=== PATIENT | male | born 1965 | race Two or more races ===

== ENCOUNTER 2020-09-13 10:16 | Outpatient (REF) | payer MEDICAID, SELFPAY | END 2020-09-13 10:17 | disposition home or self-care (01) | LOC: HO.HAP 10:16 | PROVIDERS: Visit Provider Internal Medicine Geriatric Medicine | DX: Z13.89 Encounter for screening for other disorder (principal) ==

== ENCOUNTER 2021-02-03 15:16 | Inpatient (IN) | payer MEDICAID, SELFPAY ==
--- NOTE | ~2021-02-03 | CT_ITS ---
EXAMINATION: CT ABDOMEN AND PELVIS WITHOUT CONTRAST CLINICAL INFORMATION: Bilateral flank pain. Lower abdominal pain. COMPARISON: No priors. TECHNIQUE: Multidetector volumetric imaging was performed from the superior aspect of the liver through the pubic symphysis. Sagittal and coronal reformatted images were obtained on the technologist's workstation. This CT examination was performed using dose optimization techniques as appropriate, variously including the following: *Automated exposure control *Adjustment of mA and/or kV according to patient size (this includes techniques or standardized protocols for targeted exams where dose is matched to indication/reason for exam; i.e. extremities or head) *Use of iterative reconstruction technique DLP: 673 mGy-cm FINDINGS: LINES AND TUBES: None. LOWER THORAX: Normal HEPATOBILIARY: Tiny segment 5 calcification (3:31). No focal hepatic lesions. The gallbladder is present and otherwise unremarkable. No biliary dilatation. SPLEEN: Normal. PANCREAS: Normal. ADRENALS: Normal. KIDNEYS/URETERS: Approximately 3 cm distal to the UPJ, there is a 7 mm calculus in the left proximal ureter (5:62). Additionally, a calculus measuring up to 5 mm is noted at the left UVJ (3:75). There is associated mild hydronephrosis and perinephric inflammatory changes. BLADDER: Normal. PELVIC ORGANS: Prostate seminal vesicles are normal in caliber. GI TRACT: No dilated or thick walled loops of bowel. The appendix is normal (3:63). PERITONEUM/RETROPERITONEUM AND MESENTERY: No intraperitoneal free air or fluid. LYMPH NODES: No pathologically enlarged lymph nodes. VESSELS: Normal in caliber. BONES AND SOFT TISSUES: No aggressive osseous lesions. 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 Intact hardware components. CT/CT abdomen pelvis wo con IMPRESSION: Obstructing left ureteral calculi positioned in the proximal left ureter measuring up to 7 mm as well as at the left UVJ measuring up to 5 mm. Associated mild left renal hydronephrosis and left perinephric inflammatory changes.
[2021-02-03 15:25] VITALS: BP 154/89; PULSE 62; RESP 16; TEMP 36.5; O2SAT 100; BMI 28.0
[2021-02-03 16:57] VITALS: BP 153/95; PULSE 60; RESP 18; TEMP 36.8; O2SAT 99
--- NOTE | 2021-02-03 17:20 | ED_ITS ---
HPI - General Adult General Chief complaint: General Medical Stated complaint: Flank pain Time Seen by Provider: 02/03/21 17:12 Source: patient Mode of arrival: ambulatory History of Present Illness HPI narrative: 55-year-old male a past medical history hypertension, renal stones, presenting to the ED complaining of bilateral flank pain radiating to lower abdomen/testicles x2 days. Admits pain is constant. Denies associated nausea/vomiting, dysuria/hematuria, constipation, penile discharge, fever, chills, hesitancy. Admits pain feels similar to prior renal stones Onset (ago): day(s) Related Data Allergies Allergy/AdvReac Type Severity Reaction Status Date / Time No Known Allergies Allergy Unverified 06/15/20 16:41 Review of Systems Review of Systems: Constitutional: No Fever, No Chills Cardiovascular: No Chest Pain, No SOB Respiratory: No Cough, No Dyspnea Gastrointestinal: No Nausea, No Vomiting, No Diarrhea, No Constipation, + Abdominal pain Genitourinary: No Dysuria, No Urinary Frequency, No Hematuria, No Urgency,+Flank Pain, No Urinary Flow Changes, No Hesitancy Musculoskeletal: No joint pain, No Myalgias, No Joint Swelling Skin: No Skin Lesions, No rash Neuro: No Weakness, No Numbness, No Paresthesias Yes all other systems are reviewed and are negative [facility] Past Medical History Attestation statement: The following information was validated with the patient. Medical History (Updated 02/03/21 @ 19:49 by TITO Dutta) HTN (hypertension) Social History Social History Smoking Status: Current every day smoker Smoked in Last 30 Days: Yes Use of substances other than those prescribed or required for medical reasons: No Advance Directives: No Advance Directives Information Provided: Yes Physical Exam Vital Signs: Vital Signs: Last Vital Signs Temp 98.2 F 02/03/21 16:57 Pulse 60 02/03/21 16:57 Resp 18 02/03/21 16:57 BP 153/95 H 02/03/21 16:57 Pulse Ox 99 02/03/21 16:57 Body Mass Index 28.0 Const: Other: in pain General: cooperative and healthy appearing Orientation/consciousness: patient oriented x3 Limitations: no limitations HENMT: Head: Yes normal to inspection Ears: hearing grossly normal bilaterally General nose exam: Normal external nose present Face and sinus: Yes normal facial exam Eyes: General: appearance normal, both eyes and all related structures EOM: EOMs intact bilaterally Neck: Neck: Yes normal visual inspection and Yes no meningeal signs Resp: Effort & Inspection: normal respiratory effort Cardio: Rate: regular rate GI: Inspection: Yes normal to inspection Palpation (GI): Soft to palpation, nontender, no guarding and not rigid : General: Yes no CVA tenderness Scrotum: scrotum normal Testes: Testes normal, testicular lie normal, no testicular mass and no testicular swelling Back/Spine/Pelvis: Back: no CVA tenderness Skin: Rashes: no rashes Wounds: no wounds Neuro: General: patient oriented x3 and no meningeal signs Extrem: General: Yes normal to inspection Course Course Course Narrative: -TOREY with creatinine 1.5, lipase mildly elevated at 83 CT abdomen pelvis wo con IMPRESSION: Obstructing left ureteral calculi positioned in the proximal left ureter measuring up to 7 mm as well as at the left UVJ measuring up to 5 mm. Associated mild left renal hydronephrosis and left perinephric inflammatory changes. >> discussed with Urology, Dr. Broderick, patient NPO, will admit to hospitalist -1930-patient admitted to hospitalist Medical Decision Making [facility] Narrative Medical decision making narrative: 55-year-old male a past medical history hypertension, renal stones, presenting to the ED complaining of bilateral flank pain radiating to lower abdomen/testicles x2 days. On exam VSS, NAD however appears in pain, abdomen is soft/nontender, no CVAT or testicular tenderness elicited. Concern for renal stone/pyelo/UTI. Lower concern for testicular torsion/epididymitis/orchitis. Lower concern for diverticulitis/appendicitis without tenderness on exam Plan: Labs, UA, CTAP, symptomatic treatment, reassess Lab Data Result diagrams: 02/03/21 17:42 02/03/21 17:42 Labs: Lab Results 02/03/21 02/03/21 02/03/21 Range/Units 17:42 17:42 17:42 WBC 8.9 (4.8-10.8) X10*3/uL RBC 5.03 (4.60-5.80) X10*6/uL Hgb 14.8 (14.0-18.0) g/dl Hct 44.0 (42-52) % MCV 87.5 (80-98) fL MCH 29.4 (27.0-33.0) pg MCHC 33.6 (31.0-36.0) g/dl RDW 14.8 (11.0-16.0) % Plt Count 198 (160-400) X10*3/uL MPV 10.6 (9.4-12.4) fL Immature Gran % (Auto) 0.3 (0.0-0.4) % Neut % (Auto) 64.6 (45-73) % Lymph % (Auto) 22.0 (20-40) % [place] % (Auto) 10.7 (2-11) % Eos % (Auto) 1.9 (0-4) % Baso % (Auto) 0.5 (0-2) % Lymph # (Auto) 2.0 (1.2-4.9) X10*3/uL [place] # (Auto) 1.0 (0.1-1.2) X10*3/uL Eos # (Auto) 0.2 (0.0-0.4) X10*3/uL Baso # (Auto) 0.0 (0.0-0.2) X10*3/uL Abs Immat Gran (auto) 0.03 (0.00-0.03) X10*3/uL Absolute Neuts (auto) 5.7 (2.0-8.3) X10*3/uL Absolute Nucleated RBC 0.000 (0.0-0.012) X10*3/uL Nucleated RBC % (auto) 0.0 (0.0-0.2) /100WBC PT 12.8 (10.8-13.0) SEC INR 1.1 (0.9-1.1) APTT 31.5 (24.1-38.0) SEC Sodium 142 (135-145) mmol/L Potassium 4.0 (3.3-5.1) mmol/L Chloride 106 (96-108) mmol/L Carbon Dioxide 27 (22-29) mmol/L Anion Gap 13 (12-20) BUN 19 H (9-16) mg/dL Creatinine 1.50 H (0.5-1.4) mg/dL Estim Creat Clear Calc 61.2 Estimated GFR 49 Random Glucose 84 (60-115) mg/dL Calcium 9.2 (8.4-10.2) mg/dL Magnesium 2.2 (1.6-2.6) mg/dL Total Bilirubin 0.5 (0.0-1.0) mg/dL Direct Bilirubin < 0.2 (0.0-0.5) mg/dL AST 15 (5-37) U/L ALT 13 (0-40) U/L Alkaline Phosphatase 67 (39-117) U/L Total Protein 7.0 (6.5-8.0) g/dL Albumin 3.9 (3.5-5.0) g/dL Lipase 83 H (8-78) U/L Discharge Plan Discharge Clinical Impression: Left ureteral calculus Patient Disposition: Admitted As Inpatient
[2021-02-03 17:54] LABS: MANUAL DIFF FLAG NO
[2021-02-03 17:55] LABS: Basophils Percent Auto 0.5 % (0-2); Eosinophils Absolute Auto 0.2 X10*3/uL (0.0-0.4); Eosinophils Percent Auto 1.9 % (0-4); Hemoglobin 14.8 g/dl (14.0-18.0); Imm Gran Abs Auto 0.03 X10*3/uL (0.00-0.03); Imm Gran Pct Auto 0.3 % (0.0-0.4); Mean Corpuscular HGB Conc 33.6 g/dl (31.0-36.0); Mean Corpuscular Hemoglobin 29.4 pg (27.0-33.0); Mean Corpuscular Volume 87.5 fL (80-98); Mean Platelet Volume 10.6 fL (9.4-12.4); Monocytes Percent Auto 10.7 % (2-11); Neutrophils Absolute Auto 5.7 X10*3/uL (2.0-8.3); Neutrophils Percent Auto 64.6 % (45-73); Platelet Count 198 X10*3/uL (160-400); Red Blood Count 5.03 X10*6/uL (4.60-5.80); Red Cell Distribution Width 14.8 % (11.0-16.0); White Blood Count 8.9 X10*3/uL (4.8-10.8)
[2021-02-03] MEDS: 0.9 % Sodium Chloride 1,000 ML 999 ML IVCONT ×2 (18:00→19:36)
[2021-02-03] MEDS: Ketorolac Tromethamine 15 MG/ML VIAL IVPUSH ×2 (18:00→20:44)
[2021-02-03] MEDS: Tamsulosin HCL 0.4 MG CAPSULE PO (18:00)
[2021-02-03] MEDS: ondansetron HCL 4 MG/2 ML VIAL IVPUSH (18:01)
[2021-02-03 18:03] LABS: INTERNATIONAL NORM RATIO 1.1 (0.9-1.1); Prothrombin Time 12.8 SEC (10.8-13.0)
[2021-02-03 18:05] LABS: Partial Thromboplastin Time 31.5 SEC (24.1-38.0)
[2021-02-03 18:31] LABS: Alanine Aminotransferase 13 U/L (0-40); Albumin Level 3.9 g/dL (3.5-5.0); Alkaline Phosphatase 67 U/L (39-117); Anion Gap 13 (12-20); Aspartate Amino Transferase 15 U/L (5-37); Bilirubin Direct < 0.2 mg/dL (0.0-0.5); Bilirubin Total 0.5 mg/dL (0.0-1.0); Blood Urea Nitrogen 19 mg/dL (9-16); Calcium 9.2 mg/dL (8.4-10.2); Carbon Dioxide 27 mmol/L (22-29); Chloride 106 mmol/L (96-108); Creatinine Clr Calc Pharmacy 61.2; Estimated Glomerular Filt Rate 49; Glucose Random 84 mg/dL (60-115); Lipase 83 U/L (8-78); Magnesium 2.2 mg/dL (1.6-2.6); Sodium 142 mmol/L (135-145)
[2021-02-03 19:45] VITALS: BP 152/96; PULSE 64; RESP 16; O2SAT 98
[2021-02-03 20:06] LABS: Glucose Urine UA NEG (NEG); Leukocyte Esterase Urine NEG (NEG); Nitrite Urine NEG (NEG); PH 6.5 (5.0-8.0); Urine Blood 2+ (NEG); Urine Ketones NEG (NEG); Urine Protein NEG (NEG-TRACE)
[2021-02-03 20:08] LABS: Appearance Urine HAZY; Color Urine STRAW
[2021-02-03 20:18] LABS: Amorphous Sediment Urine 2+ /LPF; COVID-19 Test Negative (Negative); Calcium Oxalate Crystals Urine TRACE /LPF; Squamous Epithelial Cell Urine TRACE /LPF; WBC Urine 0 /HPF (0-4)
--- NOTE | 2021-02-03 21:05 | PM.IMHP ---
History of Present Illness Date of Service: 02/03/21 Chief Complaint: flank pain 55-year-old male with past medical history of hypertension, kidney stones, depression and anxiety presents the hospital with complaints of ? kidney pain . Patient reports that he started having flank pain about 1 day ago mostly bilateral. Associated with some nausea no vomiting, pain is 10/10, radiating to the suprapubic region, also having testicular pain as a result, no fever or chills, denies any urinary symptoms including no urgency frequency or dysuria. Denies any chest pain abdominal pain, no diarrhea or constipation, no weakness numbness or tingling, no headache change in vision. No leg swelling. On arrival hemodynamically stable with no significant abnormal vitals except for blood pressure 154/89, Labs on arrival significant for BUN of 19, creatinine of 1.5 with a baseline of 0.9, UA negative, COVID-19 negative, Abdominal CT shows left ureteral calculi positioned in the proximal left ureter measuring up to 7 mm as well as at the left UVJ measuring up to 5 mm. Associated mild left renal hydronephrosis and left perinephric inflammatory changes. Past medical history as below lung confirmed with patient Review of Systems Review of Systems: Yes all other systems are reviewed and are negative [facility] Medical History (Updated 02/04/21 @ 05:50 by Matilde Rodríguez MD) Depression with anxiety History of kidney stones HTN (hypertension) Social History Household Members: Children Household Members Other:: 6 Housing: Apartment Do you presently have visiting nurse or other home services: No Smoking Status: Current every day smoker Tobacco Type: Cigarette Cigarettes Per Day: 5 Smoked in Last 30 Days: Yes Patient Interested in Nicotine Replacement: Yes Patient Given Instructions on How to Stop Smoking: Yes Date Education Initiated: 02/03/21 Second Hand Smoke Exposure: No Use of substances other than those prescribed or required for medical reasons: No Currently Displaying Signs/Symptoms of Drug Intoxication Withdrawal: No Have you been hit, kicked, punched, or otherwise hurt by someone within the past year? If so, by whom?: No Do you feel safe in your current relationship?: Yes Is there a partner from a previous relationship who is making you feel unsafe now?: No Are you made to feel afraid or neglected: No Advance Directives: No Advance Directives Information Provided: Yes Do you have thoughts of harming others: None Do you have a plan to hurt others: No Plan Recently lost weight without trying: No Nutrition Risks: No Nutritional Risk Poor oral hygiene: No Meds Allergies Allergy/AdvReac Type Severity Reaction Status Date / Time No Known Allergies Allergy Unverified 06/15/20 16:41 Active Medications: Current Medications Generic Name Dose Route Start Last Admin Trade Name Freq PRN Reason Stop Dose Admin Pharmacy Consult 1 each 02/03/21 19:38 Consult Rx Perform Med Rec MISCELLANE ONCE PRN Consult order Home Medications Medication Instructions Recorded Confirmed Last Taken Type amlodipine 1 tab PO DAILY 02/03/21 02/03/21 1 Day Ago History ~02/02/21 Physical Exam Vital Signs and Narrative: Vital Signs: Last Vital Signs Temp 98.2 F 02/03/21 16:57 Pulse 64 02/03/21 19:45 Resp 16 02/03/21 19:45 BP 152/96 H 02/03/21 19:45 Pulse Ox 98 02/03/21 19:45 Body Mass Index 28.0 Const: General: cooperative and no acute distress Orientation/consciousness: patient oriented x3 Eyes: General: appearance normal, both eyes and all related structures Resp: Effort & Inspection: normal respiratory effort and able to speak in complete sentences Cardio: Rate: regular rate Rhythm: regular rhythm GI: Palpation (GI): Soft to palpation Auscultation: normal bowel sounds : Other: No CVA tenderness Skin: General skin exam: no rashes or lesions noted Neuro: General: patient oriented x3 Cognition (Neuro): normal cognition Extrem: General: Yes normal to inspection and Yes no pedal edema Results Labs CBC and Chem 7: 02/03/21 17:42 02/03/21 17:42 Labs: Laboratory Results - last 24 hr 02/03/21 02/03/21 02/03/21 17:42 17:42 17:42 MCV 87.5 MCH 29.4 MCHC 33.6 RDW 14.8 Plt Count 198 MPV 10.6 Immature Gran % (Auto) 0.3 Neut % (Auto) 64.6 Lymph % (Auto) 22.0 [place] % (Auto) 10.7 Eos % (Auto) 1.9 Baso % (Auto) 0.5 Lymph # (Auto) 2.0 [place] # (Auto) 1.0 Eos # (Auto) 0.2 Baso # (Auto) 0.0 Abs Immat Gran (auto) 0.03 Absolute Neuts (auto) 5.7 Absolute Nucleated RBC 0.000 Nucleated RBC % (auto) 0.0 PT 12.8 INR 1.1 APTT 31.5 Anion Gap 13 Estim Creat Clear Calc 61.2 Estimated GFR 49 Random Glucose 84 Calcium 9.2 Magnesium 2.2 Total Bilirubin 0.5 Direct Bilirubin < 0.2 AST 15 ALT 13 Alkaline Phosphatase 67 Total Protein 7.0 Albumin 3.9 Lipase 83 H Urine Color Urine Appearance Urine pH Ur Specific [place] Urine Protein Urine Glucose (UA) Urine Ketones Urine Blood Urine Nitrite Ur Leukocyte Esterase Urine RBC Urine WBC Ur Squamous Epith Cells Calcium Oxalate Crystal Amorphous Sediment Urine Bacteria COVID-19 (MARY) COVID-19 [employer] Element Com 02/03/21 02/03/21 19:57 19:57 MCV MCH MCHC RDW Plt Count MPV Immature Gran % (Auto) Neut % (Auto) Lymph % (Auto) [place] % (Auto) Eos % (Auto) Baso % (Auto) Lymph # (Auto) [place] # (Auto) Eos # (Auto) Baso # (Auto) Abs Immat Gran (auto) Absolute Neuts (auto) Absolute Nucleated RBC Nucleated RBC % (auto) PT INR APTT Anion Gap Estim Creat Clear Calc Estimated GFR Random Glucose Calcium Magnesium Total Bilirubin Direct Bilirubin AST ALT Alkaline Phosphatase Total Protein Albumin Lipase Urine Color STRAW Urine Appearance HAZY Urine pH 6.5 Ur Specific [place] 1.020 Urine Protein NEG Urine Glucose (UA) NEG Urine Ketones NEG Urine Blood 2+ H Urine Nitrite NEG Ur Leukocyte Esterase NEG Urine RBC 1-4 Urine WBC 0 Ur Squamous Epith Cells TRACE Calcium Oxalate Crystal TRACE Amorphous Sediment 2+ Urine Bacteria NONE COVID-19 (MARY) Negative COVID-19 Clin Com See Note Imaging Radiologist's Impressions: Impressions Abdomen/Pelvis CT 02/03/21 17:45 IMPRESSION: Obstructing left ureteral calculi positioned in the proximal left ureter measuring up to 7 mm as well as at the left UVJ measuring up to 5 mm. Associated mild left renal hydronephrosis and left perinephric inflammatory changes. Assessment and Plan (1) Left ureteral calculus: Status: Acute (2) TOREY (acute kidney injury): Status: Acute This is a 55-year-old male with past medical history of hypertension who presents to the hospital with complaints of flank pain found to have obstructing stone # left ureteral calculus with obstruction - UA negative for infection, although CT scan does show some changes of perinephric inflammatory changes - will start him on IV antibiotics - urology consult as, plans for surgery in a.m. - pain control # TOREY - most likely secondary to urinary obstruction - UA shows no evidence of infection - start him on IV fluids - follow BMP # hypertension - continue amlodipine DVT prophylaxis: SCDs in anticipation of surgical intervention
[2021-02-03 21:35] VITALS: BP 102/61; PULSE 63; RESP 16; O2SAT 97
[2021-02-03 22:03] VITALS: BP 170/96; PULSE 56; RESP 18; TEMP 36.1; O2SAT 99
[2021-02-04] VITALS (12 sets, daily range): BP systolic 131–159; BP diastolic 76–90; PULSE 53–78; RESP 15–19; TEMP 36.1–36.4; O2SAT 96–99
[2021-02-04] MEDS: 0.9 % Sodium Chloride Flush 3 ML SYRINGE IVFLUSH ×2 (04:43→23:32)
[2021-02-04] MEDS: cefTRIAXone sodium 1 GM in 0.9 % Sodium Chloride 50 ML IV (06:06)
[2021-02-04] MEDS: Lactated Ringers 1,000 ML 100 ML IVCONT ×3 (06:45→23:34)
[2021-02-04 07:14] LABS: MANUAL DIFF FLAG NO
[2021-02-04 07:18] LABS: Basophils Percent Auto 0.6 % (0-2); Eosinophils Absolute Auto 0.2 X10*3/uL (0.0-0.4); Eosinophils Percent Auto 2.4 % (0-4); Hematocrit 40.6 % (42-52); Hemoglobin 13.5 g/dl (14.0-18.0); Imm Gran Abs Auto 0.03 X10*3/uL (0.00-0.03); Imm Gran Pct Auto 0.4 % (0.0-0.4); Lymphocytes Absolute Auto 1.6 X10*3/uL (1.2-4.9); Lymphocytes Percent Auto 23.1 % (20-40); Mean Corpuscular HGB Conc 33.3 g/dl (31.0-36.0); Mean Corpuscular Hemoglobin 28.7 pg (27.0-33.0); Mean Corpuscular Volume 86.4 fL (80-98); Mean Platelet Volume 10.8 fL (9.4-12.4); Monocytes Absolute Auto 0.6 X10*3/uL (0.1-1.2); Monocytes Percent Auto 9.2 % (2-11); Neutrophils Absolute Auto 4.4 X10*3/uL (2.0-8.3); Neutrophils Percent Auto 64.3 % (45-73); Platelet Count 184 X10*3/uL (160-400); Red Cell Distribution Width 14.6 % (11.0-16.0); White Blood Count 6.8 X10*3/uL (4.8-10.8)
--- NOTE | 2021-02-04 07:51 | HO.PM.IMPN ---
Subjective Subjective Date of Service: 02/04/21 Interval History: Seen in f/u for obstructive uropathy kidney stone, and torey--flank pain is better following cystoscopy Review of Systems Gen: no fever Resp: no sob, no cough CV: no chest, no ROSA, no leg edema GI: No n/v, no abd pain : flank pain Neuro: No confusion Physical Exam Vital Signs: Vital Signs: Last Vital Signs Temp 96.6 F L 02/05/21 03:36 Pulse 59 02/05/21 03:36 Resp 16 02/05/21 04:00 BP 151/95 H 02/05/21 03:36 Pulse Ox 99 02/05/21 03:36 Body Mass Index 28.0 General: AO X 3, no acute distress Resp: CTA bilateral CVS: S1,S2,RRR GI: +BS, NT, no distention : he has nascimento with punch color urine Skin: No rash Neuro: motor grossly intact Psych: appropriate affect Objective Data Current Medications Generic Name Dose Route Start Last Admin Trade Name Jakobq PRN Reason Stop Dose Admin Acetaminophen 650 mg 02/03/21 21:41 02/04/21 19:42 Acetaminophen 325 Mg Tablet PO 650 mg Q6H PRN Administration Pain, Mild (Pain Scale 1-3) Amlodipine Besylate 5 mg 02/04/21 09:00 02/04/21 08:11 Amlodipine Besylate 5 Mg Tablet PO 5 mg DAILY JEFFERY Administration Protocol Docusate Sodium 100 mg 02/03/21 21:41 Docusate Sodium 100 Mg Capsule PO DAILY PRN Constipation Lactated Ringer's 1,000 mls @ 100 mls/hr 02/04/21 06:00 02/04/21 23:34 Lr IVCONT 100 mls/hr .Q10H JEFFERY Administration Ceftriaxone Sodium 1 gm/ 50 mls @ 100 mls/hr 02/04/21 06:00 02/05/21 06:59 Sodium Chloride IV Infused Q24H JEFFERY Infusion Ondansetron HCl 4 mg 02/03/21 21:41 Ondansetron Hcl 4 Mg/2 Ml Vial IVPUSH Q8H PRN Nausea and Vomiting Pharmacy Consult 1 each 02/03/21 19:38 Consult Rx Perform Med Rec MISCELLANE ONCE PRN Consult order Sodium Chloride 3 ml 02/04/21 00:00 05/09/21 23:32 0.9 % Sodium Chloride Flush 3 Ml Syringe IVFLUSH 3 ml QSHIFT JEFFERY Administration Labs CBC & Chem 7: 02/04/21 06:31 02/04/21 06:31 Assessment and Plan (1) Left ureteral calculus: Status: Acute (2) TOREY (acute kidney injury): Status: Acute Assessment and Plan: 55-year-old male with past medical history of hypertension who presents to the hospital with complaints of flank pain found to have obstructing stone # left ureteral calculus with obstruction - UA negative for infection, although CT scan does show some changes of perinephric inflammatory changes - empiric Ceftriaxone -He went for Cystoscopy with stent placement - # TOREY - most likely secondary to urinary obstruction -continue IV fluid -expect that it will get beter # hypertension - continue amlodipine late entry note from 02/04 DVT prophylaxis: SCDs in anticipation of surgical intervention
[2021-02-04 07:55] LABS: Anion Gap 10 (12-20); Blood Urea Nitrogen 17 mg/dL (9-16); Carbon Dioxide 24 mmol/L (22-29); Chloride 110 mmol/L (96-108); Creatinine Clr Calc Pharmacy 59.2; Estimated Glomerular Filt Rate 47; Glucose Random 94 mg/dL (60-115); Sodium 140 mmol/L (135-145)
[2021-02-04 08:04] LABS: Calcium 8.3 mg/dL (8.4-10.2)
--- NOTE | 2021-02-04 08:05 | HO.ANESPROP2 ---
[facility] Active Problems Active Problems: All Active Problems (Updated 02/04/21 @ 05:50 by Matilde Rodríguez MD) TOREY (acute kidney injury) (Acute) Left ureteral calculus (Acute) Past Medical History Medical History (Updated 02/04/21 @ 05:50 by Matilde Rodríguez MD) Depression with anxiety History of kidney stones HTN (hypertension) Social History Social History Household Members: Children Household Members Other:: 6 Housing: Apartment Do you presently have visiting nurse or other home services: No Smoking Status: Current every day smoker Tobacco Type: Cigarette Cigarettes Per Day: 5 Smoked in Last 30 Days: Yes Patient Interested in Nicotine Replacement: Yes Patient Given Instructions on How to Stop Smoking: Yes Date Education Initiated: 02/03/21 Second Hand Smoke Exposure: No Use of substances other than those prescribed or required for medical reasons: No Currently Displaying Signs/Symptoms of Drug Intoxication Withdrawal: No Have you been hit, kicked, punched, or otherwise hurt by someone within the past year? If so, by whom?: No Do you feel safe in your current relationship?: Yes Is there a partner from a previous relationship who is making you feel unsafe now?: No Are you made to feel afraid or neglected: No Advance Directives: No Advance Directives Information Provided: Yes Do you have thoughts of harming others: None Do you have a plan to hurt others: No Plan Recently lost weight without trying: No Nutrition Risks: No Nutritional Risk Poor oral hygiene: No Meds Allergies Allergy/AdvReac Type Severity Reaction Status Date / Time No Known Allergies Allergy Unverified 06/15/20 16:41 Active Medications: Current Medications Generic Name Dose Route Start Last Admin Trade Name Freq PRN Reason Stop Dose Admin Acetaminophen 650 mg 02/03/21 21:41 Acetaminophen 325 Mg Tablet PO Q6H PRN Pain, Mild (Pain Scale 1-3) Amlodipine Besylate 5 mg 02/04/21 09:00 Amlodipine Besylate 5 Mg Tablet PO DAILY JEFFERY Protocol Docusate Sodium 100 mg 02/03/21 21:41 Docusate Sodium 100 Mg Capsule PO DAILY PRN Constipation Lactated Ringer's 1,000 mls @ 100 mls/hr 02/04/21 06:00 02/04/21 06:45 Lr IVCONT 100 mls/hr .Q10H JEFFERY Administration Ceftriaxone Sodium 1 gm/ 50 mls @ 100 mls/hr 02/04/21 06:00 02/04/21 06:47 Sodium Chloride IV Infused Q24H JEFFERY Infusion Ondansetron HCl 4 mg 02/03/21 21:41 Ondansetron Hcl 4 Mg/2 Ml Vial IVPUSH Q8H PRN Nausea and Vomiting Pharmacy Consult 1 each 02/03/21 19:38 Consult Rx Perform Med Rec MISCELLANE ONCE PRN Consult order Sodium Chloride 3 ml 02/04/21 00:00 02/04/21 07:08 0.9 % Sodium Chloride Flush 3 Ml Syringe IVFLUSH Not Given QSHIFT [facility] Home Medications Medication Instructions Recorded Confirmed Last Taken Type amlodipine 1 tab PO DAILY 02/03/21 02/03/21 1 Day Ago History ~02/02/21 Exam Exam Date and Time: February 04, 2021 0805 Height,Weight and Vital Signs: Height 5 ft 9 in Weight 86.183 kg Last Vital Signs Temp 96.9 F 02/04/21 04:00 Pulse 58 02/04/21 04:00 Resp 17 02/04/21 04:00 BP 136/85 02/04/21 04:00 Pulse Ox 98 02/04/21 04:00 Pertinent Lab Results Pertinent Lab Results: Laboratory Tests 02/03/21 02/03/21 02/03/21 17:42 17:42 17:42 WBC 8.9 RBC 5.03 Hgb 14.8 Hct 44.0 MCV 87.5 MCH 29.4 MCHC 33.6 RDW 14.8 Plt Count 198 MPV 10.6 Immature Gran % (Auto) 0.3 Neut % (Auto) 64.6 Lymph % (Auto) 22.0 [place] % (Auto) 10.7 Eos % (Auto) 1.9 Baso % (Auto) 0.5 Lymph # (Auto) 2.0 [place] # (Auto) 1.0 Eos # (Auto) 0.2 Baso # (Auto) 0.0 Abs Immat Gran (auto) 0.03 Absolute Neuts (auto) 5.7 Absolute Nucleated RBC 0.000 Nucleated RBC % (auto) 0.0 PT 12.8 INR 1.1 APTT 31.5 Sodium 142 Potassium 4.0 Chloride 106 Carbon Dioxide 27 Anion Gap 13 BUN 19 H Creatinine 1.50 H Estim Creat Clear Calc 61.2 Estimated GFR 49 Random Glucose 84 Calcium 9.2 Magnesium 2.2 Total Bilirubin 0.5 Direct Bilirubin < 0.2 AST 15 ALT 13 Alkaline Phosphatase 67 Total Protein 7.0 Albumin 3.9 Lipase 83 H Urine Color Urine Appearance Urine pH Ur Specific [place] Urine Protein Urine Glucose (UA) Urine Ketones Urine Blood Urine Nitrite Ur Leukocyte Esterase Urine RBC Urine WBC Ur Squamous Epith Cells Calcium Oxalate Crystal Amorphous Sediment Urine Bacteria COVID-19 (MARY) COVID-19 Clin Com 02/03/21 02/03/21 02/04/21 19:57 19:57 06:31 WBC 6.8 RBC 4.70 Hgb 13.5 L Hct 40.6 L MCV 86.4 MCH 28.7 MCHC 33.3 RDW 14.6 Plt Count 184 MPV 10.8 Immature Gran % (Auto) 0.4 Neut % (Auto) 64.3 Lymph % (Auto) 23.1 [place] % (Auto) 9.2 Eos % (Auto) 2.4 Baso % (Auto) 0.6 Lymph # (Auto) 1.6 [place] # (Auto) 0.6 Eos # (Auto) 0.2 Baso # (Auto) 0.0 Abs Immat Gran (auto) 0.03 Absolute Neuts (auto) 4.4 Absolute Nucleated RBC 0.000 Nucleated RBC % (auto) 0.0 PT INR APTT Sodium Potassium Chloride Carbon Dioxide Anion Gap BUN Creatinine Estim Creat Clear Calc Estimated GFR Random Glucose Calcium Magnesium Total Bilirubin Direct Bilirubin AST ALT Alkaline Phosphatase Total Protein Albumin Lipase Urine Color STRAW Urine Appearance HAZY Urine pH 6.5 Ur Specific [place] 1.020 Urine Protein NEG Urine Glucose (UA) NEG Urine Ketones NEG Urine Blood 2+ H Urine Nitrite NEG Ur Leukocyte Esterase NEG Urine RBC 1-4 Urine WBC 0 Ur Squamous Epith Cells TRACE Calcium Oxalate Crystal TRACE Amorphous Sediment 2+ Urine Bacteria NONE COVID-19 (MARY) Negative COVID-19 Clin Com See Note 02/04/21 06:31 WBC RBC Hgb Hct MCV MCH MCHC RDW Plt Count MPV Immature Gran % (Auto) Neut % (Auto) Lymph % (Auto) [place] % (Auto) Eos % (Auto) Baso % (Auto) Lymph # (Auto) [place] # (Auto) Eos # (Auto) Baso # (Auto) Abs Immat Gran (auto) Absolute Neuts (auto) Absolute Nucleated RBC Nucleated RBC % (auto) PT INR APTT Sodium 140 Potassium 4.0 Chloride 110 H Carbon Dioxide 24 Anion Gap 10 L BUN 17 H Creatinine 1.55 H Estim Creat Clear Calc 59.2 Estimated GFR 47 Random Glucose 94 Calcium Magnesium Total Bilirubin Direct Bilirubin AST ALT Alkaline Phosphatase Total Protein Albumin Lipase Urine Color Urine Appearance Urine pH Ur Specific [place] Urine Protein Urine Glucose (UA) Urine Ketones Urine Blood Urine Nitrite Ur Leukocyte Esterase Urine RBC Urine WBC Ur Squamous Epith Cells Calcium Oxalate Crystal Amorphous Sediment Urine Bacteria COVID-19 (MARY) COVID-19 Clin Com Airway Mallampati Class: II TM Dist: >3cm Neck ROM: Full Loose/Missing/Broken Teeth: No Heart: RRR Lungs: CTA Assessment and Plan Assessment Anesthesia Assessment: Anesthesia Plan Discussed Final Anesthetic Review NPO: Yes ASA Class: II Final Preanesthetic Review: No Changes in Pt Med Stat, Meds/Allgs Chart Reviewed, Consent Obtained/Reviewed and Anes Risks/Benef Reviewed Patient Risk: Low Procedure Risk: Low Anesthetic Plan Anesthetic Plan: GA Disposition: Standard PACU
[2021-02-04] MEDS: amLODIPine Besylate 5 MG TABLET PO (08:11)
--- NOTE | 2021-02-04 08:59 | P.BOP_ITS ---
Brief Operative Note Date of Service: 02/04/21 Surgeon: Tino Garcia III, MD Date 5 06/18/2021 Surgeon Jose Preoperative diagnosis left ureteral stone with hydronephrosis Postoperative diagnosis same procedure cystoscopy left retrograde left stent placement complications none estimated blood loss none drains 6 Iraqi by 26 cm double-J stent procedure as follows patient taken the operating after adequate anesthesia was obtained had a time-out done demonstrating correct patient correct procedure and correct site following this patient underwent cystoscopy and left retrograde was done demonstrated hydroureter and a filling defect the distal ureter. A the patient had a guidewire placed with significant cloudy urine with debris coming down the ureter. Based on these findings and fact patient's elevated white count decided the best just to stent the patient put him on antibiotics in after he finishes his course of antibiotics have definitive treatment for stones. Therefore 6 x 26 cm double-J stent was placed in good position by both fluoroscopy and cystoscopy. During cystoscopy patient has a false passage in his urethra that was pre- existing. Therefore the end the procedure a 18 Iraqi coude-tip catheter was placed since via difficult placement for the floor to do. Patient can have a trial to void tomorrow. The patient tolerated the procedure well complications. Was an Terminal Block Assembler used for this Procedure?: No Estimated blood loss (mL): 0
--- NOTE | 2021-02-04 09:03 | PM.UROPN ---
Subjective Subjective Date of Service: 02/17/21 Patient reports: other Physical Exam Vital Signs: Vital Signs: Last Vital Signs Temp 97.3 F 02/04/21 08:00 Pulse 60 02/04/21 08:00 Resp 16 02/04/21 08:00 BP 136/87 02/04/21 08:00 Pulse Ox 98 02/04/21 08:00 Body Mass Index 28.0 Urology Results Labs CBC & Chem 7: 02/04/21 06:31 02/05/21 08:10 Labs: Laboratory Results - last 24 hr 02/03/21 02/03/21 02/03/21 17:42 17:42 17:42 WBC 8.9 RBC 5.03 Hgb 14.8 Hct 44.0 MCV 87.5 MCH 29.4 MCHC 33.6 RDW 14.8 Plt Count 198 MPV 10.6 Immature Gran % (Auto) 0.3 Neut % (Auto) 64.6 Lymph % (Auto) 22.0 [place] % (Auto) 10.7 Eos % (Auto) 1.9 Baso % (Auto) 0.5 Lymph # (Auto) 2.0 [place] # (Auto) 1.0 Eos # (Auto) 0.2 Baso # (Auto) 0.0 Abs Immat Gran (auto) 0.03 Absolute Neuts (auto) 5.7 Absolute Nucleated RBC 0.000 Nucleated RBC % (auto) 0.0 PT 12.8 INR 1.1 APTT 31.5 Sodium 142 Potassium 4.0 Chloride 106 Carbon Dioxide 27 Anion Gap 13 BUN 19 H Creatinine 1.50 H Estim Creat Clear Calc 61.2 Estimated GFR 49 Random Glucose 84 Calcium 9.2 Magnesium 2.2 Total Bilirubin 0.5 Direct Bilirubin < 0.2 AST 15 ALT 13 Alkaline Phosphatase 67 Total Protein 7.0 Albumin 3.9 Lipase 83 H Urine Color Urine Appearance Urine pH Ur Specific [place] Urine Protein Urine Glucose (UA) Urine Ketones Urine Blood Urine Nitrite Ur Leukocyte Esterase Urine RBC Urine WBC Ur Squamous Epith Cells Calcium Oxalate Crystal Amorphous Sediment Urine Bacteria COVID-19 (MARY) COVID-19 Clin Com 02/03/21 02/03/21 02/04/21 19:57 19:57 06:31 WBC 6.8 RBC 4.70 Hgb 13.5 L Hct 40.6 L MCV 86.4 MCH 28.7 MCHC 33.3 RDW 14.6 Plt Count 184 MPV 10.8 Immature Gran % (Auto) 0.4 Neut % (Auto) 64.3 Lymph % (Auto) 23.1 [place] % (Auto) 9.2 Eos % (Auto) 2.4 Baso % (Auto) 0.6 Lymph # (Auto) 1.6 [place] # (Auto) 0.6 Eos # (Auto) 0.2 Baso # (Auto) 0.0 Abs Immat Gran (auto) 0.03 Absolute Neuts (auto) 4.4 Absolute Nucleated RBC 0.000 Nucleated RBC % (auto) 0.0 PT INR APTT Sodium Potassium Chloride Carbon Dioxide Anion Gap BUN Creatinine Estim Creat Clear Calc Estimated GFR Random Glucose Calcium Magnesium Total Bilirubin Direct Bilirubin AST ALT Alkaline Phosphatase Total Protein Albumin Lipase Urine Color STRAW Urine Appearance HAZY Urine pH 6.5 Ur Specific [place] 1.020 Urine Protein NEG Urine Glucose (UA) NEG Urine Ketones NEG Urine Blood 2+ H Urine Nitrite NEG Ur Leukocyte Esterase NEG Urine RBC 1-4 Urine WBC 0 Ur Squamous Epith Cells TRACE Calcium Oxalate Crystal TRACE Amorphous Sediment 2+ Urine Bacteria NONE COVID-19 (MARY) Negative COVID-19 Clin Com See Note 02/04/21 06:31 WBC RBC Hgb Hct MCV MCH MCHC RDW Plt Count MPV Immature Gran % (Auto) Neut % (Auto) Lymph % (Auto) [place] % (Auto) Eos % (Auto) Baso % (Auto) Lymph # (Auto) [place] # (Auto) Eos # (Auto) Baso # (Auto) Abs Immat Gran (auto) Absolute Neuts (auto) Absolute Nucleated RBC Nucleated RBC % (auto) PT INR APTT Sodium 140 Potassium 4.0 Chloride 110 H Carbon Dioxide 24 Anion Gap 10 L BUN 17 H Creatinine 1.55 H Estim Creat Clear Calc 59.2 Estimated GFR 47 Random Glucose 94 Calcium 8.3 L D Magnesium Total Bilirubin Direct Bilirubin AST ALT Alkaline Phosphatase Total Protein Albumin Lipase Urine Color Urine Appearance Urine pH Ur Specific [place] Urine Protein Urine Glucose (UA) Urine Ketones Urine Blood Urine Nitrite Ur Leukocyte Esterase Urine RBC Urine WBC Ur Squamous Epith Cells Calcium Oxalate Crystal Amorphous Sediment Urine Bacteria COVID-19 (MARY) COVID-19 Clin Com Progress Note: A&P Fall Risk Details Current Medications: Current Medications Generic Name Dose Route Start Last Admin Trade Name Freq PRN Reason Stop Dose Admin Acetaminophen 650 mg 02/03/21 21:41 Acetaminophen 325 Mg Tablet PO Q6H PRN Pain, Mild (Pain Scale 1-3) Amlodipine Besylate 5 mg 02/04/21 09:00 02/04/21 08:11 Amlodipine Besylate 5 Mg Tablet PO 5 mg DAILY JEFFERY Administration Protocol Docusate Sodium 100 mg 02/03/21 21:41 Docusate Sodium 100 Mg Capsule PO DAILY PRN Constipation Lactated Ringer's 1,000 mls @ 100 mls/hr 02/04/21 06:00 02/04/21 06:45 Lr IVCONT 100 mls/hr .Q10H JEFFERY Administration Ceftriaxone Sodium 1 gm/ 50 mls @ 100 mls/hr 02/04/21 06:00 02/04/21 06:47 Sodium Chloride IV Infused Q24H JEFFERY Infusion Ondansetron HCl 4 mg 02/03/21 21:41 Ondansetron Hcl 4 Mg/2 Ml Vial IVPUSH Q8H PRN Nausea and Vomiting Pharmacy Consult 1 each 02/03/21 19:38 Consult Rx Perform Med Rec MISCELLANE ONCE PRN Consult order Sodium Chloride 3 ml 02/04/21 00:00 02/04/21 07:08 0.9 % Sodium Chloride Flush 3 Ml Syringe IVFLUSH Not Given QSHIFT JEFFERY Time Spent With Patient Time: Total time spent is greater than 50% in coordination of care (as documented) at patient's floor/unit and/or counseling patient: Time with patient: less than 15 minutes
--- NOTE | 2021-02-04 10:07 | PC.NURSE ---
Pt returned fro PACU. Denies apin but feels need to void. Explained about nascimento catheter in place. Nascimento draining punch colored
--- NOTE | 2021-02-04 15:35 | MHC.CM.PN ---
MESSAGE LEFT FOR [employer] @ [phone] PER CONVERSATION WITH RN. CASE MANAGEMENT ATTEMPTING TO PERFORM ASSESSMENT AND SECURE HCP DOCUMENTATION.
--- NOTE | 2021-02-04 16:04 | MHC.CM.PN ---
PATIENT LIVES WITH HIS ADULT SON, TOPHER. HE IS INDEPENDENT WITH ALL ADLS. NO CANE OR WALKER. PATIENT DOES HAVE HIS HEARING AIDS HERE AND NEEDS HIS INDUSTRIAL PSYCHOLOGY TEACHER TO BE BROUGHT IN. MESSAGE LEFT FOR SON @ [phone] WITH A REQUEST TO DO SO. NEW HCP COMPLETED AND IN PAPER CHART. CASE MANAGEMENT FOLLOWING FOR DISCHARGE NEEDS.
[2021-02-04] MEDS: Acetaminophen 325 MG TABLET 650 MG PO (19:42)
[2021-02-05 03:36] VITALS: BP 151/95; PULSE 59; RESP 16; TEMP 35.9; O2SAT 99
[2021-02-05 04:00] VITALS: RESP 16
[2021-02-05] MEDS: cefTRIAXone sodium 1 GM in 0.9 % Sodium Chloride 50 ML IV (05:28)
[2021-02-05 07:51] VITALS: BP 164/90; PULSE 55; RESP 18; TEMP 36.8; O2SAT 99
[2021-02-05] MEDS: amLODIPine Besylate 5 MG TABLET PO (08:19)
[2021-02-05 09:11] LABS: Anion Gap 11 (12-20); Blood Urea Nitrogen 18 mg/dL (9-16); Calcium 8.9 mg/dL (8.4-10.2); Carbon Dioxide 30 mmol/L (22-29); Chloride 104 mmol/L (96-108); Creatinine Clr Calc Pharmacy 84.2; Estimated Glomerular Filt Rate > 60; Glucose Random 87 mg/dL (60-115); Sodium 141 mmol/L (135-145)
[2021-02-05] MEDS: Lactated Ringers 1,000 ML 100 ML IVCONT (09:37)
--- NOTE | 2021-02-05 10:20 | PC.NURSE ---
1015 Doan removed. DTV at 1630 Urine in bag was light pink, no clots
[2021-02-05 11:49] VITALS: BP 159/86; PULSE 91; RESP 18; TEMP 36.4; O2SAT 99
--- NOTE | 2021-02-05 12:50 | PM.DS ---
DS: Providers Provider Date of Service: 02/05/21 Date of admission: 02/03/21 21:01 Primary care physician: Michael Hargrove MD Consults: 02/03/21 21:41 Consult to Urology Routine Consulting Provider: Tino Garcia III Reason for consultation: obstructing ureteral calculi Has provider been notified: Yes DS: Diagnosis Discharge Diagnosis (1) Left ureteral calculus: Status: Acute (2) TOREY (acute kidney injury): Status: Acute DS: Medications Discharge Medications Home Medications: Home Medications Medication Instructions Recorded Confirmed amlodipine 1 tab PO DAILY 02/03/21 02/03/21 Previous Rx's Medication Instructions Recorded acetaminophen 650 mg PO Q6H PRN #60 tab 02/05/21 DS: Summary Hospital Course Hospital Course: The patient was admitted to the medical/surgical floor. Urology was consulted. He underwent cystoscopy with left retrograde stent placement. Serum creatinine normalized postoperatively. UA was negative for infection, although CT scan did show some changes of perinephric inflammatory changes, so he was treated with ceftriaxone, changed to cefuroxime upon discharge to complete 7 more days. He passed a voiding trial and will follow up with urology in 1 week and with primary care in 2 weeks. Time Spent with Patient Time attestation: Total time spent providing and/or coordinating discharge services: 35 Discharge coordination time: Greater than 30 minutes Physical Exam Vital Signs: Vital Signs: Last Vital Signs Temp 97.5 F 02/05/21 11:49 Pulse 91 02/05/21 11:49 Resp 18 02/05/21 11:49 BP 159/86 H 02/05/21 11:49 Pulse Ox 99 02/05/21 11:49 Body Mass Index 28.0 Gen: in no acute distress HEENT: sclera anicteric, moist mucus membranes Neck: supple Lungs: clear to auscultation bilaterally Heart: regular rate and rhythm, no murmurs Abd: soft, non-tender, non-distended Ext: no edema Skin: warm/well-perfused Neuro: alert and oriented x3, no focal findings Psych: appropriate affect DS: Data Data Completed and Pending Completed studies during hospitalization [Text1]: Laboratory Results WBC 6.8 X10*3/uL (4.8-10.8) 02/04/21 06:31 RBC 4.70 X10*6/uL (4.60-5.80) 02/04/21 06:31 Hgb 13.5 g/dl (14.0-18.0) L 02/04/21 06:31 Hct 40.6 % (42-52) L 02/04/21 06:31 MCV 86.4 fL (80-98) 02/04/21 06:31 MCH 28.7 pg (27.0-33.0) 02/04/21 06:31 MCHC 33.3 g/dl (31.0-36.0) 02/04/21 06:31 RDW 14.6 % (11.0-16.0) 02/04/21 06:31 Plt Count 184 X10*3/uL (160-400) 02/04/21 06:31 MPV 10.8 fL (9.4-12.4) 02/04/21 06:31 Immature Gran % (Auto) 0.4 % (0.0-0.4) 02/04/21 06:31 Neut % (Auto) 64.3 % (45-73) 02/04/21 06:31 Lymph % (Auto) 23.1 % (20-40) 02/04/21 06:31 [place] % (Auto) 9.2 % (2-11) 02/04/21 06:31 Eos % (Auto) 2.4 % (0-4) 02/04/21 06:31 Baso % (Auto) 0.6 % (0-2) 02/04/21 06:31 Lymph # (Auto) 1.6 X10*3/uL (1.2-4.9) 02/04/21 06:31 [place] # (Auto) 0.6 X10*3/uL (0.1-1.2) 02/04/21 06:31 Eos # (Auto) 0.2 X10*3/uL (0.0-0.4) 02/04/21 06:31 Baso # (Auto) 0.0 X10*3/uL (0.0-0.2) 02/04/21 06:31 Abs Immat Gran (auto) 0.03 X10*3/uL (0.00-0.03) 02/04/21 06:31 Absolute Neuts (auto) 4.4 X10*3/uL (2.0-8.3) 02/04/21 06:31 Absolute Nucleated RBC 0.000 X10*3/uL (0.0-0.012) 02/04/21 06:31 Nucleated RBC % (auto) 0.0 /100WBC (0.0-0.2) 02/04/21 06:31 PT 12.8 SEC (10.8-13.0) 02/03/21 17:42 INR 1.1 (0.9-1.1) 02/03/21 17:42 APTT 31.5 SEC (24.1-38.0) 02/03/21 17:42 Sodium 141 mmol/L (135-145) 02/05/21 08:10 Potassium 4.0 mmol/L (3.3-5.1) 02/05/21 08:10 Chloride 104 mmol/L (96-108) 02/05/21 08:10 Carbon Dioxide 30 mmol/L (22-29) H 02/05/21 08:10 Anion Gap 11 (12-20) L 02/05/21 08:10 BUN 18 mg/dL (9-16) H 02/05/21 08:10 Creatinine 1.09 mg/dL (0.5-1.4) 02/05/21 08:10 Estim Creat Clear Calc 84.2 02/05/21 08:10 Estimated GFR > 60 02/05/21 08:10 Random Glucose 87 mg/dL (60-115) 02/05/21 08:10 Calcium 8.9 mg/dL (8.4-10.2) D 02/05/21 08:10 Magnesium 2.2 mg/dL (1.6-2.6) 02/03/21 17:42 Total Bilirubin 0.5 mg/dL (0.0-1.0) 02/03/21 17:42 Direct Bilirubin < 0.2 mg/dL (0.0-0.5) 02/03/21 17:42 AST 15 U/L (5-37) 02/03/21 17:42 ALT 13 U/L (0-40) 02/03/21 17:42 Alkaline Phosphatase 67 U/L (39-117) 02/03/21 17:42 Total Protein 7.0 g/dL (6.5-8.0) 02/03/21 17:42 Albumin 3.9 g/dL (3.5-5.0) 02/03/21 17:42 Lipase 83 U/L (8-78) H 02/03/21 17:42 Urine Color STRAW 02/03/21 19:57 Urine Appearance HAZY 02/03/21 19:57 Urine pH 6.5 (5.0-8.0) 02/03/21 19:57 Ur Specific [place] 1.020 (1.005-1.025) 02/03/21 19:57 Urine Protein NEG MG/DL (NEG-TRACE) 02/03/21 19:57 Urine Glucose (UA) NEG MG/DL (NEG) 02/03/21 19:57 Urine Ketones NEG MG/DL (NEG) 02/03/21 19:57 Urine Blood 2+ (NEG) H 02/03/21 19:57 Urine Nitrite NEG (NEG) 02/03/21 19:57 Ur Leukocyte Esterase NEG (NEG) 02/03/21 19:57 Urine RBC 1-4 /HPF (0) 02/03/21 19:57 Urine WBC 0 /HPF (0-4) 02/03/21 19:57 Ur Squamous Epith Cells TRACE /LPF 02/03/21 19:57 Calcium Oxalate Crystal TRACE /LPF 02/03/21 19:57 Amorphous Sediment 2+ /LPF 02/03/21 19:57 Urine Bacteria NONE /LPF 02/03/21 19:57 COVID-19 (MARY) Negative (Negative) 02/03/21 19:57 COVID-19 Clin Com See Note 02/03/21 19:57 Impressions Abdomen/Pelvis CT 02/03/21 17:45 IMPRESSION: Obstructing left ureteral calculi positioned in the proximal left ureter measuring up to 7 mm as well as at the left UVJ measuring up to 5 mm. Associated mild left renal hydronephrosis and left perinephric inflammatory changes. Discharge Plan Discharge Anticipated Discharge Date/Time: 02/05/21 12:38 Patient Disposition: Home, Self-Care Discharge Diagnosis: left ureteral stone with hydronephrosis, acute kidney injury Referrals: Vickey Randhawa MD [Physician] - 1 Week Name,MD Michael [Primary Care Provider] - 1 Week Discharge Medications: New acetaminophen 325 mg Tablet 650 mg PO Q6H PRN (Reason: Pain, Mild (Pain Scale 1-3)) Qty: 60 RF: 0 cefuroxime axetil 500 mg tablet 500 mg PO Q12H Qty: 14 RF: 0 Continued amlodipine 5 mg tablet 1 tab PO DAILY RF: 0 Discharge Orders: Discharge Order (Routine); Ordered 02/05/21 Ordered By: Jude Keating Diet: advance to usual diet and low salt diet Activity on Discharge: As tolerated Stand Alone Forms: Patient Portal Discharge page Care Plan Goals: relief of pain from kidney stone resolution of acute kidney injury prevention of infection Health Concerns: kidney stone acute kidney injury inflammatory changes around kidney Plan of Treatment: follow up with Urology in 1 week follow up with Primary Care in 2 weeks take acetaminophen for pain, take cefuroxime 500 mg twice daily for 7 days Assessment: see above Patient Instructions: Hydronephrosis (DC)
--- NOTE | 2021-02-05 14:38 | MHC.CM.PN ---
PT BEING DISCHARGED HOME WITH NO SERVICES.
--- NOTE | 2021-02-06 08:34 | HO.POSTANES ---
Post Anesthesia Evaluation Post Anesthesia Evaluation Anesthesia: General LMA Mental Status: Awake Pain Control: Satisfactory Nausea/Vomiting: None Hydration: Adequate Anesthesia-Related Issues: No Anes. Related Issues
== END 2021-02-05 15:01 | disposition home or self-care (01) | DRG 465 ==
LOC: HO.ED 19:49 → HO.S3 21:29
PROVIDERS: Physician Assistant; Urology; Admitting Provider Internal Medicine; Emergency Provider Emergency Medicine; PCP Internal Medicine Geriatric Medicine; Visit Provider Family Medicine
PROC: 0T778DZ Dilation of Left Ureter with Intraluminal Device, Via Natural or Artificial Opening Endoscopic (ICD-10-PCS; principal; 2021-02-04 08:30)
DX: N13.2 Hydronephrosis with renal and ureteral calculous obstruction (principal); N17.9 Acute kidney failure, unspecified; F17.210 Nicotine dependence, cigarettes, uncomplicated; I10 Essential (primary) hypertension; Z20.822 Contact with and (suspected) exposure to COVID-19; Z71.6 Tobacco abuse counseling; Z87.442 Personal history of urinary calculi; Z79.899 Other long term (current) drug therapy
CPT/HCPCS: 36415; 74176; 80048; 80076; 81001; 83690; 83735; 85025; 85610; 85730; 87635; 96361; 96374; 96375; 99285; C1769; C2617; J0696; J1100; J1885; J2405; J3010; Q9967

== ENCOUNTER → 2021-03-02 09:29 | Outpatient (BNVA) | payer MEDICAID, SELFPAY | PROVIDERS: PCP Internal Medicine Geriatric Medicine; Visit Provider Urology | DX: N20.1 Calculus of ureter (principal) | CPT/HCPCS: 52310; 99212 ==

== ENCOUNTER 2021-03-16 08:03 | Outpatient (REF) | payer MEDICAID, SELFPAY ==
--- NOTE | ~2021-03-16 | US_ITS ---
EXAMINATION: US RETROPERITONEAL LIMITED (RENAL ONLY) CLINICAL INFORMATION: Calculus of kidney. COMPARISON: CT abdomen and pelvis 02/03/2021. TECHNIQUE: Real-time imaging of the kidneys. FINDINGS: RIGHT KIDNEY: 11.2 x 5.9 x 6.4 cm (SAG x AP x TRV). The kidney is normal in size, contour, and echogenicity. Renal cortical thickness is normal. No calculi or focal parenchymal lesions. No hydronephrosis. LEFT KIDNEY: 13.1 x 5.4 x 6.0 cm (SAG x AP x TRV). The kidney is normal in size, contour, and echogenicity. Renal cortical thickness is normal. No focal parenchymal lesions or hydronephrosis. There is an echogenic stone in the lower pole measuring 0.8 x 0.5 x 0.5 cm. US/US renal BI IMPRESSION: Unremarkable nonobstructive echogenic stone lower pole left kidney. The right kidney is unremarkable. There is no hydronephrosis in either kidney.
== END 2021-03-16 08:04 | disposition home or self-care (01) ==
LOC: HO.US 08:03
PROVIDERS: Visit Provider Urology
DX: N20.0 Calculus of kidney (principal)
CPT/HCPCS: 76775

== ENCOUNTER 2021-04-20 10:23 | Outpatient (REF) | payer MEDICAID, SELFPAY ==
--- NOTE | 2021-04-20 10:55 | MHC.AU.HFU ---
Hearing Instrument Follow-Up- Binaural Date of Visit: 04/20/21 Help Desk Supervisor Used: [employer]- In Person Right Ear: Policy Cancellation Clerk: Phonak Model: Audeo M 70-R Serial Number: [id number] Repair Warranty: 03/12/2023 Battery Size: Rechargeable Color: Sand Beige Trucker: #1 M Type of Mold: Slim Tip Warranty Type of Wax Guard: CeruStop Dispensed By: [facility] Date of Fittin03/15/2020 Left Ear: Policy Cancellation Clerk: Phonak Model: Audeo M 70-R Serial Number: [id number] Repair Warranty: 03/12/2023 Battery Size: Rechargeable Color: Sand Beige Trucker: 1 M Type of Mold: Slim Tip Warranty Type of Wax Guard: CeruStop Dispensed By: [facility] Date of Fittin03/15/2020 Follow-Up Summary: Patient walked in without an appointment for a Hearing Aid Problem. Right aid is not working (cleaning did not help), and slim tip is broken. Patient reports the slim tips intermittently move out of his ears. Recommendations: - Sending the Right aid out for repair under warranty. - Sent order with the repair for new canal lock slim tips using scans on file for the original tips. NEED TO BILL [facility] - Schedule appointment when received. WILL NEED A BEAD PREPARER Diagnosis Code(s): Primary Diagnosis: H90.3 Bilateral Sensorineural Hearing Loss Services Performed: [facility] Non-Quantity Charges: HANC: NonBillable Event Signature: Provider: Luanne Smiley, [place]
== END 2021-04-20 10:24 | disposition home or self-care (01) ==
LOC: HO.HAP 10:23
PROVIDERS: PCP Internal Medicine Geriatric Medicine; Visit Provider Internal Medicine Geriatric Medicine
DX: Z13.89 Encounter for screening for other disorder (principal)

== ENCOUNTER 2021-05-08 09:51 | Outpatient (REF) | payer MEDICAID, SELFPAY ==
--- NOTE | 2021-05-08 10:20 | MHC.AU.P13 ---
Hearing Instrument Problem Date of Visit: 05/08/21 Right Ear: Inspector Mechanical: Phonak Model: AUDEO M70-R Serial Number: [id number] Repair Warranty: 03/12/2023 Battery Size: Rechargeable Color: SAND BEIGE Floor Winder: 1M Type of Mold: SLIM TIP [id number] Type of Wax Guard: CERUSTOP Dispensed By: [facility] Date of Fittin03/15/2020 Left Ear: Inspector Mechanical: Phonak Model: AUDEO M70-R Serial Number: [id number] Repair Warranty: 03/12/2023 Battery Size: Rechargeable Color: SAND BEIGE Floor Winder: 1M Type of Mold: SLIM TIP [id number] Type of Wax Guard: CERUSTOP Dispensed By: [facility] Date of Fittin03/15/2020 Follow-Up Summary: Patient walked in to check on status of right repair - still in process at [facility]. Now patient's left aid not charging. Patient's slot supervisor and slim tip put on loaner hearing aid and dispensed by Luanne Smiley. Left aid sent to [facility] for repair. Call patient when in. Recommendations: Recommendations: Patient will be contacted when materials have arrived. Signature: Provider:
== END 2021-05-08 09:52 | disposition home or self-care (01) ==
LOC: HO.HAP 09:51
PROVIDERS: Visit Provider Internal Medicine Geriatric Medicine
DX: Z13.89 Encounter for screening for other disorder (principal)

== ENCOUNTER 2021-05-11 10:30 | Outpatient (REF) | payer MEDICAID, SELFPAY | END 2021-05-11 10:31 | disposition home or self-care (01) | LOC: HO.HAP 10:30 | PROVIDERS: Visit Provider Internal Medicine Geriatric Medicine | DX: Z13.89 Encounter for screening for other disorder (principal) ==

== ENCOUNTER 2021-05-18 15:33 | Outpatient (REF) | payer MEDICAID, SELFPAY | END 2021-05-18 15:34 | disposition home or self-care (01) | LOC: HO.HAP 15:33 | PROVIDERS: Visit Provider Internal Medicine Geriatric Medicine | DX: Z13.89 Encounter for screening for other disorder (principal) ==

== ENCOUNTER 2021-07-06 11:30 | Emergency (ER) | payer MEDICAID, SELFPAY ==
--- NOTE | ~2021-07-06 | XR_ITS ---
EXAMINATION: XR LUMBOSACRAL SPINE CLINICAL INFORMATION: Low back pain. COMPARISON: None TECHNIQUE: Three views of the lumbosacral spine. FINDINGS: There is normal lumbar lordosis. The vertebral heights, alignment and disc heights are normal. There is no visible acute fracture or dislocation seen. There is a old radiopaque stone in left kidney pelvis. No lytic or sclerotic process seen. XR/XR lumbar spine 2-3V IMPRESSION: Unremarkable lumbar spine. Incidental finding of a radiopaque density likely in the left kidney pelvis. A radiopaque calculi was seen in left pelvis on the previous study 02/03/2021.
--- NOTE | ~2021-07-06 | US_ITS ---
EXAMINATION: LEFT RENAL ULTRASOUND CLINICAL INFORMATION: Flank pain COMPARISON: Renal ultrasound February 2021 TECHNIQUE: Grayscale and color imaging of the left kidney FINDINGS: The left kidney measures 14 x 0.9 x 6.5 cm in dimension. Renal cortical thickness and echogenicity is normal. There are multiple left renal stones. Largest stones are a cluster of stones in the lower pole measuring 1.3 cm. There is a 0.9 cm stone in the left UPJ region. No renal mass is seen. There is no perinephric collection. A left ureteral jet is seen in the bladder. US/US renal LT IMPRESSION: Multiple left renal stones. New left hydronephrosis from a 9 mm left UPJ stone.
[2021-07-06 11:57] VITALS: BP 154/89; PULSE 84; RESP 16; TEMP 36.7; O2SAT 100; BMI 34.4
[2021-07-06] MEDS: Ketorolac Tromethamine 15 MG/ML VIAL 30 MG IM (12:08)
--- NOTE | 2021-07-06 12:27 | ED.BACK ---
HPI - Back Pain/Injury General Chief Complaint: Back Pain/Injury Stated Complaint: back pain Time Seen by Provider: 07/06/21 12:02 Source: patient and lang interpreter Mode of arrival: ambulatory Limitations: language barrier History of Present Illness HPI Narrative: 55-year-old male with a past medical history of left renal colic, hypertension here with complaints of left lower back pain for 2 days. No injury or trauma. No radiation of pain. No numbness or tingling. No bowel or bladder incontinence for no fevers or chills. Patient denies any testicular pain. Denies any heavy lifting. Not currently working. Has not tried any hbtz-bil-whoarut medications prior to arrival Related Data Home Medications Medication Instructions Recorded Confirmed amlodipine 5 mg tablet 1 tab PO DAILY 02/03/21 02/03/21 Previous Rx's Medication Instructions Recorded acetaminophen 325 mg tablet 650 mg PO Q6H PRN #60 tab 02/05/21 cefuroxime axetil 500 mg tablet 500 mg PO Q12H #14 tab 02/05/21 allopurinol 100 mg tablet 100 mg PO DAILY 90 Days #90 tab 03/02/21 pyridoxine (vitamin B6) 100 mg 100 mg PO DAILY 90 Days #90 tab 03/02/21 tablet ibuprofen 600 mg tablet 600 mg PO Q6H PRN #20 tab 07/06/21 oxycodone 5 mg tablet 5 mg PO Q6H PRN #8 tab 07/06/21 tamsulosin 0.4 mg capsule (Flomax) 0.4 mg PO DAILY #20 cap 07/06/21 Allergies Allergy/AdvReac Type Severity Reaction Status Date / Time No Known Allergies Allergy Verified 05/10/21 14:24 Review of Systems Review of Systems: Yes all other systems are reviewed and are negative Constitutional: Constitutional: Reports no additional constitutional complaints, Denies body ache(s), Denies chills, Denies fever(s), Denies headache(s) and Denies weakness Eyes: Eyes: Reports no additional eye complaints and Denies change in vision ENT: Reports system reviewed and no additional complaints, except as documented, Denies dizziness, Denies headache(s), Denies nasal congestion, Denies nasal discharge and Denies neck pain Cardiovascular: Cardiovascular: Reports no additional cardiovascular complaints, Denies chest pain, Denies leg edema and Denies dyspnea Respiratory: Respiratory: Reports no additional respiratory complaints, Denies cough and Denies dyspnea Gastrointestinal: Gastrointestinal: Reports no additional gastrointestinal complaints, Denies abdominal pain, Denies diarrhea, Denies nausea and Denies vomiting Genitourinary: Genitourinary: Denies testicular pain and Denies urinary incontinence Musculoskeletal: Musculoskeletal: Reports no additional musculoskeletal complaints, Reports back pain, Denies arthralgias, Denies joint swelling, Denies neck pain, Denies numbness and Denies tingling Integumentary/Breasts: Skin/Breast: Reports system reviewed and no additional complaints, except as docu and Denies rash Neurologic: Reports system reviewed and no additional complaints, except as documented, Denies Abnormal speech present, Denies dizziness, Denies headache(s), Denies numbness, Denies tingling and Denies weakness PMFSH Past Medical History Attestation statement: The following information was validated with the patient. Source: old records reviewed and nursing notes reviewed Medical History Depression with anxiety History of kidney stones HTN (hypertension) Surgical History History of surgery Social History Social History Household Members: Children Household Members Other:: 6 Housing: Apartment Do you presently have visiting nurse or other home services: No Cigarettes Per Day: 5 Second Hand Smoke Exposure: No Advance Directives: Yes Advance Directives on File: Yes Advance Directives Date on File: 02/07/21 service: No Current occupational status: disabled Physical Exam Vital Signs: Vital Signs: Last Vital Signs Temp 98.1 F 07/06/21 11:57 Pulse 84 07/06/21 11:57 Resp 18 07/06/21 13:01 BP 154/89 H 07/06/21 11:57 Pulse Ox 100 07/06/21 11:57 Body Mass Index 34.4 Const: General: cooperative, healthy appearing, comfortable and no acute distress Orientation/consciousness: patient oriented x3 Limitations: no limitations HENMT: Head: Yes normal to inspection Ears: hearing grossly normal bilaterally General nose exam: Normal external nose present Face and sinus: Yes normal facial exam Mouth: Normal oral and palatal mucosa present Throat: Yes posterior oropharynx normal Eyes: General: appearance normal, both eyes and all related structures Pupils: Equal, round and reactive pupils present Neck: Neck: Yes normal visual inspection Chest: Chest palpation & inspection: normal inspection of the chest Resp: Effort & Inspection: normal respiratory effort Auscultation: clear to auscultation bilaterally Cardio: Rate: regular rate Rhythm: regular rhythm Peripheral pulses: Peripheral pulses 2+ throughout GI: Inspection: Yes normal to inspection Palpation (GI): Soft to palpation and nontender Auscultation: normal bowel sounds : General: Yes no CVA tenderness Back/Spine/Pelvis: Other: Patient has tenderness to the midline lumbar spine with no step-offs or deformities. He also has tenderness to the left lumbar soft tissue area which is lower to mid. There is no palpable muscle spasm. No CVA tenderness. No pain with straight leg raise Back: no CVA tenderness Thoracic/Lumbar Spine: thoracic and lumbar spine normal to inspection Skin: General skin exam: no rashes or lesions noted Neuro: General: patient oriented x3, no focal motor deficits and normal sensation to monofilament Cranial nerves: Yes CN's II-XII intact bilaterally, Yes Equal, round and reactive pupils present, Yes Bilaterally intact EOM present, Yes Nystagmus not present, Yes Normal facial strength present and Yes Midline tongue present Cognition (Neuro): normal cognition Speech: No Abnormal speech present Gait exam (Neuro): Normal gait present Motor exam (neuro): 5/5 motor strength present throughout Sensory Exam: Normal double simultaneous stimulation for sensation Deep tendon reflexes (DTR's): Right patellar reflex intensity grade: 2+ and Left patellar reflex intensity grade: 2+ Extrem: General: Yes normal to inspection Course Course Course Narrative: 55 yo male here with complaints of atraumatic left lower back pain x 2 days. Normal neuro exam. NO red flag symptoms. H/o renal colic on left side and tells me this feels similar although appears comfortable with no other symptoms. WIll check x-rays, renal US, UA, and provide analgesia and re-assess. 1345-Renal US shows Multiple left renal stones. New left hydronephrosis from a 9 mm left UPJ stone.? Will check labs. Pain well controlled. Then discuss with urology. 1415-labs and urine are unremarkable. Discussed patient with Dr. Randhawa. His pain is well controlled after 1 dose of Toradol. Will recommend he follow up outpatient for procedure as needed. Reviewed worrisome signs and symptoms such as severe pain, two a more vomiting episodes, fever and when to return to the emergency department. Comfortable discharge home. MDM - Back Pain/Injury Differential Diagnosis Differential diagnosis: Likely lumbar radiculopathy, sciatica, strain of lumbar region, renal colic and pyelonephritis Medical Records Attestation: I reviewed the patient's medical records. Lab Data Attestation: I reviewed the patient's lab results. Result diagrams: 07/06/21 13:35 07/06/21 13:35 Labs: Lab Results 07/06/21 07/06/21 07/06/21 Range/Units 12:57 13:35 13:35 WBC 9.2 (4.8-10.8) X10*3/uL RBC 4.59 L (4.60-5.80) X10*6/uL Hgb 12.9 L (14.0-18.0) g/dl Hct 39.1 L (42-52) % MCV 85.2 (80-98) fL MCH 28.1 (27.0-33.0) pg MCHC 33.0 (31.0-36.0) g/dl RDW 13.7 (11.0-16.0) % Plt Count 250 D (160-400) X10*3/uL MPV 9.5 (9.4-12.4) fL Immature Gran % (Auto) 0.7 H (0.0-0.4) % Neut % (Auto) 66.2 (45-73) % Lymph % (Auto) 23.3 (20-40) % Hutchinson % (Auto) 7.5 (2-11) % Eos % (Auto) 1.9 (0-4) % Baso % (Auto) 0.4 (0-2) % Lymph # (Auto) 2.1 (1.2-4.9) X10*3/uL Hutchinson # (Auto) 0.7 (0.1-1.2) X10*3/uL Eos # (Auto) 0.2 (0.0-0.4) X10*3/uL Baso # (Auto) 0.0 (0.0-0.2) X10*3/uL Abs Immat Gran (auto) 0.06 H (0.00-0.03) X10*3/uL Absolute Neuts (auto) 6.1 (2.0-8.3) X10*3/uL Absolute Nucleated RBC 0.000 (0.0-0.012) X10*3/uL Nucleated RBC % (auto) 0.0 (0.0-0.2) /100WBC Sodium 138 (135-145) mmol/L Potassium 4.4 (3.3-5.1) mmol/L Chloride 108 (96-108) mmol/L Carbon Dioxide 24 (22-29) mmol/L Anion Gap 10 L (12-20) BUN 16 (9-16) mg/dL Creatinine 1.38 (0.5-1.4) mg/dL Estim Creat Clear Calc 55.7 Estimated GFR 54 Random Glucose 91 (60-115) mg/dL Calcium 8.3 L D (8.4-10.2) mg/dL Urine Color YELLOW Urine Appearance CLEAR Urine pH 6.0 (5.0-8.0) Ur Specific Gracey 1.020 (1.005-1.025) Urine Protein NEG (NEG-TRACE) MG/DL Urine Glucose (UA) NEG (NEG) MG/DL Urine Ketones NEG (NEG) MG/DL Urine Blood NEG (NEG) Urine Nitrite NEG (NEG) Ur Leukocyte Esterase TRACE H (NEG) Urine RBC 0-2 (0) /HPF Urine WBC 5-9 H (0-4) /HPF Ur Squamous Epith Cells TRACE /LPF Urine Bacteria TRACE /LPF Imaging Data lumbar xray: Attestation: I personally reviewed and interpreted this imaging study as follows: Radiologist's impression: FINDINGS: There is normal lumbar lordosis. The vertebral heights, alignment and disc heights are normal. There is no visible acute fracture or dislocation seen. There is a old radiopaque stone in left kidney pelvis. No lytic or sclerotic process seen. XR/XR lumbar spine 2-3V IMPRESSION: Unremarkable lumbar spine. Incidental finding of a radiopaque density likely in the left kidney pelvis. A radiopaque calculi was seen in left pelvis on the previous study 02/03/2021. renal US: Attestation: I personally reviewed and interpreted this imaging study as follows: Radiologist's impression: FINDINGS: The left kidney measures 14 x 0.9 x 6.5 cm in dimension. Renal cortical thickness and echogenicity is normal. There are multiple left renal stones. Largest stones are a cluster of stones in the lower pole measuring 1.3 cm. There is a 0.9 cm stone in the left UPJ region. No renal mass is seen. There is no perinephric collection. A left ureteral jet is seen in the bladder.? US/US renal LT IMPRESSION: Multiple left renal stones. New left hydronephrosis from a 9 mm left UPJ stone.? Discharge Plan Discharge Clinical Impression: Left ureteral calculus Patient Disposition: Home, Self-Care Instructions: Renal Colic (ED) Additional Instructions: You have a kidney stone on the left side. Increase fluids, rest Return for fever, 2 or more vomiting episodes of severe pain Call Dr Randhawa office for follow-up Prescriptions: New tamsulosin [Flomax] 0.4 mg capsule 0.4 mg PO DAILY Qty: 20 RF: 0 ibuprofen 600 mg tablet 600 mg PO Q6H PRN (Reason: pain) Qty: 20 RF: 0 oxycodone 5 mg tablet 5 mg PO Q6H PRN (Reason: pain) Qty: 8 RF: 0 No Action amlodipine 5 mg tablet 1 tab PO DAILY RF: 0 acetaminophen 325 mg Tablet 650 mg PO Q6H PRN (Reason: Pain, Mild (Pain Scale 1-3)) Qty: 60 RF: 0 cefuroxime axetil 500 mg tablet 500 mg PO Q12H Qty: 14 RF: 0 pyridoxine (vitamin B6) 100 mg tablet 100 mg PO DAILY 90 Days Qty: 90 RF: 1 allopurinol 100 mg tablet 100 mg PO DAILY 90 Days Qty: 90 RF: 0 Referrals: Vickey Randhawa MD [Physician] - 2 days Interventions: ED Discharge Assessment Last Done: 07/06/21 14:22 Discharge Date/Time: 07/06/21 14:24 Print Language: Tuvaluan
[2021-07-06 13:01] VITALS: RESP 18
[2021-07-06 13:05] LABS: Appearance Urine CLEAR; Color Urine YELLOW; Glucose Urine UA NEG (NEG); Leukocyte Esterase Urine TRACE (NEG); Nitrite Urine NEG (NEG); UACC Culture Trigger YES; Urine Blood NEG (NEG); Urine Ketones NEG (NEG); Urine Protein NEG (NEG-TRACE)
[2021-07-06 13:14] LABS: RBC Urine 0-2 /HPF (0); Squamous Epithelial Cell Urine TRACE /LPF
[2021-07-06 13:15] LABS: Bacteria Urine TRACE /LPF
[2021-07-06 13:44] LABS: MANUAL DIFF FLAG NO
[2021-07-06 13:46] LABS: Basophils Percent Auto 0.4 % (0-2); Eosinophils Absolute Auto 0.2 X10*3/uL (0.0-0.4); Eosinophils Percent Auto 1.9 % (0-4); Hematocrit 39.1 % (42-52); Hemoglobin 12.9 g/dl (14.0-18.0); Imm Gran Abs Auto 0.06 X10*3/uL (0.00-0.03); Imm Gran Pct Auto 0.7 % (0.0-0.4); Lymphocytes Absolute Auto 2.1 X10*3/uL (1.2-4.9); Lymphocytes Percent Auto 23.3 % (20-40); Mean Corpuscular Hemoglobin 28.1 pg (27.0-33.0); Mean Corpuscular Volume 85.2 fL (80-98); Mean Platelet Volume 9.5 fL (9.4-12.4); Monocytes Absolute Auto 0.7 X10*3/uL (0.1-1.2); Monocytes Percent Auto 7.5 % (2-11); Neutrophils Absolute Auto 6.1 X10*3/uL (2.0-8.3); Neutrophils Percent Auto 66.2 % (45-73); Platelet Count 250 X10*3/uL (160-400); Red Blood Count 4.59 X10*6/uL (4.60-5.80); Red Cell Distribution Width 13.7 % (11.0-16.0); White Blood Count 9.2 X10*3/uL (4.8-10.8)
[2021-07-06 14:03] LABS: Anion Gap 10 (12-20); Blood Urea Nitrogen 16 mg/dL (9-16); Calcium 8.3 mg/dL (8.4-10.2); Carbon Dioxide 24 mmol/L (22-29); Chloride 108 mmol/L (96-108); Creatinine Clr Calc Pharmacy 55.7; Estimated Glomerular Filt Rate 54; Glucose Random 91 mg/dL (60-115); Potassium 4.4 mmol/L (3.3-5.1); Sodium 138 mmol/L (135-145)
== END 2021-07-06 14:24 | disposition home or self-care (01) ==
PROVIDERS: Nurse Practitioner Family; Emergency Provider Emergency Medicine Emergency Medical Services; PCP Internal Medicine Geriatric Medicine
DX: N20.1 Calculus of ureter (principal); I10 Essential (primary) hypertension; Z87.442 Personal history of urinary calculi
CPT/HCPCS: 36415; 72100; 76775; 80048; 81001; 85025; 87086; 96372; 99284; J1885

== ENCOUNTER 2021-07-12 10:27 | Outpatient (REF) | payer MEDICAID, SELFPAY ==
--- NOTE | 2021-07-12 12:30 | MHC.AU.HFU ---
Hearing Instrument Follow-Up- Binaural Date of Visit: 07/12/21 Inside Meter Tester Used: Malay- In Person Right Ear: Biochemistry Professor: Phonak Model: Audeo M 70-R Serial Number: [id number] Repair Warranty: 03/12/2023 Battery Size: Rechargeable Color: Sand Beige Scourer: #1 M Type of Mold: Canal Lock Slim Tip #[id number] Warranty expiration 09/19/2021 Type of Wax Guard: CeruStop Dispensed By: [facility] Date of Fittin03/15/2020 Left Ear: Biochemistry Professor: Phonak Model: Audeo M 70-R Serial Number: [id number] Repair Warranty: 03/12/2023 Battery Size: Rechargeable Color: Sand Beige Scourer: 1 M Type of Mold: Canal Lock Slim Tip #[id number] Warranty expiration 09/19/2021 Type of Wax Guard: CeruStop Dispensed By: [facility] Date of Fittin03/15/2020 Follow-Up Summary: Received from [employer] on 05/24/21 a new right and left canal lock slim tips AND another right aid, invoice dated 05/21/21. A right aid repair and right canal lock slim tip with same serial numbers were already given to patient on 05/11/21 (nothing billed. No new left canal lock was received with the 05/08/21 shipment). 05/21/21 invoice shows [employer] billed [facility] for right and left slim tips. Today confirmed what patient is using: Right Audeo M 70-R # [id number] with canal lock slim tip # [id number] Left Audeo M 70-R #[id number] with slim tip (no canal lock) #[id number] Getting feedback from left aid today. Changed left slim tip to the new canal lock slim tip #[id number] Feedback problem is resolved with new tip. RETURNING THE EXTRA RIGHT AID AND CANAL LOCK SLIM TIP RECEVIED ON 05/24/21 TO [facility] AND WILL CALL [employer] [facility] CUSTOMER SERVICE. Recommendations: Recommendations: Hearing instrument follow-up or maintenance as needed. Please contact our clinic with any questions or concerns. Diagnosis Code(s): Primary Diagnosis: H90.3 Bilateral Sensorineural Hearing Loss Services Performed: [place] (Quantity): 2 Signature: Provider: Luanne Smiley, [place]
== END 2021-07-12 10:28 | disposition home or self-care (01) ==
LOC: HO.HAP 10:27
PROVIDERS: Visit Provider Internal Medicine Geriatric Medicine
DX: Z46.1 Encounter for fitting and adjustment of hearing aid (principal); H91.93 Unspecified hearing loss, bilateral
CPT/HCPCS: V5264

== ENCOUNTER 2021-07-16 12:38 | Outpatient (REF) | payer MEDICAID, SELFPAY ==
--- NOTE | 2021-07-17 11:50 | MHC.AU.FUR ---
Hearing Instrument Follow-Up Date of Visit: 07/16/2021 Child Care Associate Used: Thai- By Phone Right Ear: Division Commander: Phonak Model: Audeo M 70-R Serial Number: [id number] Repair Warranty: 03/12/2023 Battery Size: Rechargeable Color: Sand Beige Track Maintainer: #1 M Type of Mold: Canal Lock Slim Tip #[id number] Warranty expiration 09/19/2021 Type of Wax Guard: CeruStop Dispensed By: [facility] Date of Fittin03/15/2020 Follow-Up Summary: Patient walked in. Right aid is not charging. Performed troubleshooting for cause. Patient's aid not charging in his charger tester or in stock charger tester. Stock aids are charging in patient's charger tester. Returned patient's charger tester to him and sending right aid in for repair under warranty. Set up loaner and placed patient's throw out clerk and canal lock slim tip on loaner, Recommendations (Other): Schedule appointment when repair in. PATIENT'S CANAL LOCK SLIM TIP AND CLERK ARE ON LOANER PATIENT IS USING. Diagnosis Code(s): Primary Diagnosis: H90.3 Bilateral Sensorineural Hearing Loss Services Performed: [place] Non-Quantity Charges: HANC: NonBillable Event Signature: Provider: Rober Smiley, [place]
== END 2021-07-16 12:39 | disposition home or self-care (01) ==
LOC: HO.HAP 12:38
PROVIDERS: Visit Provider Internal Medicine Geriatric Medicine
DX: Z13.89 Encounter for screening for other disorder (principal)

== ENCOUNTER 2021-08-06 10:28 | Outpatient (REF) | payer MEDICAID, SELFPAY | END 2021-08-06 10:29 | disposition home or self-care (01) | LOC: HO.HAP 10:28 | PROVIDERS: PCP Internal Medicine Geriatric Medicine; Visit Provider Internal Medicine Geriatric Medicine | DX: N20.1 Calculus of ureter (principal) | CPT/HCPCS: 99212 ==

== ENCOUNTER 2021-09-26 11:22 | Outpatient (REF) | payer MEDICAID, SELFPAY ==
[2021-09-26 13:42] LABS: IDNOW Serial# 16C4AD1C
[2021-09-26 13:43] LABS: COVID-19 Test Negative (Negative)
== END 2021-09-26 11:23 | disposition home or self-care (01) ==
LOC: HO.LAB 11:22
PROVIDERS: Visit Provider Internal Medicine
DX: Z20.822 Contact with and (suspected) exposure to COVID-19 (principal)
CPT/HCPCS: 36415; 87635; C9803

== ENCOUNTER 2021-10-17 13:27 | Outpatient (REF) | payer MEDICAID, SELFPAY | END 2021-10-17 13:28 | disposition home or self-care (01) | LOC: HO.HAP 13:27 | PROVIDERS: Visit Provider Internal Medicine Geriatric Medicine | DX: Z13.89 Encounter for screening for other disorder (principal) ==

== ENCOUNTER 2021-10-18 15:11 | Outpatient (REF) | payer MEDICAID, SELFPAY ==
--- NOTE | 2021-10-18 16:24 | MHC.AU.HFU ---
Hearing Instrument Follow-Up- Binaural Date of Visit: 10/18/21 Right Ear: Bellman: Phonak Model: Audeo M70-R Serial Number: [id number] Repair Warranty: 03/12/2023 Loss and Damage Warranty: 03/12/2023 Battery Size: Rechargeable Color: Sand Beige Paper Reeler: #1 M Type of Mold: Canal Lock Slim Tip #[id number] Warranty expiration 09/19/2021 Type of Wax Guard: CeruStop Dispensed By: [facility] Date of Fittin03/15/2020 Left Ear: Bellman: Phonak Model: Audeo M70-R Serial Number: [id number] Repair Warranty: 03/12/2023 Loss and Damage Warranty: 03/12/2023 Battery Size: Rechargeable Color: Sand Beige Paper Reeler: 1 M Type of Mold: Canal Lock Slim Tip #[id number] Warranty expiration 09/19/2021 Type of Wax Guard: CeruStop Dispensed By: [facility] Date of Fittin03/15/2020 Follow-Up Summary: Hearing aid problem- Patient reports that the aids are not charging or turning on. He picked up a new bulb inspector yesterday but they still didn't charge. Checked aids today and they wouldn't charge in our stock bulb inspector. Sending both aids out for repair. Placed his slim tips on a pair of loaner aids, Phonak Audeo M50-R [id number]. Aids were programmed to his hearing loss and he noted good sound quality. Patient was suffering from what appeared to be an anxiety/panic attack today. An employee from the behavioral health department was in our clinic and spoke with him today. She will be reaching out to provide him with resources and behavioral health workers that can provide him for further assistance. Due to his state at the time of the visit, I did not have him sign any paperwork for the repairs or loaners. Recommendations: Recommendations: Patient will be contacted when materials have arrived. Schedule appointment to attach slim tips to repair and return loaners. Diagnosis Code(s): Primary Diagnosis: H90.3 Bilateral Sensorineural Hearing Loss Signature: Provider: Luanne Rios, [facility]
== END 2021-10-18 15:12 | disposition home or self-care (01) ==
LOC: HO.HAP 15:11
PROVIDERS: Visit Provider Internal Medicine Geriatric Medicine
DX: Z13.89 Encounter for screening for other disorder (principal)

== ENCOUNTER 2021-10-31 16:01 | Outpatient (REF) | payer MEDICAID, SELFPAY | END 2021-10-31 16:02 | disposition home or self-care (01) | LOC: HO.HAP 16:01 | PROVIDERS: Visit Provider Internal Medicine Geriatric Medicine | DX: Z13.89 Encounter for screening for other disorder (principal) ==

== ENCOUNTER 2021-11-10 13:30 | Emergency (ER) | payer MEDICAID, SELFPAY ==
--- NOTE | ~2021-11-10 | XR_ITS ---
EXAMINATION: XR CHEST CLINICAL INFORMATION: Cough COMPARISON: 05/31/2019 TECHNIQUE: Frontal view of the chest was obtained. FINDINGS: No significant abnormality is noted involving the heart, lungs, mediastinum, bony thorax or soft tissues. XR/XR chest 1V IMPRESSION: No acute pulmonary disease.
[2021-11-10 13:48] VITALS: BP 169/110; BP 175/115; PULSE 76; PULSE 80; RESP 18; TEMP 36.7; O2SAT 98; BMI 26.6
--- NOTE | 2021-11-10 14:14 | ED.GENADULT ---
HPI - General Adult General Chief complaint: General Medical Stated complaint: GENERALIZED WEAKNESS, HTN Time Seen by Provider: 11/10/21 14:12 Source: patient Mode of arrival: EMS Limitations: language barrier History of Present Illness HPI narrative: 58-year-old male presents for a panic attack. Patient states today he was in religious, and he felt shaky, scared, anxious, depressed, nervous, with heart palpitations. States he has these episodes daily for the last 5-6 months. Today in religious somebody took his blood pressure and found it was high. Patient felt like he ?could not keep it together? so he was sent here. Patient tells me his PCP. stopped his blood pressure medication some months ago because he felt dizzy. Patient does not take his blood pressure at home. Endorses dry cough for the last week and COVID exposure from his grandchildren. Patient is vaccinated for COVID. Denies dysuria but endorses increased urinary frequency. Patient not on any anxiety medication, records show he is on Haldol. Denies suicidal ideation, homicidal ideation, hallucinations. Related Data Home Medications Medication Instructions Recorded Confirmed amlodipine 5 mg tablet 1 tab PO DAILY 02/03/21 02/03/21 benztropine 1 mg tablet 1 mg PO BID 08/06/21 clonidine HCl 0.1 mg tablet 0.1 mg PO BID 08/06/21 haloperidol 10 mg tablet 10 mg PO BID 08/06/21 haloperidol 5 mg tablet 5 mg PO BID 08/06/21 nicotine 21 mg/24 hr daily 0 patch TOPICAL 08/06/21 transdermal patch perphenazine 4 mg tablet 4 mg PO BID 08/06/21 topiramate 50 mg tablet 50 mg PO BID 08/06/21 Previous Rx's Medication Instructions Recorded acetaminophen 325 mg tablet 650 mg PO Q6H PRN #60 tab 02/05/21 cefuroxime axetil 500 mg tablet 500 mg PO Q12H #14 tab 02/05/21 allopurinol 100 mg tablet 100 mg PO DAILY 90 Days #90 tab 03/02/21 pyridoxine (vitamin B6) 100 mg 100 mg PO DAILY 90 Days #90 tab 03/02/21 tablet ibuprofen 600 mg tablet 600 mg PO Q6H PRN #20 tab 07/06/21 oxycodone 5 mg tablet 5 mg PO Q6H PRN #8 tab 07/06/21 tamsulosin 0.4 mg capsule (Flomax) 0.4 mg PO DAILY #20 cap 07/06/21 Allergies Allergy/AdvReac Type Severity Reaction Status Date / Time No Known Allergies Allergy Verified 08/06/21 10:55 Review of Systems Constitutional: Constitutional: Denies body ache(s), Denies chills, Denies fatigue, Denies fever(s), Denies headache(s), Denies malaise and Denies weakness Eyes: Eyes: Denies blurry vision and Denies diplopia ENT: Reports Normal hearing present, Denies vertigo, Denies dizziness, Denies otalgia, Denies headache(s), Denies mouth pain, Denies post nasal drip, Denies sinus pain, Denies sinus pressure, Denies sore throat and Denies throat swelling Cardiovascular: Cardiovascular: Denies chest pain, Denies syncope, Denies leg edema, Denies lightheadedness, Denies Loss of Consciousness, Reports palpitations and Denies dyspnea Respiratory: Respiratory: Reports chest congestion, Reports cough and Denies dyspnea Gastrointestinal: Gastrointestinal: Denies abdominal pain, Denies hematochezia, Denies constipation, Denies diarrhea, Denies nausea and Denies vomiting Genitourinary: Genitourinary: Denies dysuria, Denies flank pain, Reports urinary frequency and Denies urinary incontinence Musculoskeletal: Musculoskeletal: Reports no additional musculoskeletal complaints Neurologic: Reports Normal hearing present, Denies Abnormal speech present, Denies confusion, Denies vertigo, Denies dizziness, Denies syncope, Denies headache(s), Denies Sensory deficit (Neuro) and Denies weakness Psychiatric: Psychiatric: Reports anxiety, Denies confusion, Reports depression, Denies hopelessness, Reports panic attacks, Denies visual hallucinations, Denies hallucinations, Denies homicidal ideation and Denies suicidal ideation Endocrine: Endocrine: Denies fatigue and Reports palpitations Allergic/Immunologic: Allergic/Immunologic: Denies throat swelling PMFSH Past Medical History Medical History Depression with anxiety History of kidney stones HTN (hypertension) Surgical History History of surgery Social History Social History Household Members: Children Household Members Other:: 6 Housing: Apartment Do you presently have visiting nurse or other home services: No Cigarettes Per Day: 5 Second Hand Smoke Exposure: No Advance Directives: Yes Advance Directives on File: Yes Advance Directives Date on File: 02/07/21 service: No Current occupational status: disabled Physical Exam ED Vital Signs: Vital Signs - 24 hr 11/10/21 13:48 11/10/21 17:01 Temperature 98.0 F 97.9 F Pulse Rate 76 80 Respiratory Rate 18 21 H Blood Pressure 169/110 H 163/103 H Pulse Oximetry 98 98 BMI result Body Mass Index 26.6 Const General: alert and awake; No confusion Nutritional Appearance: well nourished Orientation/consciousness: patient oriented x3 and No confusion Limitations: language barrier HENMT Head: Yes normal to inspection and Yes No palpable skull fracture present Ears: hearing grossly normal bilaterally General nose exam: Normal external nose present Face and sinus: Yes normal facial exam Mouth: Normal oral and palatal mucosa present Throat: Yes posterior oropharynx normal Eyes Conjunctivae: conjunctivae normal Pupils: Equal, round and reactive pupils present EOM: EOMs intact bilaterally and No Nystagmus present Neck Neck: Yes normal visual inspection, Yes full ROM, Yes no lymphadenopathy, Yes no meningeal signs, Yes trachea midline and Yes supple Resp Effort & Inspection: normal respiratory effort Auscultation: clear to auscultation bilaterally, no crackles, no rales, no rhonchi and no wheezes Cardio Rate: regular rate Rhythm: regular rhythm Heart sounds: S1 normal heart sound present and S2 normal heart sound present GI Inspection: Yes normal to inspection Palpation (GI): Soft to palpation, not firm, nontender, no guarding and not rigid Percussion: Yes normal to percussion Auscultation: normal bowel sounds Skin General skin exam: no rashes or lesions noted Neuro General: patient oriented x3, no meningeal signs and No confusion Cranial nerves: Yes CN's II-XII intact bilaterally, Yes Facial sensation intact/muscles of mastication intact, Yes Equal, round and reactive pupils present, Yes Bilaterally intact EOM present, Yes Nystagmus not present, Yes Normal facial strength present, Yes Midline tongue present, Yes Normal hearing present, Yes Ability to bilaterally rotate head present, Yes Ability to bilaterally elevate shoulders present and No Nystagmus present Cognition (Neuro): normal cognition Speech: No Abnormal speech present Gait exam (Neuro): Normal gait present Motor exam (neuro): 5/5 motor strength present throughout Sensory Exam: No Sensory deficit (Neuro) Coordination: [id number] test normal and [id number] test normal Pupils: Normal pupillary reactivity/response: bilateral Extrem General: Yes normal to inspection and Yes full ROM Psych Speech and movement: Normal speech and movement present Affect: Anxious affect present Attitude: cooperative Course Course Course Narrative: 55-year-old male presents for a panic attack he had a charge. Patient's blood pressure was also high, so he came here by EMS. On exam, patient is hypertensive at 169/110. He appears anxious. Patient did want any benzodiazepines because of concern for addiction. Gave him hydroxyzine. Will rule out COVID, get chest x-ray, labs, TSH, troponin, EKG. Reevaluation(s) Reevaluation #1: Patient has a normal TSH, normal urine, chest x-ray, labs are normal, EKG shows no ischemia, no elevated troponin. COVID negative. On re-evaluation, patient is feeling more calm, blood pressure 150/90. Gave patient list of primary care providers to establish with new primary care provider, as he feels his PCP is not taking good care of him Counseled patient to call hospital number to ask for help getting established with [facility]. Gave return precautions of chest pain, shortness of breath, patient verbalized agreement understanding Medical Decision Making Lab Data Result diagrams: 11/10/21 15:38 11/10/21 15:38 Labs: Lab Results 11/10/21 11/10/21 11/10/21 Range/Units 15:38 15:38 15:38 WBC 9.0 (4.8-10.8) X10*3/uL RBC 5.39 (4.60-5.80) X10*6/uL Hgb 15.2 (14.0-18.0) g/dl Hct 45.7 (42.0-52.0) % MCV 84.8 (80.0-98.0) fL MCH 28.2 (27.0-33.0) pg MCHC 33.3 (31.0-36.0) g/dl RDW 13.2 (11.0-16.0) % Plt Count 237 (160-400) X10*3/uL MPV 10.5 (9.4-12.4) fL Immature Gran % (Auto) 0.2 (0.0-0.4) % Neut % (Auto) 65.8 (45-73) % Lymph % (Auto) 24.1 (20-40) % Foster % (Auto) 7.5 (2-11) % Eos % (Auto) 1.8 (0-4) % Baso % (Auto) 0.6 (0-2) % Lymph # (Auto) 2.2 (1.2-4.9) X10*3/uL Foster # (Auto) 0.7 (0.1-1.2) X10*3/uL Eos # (Auto) 0.2 (0.0-0.4) X10*3/uL Baso # (Auto) 0.1 (0.0-0.2) X10*3/uL Abs Immat Gran (auto) 0.02 (0.00-0.03) X10*3/uL Absolute Neuts (auto) 5.9 (2.0-8.3) x10*3/uL Absolute Nucleated RBC 0.000 (0.0-0.012) X10*3/uL Nucleated RBC % (auto) 0.0 (0.0-0.2) /100WBC Sodium 136 (135-145) mmol/L Potassium 4.0 (3.3-5.1) mmol/L Chloride 103 (96-108) mmol/L Carbon Dioxide 24 (22-29) mmol/L Anion Gap 13 (12-20) BUN 19 H (9-16) mg/dL Creatinine 1.70 H (0.5-1.4) mg/dL Estim Creat Clear Calc 49.6 Estimated GFR 42 Random Glucose 95 (60-115) mg/dL Calcium 9.2 D (8.4-10.2) mg/dL Total Bilirubin 0.4 (0.0-1.0) mg/dL AST 12 (5-37) U/L ALT < 6 (0-40) U/L Alkaline Phosphatase 75 (39-117) U/L Troponin I High Sens < 3.5 (<3.5-35.0) ng/L Total Protein 8.3 H (6.5-8.0) g/dL Albumin 3.9 (3.5-5.0) g/dL TSH 3.03 (0.32-4.0) uIU/mL Urine Color Urine Appearance Urine pH (5.0-8.0) Ur Specific Carlin (1.005-1.025) Urine Protein (NEG-TRACE) MG/DL Urine Glucose (UA) (NEG) MG/DL Urine Ketones (NEG) MG/DL Urine Blood (NEG) Urine Nitrite (NEG) Ur Leukocyte Esterase (NEG) COVID-19 (MARY) (Negative) COVID-19 Clin Com 11/10/21 11/10/21 Range/Units 15:38 15:38 WBC (4.8-10.8) X10*3/uL RBC (4.60-5.80) X10*6/uL Hgb (14.0-18.0) g/dl Hct (42.0-52.0) % MCV (80.0-98.0) fL MCH (27.0-33.0) pg MCHC (31.0-36.0) g/dl RDW (11.0-16.0) % Plt Count (160-400) X10*3/uL MPV (9.4-12.4) fL Immature Gran % (Auto) (0.0-0.4) % Neut % (Auto) (45-73) % Lymph % (Auto) (20-40) % Foster % (Auto) (2-11) % Eos % (Auto) (0-4) % Baso % (Auto) (0-2) % Lymph # (Auto) (1.2-4.9) X10*3/uL Foster # (Auto) (0.1-1.2) X10*3/uL Eos # (Auto) (0.0-0.4) X10*3/uL Baso # (Auto) (0.0-0.2) X10*3/uL Abs Immat Gran (auto) (0.00-0.03) X10*3/uL Absolute Neuts (auto) (2.0-8.3) x10*3/uL Absolute Nucleated RBC (0.0-0.012) X10*3/uL Nucleated RBC % (auto) (0.0-0.2) /100WBC Sodium (135-145) mmol/L Potassium (3.3-5.1) mmol/L Chloride (96-108) mmol/L Carbon Dioxide (22-29) mmol/L Anion Gap (12-20) BUN (9-16) mg/dL Creatinine (0.5-1.4) mg/dL Estim Creat Clear Calc Estimated GFR Random Glucose (60-115) mg/dL Calcium (8.4-10.2) mg/dL Total Bilirubin (0.0-1.0) mg/dL AST (5-37) U/L ALT (0-40) U/L Alkaline Phosphatase (39-117) U/L Troponin I High Sens (<3.5-35.0) ng/L Total Protein (6.5-8.0) g/dL Albumin (3.5-5.0) g/dL TSH (0.32-4.0) uIU/mL Urine Color YELLOW Urine Appearance CLEAR Urine pH 6.0 (5.0-8.0) Ur Specific Carlin 1.020 (1.005-1.025) Urine Protein NEG (NEG-TRACE) MG/DL Urine Glucose (UA) NEG (NEG) MG/DL Urine Ketones NEG (NEG) MG/DL Urine Blood NEG (NEG) Urine Nitrite NEG (NEG) Ur Leukocyte Esterase NEG (NEG) COVID-19 (MARY) Negative (Negative) COVID-19 Clin Com See Note ECG Data Interpretation: EKG shows sinus at a rate of 67, AK 160, QRS 90, QTC 426, normal axis, no ST depressions or elevations, no T-wave abnormalities. Discharge Plan Discharge Clinical Impression: Anxiety, Hypertension Patient Disposition: Home, Self-Care Additional Instructions: Please call primary care provider numbers that we gave you today on Friday. Also call the main hospital phone number, request help with getting established with [facility]. Also, fill your prescription for hydroxyzine. You can take that every 8 hours for anxiety. If you have chest pain, shortness of breath, or any other new or concerning symptoms, please return to emergency room. Llame a los n?meros de proveedores de atenci?n primaria que le proporcionamos hoy lunes. Tambi?n llame al n?kimmie de tel?fono principal del hospital, solicite ayuda para establecerse con [facility]. Adem?s, surta oneal receta de hidroxizina. Puedes dmitri eso cada 8 horas para la ansiedad. Si tiene dolor en el pecho, dificultad para respirar o cualquier otro s?ntoma nuevo o preocupante, regrese a la heidi de emergencias. Prescriptions: No Action amlodipine 5 mg tablet 1 tab PO DAILY 0RF acetaminophen 325 mg Tablet 650 mg PO Q6H PRN (Reason: Pain, Mild (Pain Scale 1-3)) Qty: 60 0RF cefuroxime axetil 500 mg tablet 500 mg PO Q12H Qty: 14 0RF tamsulosin [Flomax] 0.4 mg capsule 0.4 mg PO DAILY Qty: 20 0RF ibuprofen 600 mg tablet 600 mg PO Q6H PRN (Reason: pain) Qty: 20 0RF oxycodone 5 mg tablet 5 mg PO Q6H PRN (Reason: pain) Qty: 8 0RF pyridoxine (vitamin B6) 100 mg tablet 100 mg PO DAILY 90 Days Qty: 90 1RF allopurinol 100 mg tablet 100 mg PO DAILY 90 Days Qty: 90 0RF Interventions: ED Discharge Assessment Last Done: 11/10/21 18:09 Discharge Date/Time: 11/10/21 18:10 Print Language: Micronesian
--- NOTE | 2021-11-10 15:03 | ECG_ITS ---
Test Reason : WEAKNESS Blood Pressure : / mmHG Vent. Rate : 067 BPM Atrial Rate : 067 BPM P-R Int : 160 ms QRS Dur : 090 ms QT Int : 404 ms P-R-T Axes : 060 015 043 degrees QTc Int : 426 ms Normal sinus rhythm Normal ECG When compared with ECG of 16-JUN-2019 10:50, No significant change was found Referred By: Debra Watts Electronically Signed By:Iggy Diaz
[2021-11-10] MEDS: hydrOXYzine HCL 50 MG TABLET PO (15:13)
[2021-11-10 15:42] LABS: MANUAL DIFF FLAG NO
[2021-11-10 15:52] LABS: Appearance Urine CLEAR; Color Urine YELLOW; Glucose Urine UA NEG (NEG); Leukocyte Esterase Urine NEG (NEG); Nitrite Urine NEG (NEG); Urine Blood NEG (NEG); Urine Ketones NEG (NEG); Urine Protein NEG (NEG-TRACE)
[2021-11-10 15:53] LABS: Basophils Absolute Auto 0.1 X10*3/uL (0.0-0.2); Basophils Percent Auto 0.6 % (0-2); Eosinophils Absolute Auto 0.2 X10*3/uL (0.0-0.4); Eosinophils Percent Auto 1.8 % (0-4); Hematocrit 45.7 % (42.0-52.0); Hemoglobin 15.2 g/dl (14.0-18.0); Imm Gran Abs Auto 0.02 X10*3/uL (0.00-0.03); Imm Gran Pct Auto 0.2 % (0.0-0.4); Lymphocytes Absolute Auto 2.2 X10*3/uL (1.2-4.9); Lymphocytes Percent Auto 24.1 % (20-40); Mean Corpuscular HGB Conc 33.3 g/dl (31.0-36.0); Mean Corpuscular Hemoglobin 28.2 pg (27.0-33.0); Mean Corpuscular Volume 84.8 fL (80.0-98.0); Mean Platelet Volume 10.5 fL (9.4-12.4); Monocytes Absolute Auto 0.7 X10*3/uL (0.1-1.2); Monocytes Percent Auto 7.5 % (2-11); Neutrophils Absolute Auto 5.9 x10*3/uL (2.0-8.3); Neutrophils Percent Auto 65.8 % (45-73); Platelet Count 237 X10*3/uL (160-400); Red Blood Count 5.39 X10*6/uL (4.60-5.80); Red Cell Distribution Width 13.2 % (11.0-16.0)
[2021-11-10 16:07] LABS: COVID-19 Test Negative (Negative)
[2021-11-10 16:12] LABS: Alanine Aminotransferase < 6 U/L (0-40); Albumin Level 3.9 g/dL (3.5-5.0); Alkaline Phosphatase 75 U/L (39-117); Anion Gap 13 (12-20); Aspartate Amino Transferase 12 U/L (5-37); Bilirubin Total 0.4 mg/dL (0.0-1.0); Blood Urea Nitrogen 19 mg/dL (9-16); Calcium 9.2 mg/dL (8.4-10.2); Carbon Dioxide 24 mmol/L (22-29); Chloride 103 mmol/L (96-108); Creatinine Clr Calc Pharmacy 49.6; Estimated Glomerular Filt Rate 42; Glucose Random 95 mg/dL (60-115); Sodium 136 mmol/L (135-145); Total Protein 8.3 g/dL (6.5-8.0); Troponin-I High Sensitivity < 3.5 ng/L (<3.5-35.0)
[2021-11-10 16:28] LABS: Thyroid Stimulating Hormone 3.03 uIU/mL (0.32-4.0)
[2021-11-10 17:01] VITALS: BP 163/103; PULSE 80; RESP 21; TEMP 36.6; O2SAT 98
== END 2021-11-10 18:10 | disposition home or self-care (01) ==
PROVIDERS: Physician Assistant; Emergency Provider Emergency Medicine Emergency Medical Services
DX: F41.9 Anxiety disorder, unspecified (principal); I10 Essential (primary) hypertension; Z20.822 Contact with and (suspected) exposure to COVID-19
CPT/HCPCS: 71045; 80053; 81003; 84443; 84484; 85025; 87635; 93005; 99283

== ENCOUNTER 2021-12-01 10:50 | Emergency (ER) | payer MEDICAID, SELFPAY ==
[2021-12-01 10:57] VITALS: BP 151/91; PULSE 77; RESP 18; TEMP 36.7; O2SAT 99; BMI 27.8
--- NOTE | 2021-12-01 10:58 | ED_ITS ---
HPI - General Adult General Chief complaint: Anxiety Stated complaint: anxiety Time Seen by Provider: 12/01/21 10:58 Source: patient Limitations: no limitations and language barrier (History obtained with help of hospital box gluer) History of Present Illness HPI narrative: This is a 56-year-old male who complains of debilitating anxiety, panic attacks, depression. States he has had this for some time but recently has been worse. He notes he has had poor appetite recently and has not eaten in 3-4 days because his stomach feels upset. He has been drinking fluids. 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 He was on hydroxyzine but was taken off. Denies being suicidal. He lives at home alone. He does smoke tobacco denies alcohol or street drugs. He notes he has been having trouble sleeping due to his anxiety. There is little that he enjoys. Denies any vomiting, has had some diarrhea. Denies any chest pain, shortness of breath, fever, cough, headache, leg swelling. States he does have history of hypertension but was taken off his medication due to dizziness. He is not currently on any medications. He states he did not want to be admitted to crisis here. Related Data Home Medications Medication Instructions Recorded Confirmed amlodipine 5 mg tablet 1 tab PO DAILY 02/03/21 02/03/21 benztropine 1 mg tablet 1 mg PO BID 08/06/21 clonidine HCl 0.1 mg tablet 0.1 mg PO BID 08/06/21 haloperidol 10 mg tablet 10 mg PO BID 08/06/21 haloperidol 5 mg tablet 5 mg PO BID 08/06/21 nicotine 21 mg/24 hr daily 0 patch TOPICAL 08/06/21 transdermal patch perphenazine 4 mg tablet 4 mg PO BID 08/06/21 topiramate 50 mg tablet 50 mg PO BID 08/06/21 Previous Rx's Medication Instructions Recorded acetaminophen 325 mg tablet 650 mg PO Q6H PRN #60 tab 02/05/21 cefuroxime axetil 500 mg tablet 500 mg PO Q12H #14 tab 02/05/21 allopurinol 100 mg tablet 100 mg PO DAILY 90 Days #90 tab 03/02/21 pyridoxine (vitamin B6) 100 mg 100 mg PO DAILY 90 Days #90 tab 03/02/21 tablet ibuprofen 600 mg tablet 600 mg PO Q6H PRN #20 tab 07/06/21 oxycodone 5 mg tablet 5 mg PO Q6H PRN #8 tab 07/06/21 tamsulosin 0.4 mg capsule (Flomax) 0.4 mg PO DAILY #20 cap 07/06/21 hydroxyzine HCl 25 mg tablet 25 mg PO TID PRN #9 tab 11/10/21 Allergies Allergy/AdvReac Type Severity Reaction Status Date / Time No Known Allergies Allergy Verified 08/06/21 10:55 Review of Systems Review of Systems: Yes all other systems are reviewed and are negative Constitutional: Constitutional: Reports as per HPI and Denies fever(s) Eyes: Eyes: Reports as per HPI and Reports no additional eye complaints ENT: Reports system reviewed and no additional complaints, except as documented, Reports as per HPI, Denies nasal congestion, Denies nasal discharge and Denies sore throat Cardiovascular: Cardiovascular: Reports as per HPI, Denies chest pain and Denies dyspnea Respiratory: Respiratory: Reports as per HPI, Denies cough and Denies dyspnea Gastrointestinal: Gastrointestinal: Reports as per HPI, Denies abdominal pain, Denies diarrhea and Denies vomiting Genitourinary: Genitourinary: Reports as per HPI, Denies hematuria, Denies dysuria and Denies urinary frequency Musculoskeletal: Musculoskeletal: Reports no additional musculoskeletal complaints and Denies numbness Integumentary/Breasts: Skin/Breast: Reports as per HPI and Denies rash Neurologic: Reports as per HPI, Denies focal weakness and Denies numbness Psychiatric: Psychiatric: Reports no additional psychiatric complaints, Reports as per HPI, Reports anxiety, Reports depression, Reports anhedonia, Reports panic attacks and Reports suicidal ideation Endocrine: Endocrine: Reports no additional endocrine complaints and Reports as per HPI Hematologic/Lymphatic: Hematologic/Lymphatic: Reports no additional hematologic/lymphatic complaints, Reports as per HPI and Reports other (No peripheral edema) [facility] Past Medical History Medical History Depression with anxiety History of kidney stones HTN (hypertension) Surgical History History of surgery Social History Social History Household Members: Children Household Members Other:: 6 Housing: Apartment Do you presently have visiting nurse or other home services: No Cigarettes Per Day: 5 Second Hand Smoke Exposure: No Advance Directives: No Advance Directives Date on File: 02/07/21 service: No Current occupational status: disabled Physical Exam ED Vital Signs: Vital Signs - 24 hr 12/01/21 10:57 12/01/21 15:39 Temperature 98.0 F 98 F Pulse Rate 77 65 Respiratory Rate 18 15 Blood Pressure 151/91 H 128/84 Pulse Oximetry 99 100 BMI result Body Mass Index 27.8 Const Other: Patient very anxious appearing General: no acute distress Orientation/consciousness: patient oriented x3 HENMT Head: Yes normal to inspection General nose exam: Normal external nose present Mouth: moist mucous membranes Throat: Yes posterior oropharynx normal, Yes tonsils normal and Yes uvula mid line Eyes Eyelids: Yes eyelids normal Conjunctivae: conjunctivae normal Pupils: Equal, round and reactive pupils present Neck Neck: Yes supple Resp Effort & Inspection: normal respiratory effort Auscultation: clear to auscultation bilaterally Cardio Rate: regular rate Rhythm: regular rhythm Heart sounds: S1 normal heart sound present, S2 normal heart sound present, no gallops, no murmurs and no rubs GI Inspection: No distended Palpation (GI): Soft to palpation and nontender Auscultation: normal bowel sounds Skin General skin exam: other (Warm and dry) Neuro General: patient oriented x3 and CN's II-XI intact bilaterally Cranial nerves: Yes Equal, round and reactive pupils present Extrem General: Yes no pedal edema Psych Appearance: grossly normal Speech and movement: Clear speech present Affect: No normal affect and Anxious affect present Attitude: cooperative Medical Decision Making [facility] Narrative Medical decision making narrative: Patient with what sounds like fairly debilitating anxiety, and some depression. Patient was trouble sleeping, poor appetite. Patient appears to have moderately severe depression with anxiety. Patient denied suicidal ideation. Patient had been on clonazepam in the past and had been in ?addicted?, did not want to be put on any similar medicines. Patient seems somewhat phobic of medicines. Patient had been on medicine for hypertension and for anxiety, specifically hydroxyzine, but is no longer on them. Patient needs psychiatric evaluation, possibly inpatient, may need to be started on an SSRI or other antidepressant which also can help with anxiety. Patient has no concerning physical complaints, labs unremarkable. Patient is being signed out to Dr. Sciarutto at change of shift, pending evaluation and disposition recommendation by Psychiatry. Lab Data Result diagrams: 12/01/21 11:42 12/01/21 11:42 Labs: Lab Results 12/01/21 12/01/21 12/01/21 Range/Units 11:42 11:42 11:42 WBC 7.5 (4.8-10.8) X10*3/uL RBC 5.08 (4.60-5.80) X10*6/uL Hgb 14.2 (14.0-18.0) g/dl Hct 42.3 (42.0-52.0) % MCV 83.3 (80.0-98.0) fL MCH 28.0 (27.0-33.0) pg MCHC 33.6 (31.0-36.0) g/dl RDW 13.7 (11.0-16.0) % Plt Count 220 (160-400) X10*3/uL MPV 10.2 (9.4-12.4) fL Immature Gran % (Auto) 0.3 (0.0-0.4) % Neut % (Auto) 68.6 (45-73) % Lymph % (Auto) 23.1 (20-40) % [place] % (Auto) 5.7 (2-11) % Eos % (Auto) 1.2 (0-4) % Baso % (Auto) 1.1 (0-2) % Lymph # (Auto) 1.7 (1.2-4.9) X10*3/uL [place] # (Auto) 0.4 (0.1-1.2) X10*3/uL Eos # (Auto) 0.1 (0.0-0.4) X10*3/uL Baso # (Auto) 0.1 (0.0-0.2) X10*3/uL Abs Immat Gran (auto) 0.02 (0.00-0.03) X10*3/uL Absolute Neuts (auto) 5.2 (2.0-8.3) x10*3/uL Absolute Nucleated RBC 0.000 (0.0-0.012) X10*3/uL Nucleated RBC % (auto) 0.0 (0.0-0.2) /100WBC Sodium 139 (135-145) mmol/L Potassium 3.8 (3.3-5.1) mmol/L Chloride 108 (96-108) mmol/L Carbon Dioxide 25 (22-29) mmol/L Anion Gap 10 L (12-20) BUN 19 H (9-16) mg/dL Creatinine 1.39 (0.5-1.4) mg/dL Estim Creat Clear Calc 65.1 Estimated GFR 53 Random Glucose 62 (60-115) mg/dL Calcium 9.2 (8.4-10.2) mg/dL Total Bilirubin 0.3 (0.0-1.0) mg/dL AST 15 (5-37) U/L ALT 9 (0-40) U/L Alkaline Phosphatase 60 (39-117) U/L Total Protein 7.9 (6.5-8.0) g/dL Albumin 3.7 (3.5-5.0) g/dL Urine Opiates Screen (Not Detect) Urine Fentanyl Screen (Not Detect) Ur Barbiturates Screen (Not Detect) Ur Phencyclidine Scrn (Not Detect) Ur Amphetamines Screen (Not Detect) U Benzodiazepines Scrn (Not Detect) Urine Cocaine Screen (Not Detect) U Marijuana (THC) Screen (Not Detect) Ethyl Alcohol < 10 mg/dL COVID-19 (MARY) (Negative) COVID-19 Clin Com 12/01/21 12/01/21 Range/Units 12:10 15:10 WBC (4.8-10.8) X10*3/uL RBC (4.60-5.80) X10*6/uL Hgb (14.0-18.0) g/dl Hct (42.0-52.0) % MCV (80.0-98.0) fL MCH (27.0-33.0) pg MCHC (31.0-36.0) g/dl RDW (11.0-16.0) % Plt Count (160-400) X10*3/uL MPV (9.4-12.4) fL Immature Gran % (Auto) (0.0-0.4) % Neut % (Auto) (45-73) % Lymph % (Auto) (20-40) % [place] % (Auto) (2-11) % Eos % (Auto) (0-4) % Baso % (Auto) (0-2) % Lymph # (Auto) (1.2-4.9) X10*3/uL [place] # (Auto) (0.1-1.2) X10*3/uL Eos # (Auto) (0.0-0.4) X10*3/uL Baso # (Auto) (0.0-0.2) X10*3/uL Abs Immat Gran (auto) (0.00-0.03) X10*3/uL Absolute Neuts (auto) (2.0-8.3) x10*3/uL Absolute Nucleated RBC (0.0-0.012) X10*3/uL Nucleated RBC % (auto) (0.0-0.2) /100WBC Sodium (135-145) mmol/L Potassium (3.3-5.1) mmol/L Chloride (96-108) mmol/L Carbon Dioxide (22-29) mmol/L Anion Gap (12-20) BUN (9-16) mg/dL Creatinine (0.5-1.4) mg/dL Estim Creat Clear Calc Estimated GFR Random Glucose (60-115) mg/dL Calcium (8.4-10.2) mg/dL Total Bilirubin (0.0-1.0) mg/dL AST (5-37) U/L ALT (0-40) U/L Alkaline Phosphatase (39-117) U/L Total Protein (6.5-8.0) g/dL Albumin (3.5-5.0) g/dL Urine Opiates Screen Not Detected (Not Detect) Urine Fentanyl Screen Not Detected (Not Detect) Ur Barbiturates Screen Not Detected (Not Detect) Ur Phencyclidine Scrn Not Detected (Not Detect) Ur Amphetamines Screen Not Detected (Not Detect) U Benzodiazepines Scrn Not Detected (Not Detect) Urine Cocaine Screen Not Detected (Not Detect) U Marijuana (THC) Screen POSITIVE H (Not Detect) Ethyl Alcohol mg/dL COVID-19 (MARY) Negative (Negative) COVID-19 Clin Com See Note Discharge Plan Discharge Clinical Impression: Depression, Panic disorder Patient Disposition: Still a Patient Prescriptions: No Action amlodipine 5 mg tablet 1 tab PO DAILY 0RF acetaminophen 325 mg Tablet 650 mg PO Q6H PRN (Reason: Pain, Mild (Pain Scale 1-3)) Qty: 60 0RF cefuroxime axetil 500 mg tablet 500 mg PO Q12H Qty: 14 0RF tamsulosin [Flomax] 0.4 mg capsule 0.4 mg PO DAILY Qty: 20 0RF ibuprofen 600 mg tablet 600 mg PO Q6H PRN (Reason: pain) Qty: 20 0RF oxycodone 5 mg tablet 5 mg PO Q6H PRN (Reason: pain) Qty: 8 0RF hydroxyzine HCl 25 mg tablet 25 mg PO TID PRN (Reason: itching) Qty: 9 0RF pyridoxine (vitamin B6) 100 mg tablet 100 mg PO DAILY 90 Days Qty: 90 1RF allopurinol 100 mg tablet 100 mg PO DAILY 90 Days Qty: 90 0RF
[2021-12-01] MEDS: cloNIDine HCL 0.2 MG TABLET PO (11:41)
[2021-12-01 11:46] LABS: MANUAL DIFF FLAG NO
[2021-12-01 11:53] LABS: Basophils Absolute Auto 0.1 X10*3/uL (0.0-0.2); Basophils Percent Auto 1.1 % (0-2); Eosinophils Absolute Auto 0.1 X10*3/uL (0.0-0.4); Eosinophils Percent Auto 1.2 % (0-4); Hematocrit 42.3 % (42.0-52.0); Hemoglobin 14.2 g/dl (14.0-18.0); Imm Gran Abs Auto 0.02 X10*3/uL (0.00-0.03); Imm Gran Pct Auto 0.3 % (0.0-0.4); Lymphocytes Absolute Auto 1.7 X10*3/uL (1.2-4.9); Lymphocytes Percent Auto 23.1 % (20-40); Mean Corpuscular HGB Conc 33.6 g/dl (31.0-36.0); Mean Corpuscular Volume 83.3 fL (80.0-98.0); Mean Platelet Volume 10.2 fL (9.4-12.4); Monocytes Absolute Auto 0.4 X10*3/uL (0.1-1.2); Monocytes Percent Auto 5.7 % (2-11); Neutrophils Absolute Auto 5.2 x10*3/uL (2.0-8.3); Neutrophils Percent Auto 68.6 % (45-73); Platelet Count 220 X10*3/uL (160-400); Red Blood Count 5.08 X10*6/uL (4.60-5.80); Red Cell Distribution Width 13.7 % (11.0-16.0); White Blood Count 7.5 X10*3/uL (4.8-10.8)
[2021-12-01 12:16] LABS: Ethanol < 10 mg/dL
[2021-12-01 12:19] LABS: Alanine Aminotransferase 9 U/L (0-40); Albumin Level 3.7 g/dL (3.5-5.0); Alkaline Phosphatase 60 U/L (39-117); Anion Gap 10 (12-20); Aspartate Amino Transferase 15 U/L (5-37); Bilirubin Total 0.3 mg/dL (0.0-1.0); Blood Urea Nitrogen 19 mg/dL (9-16); Calcium 9.2 mg/dL (8.4-10.2); Carbon Dioxide 25 mmol/L (22-29); Chloride 108 mmol/L (96-108); Creatinine Clr Calc Pharmacy 65.1; Estimated Glomerular Filt Rate 53; Glucose Random 62 mg/dL (60-115); Potassium 3.8 mmol/L (3.3-5.1); Sodium 139 mmol/L (135-145); Total Protein 7.9 g/dL (6.5-8.0)
[2021-12-01 12:37] LABS: Amphetamine Screen Urine Not Detected (Not Detect); Barbiturates, Urine Not Detected (Not Detect); Benzodiazepines Screen Urine Not Detected (Not Detect); Cannabinoid Screen Urine POSITIVE (Not Detect); Cocaine Screen Urine Not Detected (Not Detect); Fentanyl, urine Not Detected (Not Detect); Opiate Screen Urine Not Detected (Not Detect); Phencyclidine Screen Urine Not Detected (Not Detect)
--- NOTE | 2021-12-01 12:43 | PC.NURSE ---
smart sheet sent to [facility]
[2021-12-01 15:33] LABS: COVID-19 Test Negative (Negative); IDNOW Serial# 16C4AD1C
[2021-12-01 15:39] VITALS: BP 128/84; PULSE 65; RESP 15; TEMP 36.6; O2SAT 100
--- NOTE | 2021-12-01 17:39 | PC.NURSE ---
PATIENT IS ALERT AND ORIENTED VERBALIZED UNDERSTANDING OF BEING DISCHARGED TO RESPITE. WAS GIVEN BELONGINGS AND PAPERWORK AND DISCHARGED TO WAITING ROOM FOR RIDE TO RESPITE
== END 2021-12-01 17:41 | disposition still patient (30) ==
PROVIDERS: Emergency Medicine; Emergency Provider Emergency Medicine Emergency Medical Services; PCP Internal Medicine Geriatric Medicine
DX: F32.A Depression, unspecified (principal); F41.0 Panic disorder [episodic paroxysmal anxiety]; F41.9 Anxiety disorder, unspecified; R45.84 Anhedonia; F17.200 Nicotine dependence, unspecified, uncomplicated; Z20.822 Contact with and (suspected) exposure to COVID-19
CPT/HCPCS: 36415; 80053; 80307; 82077; 85025; 87635; 99284

== ENCOUNTER 2021-12-16 19:19 | Inpatient (IN) | payer MEDICAID, SELFPAY ==
--- NOTE | ~2021-12-16 | CT_ITS ---
EXAMINATION: CT ABDOMEN AND PELVIS WITHOUT CONTRAST CLINICAL INFORMATION: Right flank pain. COMPARISON: Most recent renal ultrasound dated 07/06/[address] abdomen/pelvis dated 02/03/2021. TECHNIQUE: Multidetector volumetric imaging was performed from the superior aspect of the liver through the pubic symphysis. Sagittal and coronal reformatted images were obtained on the technologist's workstation. This CT examination was performed using dose optimization techniques as appropriate, variously including the following: *Automated exposure control *Adjustment of mA and/or kV according to patient size (this includes techniques or standardized protocols for targeted exams where dose is matched to indication/reason for exam; i.e. extremities or head) *Use of iterative reconstruction technique DLP: 643 mGy-cm FINDINGS: LUNG BASES: The visualized lung bases are unremarkable. LIVER, GALLBLADDER, AND BILIARY TREE: The liver is normal in size, shape, and attenuation. No focal hepatic lesion or biliary ductal dilatation is present. The gallbladder is unremarkable with no evidence of radiopaque gallstones, gallbladder wall thickening, or obvious pericholecystic inflammatory changes. PANCREAS: Unremarkable. SPLEEN: Unremarkable. ADRENAL GLANDS: Unremarkable. KIDNEYS AND URETERS: The kidneys are normal in size, shape, and attenuation. There is a 1.6 x 1.2 x 1.7 cm stone within the left ureteropelvic junction measuring approximately 963 Hounsfield units and located 14.3 cm from the posterior axillary line. There is [id number] left-sided hydronephrosis with mild perinephric stranding. There are multiple additional left-sided renal stones measuring up to 0.9 cm within the lower pole. No ureteral stone. No right-sided renal or ureteral stone. No right-sided hydronephrosis or hydroureter. BLADDER: Unremarkable. GASTROINTESTINAL TRACT: No bowel wall thickening or associated inflammatory change. No small or large bowel obstruction. Appendix not seen. No lower quadrant inflammatory change to suggest acute appendicitis. PERITONEAL CAVITY: No intra-abdominal free air or free fluid. No intra-abdominal mass or organized fluid collection/abscess formation. ABDOMINAL WALL: Small, fat-containing periumbilical hernia. LYMPH NODES: There are central mesenteric and left-sided retroperitoneal lymph nodes which have increased in prominence when compared to the prior examination with the largest now measuring up to 1.7 x 2.1 cm in greatest axial dimension (axial image 29/85). Findings are nonspecific. VASCULAR: Unremarkable. PELVIC VISCERA: The prostate and seminal vesicles are unremarkable. OSSEOUS STRUCTURES: Right hip arthroplasty without evidence of complication. 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 No associated cortical collapse. CT/CT abdomen pelvis wo con IMPRESSION: 1. Left ureteropelvic junction stone measuring up to 1.7 cm in greatest dimension and located approximately 14.3 cm from the posterior axillary line. [id number] left-sided hydronephrosis with mild perinephric stranding. Multiple additional left-sided renal stones measuring up to 0.9 cm within the lower pole. No right-sided hydronephrosis or hydroureter. 2. Mildly prominent central mesenteric and retroperitoneal lymph nodes, increased when compared to the prior CT. Findings are nonspecific and could represent an infectious, inflammatory, or infiltrative process. Fleischner guidelines were followed.
--- NOTE | ~2021-12-16 | FL_ITS ---
EXAMINATION: Intraoperative fluoroscopy CLINICAL INFORMATION: Left stent placement COMPARISON: CT abdomen pelvis 12/16/2021 TECHNIQUE: Intraoperative fluoroscopy was provided for use by Dr. Randhawa. A total of 4 images were saved to PACS. A radiologist was not present during imaging. Today's dictation is only for administrative purposes to document intraoperative fluoroscopic usage. TOTAL FLUOROSCOPIC TIME: 1 minute and 6 seconds FL/FL guidance in OR FINDINGS~\^^ Intraoperative fluoroscopy provided for use by Dr. Randhawa. Please see operative note for detailed findings.
--- NOTE | 2021-12-16 19:35 | ED_ITS ---
HPI - Syncope General Chief Complaint: Syncope Stated Complaint: near syncope Time Seen by Provider: 12/16/21 19:20 Source: patient, EMS, old records reviewed and full time staff interpreter Mode of arrival: EMS Limitations: no limitations History of Present Illness HPI narrative: 56 y/o male with history of anxiety, hx obstructive left sided kidney stone requiring stent in the past who presents to the ER with right sided flank pain for the last 3 days and a near syncopal event this evening. Patient was at a [employer] with his son when he started to have worsening right flank pain and not feel well. He was wanting to leave but his son was wanting to stay. He was standing when he gradually started feeling lightheaded and his vision started going black. He started to fall forward and his son caught him and lowered him to the ground. He never lost consciousness. No seizure activity. He states he had eaten a few hours prior but was not drinking much water today. Denies drugs or alcohol. He states he was feeling anxious at the time. No chest pain or SOB. He states the right sided flank pain feels like kidney pain has he had in the past. It has been constant for the last 3 days. No urinary symptoms, N/V/D or fevers. complaint: almost passed out Onset (ago): minute(s) -: second(s) Prodromal symptoms: vision changes and lightheaded Witnessed: Yes - by Bystander Context: at rest Injuries sustained associated with event: none Current symptoms: back to baseline Treatments prior to arrival: none Related Data Home Medications Medication Instructions Recorded Confirmed amlodipine 5 mg tablet 1 tab PO DAILY 02/03/21 02/03/21 benztropine 1 mg tablet 1 mg PO BID 08/06/21 clonidine HCl 0.1 mg tablet 0.1 mg PO BID 08/06/21 haloperidol 10 mg tablet 10 mg PO BID 08/06/21 haloperidol 5 mg tablet 5 mg PO BID 08/06/21 nicotine 21 mg/24 hr daily 0 patch TOPICAL 08/06/21 transdermal patch perphenazine 4 mg tablet 4 mg PO BID 08/06/21 topiramate 50 mg tablet 50 mg PO BID 08/06/21 Previous Rx's Medication Instructions Recorded acetaminophen 325 mg tablet 650 mg PO Q6H PRN #60 tab 02/05/21 cefuroxime axetil 500 mg tablet 500 mg PO Q12H #14 tab 02/05/21 allopurinol 100 mg tablet 100 mg PO DAILY 90 Days #90 tab 03/02/21 pyridoxine (vitamin B6) 100 mg 100 mg PO DAILY 90 Days #90 tab 03/02/21 tablet ibuprofen 600 mg tablet 600 mg PO Q6H PRN #20 tab 07/06/21 oxycodone 5 mg tablet 5 mg PO Q6H PRN #8 tab 07/06/21 tamsulosin 0.4 mg capsule (Flomax) 0.4 mg PO DAILY #20 cap 07/06/21 hydroxyzine HCl 25 mg tablet 25 mg PO TID PRN #9 tab 11/10/21 Allergies Allergy/AdvReac Type Severity Reaction Status Date / Time No Known Allergies Allergy Verified 08/06/21 10:55 Review of Systems Review of Systems: Constitutional: No Fever, No Chills ENT/Mouth: No sore throat, No Rhinorrhea, No Swallowing Difficulty Eyes: No Eye Pain, No Swelling, No Redness Cardiovascular: No Chest Pain, No SOB, No Orthopnea, No Edema Respiratory: No Cough, No Sputum, No Wheezing, No dyspnea Gastrointestinal: No Nausea, No Vomiting, No Diarrhea, No abdominal Pain, No Hematochezia, No Melena Genitourinary: No Dysuria, No Urinary Frequency, No Hematuria Musculoskeletal: No joint pain, + Myalgias (right lower back) Skin: No Skin Lesions, No rash Neuro: No Weakness, No Numbness, + Dizziness, No Headache Psych: + Anxiety/Panic, No Depression Heme/Lymph: No Bruising, No Lymphadenopathy Endocrine: No Polyuria, No Polydipsia [facility] Past Medical History Medical History Depression with anxiety History of kidney stones HTN (hypertension) Surgical History History of surgery Social History Social History Household Members: Children Household Members Other:: 6 Housing: Apartment Do you presently have visiting nurse or other home services: No Cigarettes Per Day: 5 Second Hand Smoke Exposure: No Advance Directives: Yes Advance Directives on File: Yes Advance Directives Date on File: 02/07/21 service: No Current occupational status: disabled Physical Exam Vital Signs: Vital Signs: Last Vital Signs Temp 98.6 F 12/16/21 19:37 Pulse 86 12/16/21 19:37 Resp 18 12/16/21 19:37 BP 129/88 12/16/21 19:37 Pulse Ox 97 12/16/21 19:37 BMI result Body Mass Index 28.4 Appearance: Alert. Oriented X3. No acute distress. Eyes: Pupils equal, round and reactive to light. EOMI, no nystagmus ENT: Pharynx normal. Neck: Normal inspection. Neck supple. CVS: Normal heart rate and rhythm. Pulses normal. Respiratory: No respiratory distress. Breath sounds normal. Abdomen: Soft and nontender. +BS x4 Skin: Skin warm and dry. Normal skin color. Normal skin turgor. No rashes. Extremities: No lower extremity edema. Neuro: Oriented X 3. No motor deficit. No sensory deficit. Course Course Course Narrative: 56-year-old male with history of anxiety, history of anxiety attacks, depression, left-sided kidney stones who presents to the ER with a near syncopal event today and right-sided flank pain that started 3 days ago. Patient now feels back to baseline. His vital signs are normal. His glucose is normal. Suspect anxiety related versus mild dehydration versus vasovagal. Will check orthostatic vital signs, EKG, metabolic workup and also get a CT scan to evaluate his right-sided flank pain. Reevaluation(s) Reevaluation #1: Workup still pending, signed out to Jamarcus CAREY who will follow up results and determine dispo based on results. Patient feels back to baseline, mild right flank/low back pain. PO tylenol ordered. MDM - Syncope Medical Records Attestation: I reviewed the patient's medical records. Lab Data Attestation: I reviewed the patient's lab results. ECG Data Attestation: I personally reviewed and interpreted this ECG as follows: ECG interpretation date: 12/16/21 ECG interpretation time: 20:30 Interpretation: Normal sinus rhythm, heart rate 80 beats per minute, normal ID interval, normal QTC, no ST segment elevations or depressions. Normal ECG. Discharge Plan Discharge Clinical Impression: Near syncope Patient Disposition: Still a Patient Prescriptions: No Action amlodipine 5 mg tablet 1 tab PO DAILY 0RF acetaminophen 325 mg Tablet 650 mg PO Q6H PRN (Reason: Pain, Mild (Pain Scale 1-3)) Qty: 60 0RF cefuroxime axetil 500 mg tablet 500 mg PO Q12H Qty: 14 0RF tamsulosin [Flomax] 0.4 mg capsule 0.4 mg PO DAILY Qty: 20 0RF ibuprofen 600 mg tablet 600 mg PO Q6H PRN (Reason: pain) Qty: 20 0RF oxycodone 5 mg tablet 5 mg PO Q6H PRN (Reason: pain) Qty: 8 0RF hydroxyzine HCl 25 mg tablet 25 mg PO TID PRN (Reason: itching) Qty: 9 0RF pyridoxine (vitamin B6) 100 mg tablet 100 mg PO DAILY 90 Days Qty: 90 1RF allopurinol 100 mg tablet 100 mg PO DAILY 90 Days Qty: 90 0RF
--- NOTE | 2021-12-16 19:35 | ECG_ITS ---
Test Reason : syncope Blood Pressure : / mmHG Vent. Rate : 080 BPM Atrial Rate : 080 BPM P-R Int : 142 ms QRS Dur : 080 ms QT Int : 368 ms P-R-T Axes : 065 047 060 degrees QTc Int : 424 ms Normal sinus rhythm Normal ECG When compared with ECG of 10-NOV-2021 17:10, No significant change was found Referred By: Shameka Horn Electronically Signed By:Iggy Diaz
[2021-12-16 19:37] VITALS: BP 104/70; BP 129/88; PULSE 82; PULSE 86; RESP 18; TEMP 37; O2SAT 100; O2SAT 97; BMI 28.4
[2021-12-16] MEDS: 0.9 % Sodium Chloride 1,000 ML 999 ML IVCONT (20:27)
[2021-12-16] MEDS: Acetaminophen 325 MG TABLET 975 MG PO (21:55)
[2021-12-16 22:52] LABS: MANUAL DIFF FLAG NO
[2021-12-16 22:54] LABS: Basophils Percent Auto 0.3 % (0-2); Eosinophils Absolute Auto 0.2 X10*3/uL (0.0-0.4); Eosinophils Percent Auto 1.6 % (0-4); Hematocrit 44.6 % (42.0-52.0); Hemoglobin 14.7 g/dl (14.0-18.0); Imm Gran Abs Auto 0.03 X10*3/uL (0.00-0.03); Imm Gran Pct Auto 0.3 % (0.0-0.4); Lymphocytes Absolute Auto 0.8 X10*3/uL (1.2-4.9); Lymphocytes Percent Auto 8.6 % (20-40); Mean Corpuscular Hemoglobin 28.7 pg (27.0-33.0); Mean Corpuscular Volume 86.9 fL (80.0-98.0); Mean Platelet Volume 10.7 fL (9.4-12.4); Monocytes Absolute Auto 0.4 X10*3/uL (0.1-1.2); Monocytes Percent Auto 3.9 % (2-11); Neutrophils Absolute Auto 8.3 x10*3/uL (2.0-8.3); Neutrophils Percent Auto 85.3 % (45-73); Platelet Count 194 X10*3/uL (160-400); Red Blood Count 5.13 X10*6/uL (4.60-5.80); Red Cell Distribution Width 14.6 % (11.0-16.0); White Blood Count 9.8 X10*3/uL (4.8-10.8)
[2021-12-16 23:01] LABS: INTERNATIONAL NORM RATIO 1.1 (0.9-1.1); Prothrombin Time 12.4 SEC (9.9-13.0)
[2021-12-16 23:10] LABS: Alanine Aminotransferase 16 U/L (0-40); Albumin Level 3.5 g/dL (3.5-5.0); Alkaline Phosphatase 58 U/L (39-117); Anion Gap 13 (12-20); Aspartate Amino Transferase 13 U/L (5-37); Bilirubin Direct < 0.2 mg/dL (0.0-0.5); Bilirubin Total 0.3 mg/dL (0.0-1.0); Blood Urea Nitrogen 28 mg/dL (9-16); Calcium 8.5 mg/dL (8.4-10.2); Carbon Dioxide 21 mmol/L (22-29); Chloride 111 mmol/L (96-108); Creatinine Clr Calc Pharmacy 53.4; Estimated Glomerular Filt Rate 42; Glucose Random 108 mg/dL (60-115); Magnesium 1.9 mg/dL (1.6-2.6); Potassium 4.1 mmol/L (3.3-5.1); Sodium 141 mmol/L (135-145); Total Protein 7.4 g/dL (6.5-8.0)
[2021-12-16 23:16] LABS: Troponin-I High Sensitivity < 3.5 ng/L (<3.5-35.0)
[2021-12-16 23:19] LABS: COVID-19 Test Negative (Negative)
[2021-12-16 23:25] VITALS: BP 119/77; PULSE 73; RESP 18; O2SAT 97
[2021-12-16 23:37] LABS: Appearance Urine CLEAR; Color Urine YELLOW; Glucose Urine UA NEG (NEG); Leukocyte Esterase Urine NEG (NEG); Nitrite Urine NEG (NEG); Specific Gravity - Urine 1.015 (1.005-1.025); Urine Blood NEG (NEG); Urine Ketones NEG (NEG); Urine Protein NEG (NEG-TRACE)
[2021-12-16 23:49] VITALS: BP 119/77; PULSE 77; RESP 22
[2021-12-16 23:51] VITALS: RESP 22
[2021-12-16] MEDS: 0.9 % Sodium Chloride 1,000 ML 999 ML IV (23:51)
[2021-12-16] MEDS: Morphine Sulfate 2 MG/ML CARTRIDGE IVPUSH (23:51)
[2021-12-16 23:58] LABS: Amphetamine Screen Urine Not Detected (Not Detect); Barbiturates, Urine Not Detected (Not Detect); Benzodiazepines Screen Urine Not Detected (Not Detect); Cannabinoid Screen Urine POSITIVE (Not Detect); Cocaine Screen Urine Not Detected (Not Detect); Fentanyl, urine Not Detected (Not Detect); Opiate Screen Urine Not Detected (Not Detect); Phencyclidine Screen Urine Not Detected (Not Detect)
[2021-12-17] VITALS (11 sets, daily range): BP systolic 119–152; BP diastolic 78–98; PULSE 61–86; RESP 14–20; TEMP 36.3–37.1; O2SAT 97–100; BMI 28.2
--- NOTE | 2021-12-17 02:40 | PM.IMHP ---
History of Present Illness Date of Service: 12/17/21 Chief Complaint: Syncope 56-year-old male with a past medical history of anxiety, depression, history of kidney stones, hypertension presented to the hospital with a chief complaint of syncope. patient reported that this afternoon he had like a pain in his flanks followed by he felt lightheaded dizzy and fell onto the ground; lost consciousness; episode lasted for few seconds; denies any seizure-like episode; denies any head strike. denies any chest pain palpitations. denies any postictal confusion. mentions he had right-sided flank pain; which is resolved at the time of my interview; denies any fever chills cough. reports he has urinary frequency but has been chronic. denies any dysuria or hematuria. review of all other systems is negative except mentioned above er course: per er team patient initially complained of flank pain; ct abdomen showed 1.7 cm upj stone on the left side with hydronephrosis; patient was given morphine with improvement in pain. orthostatics were negative; ekg nonischemic; troponin negative; urinalysis negative for infection; admitted for further management [facility] Medical History (Updated 12/26/21 @ 00:02 by Reid Oliva) Depression with anxiety History of kidney stones HTN (hypertension) Surgical History (Updated 12/24/21 @ 13:36 by Cherelle Talbot RN) History of surgery Hx of cystoscopy Hx of total hip arthroplasty Social History Household Members: None Household Members Other:: 6 Housing: Apartment Do you presently have visiting nurse or other home services: No Patient Tobacco Use Status: Current everyday Tobacco user Tobacco use type: Cigarette Cigarettes Per Day: 6 Second Hand Smoke Exposure: No Substance Use Type: Marijuana Advance Directives Date on File: 02/07/21 service: No Current occupational status: unemployed and disabled Meds Allergies Allergy/AdvReac Type Severity Reaction Status Date / Time No Known Allergies Allergy Verified 12/24/21 13:48 Active Medications: Current Medications Acetaminophen (Acetaminophen 325 Mg Tablet) 650 mg PO Q6H PRN PRN Reason: Pain, Mild (Pain Scale 1-3) Hydromorphone HCl (Hydromorphone Hcl 1 Mg/Ml Syringe) 0.5 mg IVPUSH Q4H PRN; Protocol PRN Reason: Pain, Severe (Pain Scale 7-10) Senna (Sennosides 8.6 Mg Tablet) 17.2 mg PO BEDTIME PRN PRN Reason: Constipation Sodium Chloride (0.9 % Sodium Chloride Flush 3 Ml Syringe) 3 ml IVFLUSH QSHIFT [facility] Home Medications Medication Instructions Recorded Confirmed Last Taken Type benztropine 1 mg tablet 1 mg PO BEDTIME 08/06/21 12/17/21 12/15/21 History topiramate 50 mg tablet 50 mg PO BID 08/06/21 12/17/21 12/15/21 History buspirone 15 mg tablet 1 tab PO TID 12/17/21 12/15/21 History mirtazapine 7.5 mg tablet 1 tab PO BEDTIME 12/17/21 12/17/21 12/15/21 History olanzapine 5 mg tablet 1 tab PO BEDTIME 12/17/21 12/17/21 12/15/21 History Physical Exam Vital Signs and Narrative: Vital Signs: Last Vital Signs Temp 98.5 F 12/17/21 00:00 Pulse 75 12/17/21 00:00 Resp 20 12/17/21 00:00 BP 134/85 12/17/21 01:16 Pulse Ox 98 12/17/21 00:00 BMI result Body Mass Index 28.4 GEN: APPEARS BE IN NO ACUTE DISTRESS HEENT: NCAT, MOIST [place]. PULMONARY: VESICULAR BREATH SOUNDS, FAIR AIR ENTRY CVS: NORMAL S1-S2 ABDOMEN: BS+, SOFT, NONTENDER; no cva tenderness noted EXTREMITIES: WARM WELL PERFUSED; NEURO: ALERT AND AWAKE. grossly nonfocal Results Labs CBC and Chem 7: 12/17/21 06:19 12/18/21 08:14 Labs: Laboratory Results - last 24 hr 12/16/21 12/16/21 12/16/21 22:45 22:45 22:45 MCV 86.9 MCH 28.7 MCHC 33.0 RDW 14.6 Plt Count 194 MPV 10.7 Immature Gran % (Auto) 0.3 Neut % (Auto) 85.3 H Lymph % (Auto) 8.6 L [place] % (Auto) 3.9 Eos % (Auto) 1.6 Baso % (Auto) 0.3 Lymph # (Auto) 0.8 L [place] # (Auto) 0.4 Eos # (Auto) 0.2 Baso # (Auto) 0.0 Abs Immat Gran (auto) 0.03 Absolute Neuts (auto) 8.3 Absolute Nucleated RBC 0.000 Nucleated RBC % (auto) 0.0 PT 12.4 INR 1.1 APTT 29.0 Anion Gap 13 Estim Creat Clear Calc 53.4 Estimated GFR 42 Random Glucose 108 D Calcium 8.5 D Magnesium 1.9 Total Bilirubin 0.3 Direct Bilirubin < 0.2 AST 13 ALT 16 Alkaline Phosphatase 58 Total Protein 7.4 Albumin 3.5 Urine Color Urine Appearance Urine pH Ur Specific [place] Urine Protein Urine Glucose (UA) Urine Ketones Urine Blood Urine Nitrite Ur Leukocyte Esterase Urine Opiates Screen Urine Fentanyl Screen Ur Barbiturates Screen Ur Phencyclidine Scrn Ur Amphetamines Screen U Benzodiazepines Scrn Urine Cocaine Screen U Marijuana (THC) Screen COVID-19 (MARY) COVID-[place] 12/16/21 12/16/21 12/16/21 22:45 23:30 23:30 MCV MCH MCHC RDW Plt Count MPV Immature Gran % (Auto) Neut % (Auto) Lymph % (Auto) [place] % (Auto) Eos % (Auto) Baso % (Auto) Lymph # (Auto) [place] # (Auto) Eos # (Auto) Baso # (Auto) Abs Immat Gran (auto) Absolute Neuts (auto) Absolute Nucleated RBC Nucleated RBC % (auto) PT INR APTT Anion Gap Estim Creat Clear Calc Estimated GFR Random Glucose Calcium Magnesium Total Bilirubin Direct Bilirubin AST ALT Alkaline Phosphatase Total Protein Albumin Urine Color YELLOW Urine Appearance CLEAR Urine pH 7.0 Ur Specific [place] 1.015 Urine Protein NEG Urine Glucose (UA) NEG Urine Ketones NEG Urine Blood NEG Urine Nitrite NEG Ur Leukocyte Esterase NEG Urine Opiates Screen Not Detected Urine Fentanyl Screen Not Detected Ur Barbiturates Screen Not Detected Ur Phencyclidine Scrn Not Detected Ur Amphetamines Screen Not Detected U Benzodiazepines Scrn Not Detected Urine Cocaine Screen Not Detected U Marijuana (THC) Screen POSITIVE H COVID-19 (MARY) Negative COVID-19 [employer] See Note Imaging Radiologist's Impressions: Impressions Abdomen/Pelvis CT 12/16/21 20:28 IMPRESSION: 1. Left ureteropelvic junction stone measuring up to 1.7 cm in greatest dimension and located approximately 14.3 cm from the posterior axillary line. [id number] left-sided hydronephrosis with mild perinephric stranding. Multiple additional left-sided renal stones measuring up to 0.9 cm within the lower pole. No right-sided hydronephrosis or hydroureter. 2. Mildly prominent central mesenteric and retroperitoneal lymph nodes, increased when compared to the prior CT. Findings are nonspecific and could represent an infectious, inflammatory, or infiltrative process. Fleischner guidelines were followed. Assessment and Plan (1) Hydronephrosis concurrent with and due to calculi of kidney and ureter: Status: Acute Plan 56-year-old male with a past medical history of anxiety, depression, history of kidney stones, hypertension presented to the hospital with a chief complaint of syncope. syncope: likely vasovagal secondary to the pain. orthostatics negative. ekg nonischemic. troponin negative. monitor on telemetry. echocardiogram. kidney stone: patient had prior history of renal calculi. current ct scan showed left upj junction stone measuring 1.7 cm with moderate to severe left hydronephrosis; also noted multiple additional left-sided renal stones measuring up to 0.9 cm within the lower pole. no right-sided hydronephrosis or hydroureter. urology consult ua negative pain control continue flomax incidental finding of prominent mesenteric and retroperitoneal lymph nodes: nonspecific. patient recommended follow-up with pcp for all other chronic conditions home medications will be continued pending med rec dvt prophylaxis: subcu heparin code status: full code Quality Stroke Does the patient have a stroke diagnosis?: No VTE Prior VTE?: No VTE Risk Level:: Medical - moderate - high VTE Device Contraindication: Treatment Not Indicated VTE Drug Contraindication: N/A - Med Ordered
[2021-12-17 06:30] LABS: MANUAL DIFF FLAG NO
[2021-12-17 06:52] LABS: Basophils Percent Auto 0.5 % (0-2); Eosinophils Absolute Auto 0.2 X10*3/uL (0.0-0.4); Eosinophils Percent Auto 2.7 % (0-4); Hematocrit 42.3 % (42.0-52.0); Hemoglobin 13.6 g/dl (14.0-18.0); Imm Gran Abs Auto 0.03 X10*3/uL (0.00-0.03); Imm Gran Pct Auto 0.4 % (0.0-0.4); Lymphocytes Absolute Auto 0.9 X10*3/uL (1.2-4.9); Lymphocytes Percent Auto 11.9 % (20-40); Mean Corpuscular HGB Conc 32.2 g/dl (31.0-36.0); Mean Corpuscular Hemoglobin 28.1 pg (27.0-33.0); Mean Corpuscular Volume 87.4 fL (80.0-98.0); Mean Platelet Volume 10.7 fL (9.4-12.4); Monocytes Absolute Auto 0.5 X10*3/uL (0.1-1.2); Monocytes Percent Auto 6.7 % (2-11); Neutrophils Absolute Auto 6.2 x10*3/uL (2.0-8.3); Neutrophils Percent Auto 77.8 % (45-73); Platelet Count 190 X10*3/uL (160-400); Red Blood Count 4.84 X10*6/uL (4.60-5.80); Red Cell Distribution Width 14.6 % (11.0-16.0); White Blood Count 7.9 X10*3/uL (4.8-10.8)
[2021-12-17 07:02] LABS: Anion Gap 10 (12-20); Blood Urea Nitrogen 25 mg/dL (9-16); Calcium 8.1 mg/dL (8.4-10.2); Carbon Dioxide 23 mmol/L (22-29); Chloride 110 mmol/L (96-108); Creatinine Clr Calc Pharmacy 55.7; Estimated Glomerular Filt Rate 44; Glucose Random 96 mg/dL (60-115); Sodium 139 mmol/L (135-145)
[2021-12-17] MEDS: Heparin Sodium,Porcine 5,000 UNIT/ML VIAL 5000 UNIT SUBCUT (08:51)
[2021-12-17] MEDS: Acetaminophen 325 MG TABLET 650 MG PO (08:51)
[2021-12-17] MEDS: levoFLOXacin/D5W 500 MG/100 ML PIGGYBACK 100 MG IV (08:51)
[2021-12-17] MEDS: 0.9 % Sodium Chloride Flush 3 ML SYRINGE IVFLUSH ×2 (08:57→22:10)
--- NOTE | 2021-12-17 10:52 | PM.UROCN ---
History of Present Illness Consult details Consult date: 12/17/21 Narrative: Obey is a 56-year-old Malay-speaking male. Long history of renal stone formation Prior multiple visits to emergency room with flank pain Prior procedures to renal stones and failure to follow-up for appropriate management and therapy creatinine 1.64 from baseline 1.3 WBC 7.9 Left ureteropelvic junction stone measuring up to 1.7 cm in greatest dimension and located approximately 14.3 cm from the posterior axillary line. [id number] left-sided hydronephrosis with mild perinephric stranding. Multiple additional left-sided renal stones measuring up to 0.9 cm within the lower pole. No right-sided hydronephrosis or hydroureter. Recommendation for right-sided ureteroscopy laser lithotripsy of large stone and stent placement. Lighly likely that more than 1 procedure to the kidney stone will be required Review of Systems Constitutional: Constitutional: Reports as per HPI and Reports no additional constitutional complaints Cardiovascular: Cardiovascular: Reports as per HPI and Reports no additional cardiovascular complaints Respiratory: Respiratory: Reports as per HPI and Reports no additional respiratory complaints Gastrointestinal: Gastrointestinal: Reports as per HPI and Reports no additional gastrointestinal complaints Genitourinary: Genitourinary: Reports as per HPI Musculoskeletal: Musculoskeletal: Reports no additional musculoskeletal complaints and Reports as per HPI Neurologic: Reports system reviewed and no additional complaints, except as documented and Reports as per HPI PMFSH Past Medical History Medical History Depression with anxiety History of kidney stones HTN (hypertension) Surgical History Surgical History History of surgery Social History Social History Household Members: Children Household Members Other:: 6 Housing: Apartment Do you presently have visiting nurse or other home services: No Cigarettes Per Day: 5 Second Hand Smoke Exposure: No Advance Directives: Yes Advance Directives on File: Yes Advance Directives Date on File: 02/07/21 service: No Current occupational status: disabled Meds Allergies Allergy/AdvReac Type Severity Reaction Status Date / Time No Known Allergies Allergy Verified 08/06/21 10:55 Active Medications: Current Medications Acetaminophen (Acetaminophen 325 Mg Tablet) 650 mg PO Q6H PRN PRN Reason: Pain, Mild (Pain Scale 1-3) Heparin Sodium (Porcine) (Heparin Sodium,Porcine 5,000 Unit/Ml Vial) 5,000 unit SUBCUT Q8H [facility] Last Admin: 12/17/21 08:51 Dose: 5,000 unit Documented by: Hydromorphone HCl (Hydromorphone Hcl 1 Mg/Ml Syringe) 0.5 mg IVPUSH Q4H PRN; Protocol PRN Reason: Pain, Severe (Pain Scale 7-10) Senna (Sennosides 8.6 Mg Tablet) 17.2 mg PO BEDTIME PRN PRN Reason: Constipation Sodium Chloride (0.9 % Sodium Chloride Flush 3 Ml Syringe) 3 ml IVFLUSH QSHIFT [facility] Last Admin: 12/17/21 08:57 Dose: 3 ml Documented by: Home Medications Medication Instructions Recorded Confirmed Last Taken Type benztropine 1 mg tablet 1 mg PO BEDTIME 08/06/21 12/17/21 12/15/21 History topiramate 50 mg tablet 50 mg PO BID 08/06/21 12/17/21 12/15/21 History buspirone 15 mg tablet 1 tab PO TID 12/17/21 12/15/21 History mirtazapine 7.5 mg tablet 1 tab PO BEDTIME 12/17/21 12/17/21 12/15/21 History olanzapine 5 mg tablet 1 tab PO BEDTIME 12/17/21 12/17/21 12/15/21 History Physical Exam Vital Signs: Vital Signs: Last Vital Signs Temp 98.6 F 12/17/21 09:46 Pulse 64 12/17/21 09:46 Resp 18 12/17/21 09:46 BP 137/98 H 12/17/21 09:46 Pulse Ox 97 12/17/21 09:46 BMI result Body Mass Index 28.4 Const: General: cooperative, healthy appearing, comfortable and no acute distress Orientation/consciousness: patient oriented x3 HEENT: Face and sinus: Yes normal facial exam Mouth: moist mucous membranes Neck: Neck: Yes normal visual inspection, Yes full ROM and Yes trachea midline Chest: Chest palpation & inspection: normal inspection of the chest Resp: Effort & Inspection: normal respiratory effort, able to speak in complete sentences and no respiratory distress GI: Inspection: Yes normal to inspection Back/Spine/Pelvis: Cervical Spine: normal cervical lordosis Thoracic/Lumbar Spine: thoracic and lumbar spine normal to inspection Skin: General skin exam: no rashes or lesions noted Neuro: General: patient oriented x3, tone normal and moves all extremities Extrem: General: Yes normal to inspection and Yes capillary refill normal Results Labs Result diagrams: 12/17/21 06:19 12/17/21 06:19 Labs: Abnormal lab results 12/16/21 12/16/21 12/16/21 Range/Units 22:45 22:45 23:30 Hgb (14.0-18.0) g/dl Neut % (Auto) 85.3 H (45-73) % Lymph % (Auto) 8.6 L (20-40) % Lymph # (Auto) 0.8 L (1.2-4.9) X10*3/uL Chloride 111 H (96-108) mmol/L Carbon Dioxide 21 L (22-29) mmol/L Anion Gap (12-20) BUN 28 H (9-16) mg/dL Creatinine 1.71 H (0.5-1.4) mg/dL Calcium (8.4-10.2) mg/dL U Marijuana (THC) Screen POSITIVE H (Not Detect) 12/17/21 12/17/21 Range/Units 06:19 06:19 Hgb 13.6 L (14.0-18.0) g/dl Neut % (Auto) 77.8 H (45-73) % Lymph % (Auto) 11.9 L (20-40) % Lymph # (Auto) 0.9 L (1.2-4.9) X10*3/uL Chloride 110 H (96-108) mmol/L Carbon Dioxide (22-29) mmol/L Anion Gap 10 L (12-20) BUN 25 H (9-16) mg/dL Creatinine 1.64 H (0.5-1.4) mg/dL Calcium 8.1 L (8.4-10.2) mg/dL U Marijuana (THC) Screen (Not Detect) Short CBC 12/16/21 12/17/21 Range/Units 22:45 06:19 WBC 9.8 7.9 (4.8-10.8) X10*3/uL Hgb 14.7 13.6 L (14.0-18.0) g/dl Hct 44.6 42.3 (42.0-52.0) % Plt Count 194 190 (160-400) X10*3/uL BMP 12/16/21 12/17/21 22:45 06:19 Sodium 141 139 Potassium 4.1 4.0 Chloride 111 H 110 H Carbon Dioxide 21 L 23 BUN 28 H 25 H Creatinine 1.71 H 1.64 H Calcium 8.5 D 8.1 L Liver Function 12/16/21 Range/Units 22:45 Total Bilirubin 0.3 (0.0-1.0) mg/dL Direct Bilirubin < 0.2 (0.0-0.5) mg/dL AST 13 (5-37) U/L ALT 16 (0-40) U/L Alkaline Phosphatase 58 (39-117) U/L Albumin 3.5 (3.5-5.0) g/dL Urine 12/16/21 Range/Units 23:30 Urine Color YELLOW Urine Appearance CLEAR Urine pH 7.0 (5.0-8.0) Ur Specific [place] 1.015 (1.005-1.025) Urine Protein NEG (NEG-TRACE) MG/DL Urine Glucose (UA) NEG (NEG) MG/DL All other labs normal. Assessment and Plan (1) Left renal stone: Status: Acute (2) Hydronephrosis concurrent with and due to calculi of kidney and ureter: Status: Acute (3) TOREY (acute kidney injury): Status: Acute Plan Ureteroscopy We discussed the nature of the decision and reasonable alternatives for performing the above surgery. Interventions include chemical dissolution, ESWL, ureteroscopy with laser lithotripsy and stent placement, PCNL. Options such as medical therapy were discussed. The relative uncertainties and benefits related to each alternate procedure were adequately discussed. General surgical risks including, but not limited to, pain, bleeding, infection, myocardial infarction, pulmonary embolus, deep vein thrombosis and cerebrovascular accident which may result in further hospitalization were discussed. Full disclosure of the procedure as well as all major risks, benefits and complications were discussed including but not limited to damage to the urethra, bladder and kidney infection, damage to the ureter, stent migration or malposition, scarring to the renal pelvis, remnant stone fragments, subsequent stone passage with need for secondary procedures. The overall secondary procedure rate is approximately 10-15%. The success rate of the procedure was discussed. Success of the procedure in the short-term does not necessarily guarantee that long-term success will be maintained. Suitable follow up will need to be maintained. The patient showed understanding of discussion and wishes to proceed with - cystoscopy, retrograde, ureteroscopy, possible lithotripsy/stone basketing and stent on the left side Procedures Date of Service Date of Service: 12/17/21
--- NOTE | 2021-12-17 13:08 | MHC.CM.PN ---
CM MET WITH PT WITH THE ASSISTANCE OF A [facility] DINING ROOM ATTENDANT PT REPORTS HE LIVES ALONE AND IS INDEPENDENT WITH CARE PT DENIES USING AN ASSISTIVE DEVICE OR HOME SERVICES PT DOES HAVE HEARING AIDS AND EYE GLASSES WHICH ARE WITH HIM IN HIS ROOM PT CONFIRMS HIS PCP IS MIR LLAMAS AND HE HAS A HCP ON FILE PT REPORTS BEING VACCINATED AGAINST COVID-19 WITH MODERNA X 2 CURRENT DC PLAN IS HOME WITH NO SERVICES FAMILY TO TRANSPORT
--- NOTE | 2021-12-17 15:11 | HE.PHANOTE ---
completed med rec, pt is unsure is he is still taking buspirone. Called Dr. Jalil Garg office x 3, left 2 voicemails. no return call, provider will be made aware
--- NOTE | 2021-12-17 17:13 | MHC.SHP ---
Pre-Procedural Eval Section A Date of Service: 12/17/21 The patient is an INPATIENT: Yes Changes since office visit: No Cold of Flu in the past 2 weeks, No New Medical Problems, No Changes in Medication and No Patient answered all questions The History & Physical has been completed within 30 days and I have reviewed it.: Yes Section B Chief Complaint: Syncope Allergies: Allergies Allergy/AdvReac Type Severity Reaction Status Date / Time No Known Allergies Allergy Verified 08/06/21 10:55 Plan Diagnosis/Plan: Unchanged (left retrograde with stent placement) I have reviewed the history and physical and performed a pertinent physical examination on my patient. No changes have occurred unless specified.
--- NOTE | 2021-12-17 17:28 | PC.NURSE ---
pt taken to PACU for surgery, ROBERT Cope transported pt.
--- NOTE | 2021-12-17 18:34 | P.OP_ITS ---
Operative Note Operative Note Date of Service: 12/17/21 Narrative: PreOperative Diagnosis: left obstructing UPJ stone Post Operative Diagnosis: left obstructing UPJ stone Procedure: 1 cystoscopy left retrograde, 2 left stent placement Surgeon: Dr Vickey Randhawa Anesthesia: sedation Indications for procedure: 56-year-old male. Obstructing left UPJ stone. Given elevated creatinine 1.6 for suggest stent placement and then with resolution will need likely multiple stone procedures. Procedure: After informed consent was verified the patient was brought to the operating room and placed in a supine position. Anesthesia was administered per protocol. patient was placed in modified dorsal lithotomy position and prepped and draped in sterile fashion. Safety pause time-out performed. Antibiotics being given. Cystoscopy performed. Retrograde examination performed. Filling defects seen at the left UPJ along with hydronephrosis. Sensor guidewire placed into the renal pelvis. Open-ended catheter placed in the renal pelvis. Renal pelvis aspirated. No evidence for infection. Six [place] by 26 cm double-J stent placed with good coil in renal pelvis and in the bladder. Bladder emptied. Tolerated procedure well and transferred in stable condition to the recovery area. Pathology: None Drains: 6 [place] by 24 cm double-J stent
[2021-12-17] MEDS: Phenazopyridine HCL 100 MG TABLET PO (19:54)
[2021-12-17] MEDS: Topiramate 25 MG TABLET 50 MG PO (22:10)
[2021-12-17] MEDS: OLANZapine 5 MG TABLET PO (22:10)
[2021-12-17] MEDS: Mirtazapine 7.5 MG TABLET PO (22:10)
[2021-12-18] VITALS: BP 138/90; PULSE 83; RESP 16; TEMP 36.6; O2SAT 97
[2021-12-18] MEDS: Heparin Sodium,Porcine 5,000 UNIT/ML VIAL 5000 UNIT SUBCUT ×2 (00:26→08:25)
[2021-12-18 04:00] VITALS: BP 134/87; PULSE 52; RESP 14; TEMP 36.5; O2SAT 97
[2021-12-18 06:52] VITALS: BP 141/82; PULSE 65; RESP 18; TEMP 36.1; O2SAT 98
--- NOTE | 2021-12-18 08:04 | P.DS_ITS ---
DS: Providers Provider Date of Service: 01/18/22 Date of admission: 12/17/21 02:04 Primary care physician: Michael Hargrove MD Consults: 12/17/21 05:18 Consult to Urology Routine Consulting Provider: Vickey Martinez Reason for consultation: kidney stone/hydronephrosis DS: Diagnosis Discharge Diagnosis (1) Left renal stone: Status: Resolved (2) Hydronephrosis concurrent with and due to calculi of kidney and ureter: Status: Acute (3) TOREY (acute kidney injury): Status: Resolved DS: Summary Hospital Course Hospital Course: Chief Complaint: Syncope ?56-year-old male with a past medical history of anxiety, depression, history of kidney stones, hypertension presented to the hospital with a chief complaint of syncope.? patient reported that this afternoon he had like a pain in his flanks followed by he felt lightheaded dizzy and fell onto the ground; lost consciousness; episode lasted for few seconds; denies any seizure-like episode; denies any head strike.? denies any chest pain palpitations.? denies any postictal confusion.? mentions he had right-sided flank pain; which is resolved at the time of my inte rview; denies any fever chills cough.? reports he has urinary frequency but has been chronic.? denies any dysuria or hematuria.? review of all other systems is negative except mentioned above er course: per er team patient initially complained of flank pain; ct abdomen showed 1.7 cm upj stone on the left side with hydronephrosis; patient was given morphine with improvement in pain.? orthostatics were? negative; ekg nonischemic; troponin negative; urinalysis negative for infection; admitted for further management Hospital course: patient was admitted hydrated and give IV pain med and hydrat ion. He underwent cystoscopy by Dr. Martinez with 1) cystoscopy left retrograde, 2) left stent placement with improvement in creatinine to baseline CKD 3 Creatine is now 1.43 down from 1.61 the day before. He will follow up with DR. martinez who will make arrangement for stent removal Time Spent with Patient Time attestation: Total time spent providing and/or coordinating discharge services: Discharge coordination time: Greater than 30 minutes Quality: Stroke Does the patient have a stroke diagnosis?: No Physical Exam Vital Signs: Vital Signs: Last Vital Signs Temp 97 F 12/18/21 06:52 Pulse 65 12/18/21 06:52 Resp 18 12/18/21 06:52 BP 141/82 H 12/18/21 06:52 Pulse Ox 98 12/18/21 06:52 BMI result Body Mass Index 28.2 DS: Data Data Completed and Pending Completed studies during hospitalization [Text1]: Procedures Dilation of Left Ureter with Intraluminal Device, Via Natural or Artificial Opening Endoscopic (02/03/21) Fluoroscopy of Left Kidney, Ureter and Bladder (02/03/21) Discharge Plan Discharge Anticipated Discharge Date/Time: 12/18/21 08:00 Patient Disposition: Home, Self-Care Discharge Diagnosis: Left kidney stone, TOREY Referrals: Name,MD Michael [Primary Care Provider] - 1 Week Discharge Medications: Continued olanzapine 5 mg tablet 1 tab PO BEDTIME 0RF buspirone 15 mg tablet 1 tab PO TID 0RF mirtazapine 7.5 mg tablet 1 tab PO BEDTIME 0RF benztropine 1 mg tablet 1 mg PO BEDTIME 0RF topiramate 50 mg tablet 50 mg PO BID 0RF No Action phenazopyridine [Pyridium] 100 mg tablet 100 mg PO TID PRN (Reason: spasm) 4 Days Qty: 12 0RF sulfamethoxazole-trimethoprim [Bactrim] 400-80 mg tablet 1 tab PO DAILY Qty: 10 0RF tramadol 50 mg tablet 50 mg PO Q6H PRN (Reason: pain (scale score 1-3)) Qty: 8 0RF tamsulosin 0.4 mg capsule 0.4 mg PO BEDTIME 14 Days Qty: 14 0RF naproxen 500 mg tablet 500 mg PO BID PRN (Reason: pain) 7 Days Qty: 14 0RF Discharge Orders: Discharge Order (Routine); Ordered 12/18/21 Ordered By: Armani Rodriguez Diet: advance to usual diet Activity on Discharge: As tolerated Stand Alone Forms: Patient Portal Discharge page Care Plan Goals: [place] up with Dr. Martinez for stent removal and reasssesment Health Concerns: kidney stone, TOREY , and hydronephrosis Plan of Treatment: Follow up with your Doctor and follow up with Dr. Martinez Assessment: As above Discharge Date/Time: 12/18/21 11:25
[2021-12-18] MEDS: 0.9 % Sodium Chloride Flush 3 ML SYRINGE IVFLUSH (08:25)
[2021-12-18] MEDS: Topiramate 25 MG TABLET 50 MG PO (08:25)
[2021-12-18 09:10] LABS: Anion Gap 12 (12-20); Blood Urea Nitrogen 20 mg/dL (9-16); Carbon Dioxide 20 mmol/L (22-29); Chloride 111 mmol/L (96-108); Creatinine Clr Calc Pharmacy 63.6; Estimated Glomerular Filt Rate 51; Glucose Random 90 mg/dL (60-115); Potassium 4.3 mmol/L (3.3-5.1); Sodium 139 mmol/L (135-145)
[2021-12-18 09:32] LABS: Calcium 8.9 mg/dL (8.4-10.2)
--- NOTE | 2021-12-18 11:24 | MHC.CM.PN ---
NURSE CASE JONATHAN NOTE ELECTRIC MEDICAL RECORD REVIEWED PATIENT IS AWARE THAT HE WILL BE DISCHARGED HOME TODAY DISCHARGE PLAN HOME NO SERIVICES PCP PATIENT TO CONTACT HIS PCP AND FOR POST HOSPITAL D/C TRANSORTATION PATIENT TO SELF [facility]
--- NOTE | 2021-12-18 12:30 | HO.POSTANES ---
Post Anesthesia Evaluation Post Anesthesia Evaluation Vital Signs: Vital Signs Temp Pulse Resp BP Pulse Ox 12/18/21 06:52 97 F 65 18 141/82 H 98 12/18/21 04:00 97.7 F 52 14 134/87 97 Anesthesia: Monitored Mental Status: Awake Pain Control: Satisfactory Nausea/Vomiting: None Hydration: Adequate Anesthesia-Related Issues: No Anes. Related Issues
== END 2021-12-18 11:25 | disposition home or self-care (01) | DRG 445 ==
LOC: HO.ED 12-17 01:03 → HO.EDOVER 12-17 02:41 → HO.S3 12-17 18:07
PROVIDERS: Physician Assistant; Urology; Admitting Provider Hospitalist; Emergency Provider Emergency Medicine; PCP Internal Medicine Geriatric Medicine; Visit Provider Internal Medicine
PROC: 0T7B8DZ Dilation of Bladder with Intraluminal Device, Via Natural or Artificial Opening Endoscopic (ICD-10-PCS; principal; 2021-12-17 16:00)
DX: N13.0 Hydronephrosis with ureteropelvic junction obstruction (principal); N17.9 Acute kidney failure, unspecified; F17.210 Nicotine dependence, cigarettes, uncomplicated; Z20.822 Contact with and (suspected) exposure to COVID-19; F41.9 Anxiety disorder, unspecified; Z87.442 Personal history of urinary calculi; Z71.6 Tobacco abuse counseling; Z79.899 Other long term (current) drug therapy
CPT/HCPCS: 36415; 74176; 80048; 80076; 80307; 81003; 83735; 84484; 85025; 85610; 85730; 87635; 93005; 96361; 96374; 99285; C1758; C1769; C2617; J1100; J1956; J2250; J2270; J2405; J3010; Q9967

== ENCOUNTER 2021-12-24 13:14 | Day surgery (SDC) | payer MEDICAID, SELFPAY ==
--- NOTE | ~2021-12-24 | FL_ITS ---
EXAMINATION: RF FLUORO IN OR CLINICAL INFORMATION: Kidney stone. COMPARISON: Previous CT of the abdomen and pelvis 12/16/2021 and fluoroscopy exam 12/17/2021 TECHNIQUE: Fluoroscopy performed by Dr. Vickey Randhawa. Fluoroscopy time: 78 seconds Dose: 26 mGy Images: 4 FINDINGS: Fluoroscopy guidance was provided for left retrograde exam and stent placement. Final image demonstrates the proximal end of a left internal ureteral stent. FL/FL guidance in OR IMPRESSION: Fluoroscopy guidance for urologic procedure.
--- NOTE | 2021-12-24 13:35 | HO.ANESPROP2 ---
[facility] Active Problems Active Problems: All Active Problems (Updated 12/17/21 @ 10:56 by Vickey Randhawa MD) Left ureteral calculus (Acute) Near syncope (Acute) TOREY (acute kidney injury) (Acute) Left renal stone (Acute) Hydronephrosis concurrent with and due to calculi of kidney and ureter (Acute) History of kidney stones (Acute) Past Medical History Medical History (Updated 12/24/21 @ 13:49 by Cherelle Talbot, RN) Depression with anxiety History of kidney stones HTN (hypertension) Family History Family history of problems with anesthesia: No Surgical History Surgical History (Updated 12/24/21 @ 13:36 by Cherelle Talbot RN) History of surgery Hx of cystoscopy Hx of total hip arthroplasty History of Problems with Anesthesia: No Social History Social History Household Members: None Household Members Other:: 6 Housing: Apartment Do you presently have visiting nurse or other home services: No Patient Tobacco Use Status: Current everyday Tobacco user Tobacco use type: Cigarette Cigarettes Per Day: 6 Second Hand Smoke Exposure: No Use of substances other than those prescribed or required for medical reasons: No Substance Use Type: Marijuana Are you DNR?: No Advance Directives: No Advance Directives Information Provided: No Advance Directives Date on File: 02/07/21 service: No Current occupational status: unemployed and disabled Meds Allergies Allergy/AdvReac Type Severity Reaction Status Date / Time No Known Allergies Allergy Verified 12/24/21 13:48 Home Medications Medication Instructions Recorded Confirmed Last Taken Type benztropine 1 mg tablet 1 mg PO BEDTIME 08/06/21 12/17/21 12/15/21 History topiramate 50 mg tablet 50 mg PO BID 08/06/21 12/17/21 12/15/21 History buspirone 15 mg tablet 1 tab PO TID 12/17/21 12/15/21 History mirtazapine 7.5 mg tablet 1 tab PO BEDTIME 12/17/21 12/17/21 12/15/21 History olanzapine 5 mg tablet 1 tab PO BEDTIME 12/17/21 12/17/21 12/15/21 History Exam Exam Date and Time: December 24, 2021 1335 Air[address] Mallampati Class: II TM Dist: >3cm Neck ROM: Full Partial: Lower Heart: rrr Lungs: cta Assessment and Plan Assessment Anesthesia Assessment: Anesthesia Plan Discussed and Chart Reviewed Final Anesthetic Review Family History of Problems with Anesthesia: No History of Problems with Anesthesia: No NPO: Yes ASA Class: II Final Preanesthetic Review: No Changes in Pt Med Stat, Meds/Allgs Chart Reviewed and Consent Obtained/Reviewed Patient Risk: Intermediate Procedure Risk: Intermediate Anesthetic Plan Anesthetic Plan: GA Disposition: Standard PACU
[2021-12-24 13:36] VITALS: BP 120/85; PULSE 88; RESP 16; TEMP 36.6; O2SAT 98; BMI 27.8
--- NOTE | 2021-12-24 13:58 | MHC.SHP ---
Pre-Procedural Eval Section A Date of Service: 12/24/21 The patient is an INPATIENT: No Changes since office visit: No Cold of Flu in the past 2 weeks, No New Medical Problems, No Changes in Medication and No Patient answered all questions The History & Physical has been completed within 30 days and I have reviewed it.: Yes Section B Chief Complaint: Calculus of kidney Details of Present Illness: stent placement 1 week ago. Not tolerating stent. Plan for cystoscopy, stent removal, retrograde, ureteroscopy with laser lithotripsy and stent placement Relevant Family History (Specify if Yes): No Relevant Social History: Tobacco Use Present Medications: see Short Stay Collaborative assessment Medical History: Significant History History of Previous Operations: Relevant previous surgery/procedure and date(s) Allergies: Allergies Allergy/AdvReac Type Severity Reaction Status Date / Time No Known Allergies Allergy Verified 12/24/21 13:48 Review of Systems Sugical H&P ROS: Negative: Constitution, Cardiovascular, Respiratory, Neurological, Psychiatric, Hem-Onc, Allergic/Immunologic, Gastrointestinal, Genitourinary, Musculoskeletal, Integumentary, Endocrine and Eyes/Ears/Nose/Throat Exam Surgical H&P Exam: Normal: HEENT, Normal: Heart, Normal: Lungs, Normal: Extremities, Normal: Abdomen, Normal: Skin and Normal: Neurological Plan Diagnosis/Plan: Unchanged ( see above for procedure) I have reviewed the history and physical and performed a pertinent physical examination on my patient. No changes have occurred unless specified.
[2021-12-24 15:27] VITALS: BP 154/84; PULSE 84; RESP 16; TEMP 36.5; O2SAT 95
[2021-12-24 15:32] VITALS: BP 151/93; PULSE 68; RESP 16; O2SAT 97
--- NOTE | 2021-12-24 15:34 | P.OP_ITS ---
Operative Note Operative Note Date of Service: 12/24/21 Narrative: PreOperative Diagnosis: left renal stone Post Operative Diagnosis: left renal stones, 1 greater than 1.2 cm, to 9 mm stones Procedure: - cystoscopy, removal of left stent, left retrograde - left dilatation of ureteric orifice under fluoroscopy - left ureteroscopy, laser lithotripsy, stone basketing - modifier 22 multiple stones and large stone burden - 100% longer than typical - left stent placement Surgeon: Dr Vickey Randhawa Anesthesia: General Indications for procedure: stent placed last week after admission through emergency room. 1.4 cm stone in left renal pelvis on imaging and more stones in lower pole. Recommendation for ureteroscopy. At time of admission had creatinine 1.4 indicative acute renal insult. Procedure: After informed consent was verified patient was brought to the operating placed in supine position. Anesthesia was administered per protocol. Patient was placed in modified dorsal lithotomy position and prepped and draped in a sterile fashion. Safety pause time-out and side of surgery confirmed. Antibiotics confirmed. 22 British cystoscope was inserted per urethra. Bladder was normal in its entirety. Both ureteric orifices were in normal position. The Stent that emerged on left orifice was grasped and removed. The left ureteric orifice was cannulated and a retrograde examination was performed. clear filling defects seen within renal pelvis . A Sensor guidewire was placed up to the level of the renal pelvis under fluoroscopy. The rigid cystoscope was removed and the inner cannula of ureteric access sheath was used under fluoroscopy to dilate the ureteric orifice. The ureteric access sheath was placed and the inner cannula with access wire removed. The digital flexible ureteral scope was placed. the large stone was encountered in the renal pelvis. Using a fiber 365nm the s tone was broken into small pieces with a combination of dusting and hammer technique. This took approximately 40 minutes which is 100% longer than typical. More stones were encountered in the lower pole which also broken. At this point we then used a Zero tip basket to try to remove multiple fragments. In doing so there was some scratching high of the UPJ area. Decision was made that a stent needed to be placed at the completion of the case. A 6 British by Twenty-six cm double-J stent was placed into the renal pelvis and bladder under a combination of fluoroscopy and direct visualization. The bladder was emptied. The patient tolerated the procedure well and was extubated in the operating room, and transferred in stable condition to the recovery area. Pathology: stones Drains: 6 British by 26 cm double-J stent
[2021-12-24 15:37] VITALS: PULSE 68; RESP 16; O2SAT 96
[2021-12-24 15:42] VITALS: BP 129/93; PULSE 74; RESP 16; TEMP 35.9; O2SAT 98
[2021-12-24] MEDS: Acetaminophen 325 MG TABLET 650 MG PO (16:14)
[2021-12-27 22:56] LABS: Stone Source KIDNEY STONE
== END 2021-12-24 16:32 | disposition home or self-care (01) ==
PROVIDERS: PCP Internal Medicine Geriatric Medicine; Visit Provider Urology
PROC: (CPT 52356; principal; 2021-12-24 15:40)
DX: N20.0 Calculus of kidney (principal); Z87.442 Personal history of urinary calculi; F41.8 Other specified anxiety disorders; I10 Essential (primary) hypertension; Z79.899 Other long term (current) drug therapy; F17.210 Nicotine dependence, cigarettes, uncomplicated; F12.90 Cannabis use, unspecified, uncomplicated; Z98.890 Other specified postprocedural states
CPT/HCPCS: 52356; 52352; 82365; 88300; C1758; C1769; C2617; J1100; J1956; J2405; J3010; Q9967

== ENCOUNTER → 2022-01-08 14:44 | Outpatient (BNVA) | payer MEDICAID, SELFPAY | PROVIDERS: PCP Internal Medicine Geriatric Medicine; Visit Provider Urology | DX: N20.0 Calculus of kidney (principal) | CPT/HCPCS: 52310; 99212 ==

== ENCOUNTER 2022-04-03 10:35 | Outpatient (REF) | payer MEDICAID, SELFPAY | END 2022-04-03 10:36 | disposition home or self-care (01) | LOC: HO.HAP 10:35 | PROVIDERS: Visit Provider Internal Medicine Geriatric Medicine | DX: Z46.1 Encounter for fitting and adjustment of hearing aid (principal); H90.3 Sensorineural hearing loss, bilateral | CPT/HCPCS: 92593 ==

== ENCOUNTER 2022-12-31 14:00 | Emergency (ER) | payer MEDICAID, SELFPAY ==
--- NOTE | ~2022-12-31 | US_ITS ---
EXAMINATION: US SCROTUM US SCROTUM DOPPLER CLINICAL INFORMATION: Right-sided testicular pain.. COMPARISON: CT abdomen/pelvis from 12/16/2021 TECHNIQUE: A sonogram of the scrotum was performed assessing parker-scale appearance and color Doppler flow. Spectral Doppler analysis of the arterial and venous flow were performed in the testes bilaterally. FINDINGS: RIGHT: The testicle has normal contour and echotexture; it measures 4.4 x 2.2 x 2.9 cm, volume of 14.7 mL. No testicular microlithiasis or mass. Color Doppler images with spectral waveforms show presence of normal arterial and venous flow within the testicle. The epididymis is unremarkable. The epididymis has grossly normal vascularity on the color Doppler images. A small hydrocele is present. LEFT: The testicle has normal contour and echotexture; it measures 4.4 x 2.1 x 2.8 cm, volume of 13.5 mL. No testicular microlithiasis or mass. Color Doppler images with spectral waveforms show presence of normal arterial and venous flow within the testicle. The degree of vascularity seen within the left epididymis is similar to that observed on the right. There is no overt epididymitis. Small hydrocele with thin septation is observed. No varicocele. US/US scrotum doppler IMPRESSION: * The testicles are normal. * No specific cause of right-sided scrotal pain is identified. * Small bilateral hydroceles are present.
--- NOTE | ~2022-12-31 | US_ITS ---
EXAMINATION: US SCROTUM US SCROTUM DOPPLER CLINICAL INFORMATION: Right-sided testicular pain.. COMPARISON: CT abdomen/pelvis from 12/16/2021 TECHNIQUE: A sonogram of the scrotum was performed assessing parker-scale appearance and color Doppler flow. Spectral Doppler analysis of the arterial and venous flow were performed in the testes bilaterally. FINDINGS: RIGHT: The testicle has normal contour and echotexture; it measures 4.4 x 2.2 x 2.9 cm, volume of 14.7 mL. No testicular microlithiasis or mass. Color Doppler images with spectral waveforms show presence of normal arterial and venous flow within the testicle. The epididymis is unremarkable. The epididymis has grossly normal vascularity on the color Doppler images. A small hydrocele is present. LEFT: The testicle has normal contour and echotexture; it measures 4.4 x 2.1 x 2.8 cm, volume of 13.5 mL. No testicular microlithiasis or mass. Color Doppler images with spectral waveforms show presence of normal arterial and venous flow within the testicle. The degree of vascularity seen within the left epididymis is similar to that observed on the right. There is no overt epididymitis. Small hydrocele with thin septation is observed. No varicocele. US/US scrotum IMPRESSION: * The testicles are normal. * No specific cause of right-sided scrotal pain is identified. * Small bilateral hydroceles are present.
--- NOTE | ~2022-12-31 | CT_ITS ---
EXAMINATION: CT ABDOMEN AND PELVIS WITHOUT CONTRAST CLINICAL INFORMATION: Right-sided flank pain COMPARISON: CT abdomen pelvis 12/16/2021 and 02/04/2020 TECHNIQUE: Multidetector volumetric imaging was performed from the superior aspect of the liver through the pubic symphysis. Sagittal and coronal reformatted images were obtained on the technologist's workstation. This CT examination was performed using dose optimization techniques as appropriate, variously including the following: *Automated exposure control *Adjustment of mA and/or kV according to patient size (this includes techniques or standardized protocols for targeted exams where dose is matched to indication/reason for exam; i.e. extremities or head) *Use of iterative reconstruction technique DLP: 755 mGy-cm FINDINGS: LUNG BASES: The visualized lung bases are unremarkable. There is a 4 mm right middle lobe pleural-based nodule which appears slightly smaller than it did on 02/03/2021. LIVER, GALLBLADDER, AND BILIARY TREE: The liver is normal in size, shape, and attenuation. No focal hepatic lesion or biliary ductal dilatation is present. The gallbladder is completely contracted with no evidence of radiopaque gallstones or obvious pericholecystic inflammatory changes. PANCREAS: Unremarkable. SPLEEN: Unremarkable. ADRENAL GLANDS: Unremarkable. KIDNEYS AND URETERS: The right kidney and ureter appear normal. There is left-sided hydronephrosis and perinephric stranding. Nonobstructing calculi are present at the lower pole the largest measuring in size. No renal masses are seen. The ureter is dilated down to the level of the bladder. There are at least 6 stones present in the distal ureter causing obstruction the largest measuring about 6 mm in size. The large stone that had been present in the left renal pelvis is no longer seen and I suspect that these stones represent the residua of lithotripsy. BLADDER: Unremarkable aside from the stones in the distal left ureter. No free bladder calculi are seen.. GASTROINTESTINAL TRACT: The small and large bowel are unremarkable. The appendix is unremarkable. ABDOMINAL WALL: No significant hernia is appreciated. LYMPH NODES: No retroperitoneal lymphadenopathy. VASCULAR: Minimal calcific atherosclerotic plaque without aneurysm. PELVIC VISCERA: The prostate and seminal vesicles are unremarkable. OSSEOUS STRUCTURES: Unremarkable. CT/CT abdomen pelvis wo IV con IMPRESSION: 1. Left-sided hydronephrosis secondary to multiple distal ureteral calculi the largest measuring 6 mm in size. 2. Nonobstructing left lower pole renal calculi. Fleischner guidelines were followed.
[2022-12-31 14:08] VITALS: BP 130/96; PULSE 91; RESP 18; TEMP 36.6; O2SAT 97; BMI 31.7
--- NOTE | 2022-12-31 14:35 | ED.MALEGU ---
HPI - Male Genitourinary General Chief complaint: Urogenital-Male <TITO Azul - Last Filed: 12/31/22 14:36> Stated complaint: Back pain/Kidney stone? <TITO Azul - Last Filed: 12/31/22 14:36> Time Seen by Provider: 12/31/22 17:19 <TITO Azul - Last Filed: 12/31/22 14:36> Source: patient, RN notes reviewed and supervisor maintenance <Guy Hurd - Last Filed: 12/31/22 21:41> Mode of arrival: ambulatory <Guy Hurd - Last Filed: 12/31/22 21:41> Limitations: language barrier <Guy Hurd - Last Filed: 12/31/22 21:41> History of Present Illness HPI Narrative: 57-year-old primarily Pashto-speaking male past medical history significant for kidney stones and chronic kidney disease presents for evaluation of abdominal pain Patient reports this is his 3rd day of right flank pain that radiates around his right lower abdomen and radiates towards his right testicle. Denies any testicular pain or swelling. Denies any nausea or vomiting. He does endorse diarrhea for the last 4 months Denies any fevers or chills pain Denies any injury to his lower back or abdomen He is unsure if he has any blood in the urine, but denies any difficulty urinating <Guy Hurd - Last Filed: 12/31/22 21:41> Related Data Home medications: Home Medications Medication Instructions Recorded Confirmed benztropine 1 mg tablet 1 mg PO BEDTIME 08/06/21 12/17/21 topiramate 50 mg tablet 50 mg PO BID 08/06/21 12/17/21 buspirone 15 mg tablet 1 tab PO TID 12/17/21 mirtazapine 7.5 mg tablet 1 tab PO BEDTIME 12/17/21 12/17/21 olanzapine 5 mg tablet 1 tab PO BEDTIME 12/17/21 12/17/21 buspirone 5 mg tablet 5 - 10 mg PO TID 01/08/22 haloperidol 10 mg tablet 15 mg PO BID 01/08/22 haloperidol 20 mg tablet 20 mg PO BID 01/08/22 hydroxyzine HCl 25 mg tablet 25 mg PO TID PRN itch 01/08/22 hydroxyzine HCl 50 mg tablet 50 mg PO Q8H PRN anxiety 01/08/22 mirtazapine 15 mg tablet 15 mg PO BEDTIME 01/08/22 trazodone 100 mg tablet 100 mg PO BEDTIME 01/08/22 Previous Rx's Medication Instructions Recorded naproxen 500 mg tablet 500 mg PO BID PRN pain 7 days #14 12/24/21 tabs phenazopyridine 100 mg tablet 100 mg PO TID PRN spasm 4 days #12 12/24/21 (Pyridium) tabs sulfamethoxazole 400 1 tab PO DAILY #10 tabs 12/24/21 mg-trimethoprim 80 mg tablet (Bactrim) tamsulosin 0.4 mg capsule 0.4 mg PO BEDTIME 14 days #14 caps 12/24/21 tramadol 50 mg tablet 50 mg PO Q6H PRN pain (scale score 12/24/21 1-3) #8 tabs sulfamethoxazole 400 1 tab PO BEDTIME 90 days #90 tabs 01/08/22 mg-trimethoprim 80 mg tablet (Bactrim) cephalexin 500 mg capsule 500 mg PO QID #28 caps 12/31/22 ondansetron 4 mg disintegrating 4 mg PO Q8H PRN nausea and 12/31/22 tablet vomiting #20 tabs oxycodone-acetaminophen 5 mg-325 1 tab PO Q6H PRN severe pain 12/31/22 mg tablet (Percocet) (scale score 7-10) #14 tabs tamsulosin 0.4 mg capsule (Flomax) 0.4 mg PO DAILY #7 caps 12/31/22 <TITO Azul - Last Filed: 12/31/22 14:36> Allergies/Adverse reactions: Allergies Allergy/AdvReac Type Severity Reaction Status Date / Time No Known Allergies Allergy Verified 12/31/22 14:07 <TITO Azul - Last Filed: 12/31/22 14:36> Review of Systems Constitutional: Constitutional: Reports as per HPI, Denies chills, Denies fatigue, Denies fever(s) and Denies headache(s) <Guy Hurd - Last Filed: 12/31/22 21:41> ENT: Denies headache(s) <Guy Hurd - Last Filed: 12/31/22 21:41> Cardiovascular: Cardiovascular: Denies chest pain and Denies dyspnea <Guy Hurd - Last Filed: 12/31/22 21:41> Respiratory: Respiratory: Denies cough and Denies dyspnea <Guy Hurd - Last Filed: 12/31/22 21:41> Gastrointestinal: Gastrointestinal: Reports abdominal pain, Denies constipation and Denies vomiting <Guy Hurd - Last Filed: 12/31/22 21:41> Genitourinary: Genitourinary: Denies difficulty urinating, Denies dysuria and Reports testicular pain <Guy Hurd - Last Filed: 12/31/22 21:41> Musculoskeletal: Musculoskeletal: Reports back pain <Guy Hurd - Last Filed: 12/31/22 21:41> Neurologic: Denies headache(s) and Denies focal weakness <Guy Hurd - Last Filed: 12/31/22 21:41> Endocrine: Endocrine: Denies fatigue <Guy Hurd - Last Filed: 12/31/22 21:41> [facility] Past Medical History Medical History: Medical History Depression with anxiety History of kidney stones HTN (hypertension) <TITO Azul - Last Filed: 12/31/22 14:36> Surgical History: Surgical History History of surgery Hx of cystoscopy Hx of total hip arthroplasty <TITO Azul - Last Filed: 12/31/22 14:36> Social History Social History: Social History Household Members: None Household Members Other:: 6 Housing: Apartment Do you presently have visiting nurse or other home services: No Patient Tobacco Use Status: Current everyday Tobacco user Tobacco use type: Cigarette Cigarettes Per Day: 6 Smoked in Last 30 Days: Yes Second Hand Smoke Exposure: No Use of substances other than those prescribed or required for medical reasons: No Substance Use Type: Marijuana Advance Directives: Yes Advance Directives on File: Yes Advance Directives Date on File: 02/07/21 service: No Current occupational status: unemployed and disabled <TITO Azul - Last Filed: 12/31/22 14:36> Physical Exam Vital Signs: Vital Signs: Last Vital Signs Temp 97.3 F 12/31/22 21:03 Pulse 54 12/31/22 21:03 Resp 16 12/31/22 21:03 BP 151/85 H 12/31/22 21:03 Pulse Ox 98 12/31/22 21:03 O2 Del Method Room Air 12/31/22 21:03 BMI result Body Mass Index 31.7 <TITO Azul - Last Filed: 12/31/22 14:36> Vital Signs: Last Vital Signs Temp 97.3 F 12/31/22 21:03 Pulse 54 12/31/22 21:03 Resp 16 12/31/22 21:03 BP 151/85 H 12/31/22 21:03 Pulse Ox 98 12/31/22 21:03 O2 Del Method Room Air 12/31/22 21:03 BMI result Body Mass Index 31.7 <Guy Hurd - Last Filed: 12/31/22 21:41> Const: General: healthy appearing, comfortable, no acute distress, alert and awake <Guy Hurd - Last Filed: 12/31/22 21:41> Nutritional Appearance: well nourished <Guy Hurd - Last Filed: 12/31/22 21:41> Orientation/consciousness: patient oriented x3 <Guy Hurd - Last Filed: 12/31/22 21:41> HEENT: Head: Yes normocephalic and Yes atraumatic <Guy Hurd - Last Filed: 12/31/22 21:41> Throat: Yes posterior oropharynx normal <Guy Hurd - Last Filed: 12/31/22 21:41> Eyes: Eyelids: Yes eyelids normal <Guy Hurd - Last Filed: 12/31/22 21:41> Conjunctivae: conjunctivae normal <Guy Hurd - Last Filed: 12/31/22 21:41> Sclerae: sclerae normal <Guy Hurd - Last Filed: 12/31/22 21:41> Corneas: corneas normal <Guy OKimani - Last Filed: 12/31/22 21:41> Pupils: Equal, round and reactive pupils present <Guy OSweetwater - Last Filed: 12/31/22 21:41> EOM: EOMs intact bilaterally <Guy OSweetwater - Last Filed: 12/31/22 21:41> Neck: Neck: Yes full ROM <Guy OSweetwater - Last Filed: 12/31/22 21:41> Resp: Effort & Inspection: normal respiratory effort, able to speak in complete sentences, no audible wheezes and not labored <Guy O Last Filed: 12/31/22 21:41> Auscultation: clear to auscultation bilaterally <Guy OSweetwater Filed: 12/31/22 21:41> Cardio: Rate: regular rate <Guy OSweetwater - Last Filed: 12/31/22 21:41> Rhythm: regular rhythm <Guy O Last Filed: 12/31/22 21:41> GI: Inspection: No distended <Guy OSweetwater - Last Filed: 12/31/22 21:41> Palpation (GI): Soft to palpation, not firm, nontender, no guarding and not rigid <Guy OSweetwater - Last Filed: 12/31/22 21:41> Auscultation: normoactive bowel sounds <Guy OSweetwater - Last Filed: 12/31/22 21:41> : General: Yes no CVA tenderness <Guy O Last Filed: 12/31/22 21:41> Back/Spine/Pelvis: Other: No tenderness to the right thoracic or lumbar paraspinous region <Guy OSweetwater - Last Filed: 12/31/22 21:41> Back: no CVA tenderness <Guy OKimani - Last Filed: 12/31/22 21:41> Skin: General skin exam: no rashes or lesions noted and elasticity normal <Guy OSweetwater - Last Filed: 12/31/22 21:41> Neuro: General: patient oriented x3 <Guy OSuzannaKimani - Last Filed: 12/31/22 21:41> Cranial nerves: Yes CN's II-XII intact bilaterally, Yes Equal, round and reactive pupils present and Yes Bilaterally intact EOM present <Guy Hurd - Last Filed: 12/31/22 21:41> Cognition (Neuro): normal cognition <Guy Hurd - Last Filed: 12/31/22 21:41> Course Course Course Narrative: This is an RME: Additional HPI, ROS, PE not included below will be deferred to primary provider. this is a 57-year-old male presenting with right flank pain with radiation into his abdomen and right testicle since yesterday. History of kidney stones and states this feels similar. Associated nausea however no vomiting. Physical exam benign. Vital signs stable. Plan labs, imaging, urine. <TITO Azul - Last Filed: 12/31/22 14:36> Reevaluation(s) Reevaluation #1: Patient reentered using supervisor phosphorus processing. His renal function is at or just above baseline. He has no fever, no leukocytosis, he does have leukocyte esterase with 6-10 white blood cells in his urine. CT scan shows at least 6 distal ureter stone causing moderate hydronephrosis. My plan was discussed with Urology, Dr. Díaz to touch base given that the patient has numerous stones to see if the patient requires admission for stenting. When I discussed this with the patient he reports that there is absolutely no way he would consent to any stenting procedure and he would like to be discharged home with analgesia because ?the last time I had stents the pain was worse and it made me depressed. ? <Guy Alinay - Last Filed: 12/31/22 21:41> Time: 21:37 <Guy Alinay - Last Filed: 12/31/22 21:41> Medications Administered Discontinued Medications Generic Name Dose Route Start Last Admin Trade Name Freq PRN Reason Stop Dose Admin Sodium Chloride 1,000 mls @ 999 mls/hr 12/31/22 14:15 12/31/22 19:54 Ns IV 12/31/22 15:15 Infused .Q1H1M JEFFERY Infusion Sodium Chloride 1,000 mls @ 999 mls/hr 12/31/22 17:45 12/31/22 19:54 Ns IV 12/31/22 18:45 Infused .Q1H1M JEFFERY Infusion Morphine Sulfate 4 mg 12/31/22 17:35 12/31/22 18:04 Morphine Sulfate 4 Mg/Ml Cartridge IVPUSH 12/31/22 17:36 4 mg ONCE ONE Administration Protocol Morphine Sulfate 4 mg 12/31/22 20:17 12/31/22 20:23 Morphine Sulfate 4 Mg/Ml Cartridge IVPUSH 12/31/22 20:18 4 mg ONCE ONE Administration Protocol Ondansetron HCl 4 mg 12/31/22 17:35 12/31/22 18:04 Ondansetron Hcl 4 Mg/2 Ml Vial IVPUSH 12/31/22 17:36 4 mg ONCE ONE Administration <TITO Azul - Last Filed: 12/31/22 14:36> Medications Administered Discontinued Medications Generic Name Dose Route Start Last Admin Trade Name Freq PRN Reason Stop Dose Admin Sodium Chloride 1,000 mls @ 999 mls/hr 12/31/22 14:15 12/31/22 19:54 Ns IV 12/31/22 15:15 Infused .Q1H1M JEFFERY Infusion Sodium Chloride 1,000 mls @ 999 mls/hr 12/31/22 17:45 12/31/22 19:54 Ns IV 12/31/22 18:45 Infused .Q1H1M JEFFERY Infusion Morphine Sulfate 4 mg 12/31/22 17:35 12/31/22 18:04 Morphine Sulfate 4 Mg/Ml Cartridge IVPUSH 12/31/22 17:36 4 mg ONCE ONE Administration Protocol Morphine Sulfate 4 mg 12/31/22 20:17 12/31/22 20:23 Morphine Sulfate 4 Mg/Ml Cartridge IVPUSH 12/31/22 20:18 4 mg ONCE ONE Administration Protocol Ondansetron HCl 4 mg 12/31/22 17:35 12/31/22 18:04 Ondansetron Hcl 4 Mg/2 Ml Vial IVPUSH 12/31/22 17:36 4 mg ONCE ONE Administration <Guy Hurd - Last Filed: 12/31/22 21:41> Medical Decision Making Medical Decision Making MDM Narrative: 57-year-old male presents for evaluation of right flank pain that radiates toward his right lower abdomen and groin. Most consistent obstructive uropathy. UA is still pending the patient has chronic kidney disease, will hold IV contrast at this time as I feel that acute appendicitis is much less likely. The patient has no right lower quadrant tenderness. Patient medicated with morphine, Zofran and IV fluids. CT scan is pending <Guy Hurd - Last Filed: 12/31/22 21:41> Differential Diagnosis Obstructive uropathy Pyelonephritis Acute appendicitis Muscle strain Testicular torsion less likely Hydrocele Inguinal hernia <Guy Hurd - Last Filed: 12/31/22 21:41> Lab Data Result Diagrams: 12/31/22 15:41 12/31/22 15:41 <TITO Azul - Last Filed: 12/31/22 14:36> Labs: Lab Results 12/31/22 12/31/22 12/31/22 Range/Units 15:41 15:41 19:18 WBC 10.6 (4.8-10.8) X10*3/uL RBC 5.17 (4.60-5.80) X10*6/uL Hgb 14.8 (14.0-18.0) g/dl Hct 43.7 (42.0-52.0) % MCV 84.5 (80.0-98.0) fL MCH 28.6 (27.0-33.0) pg MCHC 33.9 (31.0-36.0) g/dl RDW 14.6 (11.0-16.0) % Plt Count 204 (160-400) X10*3/uL MPV 10.8 (9.4-12.4) fL Immature Gran % (Auto) 0.3 (0.0-0.4) % Neut % (Auto) 68.5 (45-73) % Lymph % (Auto) 22.0 (20-40) % [place] % (Auto) 7.4 (2-11) % Eos % (Auto) 1.3 (0-4) % Baso % (Auto) 0.5 (0-2) % Lymph # (Auto) 2.3 (1.2-4.9) X10*3/uL [place] # (Auto) 0.8 (0.1-1.2) X10*3/uL Eos # (Auto) 0.1 (0.0-0.4) X10*3/uL Baso # (Auto) 0.1 (0.0-0.2) X10*3/uL Abs Immat Gran (auto) 0.03 (0.00-0.03) X10*3/uL Absolute Neuts (auto) 7.3 (2.0-8.3) x10*3/uL Absolute Nucleated RBC 0.000 (0.0-0.012) X10*3/uL Nucleated RBC % (auto) 0.0 (0.0-0.2) /100WBC Sodium 139 (135-145) mmol/L Potassium 3.9 (3.3-5.1) mmol/L Chloride 108 (96-108) mmol/L Carbon Dioxide 22 (22-29) mmol/L Anion Gap 13 (12-20) BUN 22 H (9-16) mg/dL Creatinine 1.49 H (0.5-1.4) mg/dL Estim Creat Clear Calc 63.7 Estimated GFR 49 Random Glucose 108 (60-115) mg/dL Calcium 8.9 (8.4-10.2) mg/dL Magnesium 2.0 (1.6-2.6) mg/dL Total Bilirubin 0.4 (0.0-1.0) mg/dL AST 17 (5-37) U/L ALT 15 (0-40) U/L Alkaline Phosphatase 65 (39-117) U/L Total Protein 7.0 (6.5-8.0) g/dL Albumin 3.6 (3.5-5.0) g/dL Lipase 33 (8-78) U/L Urine Color Yellow Urine Appearance Clear Urine pH 6.5 (5.0-9.0) Ur Specific Robinson 1.015 (1.005-1.025) Urine Protein Negative (Neg-Trace) mg/dL Urine Glucose (UA) Negative (Negative) mg/dL Urine Ketones Negative (Negative) mg/dL Urine Blood Moderate (2+) H (Negative) Urine Nitrite Negative (Negative) Ur Leukocyte Esterase Small (1+) H (Negative) Urine RBC >20 H (0-2) /HPF Urine WBC 6-10 H (0-5) /HPF Ur Squamous Epith Cells 0-2 (0-2) /HPF Urine Bacteria None Seen (None Seen) Hyaline Casts 0-2 (0-2) /LPF <TITO Azul - Last Filed: 12/31/22 14:36> Lab Results 12/31/22 12/31/22 12/31/22 Range/Units 15:41 15:41 19:18 WBC 10.6 (4.8-10.8) X10*3/uL RBC 5.17 (4.60-5.80) X10*6/uL Hgb 14.8 (14.0-18.0) g/dl Hct 43.7 (42.0-52.0) % MCV 84.5 (80.0-98.0) fL MCH 28.6 (27.0-33.0) pg MCHC 33.9 (31.0-36.0) g/dl RDW 14.6 (11.0-16.0) % Plt Count 204 (160-400) X10*3/uL MPV 10.8 (9.4-12.4) fL Immature Gran % (Auto) 0.3 (0.0-0.4) % Neut % (Auto) 68.5 (45-73) % Lymph % (Auto) 22.0 (20-40) % [place] % (Auto) 7.4 (2-11) % Eos % (Auto) 1.3 (0-4) % Baso % (Auto) 0.5 (0-2) % Lymph # (Auto) 2.3 (1.2-4.9) X10*3/uL [place] # (Auto) 0.8 (0.1-1.2) X10*3/uL Eos # (Auto) 0.1 (0.0-0.4) X10*3/uL Baso # (Auto) 0.1 (0.0-0.2) X10*3/uL Abs Immat Gran (auto) 0.03 (0.00-0.03) X10*3/uL Absolute Neuts (auto) 7.3 (2.0-8.3) x10*3/uL Absolute Nucleated RBC 0.000 (0.0-0.012) X10*3/uL Nucleated RBC % (auto) 0.0 (0.0-0.2) /100WBC Sodium 139 (135-145) mmol/L Potassium 3.9 (3.3-5.1) mmol/L Chloride 108 (96-108) mmol/L Carbon Dioxide 22 (22-29) mmol/L Anion Gap 13 (12-20) BUN 22 H (9-16) mg/dL Creatinine 1.49 H (0.5-1.4) mg/dL Estim Creat Clear Calc 63.7 Estimated GFR 49 Random Glucose 108 (60-115) mg/dL Calcium 8.9 (8.4-10.2) mg/dL Magnesium 2.0 (1.6-2.6) mg/dL Total Bilirubin 0.4 (0.0-1.0) mg/dL AST 17 (5-37) U/L ALT 15 (0-40) U/L Alkaline Phosphatase 65 (39-117) U/L Total Protein 7.0 (6.5-8.0) g/dL Albumin 3.6 (3.5-5.0) g/dL Lipase 33 (8-78) U/L Urine Color Yellow Urine Appearance Clear Urine pH 6.5 (5.0-9.0) Ur Specific Robinson 1.015 (1.005-1.025) Urine Protein Negative (Neg-Trace) mg/dL Urine Glucose (UA) Negative (Negative) mg/dL Urine Ketones Negative (Negative) mg/dL Urine Blood Moderate (2+) H (Negative) Urine Nitrite Negative (Negative) Ur Leukocyte Esterase Small (1+) H (Negative) Urine RBC >20 H (0-2) /HPF Urine WBC 6-10 H (0-5) /HPF Ur Squamous Epith Cells 0-2 (0-2) /HPF Urine Bacteria None Seen (None Seen) Hyaline Casts 0-2 (0-2) /LPF <Guy Hurd - Last Filed: 12/31/22 21:41> Discharge Plan Discharge Clinical Impression: Hydronephrosis concurrent with and due to calculi of kidney and ureter <TITO Azul - Last Filed: 12/31/22 14:36> Patient Disposition: Home, Self-Care <TITO Azul - Last Filed: 12/31/22 14:36> Instructions: Ureteral Stones (ED) <TITO Azul - Last Filed: 12/31/22 14:36> Additional Instructions: You have numerous kidney stones in your distal left ureter. This is likely the cause of your back pain Take Flomax daily for the next 7 days Take Percocet as needed for severe, breakthrough pain This may make you sleepy, did not drink alcohol or drive after taking it She also take cephalexin 4 times daily for the next [address] Randhawa tomorrow morning to schedule follow-up appointment Return for new or worsening symptoms, especially if he develops any fevers <TITO Azul - Last Filed: 12/31/22 14:36> Prescriptions: New oxycodone-acetaminophen [Percocet] 5-325 mg tablet 1 tab PO Q6H PRN (Reason: severe pain (scale score 7-10)) Qty: 14 0RF Rx Instructions: Partial Fill upon patient request. tamsulosin [Flomax] 0.4 mg capsule 0.4 mg PO DAILY Qty: 7 0RF cephalexin 500 mg capsule 500 mg PO QID Qty: 28 0RF ondansetron 4 mg tablet,disintegrating 4 mg PO Q8H PRN (Reason: nausea and vomiting) Qty: 20 0RF No Action olanzapine 5 mg tablet 1 tab PO BEDTIME buspirone 15 mg tablet 1 tab PO TID mirtazapine 7.5 mg tablet 1 tab PO BEDTIME phenazopyridine [Pyridium] 100 mg tablet 100 mg PO TID PRN (Reason: spasm) 4 Days Qty: 12 0RF sulfamethoxazole-trimethoprim [Bactrim] 400-80 mg tablet 1 tab PO DAILY Qty: 10 0RF tramadol 50 mg tablet 50 mg PO Q6H PRN (Reason: pain (scale score 1-3)) Qty: 8 0RF tamsulosin 0.4 mg capsule 0.4 mg PO BEDTIME 14 Days Qty: 14 0RF naproxen 500 mg tablet 500 mg PO BID PRN (Reason: pain) 7 Days Qty: 14 0RF benztropine 1 mg tablet 1 mg PO BEDTIME topiramate 50 mg tablet 50 mg PO BID naproxen 500 mg tablet 500 mg PO ONCE Qty: 1 0RF mirtazapine 15 mg tablet 15 mg PO BEDTIME trazodone 100 mg tablet 100 mg PO BEDTIME hydroxyzine HCl 50 mg tablet 50 mg PO Q8H PRN (Reason: anxiety) haloperidol 20 mg tablet 20 mg PO BID hydroxyzine HCl 25 mg tablet 25 mg PO TID PRN (Reason: itch) haloperidol 10 mg tablet 15 mg PO BID buspirone 5 mg tablet 5 - 10 mg PO TID sulfamethoxazole-trimethoprim [Bactrim] 400-80 mg tablet 1 tab PO BEDTIME 90 Days Qty: 90 0RF <TITO Azul - Last Filed: 12/31/22 14:36> Referrals: Vickey Randhawa MD [Physician] - <TITO Azul - Last Filed: 12/31/22 14:36>
[2022-12-31 15:45] LABS: MANUAL DIFF FLAG NO
[2022-12-31 15:54] LABS: Basophils Absolute Auto 0.1 X10*3/uL (0.0-0.2); Basophils Percent Auto 0.5 % (0-2); Eosinophils Absolute Auto 0.1 X10*3/uL (0.0-0.4); Eosinophils Percent Auto 1.3 % (0-4); Hematocrit 43.7 % (42.0-52.0); Hemoglobin 14.8 g/dl (14.0-18.0); Imm Gran Abs Auto 0.03 X10*3/uL (0.00-0.03); Imm Gran Pct Auto 0.3 % (0.0-0.4); Lymphocytes Absolute Auto 2.3 X10*3/uL (1.2-4.9); Mean Corpuscular HGB Conc 33.9 g/dl (31.0-36.0); Mean Corpuscular Hemoglobin 28.6 pg (27.0-33.0); Mean Corpuscular Volume 84.5 fL (80.0-98.0); Mean Platelet Volume 10.8 fL (9.4-12.4); Monocytes Absolute Auto 0.8 X10*3/uL (0.1-1.2); Monocytes Percent Auto 7.4 % (2-11); Neutrophils Absolute Auto 7.3 x10*3/uL (2.0-8.3); Neutrophils Percent Auto 68.5 % (45-73); Platelet Count 204 X10*3/uL (160-400); Red Blood Count 5.17 X10*6/uL (4.60-5.80); Red Cell Distribution Width 14.6 % (11.0-16.0); White Blood Count 10.6 X10*3/uL (4.8-10.8)
[2022-12-31 16:16] LABS: Alanine Aminotransferase 15 U/L (0-40); Albumin Level 3.6 g/dL (3.5-5.0); Alkaline Phosphatase 65 U/L (39-117); Anion Gap 13 (12-20); Aspartate Amino Transferase 17 U/L (5-37); Bilirubin Total 0.4 mg/dL (0.0-1.0); Blood Urea Nitrogen 22 mg/dL (9-16); Calcium 8.9 mg/dL (8.4-10.2); Carbon Dioxide 22 mmol/L (22-29); Chloride 108 mmol/L (96-108); Creatinine Clr Calc Pharmacy 63.7; Estimated Glomerular Filt Rate 49; Glucose Random 108 mg/dL (60-115); Lipase 33 U/L (8-78); Potassium 3.9 mmol/L (3.3-5.1); Sodium 139 mmol/L (135-145)
[2022-12-31] MEDS: ondansetron HCL 4 MG/2 ML VIAL IVPUSH (18:04)
[2022-12-31] MEDS: Morphine Sulfate 4 MG/ML CARTRIDGE IVPUSH ×2 (18:04→20:23)
[2022-12-31] MEDS: 0.9 % Sodium Chloride 1,000 ML 999 ML IV ×2 (18:08→18:21)
[2022-12-31 18:24] VITALS: BP 135/91; PULSE 69; RESP 20; TEMP 36.5; O2SAT 96
[2022-12-31 19:31] LABS: Appearance Urine Clear; Color Urine Yellow; Glucose Urine UA Negative (Negative); Leukocyte Esterase Urine Small (1+) (Negative); Nitrite Urine Negative (Negative); PH 6.5 (5.0-9.0); Specific Gravity - Urine 1.015 (1.005-1.025); UMIC TRIGGER UACC YES; Urine Blood Moderate (2+) (Negative); Urine Ketones Negative (Negative); Urine Protein Negative (Neg-Trace)
[2022-12-31 19:51] LABS: Bacteria Urine None Seen (None Seen); Hyaline Casts Urine 0-2 /LPF (0-2); RBC Urine >20 /HPF (0-2); Squamous Epithelial Cell Urine 0-2 /HPF (0-2); UACC Culture Trigger YES
[2022-12-31 21:03] VITALS: BP 151/85; PULSE 54; RESP 16; TEMP 36.3; O2SAT 98
== END 2022-12-31 21:58 | disposition home or self-care (01) ==
PROVIDERS: Physician Assistant; Emergency Provider Emergency Medicine; PCP Internal Medicine Geriatric Medicine
DX: N13.2 Hydronephrosis with renal and ureteral calculous obstruction (principal); N50.811 Right testicular pain; I10 Essential (primary) hypertension; F17.210 Nicotine dependence, cigarettes, uncomplicated; F12.90 Cannabis use, unspecified, uncomplicated; Z79.899 Other long term (current) drug therapy
CPT/HCPCS: 36415; 74176; 76870; 80053; 81001; 83690; 83735; 85025; 87086; 93975; 96361; 96374; 96375; 96376; 99284; J2270; J2405

== ENCOUNTER → 2023-03-05 11:03 | Outpatient (BNVA) | payer MEDICAID, SELFPAY | PROVIDERS: PCP Internal Medicine Geriatric Medicine; Visit Provider Urology | DX: N47.1 Phimosis (principal); N20.0 Calculus of kidney | CPT/HCPCS: 99212 ==

== ENCOUNTER 2023-05-23 12:32 | Emergency (ER) | payer MEDICAID, SELFPAY ==
--- NOTE | ~2023-05-23 | US_ITS ---
EXAMINATION: US RETROPERITONEAL LIMITED (RENAL ONLY) CLINICAL INFORMATION: Contiguous images.. COMPARISON: CT scan 12/31/2022 TECHNIQUE: Similar renal ultrasound FINDINGS: RIGHT KIDNEY: 11.6 x 5.3 x 6.3 cm (SAG x AP x TRV). The kidney is normal in size, contour, and echogenicity. Renal cortical thickness is normal. No calculi or focal parenchymal lesions. No hydronephrosis. LEFT KIDNEY: 11.1 x 5.3 x 5.4 cm (SAG x AP x TRV). 3 stones measuring up to 4 to 5 mm lower pole is noted with associated caliectasis lower pole.. No perinephric collection. US/US renal BI IMPRESSION: Minimally obstructing left-sided renal calculi as above.
[2023-05-23 13:46] VITALS: BP 143/97; PULSE 70; RESP 20; TEMP 35.8; O2SAT 99; BMI 31.4
--- NOTE | 2023-05-23 13:48 | ED_ITS ---
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 He states he gets this when he has a stone and we give him a medicine - he passes it and it goes away. He has no other complaints. MD complaint: hematuria Onset (ago): day(s) (1) Location: genitals Radiation: non-radiation Severity: mild Quality: other Relieving factors: none Exacerbating factors: none Associated symptoms: denies other symptoms Treatments prior to arrival: none Related Data Home Medications Medication Instructions Recorded Confirmed benztropine 1 mg tablet 1 mg PO BEDTIME 08/06/21 12/17/21 topiramate 50 mg tablet 50 mg PO BID 08/06/21 12/17/21 buspirone 15 mg tablet 1 tab PO TID 12/17/21 mirtazapine 7.5 mg tablet 1 tab PO BEDTIME 12/17/21 12/17/21 olanzapine 5 mg tablet 1 tab PO BEDTIME 12/17/21 12/17/21 buspirone 5 mg tablet 5 - 10 mg PO TID 01/08/22 haloperidol 10 mg tablet 15 mg PO BID 01/08/22 haloperidol 20 mg tablet 20 mg PO BID 01/08/22 hydroxyzine HCl 25 mg tablet 25 mg PO TID PRN itch 01/08/22 hydroxyzine HCl 50 mg tablet 50 mg PO Q8H PRN anxiety 01/08/22 mirtazapine 15 mg tablet 15 mg PO BEDTIME 01/08/22 trazodone 100 mg tablet 100 mg PO BEDTIME 01/08/22 Previous Rx's Medication Instructions Recorded phenazopyridine 100 mg tablet 100 mg PO TID PRN spasm 4 days #12 12/24/21 (Pyridium) tabs ondansetron 4 mg disintegrating 4 mg PO Q8H PRN nausea and 12/31/22 tablet vomiting #20 tabs tamsulosin 0.4 mg capsule (Flomax) 0.4 mg PO DAILY #7 caps 12/31/22 clotrimazole-betamethasone 1 1 appl topical BID 4 weeks #45 03/05/23 %-0.05 % topical cream grams tamsulosin 0.4 mg capsule 0.4 mg PO DAILY 7 days #7 caps 05/23/23 Allergies Allergy/AdvReac Type Severity Reaction Status Date / Time No Known Allergies Allergy Verified 03/05/23 11:11 Review of Systems Review of Systems: Constitutional : No Fever, No Chills, No Fatigue Cardiovascular : No Chest Pain, No SOB, No Dyspnea on Exertion Respiratory : No Cough, No Sputum Gastrointestinal : No Nausea, No Vomiting, No Diarrhea, No abdominal Pain Genitourinary : No Dysuria, No Urinary Frequency, pos Hematuria, Musculoskeletal : No joint pain, No Myalgias, No Joint Swelling Skin : No Skin Lesions, No rash Neuro : No Weakness, No Numbness, No Dizziness, no Headache Psych : No Anxiety/Panic, No Depression All other systems reviewed and are negative PMFSH Past Medical History Attestation statement: The following information was validated with the patient. Source: old records reviewed Medical History Depression with anxiety History of kidney stones HTN (hypertension) Surgical History History of surgery Hx of cystoscopy Hx of total hip arthroplasty Social History Social History Household Members: None Household Members Other:: 6 Housing: Apartment Do you presently have visiting nurse or other home services: No Alcohol intake: never Patient Tobacco Use Status: Current everyday Tobacco user Tobacco use type: Cigarette Cigarettes Per Day: 6 Smoked in Last 30 Days: Yes Second Hand Smoke Exposure: No Use of substances other than those prescribed or required for medical reasons: No Substance Use Type: Marijuana Advance Directives: Yes Advance Directives on File: Yes Advance Directives Date on File: 02/07/21 service: No Current occupational status: unemployed and disabled Physical Exam ED Vital Signs: Vital Signs - 24 hr 05/23/23 13:46 Temperature 96.4 F L Pulse Rate 70 Respiratory Rate 20 Blood Pressure 143/97 H Pulse Oximetry 99 Oxygen Delivery Method Room Air BMI result Body Mass Index 31.4 Appearance: Alert. Oriented X3. No acute distress. Eyes: Pupils equal, round and reactive to light. ENT: Pharynx normal. Neck: Normal inspection. Neck supple. CVS: Normal heart rate and rhythm. Pulses normal. Respiratory: No respiratory distress. Breath sounds normal. Abdomen: Soft and nontender. Skin: Skin warm and dry. Normal skin color. Normal skin turgor. Extremities: No lower extremity edema. No calf ttp Neuro: Oriented X 3. No motor deficit. No sensory deficit. Course Course Course Narrative: This is a rapid medical exam: Additional HPI, ROS, PE not included below will be deferred to primary provider. Patient is a 57-year-old [place]ralt[place] speaking male presenting to the emergency department with complaint of painless hematuria which began last night. He reports history of renal calculi but denies any abdominal, back, or flank pain currently. Reports that he did have some abdominal pain a few days ago. Denies fevers. Denies any other urinary symptoms. Denies nausea or vomiting. Plan: UA, labs, renal US Medical Decision Making Medical Decision Making MDM Narrative: 57 yo male with hx of renal colic and hematuria no blood thinners here with c/o pink tinged urine no pain, fevers n/v/d or issues urinating no clots at this time US and UA ordered - he is going to follow up with a urologist suspect this is due to stone has hx of same in past will need flomax and urology follow up Differential Diagnosis Differential Diagnoses: The differential diagnosis associated with the presentation includes renal colic, UTI Admission/Observation Consideration of admission/observation: Escalation of care including admission/observation considered no issues urinating, no pain, no vomiting can be managed as outpatient Lab Data [facility] Lab Attestation statement: I reviewed the patient's lab results. 05/23/23 14:17 05/23/23 14:17 Labs: Lab Results 05/23/23 05/23/23 05/23/23 Range/Units 14:17 14:17 14:17 WBC 7.4 (4.8-10.8) X10*3/uL RBC 5.46 (4.60-5.80) X10*6/uL Hgb 15.7 (14.0-18.0) g/dl Hct 46.6 (42.0-52.0) % MCV 85.3 (80.0-98.0) fL MCH 28.8 (27.0-33.0) pg MCHC 33.7 (31.0-36.0) g/dl RDW 14.6 (11.0-16.0) % Plt Count 167 (160-400) X10*3/uL MPV 10.8 (9.4-12.4) fL Immature Gran % (Auto) 0.3 (0.0-0.4) % Neut % (Auto) 60.6 (45-73) % Lymph % (Auto) 28.9 (20-40) % Moffat % (Auto) 7.1 (2-11) % Eos % (Auto) 2.6 (0-4) % Baso % (Auto) 0.5 (0-2) % Lymph # (Auto) 2.1 (1.2-4.9) X10*3/uL Moffat # (Auto) 0.5 (0.1-1.2) X10*3/uL Eos # (Auto) 0.2 (0.0-0.4) X10*3/uL Baso # (Auto) 0.0 (0.0-0.2) X10*3/uL Abs Immat Gran (auto) 0.02 (0.00-0.03) X10*3/uL Absolute Neuts (auto) 4.5 (2.0-8.3) x10*3/uL Absolute Nucleated RBC 0.000 (0.0-0.012) X10*3/uL Nucleated RBC % (auto) 0.0 (0.0-0.2) /100WBC Sodium 144 (135-145) mmol/L Potassium 3.7 (3.3-5.1) mmol/L Chloride 109 H (96-108) mmol/L Carbon Dioxide 28 (22-29) mmol/L Anion Gap 11 L (12-20) BUN 20 H (9-16) mg/dL Creatinine 1.28 (0.5-1.4) mg/dL Estim Creat Clear Calc 73.8 Estimated GFR 58 Random Glucose 77 (60-115) mg/dL Calcium 9.4 (8.4-10.2) mg/dL Total Bilirubin 0.3 (0.0-1.0) mg/dL AST 16 (5-37) U/L ALT 18 (0-40) U/L Alkaline Phosphatase 58 (39-117) U/L Total Protein 7.6 (6.5-8.0) g/dL Albumin 3.8 (3.5-5.0) g/dL Urine Color RED Urine Appearance Turbid Urine pH 7.5 (5.0-9.0) Ur Specific Daniel 1.015 (1.005-1.025) Urine Protein 30 (1+) H (Neg-Trace) mg/dL Urine Glucose (UA) Negative (Negative) mg/dL Urine Ketones Negative (Negative) mg/dL Urine Blood Large (3+) H (Negative) Urine Nitrite Negative (Negative) Ur Leukocyte Esterase Negative (Negative) Urine RBC >20 H (0-2) /HPF Urine WBC 11-20 H (0-5) /HPF Ur Squamous Epith Cells 0-2 (0-2) /HPF Urine Bacteria None Seen (None Seen) Hyaline Casts 0-2 (0-2) /LPF Independent Interpretation I performed an independent interpretation of an: Ultrasound (renal stones) Radiology Impression Discussion of test interpretation with radiology: I have reviewed the radiologist's reading. External Record Review External record reviewed: Inpatient record Prescription Management I considered prescription management with: Other (tamsulosin) Discharge Plan Discharge Clinical Impression: Painless hematuria, Kidney stone Patient Disposition: Home, Self-Care Instructions: Kidney Stones (ED), Hematuria (ED) Additional Instructions: return for fevers, vomiting worsening pain inability to urinate or any other concerns. call your urologist this should be monitored to make sure no serious underlying condition is present. Regrese por fiebre, v?mitos, empeoramiento del dolor, incapacidad para orinar o cualquier otra inquietud. Llame a oneal ur?logo, esto debe ser monitoreado para asegurarse de que no exista mario afecci?n subyacente grave. Prescriptions: New tamsulosin 0.4 mg capsule 0.4 mg PO DAILY 7 Days Qty: 7 0RF No Action olanzapine 5 mg tablet 1 tab PO BEDTIME buspirone 15 mg tablet 1 tab PO TID mirtazapine 7.5 mg tablet 1 tab PO BEDTIME phenazopyridine [Pyridium] 100 mg tablet 100 mg PO TID PRN (Reason: spasm) 4 Days Qty: 12 0RF tamsulosin [Flomax] 0.4 mg capsule 0.4 mg PO DAILY Qty: 7 0RF ondansetron 4 mg tablet,disintegrating 4 mg PO Q8H PRN (Reason: nausea and vomiting) Qty: 20 0RF benztropine 1 mg tablet 1 mg PO BEDTIME topiramate 50 mg tablet 50 mg PO BID naproxen 500 mg tablet 500 mg PO ONCE Qty: 1 0RF mirtazapine 15 mg tablet 15 mg PO BEDTIME trazodone 100 mg tablet 100 mg PO BEDTIME hydroxyzine HCl 50 mg tablet 50 mg PO Q8H PRN (Reason: anxiety) haloperidol 20 mg tablet 20 mg PO BID hydroxyzine HCl 25 mg tablet 25 mg PO TID PRN (Reason: itch) haloperidol 10 mg tablet 15 mg PO BID buspirone 5 mg tablet 5 - 10 mg PO TID clotrimazole-betamethasone 1-0.05 % cream 1 appl topical BID 28 Days Qty: 45 0RF Rx Instructions: Apply thin coat 2 times per day Print Language: Gibraltarian
[2023-05-23 14:21] LABS: MANUAL DIFF FLAG NO
[2023-05-23 14:24] LABS: Appearance Urine Turbid; Color Urine RED; Glucose Urine UA Negative (Negative); Leukocyte Esterase Urine Negative (Negative); Nitrite Urine Negative (Negative); PH 7.5 (5.0-9.0); Specific Gravity - Urine 1.015 (1.005-1.025); UMIC TRIGGER UACC YES; Urine Blood Large (3+) (Negative); Urine Ketones Negative (Negative); Urine Protein 30 (1+) mg/dL (Neg-Trace)
[2023-05-23 14:28] LABS: Basophils Percent Auto 0.5 % (0-2); Eosinophils Absolute Auto 0.2 X10*3/uL (0.0-0.4); Eosinophils Percent Auto 2.6 % (0-4); Hematocrit 46.6 % (42.0-52.0); Hemoglobin 15.7 g/dl (14.0-18.0); Imm Gran Abs Auto 0.02 X10*3/uL (0.00-0.03); Imm Gran Pct Auto 0.3 % (0.0-0.4); Lymphocytes Absolute Auto 2.1 X10*3/uL (1.2-4.9); Lymphocytes Percent Auto 28.9 % (20-40); Mean Corpuscular HGB Conc 33.7 g/dl (31.0-36.0); Mean Corpuscular Hemoglobin 28.8 pg (27.0-33.0); Mean Corpuscular Volume 85.3 fL (80.0-98.0); Mean Platelet Volume 10.8 fL (9.4-12.4); Monocytes Absolute Auto 0.5 X10*3/uL (0.1-1.2); Monocytes Percent Auto 7.1 % (2-11); Neutrophils Absolute Auto 4.5 x10*3/uL (2.0-8.3); Neutrophils Percent Auto 60.6 % (45-73); Platelet Count 167 X10*3/uL (160-400); Red Blood Count 5.46 X10*6/uL (4.60-5.80); Red Cell Distribution Width 14.6 % (11.0-16.0); White Blood Count 7.4 X10*3/uL (4.8-10.8)
[2023-05-23 14:39] LABS: Bacteria Urine None Seen (None Seen); Hyaline Casts Urine 0-2 /LPF (0-2); RBC Urine >20 /HPF (0-2); Squamous Epithelial Cell Urine 0-2 /HPF (0-2); UACC Culture Trigger YES
[2023-05-23 14:57] LABS: Alanine Aminotransferase 18 U/L (0-40); Albumin Level 3.8 g/dL (3.5-5.0); Alkaline Phosphatase 58 U/L (39-117); Anion Gap 11 (12-20); Aspartate Amino Transferase 16 U/L (5-37); Bilirubin Total 0.3 mg/dL (0.0-1.0); Blood Urea Nitrogen 20 mg/dL (9-16); Calcium 9.4 mg/dL (8.4-10.2); Carbon Dioxide 28 mmol/L (22-29); Chloride 109 mmol/L (96-108); Creatinine Clr Calc Pharmacy 73.8; Estimated Glomerular Filt Rate 58; Glucose Random 77 mg/dL (60-115); Potassium 3.7 mmol/L (3.3-5.1); Sodium 144 mmol/L (135-145); Total Protein 7.6 g/dL (6.5-8.0)
[2023-05-23] MEDS: Tamsulosin HCL 0.4 MG CAPSULE PO (21:05)
== END 2023-05-23 21:12 | disposition home or self-care (01) ==
PROVIDERS: Registered Nurse Emergency; Emergency Provider Emergency Medicine; PCP Internal Medicine Geriatric Medicine
DX: R31.9 Hematuria, unspecified (principal); N20.0 Calculus of kidney; F17.210 Nicotine dependence, cigarettes, uncomplicated; Z79.899 Other long term (current) drug therapy; Z71.6 Tobacco abuse counseling
CPT/HCPCS: 36415; 76775; 80053; 81001; 85025; 87086; 99284

== ENCOUNTER 2023-08-28 12:40 | Outpatient (REF) | payer MEDICAID, SELFPAY ==
--- NOTE | ~2023-08-28 | US_ITS ---
EXAMINATION: US RETROPERITONEAL LIMITED (RENAL ONLY) CLINICAL INFORMATION: Calculus of kidney. COMPARISON: Ultrasound retroperitoneal limited 05/23/2023. CT abdomen and pelvis without contrast 12/31/2022. TECHNIQUE: Real-time imaging of the kidneys. FINDINGS: RIGHT KIDNEY: 10.7 x 5.5 x 6.2 cm (SAG x AP x TRV). The kidney is normal in size, contour, and echogenicity. Renal cortical thickness is normal. No calculi or focal parenchymal lesions. No hydronephrosis. LEFT KIDNEY: 11.2 x 4.5 x 5.5 cm (SAG x AP x TRV). The kidney is normal in size, contour, and echogenicity. Renal cortical thickness is normal. No focal parenchymal lesions. Similar left lower pole caliectasis. A 1.2 cm lower pole renal stone, previously 0.9 cm, with a few other smaller adjacent stone is not identified on today's exam. Partially imaged liver appears echogenic suggestive of hepatic steatosis or underlying liver disease. US/US renal BI IMPRESSION: 1. A 1.2 cm left lower pole renal stone increased in size from prior, with a few other smaller adjacent stone is not identified on today's exam. 2. Partially imaged liver appears echogenic suggestive of hepatic steatosis or underlying liver disease. 3. Similar left lower pole caliectasis without fan hydronephrosis.
== END 2023-08-28 12:41 | disposition home or self-care (01) ==
LOC: HO.US 12:40
PROVIDERS: PCP Internal Medicine Geriatric Medicine; Visit Provider Urology
DX: N20.0 Calculus of kidney (principal)
CPT/HCPCS: 76775

== ENCOUNTER 2023-09-03 09:03 | Emergency (ER) | payer MEDICAID, SELFPAY ==
--- NOTE | ~2023-09-03 | XR_ITS ---
EXAMINATION: XR CHEST CLINICAL INFORMATION: SOB. COMPARISON: None available. TECHNIQUE: 2 views of the chest were obtained. FINDINGS: No significant abnormality is noted involving the heart, lungs, mediastinum, bony thorax or soft tissues. XR/XR chest 2V IMPRESSION: Unremarkable chest exam
[2023-09-03 10:08] VITALS: BP 141/84; PULSE 80; RESP 18; TEMP 36.6; O2SAT 97; BMI 30.5
--- NOTE | 2023-09-03 13:53 | ECG_ITS ---
Test Reason : SOB/dizzy Blood Pressure : / mmHG Vent. Rate : 061 BPM Atrial Rate : 061 BPM P-R Int : 154 ms QRS Dur : 090 ms QT Int : 408 ms P-R-T Axes : 051 017 045 degrees QTc Int : 410 ms Normal sinus rhythm Normal ECG When compared with ECG of 16-DEC-2021 20:14, No significant change was found Referred By: Mizty Ruiz Electronically Signed By:JANN AUGUSTE
[2023-09-03 14:50] LABS: MANUAL DIFF FLAG NO
[2023-09-03 14:53] VITALS: PULSE 75; RESP 16; TEMP 36.6; O2SAT 98
--- NOTE | 2023-09-03 15:04 | ED.GENADULT ---
HPI - General Adult General Chief complaint: Upper Respiratory Symptoms Stated complaint: Diff Breathing Time Seen by Provider: 09/03/23 14:52 Source: patient and certified court/medical interpreter Mode of arrival: ambulatory Limitations: no limitations History of Present Illness HPI narrative: 57-year-old male speaking only presented today with complaint of shortness of breath x2 weeks. Shortness of breath only when he try to lay on his back at night, patient also been having exertion generalized weakness, lower extremity edema and swelling that is improving now, patient is active cigarette smoker, with productive cough and yellow sputum, patient also feels tight and chest with wheezing. Related Data Home Medications Medication Instructions Recorded Confirmed benztropine 1 mg tablet 1 mg PO BEDTIME 08/06/21 12/17/21 topiramate 50 mg tablet 50 mg PO BID 08/06/21 12/17/21 buspirone 15 mg tablet 1 tab PO TID 12/17/21 mirtazapine 7.5 mg tablet 1 tab PO BEDTIME 12/17/21 12/17/21 olanzapine 5 mg tablet 1 tab PO BEDTIME 12/17/21 12/17/21 buspirone 5 mg tablet 5 - 10 mg PO TID 01/08/22 haloperidol 10 mg tablet 15 mg PO BID 01/08/22 haloperidol 20 mg tablet 20 mg PO BID 01/08/22 hydroxyzine HCl 25 mg tablet 25 mg PO TID PRN itch 01/08/22 hydroxyzine HCl 50 mg tablet 50 mg PO Q8H PRN anxiety 01/08/22 mirtazapine 15 mg tablet 15 mg PO BEDTIME 01/08/22 trazodone 100 mg tablet 100 mg PO BEDTIME 01/08/22 Previous Rx's Medication Instructions Recorded phenazopyridine 100 mg tablet 100 mg PO TID PRN spasm 4 days #12 12/24/21 (Pyridium) tabs ondansetron 4 mg disintegrating 4 mg PO Q8H PRN nausea and 12/31/22 tablet vomiting #20 tabs tamsulosin 0.4 mg capsule (Flomax) 0.4 mg PO DAILY #7 caps 12/31/22 clotrimazole-betamethasone 1 1 appl topical BID 4 weeks #45 03/05/23 %-0.05 % topical cream grams tamsulosin 0.4 mg capsule 0.4 mg PO DAILY 7 days #7 caps 05/23/23 albuterol sulfate 90 mcg/actuation 2 puff inhalation Q4-6H PRN 09/03/23 aerosol inhaler shortness of breath or wheezing #8.5 grams azithromycin 250 mg tablet See Rx Instructions PO .COMPLEX #6 09/03/23 (Zithromax Z-Alec) tabs prednisone 20 mg tablet 20 mg PO BID #10 tabs 09/03/23 Allergies Allergy/AdvReac Type Severity Reaction Status Date / Time No Known Allergies Allergy Verified 09/03/23 10:08 Review of Systems Review of Systems: All other systems are reviewed and are negative Constitutional: Reports as per HPI and Reports no additional constitutional complaints Eyes: Reports as per HPI and Reports no additional eye complaints Reports system reviewed and no additional complaints, except as documented Cardiovascular: Reports as per HPI and Reports no additional cardiovascular complaints Respiratory: Reports as per HPI and Reports no additional respiratory complaints Gastrointestinal: Reports as per HPI and Reports no additional gastrointestinal complaints Genitourinary: Reports no additional female genitourinary complaints Musculoskeletal: Reports no additional musculoskeletal complaints Skin/Breast: Reports system reviewed and no additional complaints, except as docu Psychiatric: Reports no additional psychiatric complaints Endocrine: Reports no additional endocrine complaints Hematologic/Lymphatic: Reports no additional hematologic/lymphatic complaints Allergic/Immunologic: Reports no additional allergic/immunologic complaints Reports system reviewed and no additional complaints, except as documented and Reports Abnormal speech present [facility] Past Medical History Medical History Depression with anxiety History of kidney stones HTN (hypertension) Surgical History Hx of total hip arthroplasty Hx of cystoscopy History of surgery Social History Social History Household Members: None Household Members Other:: 6 Housing: Apartment Do you presently have visiting nurse or other home services: No Alcohol intake: never Comment: medicated with tylenol, pt refused oxycodone Patient Tobacco Use Status: Current everyday Tobacco user Tobacco use type: Cigarette Cigarettes Per Day: 6 Smoked in Last 30 Days: No Second Hand Smoke Exposure: No Use of substances other than those prescribed or required for medical reasons: No Substance Use Type: Marijuana Advance Directives: Yes Advance Directives on File: Yes Advance Directives Date on File: 02/07/21 service: No Current occupational status: unemployed and disabled Physical Exam ED Vital Signs: Vital Signs - 24 hr 09/03/23 10:08 09/03/23 14:53 09/03/23 14:53 Temperature 97.9 F 97.9 F Pulse Rate 80 75 Respiratory Rate 18 16 Blood Pressure 141/84 H Pulse Oximetry 97 98 98 Oxygen Delivery Method Room Air Room Air Room Air BMI result Body Mass Index 30.5 Vital signs have been reviewed and appear to be correct. Blood pressure elevated. Heart rate normal. Respiratory rate normal. Temperature normal. Oxygen saturation normal. Appearance: Alert. Oriented X3. No acute distress. Head: Normal external exam. Normocephalic. Atraumatic. No Shields signs noted. No raccoon eyes noted Eyes: PERRLA. EOMI. Conjunctiva and sclera normal. Eyelids normal. ENT: TM's Normal. Pharynx normal. Uvula midline. Moist mucous membranes. No trismus noted. No drooling noted. No muffled voice noted. Neck: Normal inspection. Neck supple. FROM. No adenopathy. Thyroid Normal. No meningeal signs. No neck mass noted. CVS: Normal heart rate and rhythm. Heart sound normal. No murmurs noted. Pulses normal throughout. Respiratory: No respiratory distress. Painless inspiration. Mild, bilateral diffuse expiratory wheezing with prolonged expiration and decreased bilateral breathing sounds Chest nontender. No accessory muscle usage noted or decreased air movement noted. Abdomen: Soft and nontender. Bowel sounds normal in all 4 quadrants. No distention noted. No organomegaly noted. No visible injury noted. Back: No CVA tenderness. Full range of motion noted. Skin: Skin warm and dry. Normal skin color. Normal skin turgor. No rashes/lesions/lacerations noted. Extremities: No lower extremity edema. Extremities exhibit normal range of motion. Extremities nontender. Neuro: Oriented X 3. Cranial nerve exam: II-XII are grossly intact No motor deficit. No sensory deficit. Reflexes normal. Course Reevaluation(s) Reevaluation #1: 57-year-old male active smoker presented with shortness of breath for the past 2 weeks intermittently especially at nighttime, no evidence of acute CHF neck x-ray or blood work or physical exam, patient's symptoms is likely due to bronchitis and heavy smoking will start the patient on albuterol, prednisone, course of Z-Alec and follow up with PCP. Time: 16:33 Medical Decision Making Differential Diagnosis Differential Diagnoses: The differential diagnosis associated with the presentation includes (ACS, CHF, bronchitis, pneumonia, pneumothorax, pleural effusion, severe anemia, electrolyte abnormality.) Admission/Observation Consideration of admission/observation: Escalation of care including admission/observation considered Lab Data MDM Lab Attestation statement: I reviewed the patient's lab results. 09/03/23 14:37 09/03/23 14:37 Labs: Lab Results 09/03/23 Range/Units 14:37 WBC 7.3 (4.8-10.8) X10*3/uL RBC 5.49 (4.60-5.80) X10*6/uL Hgb 15.7 (14.0-18.0) g/dl Hct 47.2 (42.0-52.0) % MCV 86.0 (80.0-98.0) fL MCH 28.6 (27.0-33.0) pg MCHC 33.3 (31.0-36.0) g/dl RDW 13.8 (11.0-16.0) % Plt Count 213 D (160-400) X10*3/uL MPV 11.4 (9.4-12.4) fL Immature Gran % (Auto) 0.3 (0.0-0.4) % Neut % (Auto) 64.4 (45-73) % Lymph % (Auto) 24.0 (20-40) % Garfield % (Auto) 8.4 (2-11) % Eos % (Auto) 2.2 (0-4) % Baso % (Auto) 0.7 (0-2) % Lymph # (Auto) 1.8 (1.2-4.9) X10*3/uL Garfield # (Auto) 0.6 (0.1-1.2) X10*3/uL Eos # (Auto) 0.2 (0.0-0.4) X10*3/uL Baso # (Auto) 0.1 (0.0-0.2) X10*3/uL Abs Immat Gran (auto) 0.02 (0.00-0.03) X10*3/uL Absolute Neuts (auto) 4.7 (2.0-8.3) x10*3/uL Absolute Nucleated RBC 0.000 (0.0-0.012) X10*3/uL Nucleated RBC % (auto) 0.0 (0.0-0.2) /100WBC Sodium 140 (135-145) mmol/L Potassium 3.9 (3.3-5.1) mmol/L Chloride 112 H (96-108) mmol/L Carbon Dioxide 20 L (22-29) mmol/L Anion Gap 12 (12-20) BUN 22 H (9-16) mg/dL Creatinine 1.18 (0.5-1.4) mg/dL Estim Creat Clear Calc 79.0 Estimated GFR > 60 Random Glucose 89 (60-115) mg/dL Calcium 9.2 (8.4-10.2) mg/dL Total Bilirubin 0.3 (0.0-1.0) mg/dL Direct Bilirubin 0.1 (0.0-0.5) mg/dL AST 15 (5-37) U/L ALT 13 (0-40) U/L Alkaline Phosphatase 69 (39-117) U/L B-Natriuretic Peptide 30 (<100) pg/mL Total Protein 7.6 (6.5-8.0) g/dL Albumin 3.8 (3.5-5.0) g/dL Influenza Type A (PCR) NEGATIVE (Negative) Influenza Type B (PCR) NEGATIVE (Negative) RSV RNA Qual (PCR) NEGATIVE (Negative) SARS-CoV-2 RNA (RT-PCR) NEGATIVE (Negative) Independent Interpretation I performed an independent interpretation of an: Plain X-Ray (Chest: Unremarkable chest exam) Radiology Impression Discussion of test interpretation with radiology: I have reviewed the radiologist's reading. Chronic Conditions Patient?s care impacted by: Other (Cigarette smoking) Discharge Plan Discharge Clinical Impression: Bronchitis Patient Disposition: Home, Self-Care Instructions: Acute Bronchitis (ED) Prescriptions: New albuterol sulfate 90 mcg/actuation HFA aerosol inhaler 2 puff inhalation Q4-6H PRN (Reason: shortness of breath or wheezing) Qty: 8.5 0RF prednisone 20 mg tablet 20 mg PO BID Qty: 10 0RF azithromycin [Zithromax Z-Alec] 250 mg tablet See Rx Instructions .ROUTE .COMPLEX Qty: 6 0RF Rx Instructions: For 250 mg dose pack: take 500 mg today (day 1), then 250 mg for 4 days (days 2-5) No Action olanzapine 5 mg tablet 1 tab PO BEDTIME buspirone 15 mg tablet 1 tab PO TID mirtazapine 7.5 mg tablet 1 tab PO BEDTIME phenazopyridine [Pyridium] 100 mg tablet 100 mg PO TID PRN (Reason: spasm) 4 Days Qty: 12 0RF tamsulosin [Flomax] 0.4 mg capsule 0.4 mg PO DAILY Qty: 7 0RF ondansetron 4 mg tablet,disintegrating 4 mg PO Q8H PRN (Reason: nausea and vomiting) Qty: 20 0RF tamsulosin 0.4 mg capsule 0.4 mg PO DAILY 7 Days Qty: 7 0RF benztropine 1 mg tablet 1 mg PO BEDTIME topiramate 50 mg tablet 50 mg PO BID naproxen 500 mg tablet 500 mg PO ONCE Qty: 1 0RF mirtazapine 15 mg tablet 15 mg PO BEDTIME trazodone 100 mg tablet 100 mg PO BEDTIME hydroxyzine HCl 50 mg tablet 50 mg PO Q8H PRN (Reason: anxiety) haloperidol 20 mg tablet 20 mg PO BID hydroxyzine HCl 25 mg tablet 25 mg PO TID PRN (Reason: itch) haloperidol 10 mg tablet 15 mg PO BID buspirone 5 mg tablet 5 - 10 mg PO TID clotrimazole-betamethasone 1-0.05 % cream 1 appl topical BID 28 Days Qty: 45 0RF Rx Instructions: Apply thin coat 2 times per day Referrals: Name,MD Michael [Primary Care Provider] -
[2023-09-03 15:13] LABS: Alanine Aminotransferase 13 U/L (0-40); Albumin Level 3.8 g/dL (3.5-5.0); Alkaline Phosphatase 69 U/L (39-117); Anion Gap 12 (12-20); Aspartate Amino Transferase 15 U/L (5-37); Basophils Absolute Auto 0.1 X10*3/uL (0.0-0.2); Basophils Percent Auto 0.7 % (0-2); Bilirubin Direct 0.1 mg/dL (0.0-0.5); Bilirubin Total 0.3 mg/dL (0.0-1.0); Blood Urea Nitrogen 22 mg/dL (9-16); Calcium 9.2 mg/dL (8.4-10.2); Carbon Dioxide 20 mmol/L (22-29); Chloride 112 mmol/L (96-108); Eosinophils Absolute Auto 0.2 X10*3/uL (0.0-0.4); Eosinophils Percent Auto 2.2 % (0-4); Estimated Glomerular Filt Rate > 60; Glucose Random 89 mg/dL (60-115); Hematocrit 47.2 % (42.0-52.0); Hemoglobin 15.7 g/dl (14.0-18.0); Imm Gran Abs Auto 0.02 X10*3/uL (0.00-0.03); Imm Gran Pct Auto 0.3 % (0.0-0.4); Lymphocytes Absolute Auto 1.8 X10*3/uL (1.2-4.9); Mean Corpuscular HGB Conc 33.3 g/dl (31.0-36.0); Mean Corpuscular Hemoglobin 28.6 pg (27.0-33.0); Mean Platelet Volume 11.4 fL (9.4-12.4); Monocytes Absolute Auto 0.6 X10*3/uL (0.1-1.2); Monocytes Percent Auto 8.4 % (2-11); Neutrophils Absolute Auto 4.7 x10*3/uL (2.0-8.3); Neutrophils Percent Auto 64.4 % (45-73); Platelet Count 213 X10*3/uL (160-400); Potassium 3.9 mmol/L (3.3-5.1); Red Blood Count 5.49 X10*6/uL (4.60-5.80); Red Cell Distribution Width 13.8 % (11.0-16.0); Sodium 140 mmol/L (135-145); Total Protein 7.6 g/dL (6.5-8.0); White Blood Count 7.3 X10*3/uL (4.8-10.8)
[2023-09-03 15:18] LABS: B Type Natriuretic Peptide 30 pg/mL (<100)
[2023-09-03 15:34] LABS: Influenza A PCR NEGATIVE (Negative); Influenza B PCR NEGATIVE (Negative); Resp Syncy Virus RNA Qual PCR NEGATIVE (Negative); SARS COV2 PCR INHOUSE NEGATIVE (Negative)
[2023-09-03 18:29] LABS: Troponin-I High Sensitivity < 2.7 ng/L (<3.5-35.0)
[2023-09-03 18:52] LABS: D Dimer High Sensitivity < 150 NG/ML
--- NOTE | 2023-09-03 19:31 | PC.NURSE ---
Pt concerned because his pharmacy is closed. MD ordered inhaler prior to going home. RT on their way for admin and teaching.
[2023-09-03] MEDS: predniSONE 20 MG TABLET 40 MG PO (19:37)
[2023-09-03] MEDS: Azithromycin 500 MG TABLET PO (19:37)
[2023-09-03] MEDS: Albuterol Sulfate 90 MCG 8 GM INHALER 2 PUFF INHALE (20:06)
== END 2023-09-03 20:08 | disposition home or self-care (01) ==
PROVIDERS: Physician Assistant Medical; Emergency Provider Emergency Medicine; PCP Internal Medicine Geriatric Medicine
DX: J40 Bronchitis, not specified as acute or chronic (principal); R06.02 Shortness of breath; R60.0 Localized edema; Z20.822 Contact with and (suspected) exposure to COVID-19; Z20.828 Contact with and (suspected) exposure to other viral communicable diseases; I10 Essential (primary) hypertension; F17.210 Nicotine dependence, cigarettes, uncomplicated; F12.90 Cannabis use, unspecified, uncomplicated; Z79.899 Other long term (current) drug therapy
CPT/HCPCS: 0241U; 36415; 71046; 80048; 80076; 83880; 84484; 85025; 85379; 93005; 99284; 99285

== ENCOUNTER → 2023-09-03 13:53 | Outpatient (BNV) | payer MEDICAID, SELFPAY | PROVIDERS: Emergency Provider Emergency Medicine; PCP Internal Medicine Geriatric Medicine; Visit Provider Internal Medicine | DX: R06.02 Shortness of breath (principal) | CPT/HCPCS: 93010 ==

== ENCOUNTER 2023-09-18 10:19 | Outpatient (REF) | payer MEDICAID, SELFPAY ==
--- NOTE | 2023-09-18 15:23 | MHC.AU.HA3 ---
Hearing Instrument Follow-Up- Binaural Date of Visit: 09/18/23 Left Ear: Make, Model, Color, Serial Number: [id number] Behavioral Technician Repair Warranty: 03/12/2023 Behavioral Technician Loss and Damage Warranty: 03/12/2023 Battery Size: Rechargeable Correspondence Representative/Slim Tube: 1 M Earmold/Dome/CShell/SlimTip: Canal Lock Slim Tip #[id number] Warranty expiration 09/19/2021 Type of Wax Guard: CeruStop Dispensed By: [facility] Date of Fittin03/15/2020 Follow-Up Summary: Pt walked in with left vp analytics wire broken. Cleaned and checked aid, cleaned earmold, replaced vp analytics with a vp analytics attached to his chart labelled as a back up. Aid had no charge upon arrival. Charged briefly here so aid could be checked. Listening check positive. Recommendations: Recommendations: Hearing instrument follow-up or maintenance as needed. Diagnosis Code(s): Primary Diagnosis: H90.3 Bilateral Sensorineural Hearing Loss Signature: Provider: Courtney Duffy, [facility]
== END 2023-09-18 10:20 | disposition home or self-care (01) ==
LOC: HO.HAP 10:19
PROVIDERS: Visit Provider Internal Medicine Geriatric Medicine
DX: Z46.1 Encounter for fitting and adjustment of hearing aid (principal); H90.3 Sensorineural hearing loss, bilateral
CPT/HCPCS: 92592; 99499

== ENCOUNTER 2023-12-02 14:28 | Outpatient (REF) | payer MEDICAID, SELFPAY ==
--- NOTE | 2023-12-02 15:07 | MHC.AU.HA3 ---
Hearing Instrument Follow-Up- Binaural Date of Visit: 12/02/23 Nephrologist Used: [facility] robot designerKaren Right Ear: Make, Model, Color, Serial Number: [id number] Manager Erp Repair Warranty: 03/12/2023 Manager Erp Loss and Damage Warranty: 03/12/2023 [facility] Service Plan: Battery Size: Rechargeable Spotter Driver/Slim Tube: 1M Earmold/Dome/CShell/SlimTip:Canal Lock Slim Tip Type of Wax Guard: cerustop Dispensed By: [facility] Date of Fitting: Left Ear: Paulo, Model, Color, Serial Number: [id number] Manager Erp Repair Warranty: 03/12/2023 Manager Erp Loss and Damage Warranty: [facility] Service Plan: Battery Size: Rechargeable Spotter Driver/Slim Tube: 1 M Earmold/Dome/CShell/SlimTip: Canal Lock Slim Tip #[id number] Warranty expiration 09/19/2021 Type of Wax Guard: CeruStop Dispensed By: [facility] Date of Fittin03/15/2020 Follow-Up Summary: Pt's physical chart could not be located. Reports left aid has been intermittent, didn't work at all for two days. Otoscopy clear Au. Cleaned and checked both aids. Both molds had a lot of wax build up, wax guards clogged. Cleaned ear molds. Changed wax guards. Listening check positive after cleaning. Pt reports improvement. Recommendations: Recommendations: Hearing instrument follow-up or maintenance as needed. Diagnosis Code(s): Primary Diagnosis: H90.3 Bilateral Sensorineural Hearing Loss Signature: Provider: Courtney Ling, [facility]
== END 2023-12-02 14:29 | disposition home or self-care (01) ==
LOC: HO.HAP 14:28
PROVIDERS: Visit Provider Internal Medicine Geriatric Medicine
DX: Z46.1 Encounter for fitting and adjustment of hearing aid (principal); H90.3 Sensorineural hearing loss, bilateral
CPT/HCPCS: 92593; 99499

== ENCOUNTER 2023-12-17 10:27 | Emergency (ER) | payer MEDICAID, SELFPAY ==
--- NOTE | ~2023-12-17 | XR_ITS ---
EXAMINATION: XR ABDOMEN KUB CLINICAL INDICATION: Constipation. COMPARISON: Chest radiographs of 09/03/2023. Renal ultrasound 08/28/2023. CT abdomen and pelvis 12/31/2022. Radiographs lumbar spine of 07/06/2021. TECHNIQUE: 2 AP views of the abdomen. FINDINGS: Moderate amount of stool predominantly in the distal colon. Nonobstructive bowel gas pattern. Right total hip prosthesis partially imaged. Multiple grouped calculi overlie the left kidney, largest 10 mm. Previous exams also demonstrate multiple calculi measuring up to 12 mm. XR/XR KUB IMPRESSION: 1. Moderate amount of stool predominantly in the distal colon. Nonobstructive bowel gas pattern. 2. Multiple grouped calculi overlie the left kidney, largest 10 mm. Previous exams also demonstrate multiple calculi measuring up to 12 mm. This study was presented today December 17, 2023 for interpretation. Stat results provided at this time as requested by referring provider.
[2023-12-17 11:28] VITALS: BP 136/92; PULSE 76; RESP 20; TEMP 36.2; O2SAT 98; BMI 29.7
[2023-12-17 11:40] LABS: MANUAL DIFF FLAG NO
[2023-12-17 11:41] LABS: Basophils Absolute Auto 0.1 X10*3/uL (0.0-0.2); Basophils Percent Auto 0.8 % (0-2); Eosinophils Absolute Auto 0.2 X10*3/uL (0.0-0.4); Eosinophils Percent Auto 1.9 % (0-4); Hematocrit 48.8 % (42.0-52.0); Hemoglobin 16.4 g/dl (14.0-18.0); Imm Gran Abs Auto 0.03 X10*3/uL (0.00-0.03); Imm Gran Pct Auto 0.4 % (0.0-0.4); Lymphocytes Percent Auto 25.1 % (20-40); Mean Corpuscular HGB Conc 33.6 g/dl (31.0-36.0); Mean Corpuscular Hemoglobin 29.2 pg (27.0-33.0); Mean Platelet Volume 10.8 fL (9.4-12.4); Monocytes Absolute Auto 0.5 X10*3/uL (0.1-1.2); Monocytes Percent Auto 6.9 % (2-11); Neutrophils Absolute Auto 5.1 x10*3/uL (2.0-8.3); Neutrophils Percent Auto 64.9 % (45-73); Platelet Count 197 X10*3/uL (160-400); Red Blood Count 5.61 X10*6/uL (4.60-5.80); Red Cell Distribution Width 14.2 % (11.0-16.0); White Blood Count 7.8 X10*3/uL (4.8-10.8)
[2023-12-17 11:56] LABS: Alanine Aminotransferase 20 U/L (0-40); Albumin Level 3.9 g/dL (3.5-5.0); Alkaline Phosphatase 82 U/L (39-117); Anion Gap 9 (12-20); Aspartate Amino Transferase 17 U/L (5-37); Bilirubin Total 0.2 mg/dL (0.0-1.0); Blood Urea Nitrogen 22 mg/dL (9-16); Calcium 9.4 mg/dL (8.4-10.2); Carbon Dioxide 26 mmol/L (22-29); Chloride 109 mmol/L (96-108); Creatinine Clr Calc Pharmacy 75.7; Estimated Glomerular Filt Rate 54; Glucose Random 104 mg/dL (60-115); Potassium 4.4 mmol/L (3.3-5.1); Sodium 140 mmol/L (135-145); Total Protein 7.6 g/dL (6.5-8.0)
--- NOTE | 2023-12-17 12:28 | ED.GENADULT ---
HPI - General Adult General Chief complaint: General Medical Stated complaint: Constipation 1 week Time Seen by Provider: 12/17/23 12:26 Source: patient and social insurance adviser Mode of arrival: ambulatory Limitations: language barrier History of Present Illness HPI narrative: Patient is a 58 year old assigned male at with a history of kidney stones presenting to the emergency department today with constipation. Patient states that it has been a week since he has had a bowel movement but he has been passing gas just fine. Patient states that he has not taken anything for this. Patient denies any dizziness, lightheadedness, abdominal pain, nausea, vomiting, fever, chills, blurry vision, double vision, loss of vision, chest pain, difficulty breathing, shortness of breath, back pain, night sweats, pain with urination, increased urinary frequency, increased urinary urgency, blood in his urine or stool, syncope or a near syncopal episode, recent trauma or falls, bowel incontinence, bladder incontinence, bladder retention, or any other complaints at this time. Onset (ago): week(s) (1) Severity: mild Relieving factors: none Exacerbating factors: none Associated symptoms: denies other symptoms Treatments prior to arrival: none Related Data Home Medications Medication Instructions Recorded Confirmed benztropine 1 mg tablet 1 mg PO BEDTIME 08/06/21 12/17/21 topiramate 50 mg tablet 50 mg PO BID 08/06/21 12/17/21 buspirone 15 mg tablet 1 tab PO TID 12/17/21 mirtazapine 7.5 mg tablet 1 tab PO BEDTIME 12/17/21 12/17/21 olanzapine 5 mg tablet 1 tab PO BEDTIME 12/17/21 12/17/21 buspirone 5 mg tablet 5 - 10 mg PO TID 01/08/22 haloperidol 10 mg tablet 15 mg PO BID 01/08/22 haloperidol 20 mg tablet 20 mg PO BID 01/08/22 hydroxyzine HCl 25 mg tablet 25 mg PO TID PRN itch 01/08/22 hydroxyzine HCl 50 mg tablet 50 mg PO Q8H PRN anxiety 01/08/22 mirtazapine 15 mg tablet 15 mg PO BEDTIME 01/08/22 trazodone 100 mg tablet 100 mg PO BEDTIME 01/08/22 Previous Rx's Medication Instructions Recorded phenazopyridine 100 mg tablet 100 mg PO TID PRN spasm 4 days #12 03/28/22 (Pyridium) tabs ondansetron 4 mg disintegrating 4 mg PO Q8H PRN nausea and 12/31/22 tablet vomiting #20 tabs tamsulosin 0.4 mg capsule (Flomax) 0.4 mg PO DAILY #7 caps 12/31/22 clotrimazole-betamethasone 1 1 appl topical BID 4 weeks #45 03/05/23 %-0.05 % topical cream grams tamsulosin 0.4 mg capsule 0.4 mg PO DAILY 7 days #7 caps 05/23/23 albuterol sulfate 90 mcg/actuation 2 puff inhalation Q4-6H PRN 09/03/23 aerosol inhaler shortness of breath or wheezing #8.5 grams azithromycin 250 mg tablet See Rx Instructions PO .COMPLEX #6 09/03/23 (Zithromax Z-Alec) tabs prednisone 20 mg tablet 20 mg PO BID #10 tabs 09/03/23 magnesium citrate 60 ml PO QID PRN constipation #296 12/17/23 mL Allergies Allergy/AdvReac Type Severity Reaction Status Date / Time No Known Allergies Allergy Verified 12/17/23 11:31 Review of Systems Constitutional: Constitutional: Reports no additional constitutional complaints, Denies chills, Denies fever(s) and Denies night sweats Eyes: Eyes: Reports no additional eye complaints, Denies blurry vision, Denies change in vision, Denies diplopia, Denies eye discharge, Denies loss of vision and Denies eye pain ENT: Denies dizziness Cardiovascular: Cardiovascular: Reports no additional cardiovascular complaints, Denies chest pain, Denies lightheadedness, Denies Loss of Consciousness and Denies dyspnea Respiratory: Respiratory: Reports no additional respiratory complaints and Denies dyspnea Gastrointestinal: Gastrointestinal: Reports no additional gastrointestinal complaints, Denies abdominal pain, Denies melena, Denies hematochezia, Reports change in bowel habits, Denies change in stool character and Reports constipation Genitourinary: Genitourinary: Reports no additional male genitourinary complaints, Denies hematuria, Denies oliguria, Denies difficulty urinating, Denies dysuria, Denies urinary frequency, Denies urinary hesitancy, Denies urinary incontinence and Denies urinary urgency Musculoskeletal: Musculoskeletal: Reports no additional musculoskeletal complaints, Denies numbness and Denies tingling Neurologic: Denies dizziness, Denies loss of vision, Denies numbness and Denies tingling Psychiatric: Psychiatric: Reports no additional psychiatric complaints Endocrine: Endocrine: Reports no additional endocrine complaints Hematologic/Lymphatic: Hematologic/Lymphatic: Reports no additional hematologic/lymphatic complaints Allergic/Immunologic: Allergic/Immunologic: Reports no additional allergic/immunologic complaints PMFSH Past Medical History Attestation statement: The following information was validated with the patient. Source: old records reviewed and nursing notes reviewed Medical History Depression with anxiety History of kidney stones HTN (hypertension) Surgical History Hx of total hip arthroplasty Hx of cystoscopy History of surgery Social History Social History Household Members: None Household Members Other:: 6 Housing: Apartment Do you presently have visiting nurse or other home services: No Alcohol intake: never Comment: medicated with tylenol, pt refused oxycodone Patient Tobacco Use Status: Current everyday Tobacco user Tobacco use type: Cigarette Cigarettes Per Day: 6 Second Hand Smoke Exposure: No Substance Use Type: Marijuana Advance Directives: Yes Advance Directives on File: Yes Advance Directives Date on File: 02/07/21 service: No Current occupational status: unemployed and disabled Physical Exam ED Vital Signs: Vital Signs - 24 hr 12/17/23 11:28 12/17/23 13:52 Temperature 97.2 F 97.9 F Pulse Rate 76 72 Respiratory Rate 20 20 Blood Pressure 136/92 H 138/88 Pulse Oximetry 98 98 Oxygen Delivery Method Room Air Room Air BMI result Body Mass Index 29.7 Const General: cooperative, no acute distress, alert and awake Nutritional Appearance: well nourished Orientation/consciousness: patient oriented x3 Limitations: no limitations HENMT Head: Yes normal to inspection and Yes atraumatic Ears: hearing grossly normal bilaterally and external ears normal General nose exam: Normal external nose present, no nasal discharge noted and no epistaxis Face and sinus: Yes normal facial exam, No abrasion and No laceration Mouth: Normal oral and palatal mucosa present, no drooling and no muffled voice Eyes General: appearance normal, both eyes and all related structures Periorbital: periorbital findings normal Eyelids: Yes eyelids normal Conjunctivae: conjunctivae normal Pupils: Equal, round and reactive pupils present EOM: EOMs intact bilaterally Neck Neck: Yes normal visual inspection, Yes full ROM and Yes no lymphadenopathy Chest Chest palpation & inspection: normal inspection of the chest Resp Effort & Inspection: normal respiratory effort and able to speak in complete sentences GI Inspection: Yes normal to inspection Palpation (GI): Soft to palpation, not firm, nontender and no guarding Neuro General: patient oriented x3 and moves all extremities Cranial nerves: Yes Equal, round and reactive pupils present Cognition (Neuro): normal cognition Motor exam (neuro): 5/5 motor strength present throughout Sensory Exam: Normal double simultaneous stimulation for sensation Coordination: [id number] test normal Extrem General: Yes normal to inspection, Yes full ROM and Yes capillary refill normal Psych Appearance: grossly normal Mental Status: mental status grossly normal Affect: normal affect Attitude: cooperative Thought process: Normal thought process present Thought content: Normal thought content present Insight: Good insight present (Psych) Medical Decision Making Medical Decision Making [facility] Narrative: Patient is a 58 year old assigned male at with a history of kidney stones presenting to the emergency department today with constipation. Patient's physical exam was unremarkable. Patient's blood work was unremarkable. Patient's KUB x-ray showed constipation with no evidence of obstruction. I explained my physical exam findings as well as all test results to the patient. I answered all questions asked by the patient. I stressed the importance of the patient taking his medication as prescribed. I stressed the importance of the patient following up with his primary care provider. I stressed the importance of the patient returning to the emergency department immediately if his symptoms were to worsen or if he were to develop any dizziness, shortness of breath, difficulty breathing, chest pain, blurry vision, loss of vision, nausea, vomiting, abdominal pain, fever, chills, back pain, or any other complaints. Patient verbalized agreement and understanding with this treatment plan and discharge. Differential Diagnosis Differential Diagnoses: The differential diagnosis associated with the presentation includes Constipation Admission/Observation Consideration of admission/observation: Escalation of care including admission/observation considered Patient would have been admitted to the hospital had his work up had any findings where hospital admission was appropriate and his clinical presentation warranted hospital admission. Lab Data [facility] Lab Attestation statement: I reviewed the patient's lab results. My interpretation of these results are in the MDM Rationale portion of this note. 12/17/23 11:35 12/17/23 11:36 Labs: Lab Results 12/17/23 12/17/23 Range/Units 11:35 11:36 WBC 7.8 (4.8-10.8) X10*3/uL RBC 5.61 (4.60-5.80) X10*6/uL Hgb 16.4 (14.0-18.0) g/dl Hct 48.8 (42.0-52.0) % MCV 87.0 (80.0-98.0) fL MCH 29.2 (27.0-33.0) pg MCHC 33.6 (31.0-36.0) g/dl RDW 14.2 (11.0-16.0) % Plt Count 197 (160-400) X10*3/uL MPV 10.8 (9.4-12.4) fL Immature Gran % (Auto) 0.4 (0.0-0.4) % Neut % (Auto) 64.9 (45-73) % Lymph % (Auto) 25.1 (20-40) % Knox % (Auto) 6.9 (2-11) % Eos % (Auto) 1.9 (0-4) % Baso % (Auto) 0.8 (0-2) % Lymph # (Auto) 2.0 (1.2-4.9) X10*3/uL Knox # (Auto) 0.5 (0.1-1.2) X10*3/uL Eos # (Auto) 0.2 (0.0-0.4) X10*3/uL Baso # (Auto) 0.1 (0.0-0.2) X10*3/uL Abs Immat Gran (auto) 0.03 (0.00-0.03) X10*3/uL Absolute Neuts (auto) 5.1 (2.0-8.3) x10*3/uL Absolute Nucleated RBC 0.000 (0.0-0.012) X10*3/uL Nucleated RBC % (auto) 0.0 (0.0-0.2) /100WBC Sodium 140 (135-145) mmol/L Potassium 4.4 (3.3-5.1) mmol/L Chloride 109 H (96-108) mmol/L Carbon Dioxide 26 (22-29) mmol/L Anion Gap 9 L (12-20) BUN 22 H (9-16) mg/dL Creatinine 1.35 (0.5-1.4) mg/dL Estim Creat Clear Calc 75.7 Estimated GFR 54 Random Glucose 104 (60-115) mg/dL Calcium 9.4 (8.4-10.2) mg/dL Total Bilirubin 0.2 (0.0-1.0) mg/dL AST 17 (5-37) U/L ALT 20 (0-40) U/L Alkaline Phosphatase 82 (39-117) U/L Total Protein 7.6 (6.5-8.0) g/dL Albumin 3.9 (3.5-5.0) g/dL Independent Interpretation I performed an independent interpretation of an: Plain X-Ray Interpretation: My interpretation is in agreement with the radiologist's impression of this imaging study. EXAMINATION: XR ABDOMEN KUB CLINICAL INDICATION: Constipation. COMPARISON: Chest radiographs of 09/03/2023. Renal ultrasound 08/28/2023. CT abdomen and pelvis 12/31/2022. Radiographs lumbar spine of 07/06/2021. TECHNIQUE: 2 AP views of the abdomen. FINDINGS: Moderate amount of stool predominantly in the distal colon. Nonobstructive bowel gas pattern. Right total hip prosthesis partially imaged. Multiple grouped calculi overlie the left kidney, largest 10 mm. Previous exams also demonstrate multiple calculi measuring up to 12 mm. XR/XR KUB IMPRESSION: 1. Moderate amount of stool predominantly in the distal colon. Nonobstructive bowel gas pattern. 2. Multiple grouped calculi overlie the left kidney, largest 10 mm. Previous exams also demonstrate multiple calculi measuring up to 12 mm. This study was presented today December 17, 2023 for interpretation. Stat results provided at this time as requested by referring provider. Dictated By: Yasmeen Lawrence MD Signed By: Electronically signed by Yasmeen Lawrence MD 12/17/23 1742 Radiology Impression Discussion of test interpretation with radiology: I have reviewed the radiologist's reading. Discharge Plan Discharge Clinical Impression: Constipation Patient Disposition: Home, Self-Care Instructions: Constipation (DC) Additional Instructions: Follow up with your primary care provider. Return to the emergency department immediately if your symptoms worsen or if you develop any dizziness, shortness of breath, difficulty breathing, chest pain, blurry vision, loss of vision, nausea, vomiting, abdominal pain, fever, chills, back pain, or any other complaints. Rose un seguimiento con oneal m?dico de atenci?n primaria. Vuelva inmediatamente al servicio de urgencias si lillian s?ntomas empeoran o si presenta mareos, falta de aliento, dificultad para respirar, dolor tor?cico, visi?n borrosa, p?rdida de visi?n, n?useas, v?mitos, dolor abdominal, fiebre, escalofr?os, dolor de espalda o cualquier otra molestia. Prescriptions: New magnesium citrate Solution 60 ml PO QID PRN (Reason: constipation) Qty: 296 0RF No Action olanzapine 5 mg tablet 1 tab PO BEDTIME buspirone 15 mg tablet 1 tab PO TID mirtazapine 7.5 mg tablet 1 tab PO BEDTIME phenazopyridine [Pyridium] 100 mg tablet 100 mg PO TID PRN (Reason: spasm) 4 Days Qty: 12 0RF tamsulosin [Flomax] 0.4 mg capsule 0.4 mg PO DAILY Qty: 7 0RF ondansetron 4 mg tablet,disintegrating 4 mg PO Q8H PRN (Reason: nausea and vomiting) Qty: 20 0RF tamsulosin 0.4 mg capsule 0.4 mg PO DAILY 7 Days Qty: 7 0RF albuterol sulfate 90 mcg/actuation HFA aerosol inhaler 2 puff inhalation Q4-6H PRN (Reason: shortness of breath or wheezing) Qty: 8.5 0RF prednisone 20 mg tablet 20 mg PO BID Qty: 10 0RF azithromycin [Zithromax Z-Alec] 250 mg tablet See Rx Instructions .ROUTE .COMPLEX Qty: 6 0RF Rx Instructions: For 250 mg dose pack: take 500 mg today (day 1), then 250 mg for 4 days (days 2-5) benztropine 1 mg tablet 1 mg PO BEDTIME topiramate 50 mg tablet 50 mg PO BID naproxen 500 mg tablet 500 mg PO ONCE Qty: 1 0RF mirtazapine 15 mg tablet 15 mg PO BEDTIME trazodone 100 mg tablet 100 mg PO BEDTIME hydroxyzine HCl 50 mg tablet 50 mg PO Q8H PRN (Reason: anxiety) haloperidol 20 mg tablet 20 mg PO BID hydroxyzine HCl 25 mg tablet 25 mg PO TID PRN (Reason: itch) haloperidol 10 mg tablet 15 mg PO BID buspirone 5 mg tablet 5 - 10 mg PO TID clotrimazole-betamethasone 1-0.05 % cream 1 appl topical BID 28 Days Qty: 45 0RF Rx Instructions: Apply thin coat 2 times per day Referrals: Name,MD Michael [Primary Care Provider] - Interventions: ED Discharge Assessment Last Done: 12/17/23 13:52 Discharge Date/Time: 12/17/23 13:53 Print Language: Mongolian
[2023-12-17 13:52] VITALS: BP 138/88; PULSE 72; RESP 20; TEMP 36.6; O2SAT 98
== END 2023-12-17 13:53 | disposition home or self-care (01) ==
PROVIDERS: Emergency Provider Emergency Medicine; PCP Internal Medicine Geriatric Medicine
DX: K59.00 Constipation, unspecified (principal); I10 Essential (primary) hypertension; Z87.442 Personal history of urinary calculi
CPT/HCPCS: 36415; 74018; 80053; 85025; 99282; 99283

== ENCOUNTER 2023-12-26 14:24 | Outpatient (AMB) | payer MEDICAID, SELFPAY ==
--- NOTE | 2023-12-26 15:14 | MHC.OFFVIS ---
Intake Visit Reasons: med review Allergies No Known Allergies Allergy (Verified 12/17/23 11:31) Medication List - Last Reconciled 12/26/23 by Vickey Randhawa MD albuterol sulfate 90 mcg/actuation 2 puffs inhalation Q4-6H PRN azithromycin (Zithromax Z-Alec) For 250 mg dose pack: take 500 mg today (day 1), then 250 mg for 4 days (days 2-5) benztropine 1 mg PO BEDTIME buspirone 1 tab PO TID buspirone 5 - 10 mg PO TID clotrimazole-betamethasone 1-0.05 % 1 appl topical BID 4 weeks haloperidol 15 mg PO BID haloperidol 20 mg PO BID hydroxyzine HCl 50 mg PO Q8H PRN hydroxyzine HCl 25 mg PO TID PRN magnesium citrate 60 mL PO QID PRN mirtazapine 1 tab PO BEDTIME mirtazapine 15 mg PO BEDTIME olanzapine 1 tab PO BEDTIME ondansetron 4 mg PO Q8H PRN phenazopyridine (Pyridium) 100 mg PO TID PRN 4 days prednisone 20 mg PO BID tamsulosin 0.4 mg PO DAILY 7 days tamsulosin (Flomax) 0.4 mg PO DAILY topiramate 50 mg PO BID trazodone 100 mg PO BEDTIME HPI Comments Details: Obey is a pleasant male. He is a patient of Dr. Hargrove. He has have the following urologic conditions - nephrolithiasis - phimosis Nepali translation provided by qualified medical interpret Distal stones on recent imaging Was able to pass stones Continue surveillance Has questions about phimosis. Non resolving. Would like to proceed with circumcision. Penile phimosis Treatment with topical therapy betamethasone Nephrolithiasis Here for stent removal Had left renal procedure Intervention - 12/18 left ureteroscopy Stone composition - 12/18 carbonate apatite 100% Imaging - 02/16 CT scan has 2 stones on left side distal and proximal - 01/19 left hydronephrosis with distal left ureteric stones - 12/20 KUB left-sided stone cluster Therapeutic plan - increased fluid - surveillance imaging PFSH Medical History Depression with anxiety History of kidney stones HTN (hypertension) Surgical History Hx of total hip arthroplasty Hx of cystoscopy History of surgery Social History Household Members: None Household Members Other:: 6 Housing: Apartment Do you presently have visiting nurse or other home services: No Alcohol intake: never Comment: medicated with tylenol, pt refused oxycodone Patient Tobacco Use Status: Current everyday Tobacco user Tobacco use type: Cigarette Cigarettes Per Day: 6 Second Hand Smoke Exposure: No Substance Use Type: Marijuana Advance Directives Date on File: 02/07/21 service: No Current occupational status: unemployed and disabled Review of Systems Const Denies chills and Denies fever(s) Card Reports no additional complaints and Denies syncope Resp Denies cough GI Denies abdominal pain and Denies heartburn Reports as per HPI and Denies change in libido Neuro Denies syncope Psych Denies change in libido Endo Denies change in libido Physical Exam Const General: cooperative, healthy appearing, comfortable and no acute distress Orientation/consciousness: patient oriented x3 HEENT Face and sinus: Yes normal facial exam Mouth: moist mucous membranes Neck Neck: Yes normal visual inspection, Yes full ROM and Yes trachea midline Chest Chest palpation & inspection: normal inspection of the chest Resp Effort & Inspection: normal respiratory effort, able to speak in complete sentences and no respiratory distress GI Inspection: Yes normal to inspection Back/Spine/Pelvis Cervical Spine: normal cervical lordosis Thoracic/Lumbar Spine: thoracic and lumbar spine normal to inspection Skin General skin exam: no rashes or lesions noted Neuro General: patient oriented x3, gait normal, tone normal and moves all extremities Extrem General: Yes normal to inspection and Yes capillary refill normal Assessment & Plan Assessment & Plan (1) Phimosis: Code(s): N47.1 - Phimosis Category: Medical (2) Struvite kidney stones: Code(s): N20.0 - Calculus of kidney Category: Medical Plan Risks, benefits and alternatives to therapy were discussed. These include but are not limited to infection, bleeding, damage to local organs and tissues, need for further interventions. Anesthetic risks regarding cardiac arrhythmia, blood clots, and potential mortality were discussed. The patient understands the typical recovery time and the outpatient nature of the procedure. After consideration of these risks the patient gives full informed consent and they wish to move ahead with the procedure. Circumcision Patient Instructions: Imaging studies, laboratory and physical exam results were discussed and reviewed in detail. No major barriers to patient understanding were identified. An opportunity to ask questions regarding the treatment plan was provided. All questions were answered. The patient expressed understanding and agreement with the above treatment plan. The patient is aware they should contact our office by phone for worsening of their current condition or the appearance of new urologic symptoms. Compliance is encouraged with any medications and followup testing that is ordered. It is a privilege to participate in the urologic care of your patient. If you have any questions or concerns regarding treatment for the above conditions, or other urologic issues, please do not hesitate to contact me. The office telephone contact is [phone]. This note is constructed using voice recognition software. While every effort has been made to ensure accuracy light armored vehicle officer errors may have been included. Yours sincerely, Dr Vickey Randhawa MD, [facility] Urology Providers of Expert, Compassionate Care for the Genitourinary System
== END 2023-12-26 15:41 | disposition home or self-care (01) ==
PROVIDERS: PCP Internal Medicine Geriatric Medicine; Visit Provider Urology
DX: N47.1 Phimosis (principal); N20.0 Calculus of kidney
CPT/HCPCS: 99214

== ENCOUNTER → 2023-12-26 14:24 | Outpatient (BNVA) | payer MEDICAID, SELFPAY | PROVIDERS: PCP Internal Medicine Geriatric Medicine; Visit Provider Urology | DX: N20.0 Calculus of kidney (principal); N47.1 Phimosis | CPT/HCPCS: 99212 ==

== ENCOUNTER 2024-01-22 10:40 | Outpatient (REF) | payer MEDICAID, SELFPAY | END 2024-01-22 10:41 | disposition home or self-care (01) | LOC: HO.HAP 10:40 | PROVIDERS: Visit Provider Internal Medicine Geriatric Medicine | DX: Z46.1 Encounter for fitting and adjustment of hearing aid (principal); H90.3 Sensorineural hearing loss, bilateral | CPT/HCPCS: 92592; 99499 ==

== ENCOUNTER 2024-01-27 10:09 | Outpatient (REF) | payer MEDICAID, SELFPAY ==
[2024-01-27 12:38] LABS: Cholesterol 202 mg/dL (<200); HDL Cholesterol 36 mg/dL (>40); LDL Cholesterol Calculated 128 mg/dL (<100); Triglycerides 190 mg/dL (<150)
== END 2024-01-27 10:10 | disposition home or self-care (01) ==
LOC: HO.HHCL 10:09
PROVIDERS: Visit Provider Internal Medicine Geriatric Medicine
DX: Z13.220 Encounter for screening for lipoid disorders (principal)
CPT/HCPCS: 36415; 80061

== ENCOUNTER 2024-01-27 12:46 | Outpatient (REF) | payer MEDICAID, SELFPAY | END 2024-01-27 12:47 | disposition home or self-care (01) | LOC: HO.HAP 12:46 | PROVIDERS: Visit Provider Internal Medicine Geriatric Medicine | DX: Z46.1 Encounter for fitting and adjustment of hearing aid (principal); H90.3 Sensorineural hearing loss, bilateral | CPT/HCPCS: 92592; 99499 ==

== ENCOUNTER 2024-02-05 11:28 | Outpatient (REF) | payer MEDICAID, SELFPAY | END 2024-02-05 11:29 | disposition home or self-care (01) | LOC: HO.HAP 11:28 | PROVIDERS: Visit Provider Internal Medicine Geriatric Medicine | DX: Z46.1 Encounter for fitting and adjustment of hearing aid (principal); H90.3 Sensorineural hearing loss, bilateral | CPT/HCPCS: V5264 ==

== ENCOUNTER 2024-03-08 11:51 | Day surgery (SDC) | payer MEDICAID, SELFPAY ==
[2024-03-04 11:57] VITALS: BMI 29.8
[2024-03-04 14:20] VITALS: BMI 29.7
--- NOTE | 2024-03-04 15:10 | P.CONAN_ITS ---
Documented by User: Joann Fuentes NP 03/04/24 15:11 HPI - Anesthesia Eval Consult details Narrative: 58yo M for Circumcision PMFSH Active Problems Active Problems: All Active Problems Phimosis (Acute) Struvite kidney stones (Acute) Hydronephrosis concurrent with and due to calculi of kidney and ureter (Acute) Past Medical History Medical History (Updated 03/04/24 @ 14:25 by Greta Peoples RN) Hx of acute bronchitis (09/03/23) Panic disorder Calculus of kidney Constipation Anxiety Elevated cholesterol Depression with anxiety History of kidney stones HTN (hypertension) Family History Family history of problems with anesthesia: No Surgical History Surgical History (Updated 03/04/24 @ 14:23 by Greta Peoples RN) History of total right knee replacement (TKR) Hx of total hip arthroplasty (07/20/19) Hx of cystoscopy History of Problems with Anesthesia: No Social History Social History (Updated 03/04/24 @ 14:20 by Greta Peoples RN) Household Members: None Household Members Other:: 6 Housing: Apartment Are you a primary career development counselor to a significant other at home: No Do you presently have visiting nurse or other home services: No Alcohol intake: never Comment: medicated with tylenol, pt refused oxycodone Patient Tobacco Use Status: Current everyday Tobacco user Tobacco use type: Cigarette Cigarette Packs Per Day: 0.75 Cigarettes Per Day: 15.0 Smoked in Last 30 Days: Yes Second Hand Smoke Exposure: No Have you been hit, kicked, punched, or otherwise hurt by someone within the past year? If so, by whom?: No Are you DNR?: No Advance Directives: No Advance Directives Information Provided: Yes Advance Directives on File: Yes Advance Directives Date on File: 02/07/21 Recently lost weight without trying: No Nutrition Risks: No Nutritional Risk service: No Current occupational status: unemployed and disabled Meds Allergies Allergy/AdvReac Type Severity Reaction Status Date / Time No Known Allergies Allergy Verified 03/04/24 14:18 Home Medications ?Medication ?Instructions ?Recorded ?Confirmed ?Last Taken ?Type benztropine 1 mg tablet 1 mg PO BEDTIME 08/06/21 03/04/24 12/15/21 History topiramate 50 mg tablet 50 mg PO BID 08/06/21 03/04/24 12/15/21 History olanzapine 5 mg tablet 1 tab PO BEDTIME 12/17/21 03/04/24 12/15/21 History mirtazapine 15 mg tablet 45 mg PO BEDTIME 01/08/22 03/04/24 Unknown History trazodone 100 mg tablet 100 mg PO BEDTIME PRN Insomnia 01/08/22 03/04/24 Unknown History lactulose 10 gram/15 mL oral 15 ml PO DAILY 03/04/24 03/04/24 Unknown History solution Exam Height,Weight and Vital Signs: Height 5 ft 9.5 in Weight 92.533 kg Pertinent Lab Results Pertinent Lab Results: Laboratory Tests 12/17/23 12/17/23 11:35 11:36 WBC 7.8 Hgb 16.4 Hct 48.8 Plt Count 197 Sodium 140 Potassium 4.4 Chloride 109 H Carbon Dioxide 26 BUN 22 H Creatinine 1.35 Narrative Narrative: EKG 08/2023 Vent. Rate : 061 BPM Atrial Rate : 061 BPM P-R Int : 154 ms QRS Dur : 090 ms QT Int : 408 ms P-R-T Axes : 051 017 045 degrees QTc Int : 410 ms Normal sinus rhythm Normal ECG When compared with ECG of 16-DEC-2021 20:14, No significant change was found Assessment and Plan Assessment Anesthesia Assessment: Chart Reviewed Final Anesthetic Review Family History of Problems with Anesthesia: No History of Problems with Anesthesia: No Documented by User: Rakesh Ledezma MD 03/08/24 14:21 [facility] Past Medical History Medical History (Updated 03/04/24 @ 14:25 by Greta Peoples RN) Hx of acute bronchitis (09/03/23) Panic disorder Calculus of kidney Constipation Anxiety Elevated cholesterol Depression with anxiety History of kidney stones HTN (hypertension) Narrative: CKD Family History Family history of problems with anesthesia: No Surgical History Surgical History (Updated 03/04/24 @ 14:23 by Greta Peolpes RN) History of total right knee replacement (TKR) Hx of total hip arthroplasty (07/20/19) Hx of cystoscopy Social History Social History (Updated 03/04/24 @ 14:20 by Greta Peoples RN) Household Members: None Household Members Other:: 6 Housing: Apartment Are you a primary career development counselor to a significant other at home: No Do you presently have visiting nurse or other home services: No Alcohol intake: never Comment: medicated with tylenol, pt refused oxycodone Patient Tobacco Use Status: Current everyday Tobacco user Tobacco use type: Cigarette Cigarette Packs Per Day: 0.75 Cigarettes Per Day: 15.0 Smoked in Last 30 Days: Yes Second Hand Smoke Exposure: No Have you been hit, kicked, punched, or otherwise hurt by someone within the past year? If so, by whom?: No Are you DNR?: No Advance Directives: No Advance Directives Information Provided: Yes Advance Directives on File: Yes Advance Directives Date on File: 02/07/21 Recently lost weight without trying: No Nutrition Risks: No Nutritional Risk service: No Current occupational status: unemployed and disabled Meds Allergies Allergy/AdvReac Type Severity Reaction Status Date / Time No Known Allergies Allergy Verified 03/04/24 14:18 Home Medications ?Medication ?Instructions ?Recorded ?Confirmed ?Last Taken ?Type benztropine 1 mg tablet 1 mg PO BEDTIME 08/06/21 03/04/24 12/15/21 History topiramate 50 mg tablet 50 mg PO BID 08/06/21 03/04/24 12/15/21 History olanzapine 5 mg tablet 1 tab PO BEDTIME 12/17/21 03/04/24 12/15/21 History mirtazapine 15 mg tablet 45 mg PO BEDTIME 01/08/22 03/04/24 Unknown History trazodone 100 mg tablet 100 mg PO BEDTIME PRN Insomnia 01/08/22 03/04/24 Unknown History lactulose 10 gram/15 mL oral 15 ml PO DAILY 03/04/24 03/04/24 Unknown History solution Exam Airway Mallampati Class: II TM Dist: >3cm Neck ROM: Full Partial: Lower Loose/Missing/Broken Teeth: Yes and Lower Heart: ok Lungs: ok Assessment and Plan Assessment Anesthesia Assessment: Anesthesia Plan Discussed Final Anesthetic Review Family History of Problems with Anesthesia: No NPO: Yes ASA Class: III Final Preanesthetic Review: No Changes in Pt Med Stat, Meds/Allgs Chart Reviewed, Consent Obtained/Reviewed and Anes Risks/Benef Reviewed Patient Risk: Intermediate Procedure Risk: Low Anesthetic Plan Anesthetic Plan: GA and Agree w/ Assess. and Plan Disposition: Standard PACU
[2024-03-08] VITALS (8 sets, daily range): BP systolic 119–177; BP diastolic 85–114; PULSE 51–81; RESP 17–18; TEMP 36.4–36.8; O2SAT 97–99; BMI 29.7
--- NOTE | 2024-03-08 12:43 | MHC.SHP ---
Pre-Procedural Eval Section A - 24 Hr Update-Section A only Date of Service: 03/08/24 The patient is an INPATIENT: No Changes since office visit: No Cold of Flu in the past 2 weeks, No New Medical Problems, No Changes in Medication and No Patient answered all questions The patient has been examined within 24 hours of the surgical procedure. The History & Physical has been completed within 30 days and I have reviewed it.: Yes Section B - Complete if H&P > 30 days Chief Complaint: Phimosis Allergies: Allergies Allergy/AdvReac Type Severity Reaction Status Date / Time No Known Allergies Allergy Verified 03/04/24 14:18 Plan Diagnosis/Plan: Unchanged (Plan circumcision for phimosis) I have reviewed the history and physical and performed a pertinent physical examination on my patient. No changes have occurred unless specified. Time Spent With Patient Time: Total time managing care of this patient today ____ minutes.
[2024-03-08] MEDS: Lactated Ringers 1,000 ML 100 ML IVCONT (12:55)
--- NOTE | 2024-03-08 14:47 | P.OP_ITS ---
Operative Note Operative Note Date of Service: 03/08/24 Narrative: PreOperative Diagnosis: Balanitis and phimosis Post Operative Diagnosis: Balanitis and phimosis Procedure: Circumcision Surgeon: Dr Vickey Randhawa Anesthesia: General Indications for procedure: Recurring balanitis in inability to withdrawal foreskin of penile glans. Risks and benefits including bleeding, scarring, need for revision surgery been discussed. Procedure: After informed consent was verified the patient was brought to the operating room and placed in a supine position. Anesthesia was administered per protocol. The patient was prepped and draped sterile fashion. Safety pause time-out was performed. Antibiotics have been given. The penis was examined and proximal incision marked that lay just proximal to the resting position of the penile sulcus. This was followed around the circumference of the penis. A penile ring block was performed using 1% lidoca ine with no epinephrine. Approximately 8 cc. The proximal incision was developed with sharp blade running circumferentially around the penis. The skin was to give a 1 cm separation between the foreskin in the remaining penile shaft skin. The foreskin was withdrawn and the penile glans exposed. A a distal incision was made approximately 5 mm proximal to the penile sulcus. At the area of the frenulum care was taken to empty the penile frenulum intact. Using clamps the dorsal skin was elevated. Using Metzenbaum scissors the avascular plane was entered and proximal and distal incision were joined. The bridging skin was elevated and clamped. It was then divided using Bovie. The sleeve of tissue was then removed circumferentially around the penis using cautery in order to minimize bleeding. The shaft was then examined in any bleeding areas were controlled. More local anesthetic was injected into the plane beneath avascular plane to help with postprocedure pain management. The skin edges after they were appropriately examined low reapposed. A 3-0 chromic suture was placed at 12:00 o'clock and 06:00 o'clock positions. Interrupted 3-0 was then placed the 09:00 o'clock and 3 o'clock position. Each quadrant was then filled with 3 sutures using 4-0 chromic. At the completion of the procedure there was adequate hemostasis. The incision was washed and dried. Antibiotic cream was applied to the incision. A Rudy wrap was applied followed by a Coban dressing. Xeroform gauze had been used to cover antibiotic ointment. He tolerated the procedure well and was extubated in the room and transferred in stable condition to the recovery area. Pathology: Foreskin Drains: none
== END 2024-03-08 16:04 | disposition home or self-care (01) ==
PROVIDERS: PCP Internal Medicine Geriatric Medicine; Visit Provider Urology
PROC: (CPT 54150; principal; 2024-03-08 13:20)
DX: N47.1 Phimosis (principal); N48.1 Balanitis; I10 Essential (primary) hypertension
CPT/HCPCS: 54150; 88304; J0690; J2250; J2704; J2795; J3010

== ENCOUNTER → 2024-03-08 11:51 | Outpatient (BNV) | payer MEDICAID, SELFPAY | PROVIDERS: PCP Internal Medicine Geriatric Medicine; Visit Provider Urology | DX: N47.1 Phimosis (principal) | CPT/HCPCS: 54161 ==

== ENCOUNTER 2024-03-18 14:01 | Outpatient (REF) | payer MEDICAID, SELFPAY | END 2024-03-18 14:02 | disposition home or self-care (01) | LOC: HO.HAP 14:01 | PROVIDERS: Visit Provider Internal Medicine Geriatric Medicine | DX: Z46.1 Encounter for fitting and adjustment of hearing aid (principal); H90.3 Sensorineural hearing loss, bilateral | CPT/HCPCS: 92592 ==

== ENCOUNTER 2024-04-02 12:50 | Outpatient (REF) | payer MEDICAID, SELFPAY | END 2024-04-02 12:51 | disposition home or self-care (01) | LOC: HO.HAP 12:50 | PROVIDERS: Visit Provider Internal Medicine Geriatric Medicine | DX: Z13.89 Encounter for screening for other disorder (principal) ==

== ENCOUNTER → 2024-05-04 11:22 | Outpatient (BNVA) | payer MEDICAID, SELFPAY | PROVIDERS: PCP Internal Medicine Geriatric Medicine; Visit Provider Nurse Practitioner | DX: Z01.818 Encounter for other preprocedural examination (principal) | CPT/HCPCS: 99212 ==

== ENCOUNTER → 2024-11-04 08:09 | Outpatient (REF) | payer MEDICAID, SELFPAY ==
--- OUTSIDE RECORDS SUMMARY | 2024-11-04 08:13 | XMS_ITS | Encounter Summary ---
Author Organization [employer] Address [address] [place] [address] Care Team Providers Care Management Supervisor Name Role Phone Name, Michael MAGDALENO Primary Care Provider [phone] Reason for Visit * Reason Onset Date Comments Referral 11/24/2023 Encounter Details Date Type Department Care Team ([facility] st Contact Info) Description 11/24/2023 Telephone [facility] MEDICINE [address] [place], [place] [id number] Name, MD Michael [address] [place] [address] Referral Social History Tobacco Use Types Packs/Day Years Used Date Smoking Tobacco: Every Day Cigarettes Depression Answer Date Recorded Patient Health Questionnaire-9 Score 8 01/14/2023 Housing Stability Answer Date Recorded What is your housing situation today? I have grzeogrzjulio healy 07/23/[address] you li ve. Do you have problems with any of the following? None of the above 07/23/2023 Food Insecurity Answer Date Recorded Within the past 12 months, y ou worried that your food would run out before you got money to buy more: Never True 07/23/2023 Within the past 12 months,th e food you bought just didn't last and you didn't have enough money to get more: Never True Transportation Answer Date Recorded In the past 12 months, has l ack of transportation kept you from medical appts, meetings, work or from getting things needed for daily living? No 07/23/2023 Utilities Answer Date Recorded In the past 12 months, has t he electric, gas, oil or water company threatened to shut off services in your home? No 07/23/2023 Depression Answer Date Recorded Patient Health Questionnaire-2 Score 2 01/14/2023 Sex and Gender Information Value Date Recorded Sex Assigned at Male 07/29/2022 10:14 AM EDT Legal Sex Male 10:14 AM EDT Gender Identity Male 07/29/2022 10:14 AM EDT Sexual Orientation Straight 07/29/2022 10 :14 AM EDT documented as of this encounter Miscellaneous Notes * Telephone Encounter - Erica Browning RN - 11/25/2023 10:51 AM EST Patient with anxiety and depression, please call when able. * Telephone Encounter - Haroon Slater - 11/24/2023 3:01 PM EST Tc from Wei pt's critical care unit manager requesting a mental health referral. Wei stated pt has beendiagnosed with anxiety and depression and would like to follow up on diagnoses. If any questions you can contact Wei at [phone] documented in this encounter Plan of Treatment Not on file documented as of this encounter Visit Diagnoses Not on filedocumented in this encounter Additional Health Concerns Assessment Noted Time PHQ-9 Depression Total Score: 8 01/15/20 23 1:47 PM EDT documented as of this encounter Care Teams Management Supervisor Relationship Specialty Start Date End Date Name, MD Michael [address] [place] [id number] PCP - General Family Medicine 05/27/19 Ethel Estrada Market MasterSlide Developer 12/05/23 documented as of this encounter
--- OUTSIDE RECORDS SUMMARY | 2024-11-04 08:13 | XMS_ITS | Encounter Summary ---
Author Organization [employer] Address [address] [place] [address] Care Team Providers Care Home Health Lvn Name Role Phone Name, Michael MAGDALENO Primary Care Provider [phone] Reason for Visit * Reason Onset Date Comments triage 10/15/2022 Encounter Details Date Type Department Care Team ([facility] st Contact Info) Description 10/15/2022 Telephone [facility] MEDICINE [address] [place] [address] Name, MD Michael [address] [place] [address] triage Social History Tobacco Use Types Packs/Day Years Used Date Smoking Tobacco: Never Assessed Sex and Gender Information Value Date Recorded Sex Assigned at Male 07/29/2022 10:14 AM EDT Legal Sex Male 10:14 AM EDT Gender Identity Male 07/29/2022 10:14 AM EDT Sexual Orientation Straight 07/29/2022 10 :14 AM EDT documented as of this encounter Miscellaneous Notes * Telephone Encounter - Esther Escobar RN - 10/15/2022 4:39 PM EST Call returned to patient for triage. No answer LVM to return call to [facility] triage line. * Telephone Encounter - Amie Luna - 10/15/2022 2:56 PM EST Symptom: Diarrhea, headache and dizziness Outcome: Schedule an appointment to be seen within 24 hours Reason: No high acuity concerns reported by caller The caller accepted this outcome documented in this encounter Plan of Treatment Not on file documented as of this encounter Visit Diagnoses Not on filedocumented in this encounter Care Teams Home Health Lvn Relationship Specialty Start Date End Date Name, MD Michael [address] [place] [address] PCP - General Family Medicine 05/27/19 Ethel Estrada [employer] OperatorWeb Operations Manager 12/05/23 documented as of this encounter
--- OUTSIDE RECORDS SUMMARY | 2024-11-04 08:13 | XMS_ITS | Continuity of Care Document ---
Author Organization [facility] Address [address] [place] [address] Phone Care Team Providers Care Endband Cutter Hand Name Role Phone Kadie Perrin MD Unavailable Unavailable Allergies, Adverse Reactions, Alerts Substance Reaction Status Criticality No Known Allergies Active No Inform ation Medications Medication Instructions Dosage Effective Dates (start - stop) Status Comments atorvastatin 40 mg tablet take 1 tablet by oral route every day 40 MG - Active Procedures Procedure Date CARDIOVASCULAR STRESS TEST OFFICE/OUTPATIENT VISIT, [facility] ELECTROCARDIOGRAM, COMPLETE Advance Directives Directive Yes / No Effective Date File Name No Information Encounters Encounter Description Practice Location Reason(s) For Visit Diagnoses Date Provider Providers Copied on Encounter [facility], [address] [place] [address] [address], [id number], tel:[phone] [employer] [place] Hyperlipidemia, unspecifiedChes t pain, unspecified 4 Marychuy Engle. [address] [place] [address] [address], [place], [id number] , [place]. tel:[phone] Referring Provider: Ariel Sandoval, [address], [place], [address] . tel:[phone] OFFICE/OUTPA TIENT VISIT, [facility], [address] [place] [address] [address], [id number], tel:[phone] 20 [employer] [place] *Chest Pain (chief complaint) Chest pain, unspecified typeHyperlipide pam, unspecified hyperlipidemia type Jaime [facility]. [address], [place], [place], [id number] , [place]. tel:[phone] Referring Provider: Priti Francisco, [address], [place], [address] . tel:[phone] Family History Family Member Type Diagnosis Age At Onset No Information Payers Payer name Insurance type Covered alliance party ID Authoriza tileias(s) [facility] Expansion CI [id number] Social History Type Description Quantity Date Captured Comments Alcohol Use Details Unknown Caffeine Use Details Unknown Tobacco Use Status No Information Smoking Status No Information Sex Male Vital Signs Date / Time: Height Weight BMI Pulse Rate Blood Pressure Temperature Respiratory Rate Body Surface Area Head Circumference Head Circ. Percentile Wt./Aravind. Percentile BMI percentile Pulse Ox Inhaled Ox 8:07 AM 66.00 in 77.292 kg (170.40 lbs) 27.5 0 kg/m eter (2) 54 /min 140/80 mm[Hg] Chief Complaint And Reason For Visit No Information Reason For Referral Reason For Referral No Information Plan Of Treatment Date Type Action Status Appointment Obey Yanez R/s X1 Kaitlin Dr Darren snow BOOKED Appointment Obey Yanez- KAITLIN Dr Sandoval BOOKED History Of Present Illness Encounter Date Complaint History Of Prese nt Illness *Chest Pain Patient is a 57- year-old gentleman who was recently diagnosed with hyperlipidemia and has family history of coronary disease. He is presenting today for evaluation because of chest pain. He reported that 2 months ago he had an episode of sharp pain in the middle of his chest. It lasted for an hour and a half resolved spontaneously. It did not happen with exertion. No other associated symptoms. Since then he has been exercising regularly for half an hour. He denies having any exertional chest pain or chest tightness. No shortness of breath. No orthopnea, PND's, or peripheral edema. No palpitations, presyncope, or syncope. No history of claudication-like symptoms. No history of TIA or stroke. Does not smoke. He does not take any medications currently.Review of systems, as above, otherwise negative. Functional Status Date Functional Assessmen t No Information Instructions Date Instruction Additional Infor mation No Information Assessments Type Assessment Date No Information Patient Care Teams Name Effective Dates (start - stop) Status Members No Information
--- OUTSIDE RECORDS SUMMARY | 2024-11-04 08:13 | XMS_ITS | Clinical Summary ---
Author Organization [employer] Address [address] [place] [address] Care Team Providers Care Continuous Improvement Black Belt Name Role Phone Name, Michael MAGDALENO Primary Care Provider [phone] Allergies No known active allergies Medications * This document contains information received from the source organization and may not represent a complete record from that organization. benztropine (Cogentin) 0.5 MG tablet Take 0.5 mg by mouth at bedtime. 11/15/2022 Active mirtazapine (Remeron) 45 MG tablet Take 45 mg by mouth at bedtime. 12/16/2022 Active OLANZapine (ZyPREXA) 5 MG tablet Take 1 tablet by mouth at bedtime. 12/16/2022 Active traZODone (Desyrel) 100 MG tablet Take 100 mg by mouth if needed at bedtime. 11/15/2022 Active topiramate 50 MG tablet Take 1 tablet by mouth 2 times daily. 11/15/2022 Active tamsulosin (Flomax) 0.4 MG 24 hr capsule Take 0.4 mg by mouth in the morning. 01/01/2023 Active nabumetone (Relafen) 500 MG tablet Take 500 mg by mouth 2 times daily. 12/16/2022 Active lactulose (Chronulac) 10 GM/15ML solution Take 15 mL (10 g) by mouth Once per day. 473 mL 11 01/26/2024 Active atorvastatin (Lipitor) 20 MG tabletIndication s:High cholesterol Take 1 tablet (20 mg) by mouth Once per day. 30 tablet 11 01/28/2024 5 Active Active Problems Problem Noted Date Diagnosed Date Anxiety 01/26/2024 Constipation 01/26/2024 Phimosis 01/26/2024 Calculus of kidney 01/26/2024 Depression with anxiety 01/26/2024 Depression 01/26/2024 Panic disorder 01/26/2024 History of right hip replacement 01/14/2023 Mood disorder 02/10/2015 h/o Glomerulonephritis 09/07/2012 Overview (01/26/2024): H/o glomerulonephritis Hypercholesterolemia 09/07/2012 Hypertension 09/07/2012 Resolved Problems Problem Noted Date Diagnosed Date Resolved Date Bronchitis 01/26/2024 01/26/2024 Hydronephrosis concurrent wi th and due to calculi of kidney and ureter 01/26/2024 01/26/2024 Left ureteral calculus 01/26/202401/25 Painless hematuria 01/26/2024 Near syncope 01/26/2024 01/26/2024 Injury of kidney 06/04/2023 01/26/2024 Kidney stone 12/31/2022 01/26/2024 Obesity 09/07/2012 01/26/2024 Immunizations Name Administration Dates Next Due Hep B, adult 06/08/2004,03/21/2003,09/28/2002 Influenza, IIV3, injectable 08/01/2014 Influenza, Split (incl. derrick fied surface antigen) 11/19/2013 Pneumococcal Polysaccharide PPSV23 12/11/2012 Pneumococcal, Unspecified 12/11/2012 TD (adult), 2 Lf tetanus tox oid, preservative free, adsorbed 03/21/2003 Tdap 01/26/2024,12/11/2012 Social History Tobacco Use Types Packs/Day Years Used Date Smoking Tobacco: Every Day Cigarettes Tobacco Cessation:Ready to Q uit: Not Asked; Counseling Given: Not Answered Alcohol Use Standard Drinks/Week Comments Never 0 (1 standard drink = 0.6 oz pur e alcohol) Depression Answer Date Recorded Patient Health Questionnaire-9 Score 11 01/26/2024 Patient Health Questionnaire-9 Score 11 01/26/2024 Last PHQ-9: Questionnaire Data Not on file 0 01/26/2024 Housing Stability Answer Date Recorded What is your housing situation today? I have grzegorz healy 01/19/[address] you li ve. Do you have problems with any of the following? None of the above 01/19/2024 Food Insecurity Answer Date Recorded Within the past 12 months, y ou worried that your food would run out before you got money to buy more: Never True 01/19/2024 Within the past 12 months,th e food you bought just didn't last and you didn't have enough money to get more: Never True Transportation Answer Date Recorded In the past 12 months, has l ack of transportation kept you from medical appts, meetings, work or from getting things needed for daily living? No 01/19/2024 Utilities Answer Date Recorded In the past 12 months, has t he electric, gas, oil or water company threatened to shut off services in your home? No 01/19/2024 Depression Answer Date Recorded Patient Health Questionnaire-2 Score 6 01/26/2024 Sex and Gender Information Value Date Recorded Sex Assigned at Male 07/29/2022 10:14 AM EDT Legal Sex Male 10:14 AM EDT Gender Identity Male 07/29/2022 10:14 AM EDT Sexual Orientation Straight 07/29/2022 10 :14 AM EDT Last Filed Vital Signs Vital Sign Reading Time Taken Comments Blood Pressure 117/82 01/26/2024 1:46 PM EDT Pulse 88 01/26/2024 1:46 PM EDT Temperature 36.2 ??C (97.1 ??F) 01/26/2024 1:46 PM ED T Respiratory Rate 16 01/26/2024 1:46 PM EDT Oxygen Saturation 98% 01/26/2024 1:46 PM EDT Inhaled Oxygen Concentration - - Weight 92.9 kg (204 lb 12.8 oz) 01/26/2024 1:46 PM EDT Height 176.5 cm (5' 9.5 ) 01/26/2024 1:46 PM EDT Body Mass Index 29.81 01/26/2024 1:46 PM EDT Plan of Treatment Health Maintenance Due Date Last Done Comments CT Colonography 1966 Colonoscopy 1966 Colorectal Cancer Screening 1966 Dental Oral Exam 1966 Dental Prophylaxis 1966 Dental X-Ray: Bitewings 1966 Dental X-Ray: Full Mouth 1966 FIT DNA/Cologuard 1966 FIT 1966 FOBT 1966 HIV Screening 1966 Sigmoidoscopy 1966 Alcohol/Substance Use Screening 1978 Hepatitis C Screening 1984 Pneumococcal Vaccine: 50+ Years (2 of 2 - PCV) 12/11/2013 12/11/2012, 12/11/2012 Zoster Vaccines (1 of 2) 2016 COVID-19 Vaccine (3 - 2023-2 5 season) 2024 02/27/2021, 01/31/2021 Influenza Vaccine (#1) 2024 4, 11/19/2013 Depression Monitoring (PHQ-9) 07/27/2024, 01/26/2024 SDOH Screening 01/18/2025 01/19/2024 Depression Screening 01/25/2025 01/26/2024, 01/26/2024 Tobacco Screening 01/25/2025 01/26/2024 Lipid Panel 01/26/2029 01/27/2024 DTaP/Tdap/Td Vaccines (3 - T d or Tdap) 01/25/2034 01/26/2024, 12/11/2012, 03/21/2003 RSV Patients and Patients Aged 60 years or older (1 - 1-dose 75+ series) 2041 Hepatitis B Vaccines Completed 06/08/2004, 03/21/2003, 09/28/2002 HIB Vaccines Aged Out No longer eligi ble based on patient's age to complete this topic HPV Vaccines Aged Out No longer eligi ble based on patient's age to complete this topic Hepatitis A Vaccines Aged Out No long er eligible based on patient's age to complete this topic IPV Vaccines Aged Out No longer eligi ble based on patient's age to complete this topic Meningococcal Vaccine Aged Out No leslee linh eligible based on patient's age to complete this topic RSV under 20 months Aged Out No longe r eligible based on patient's age to complete this topic Rotavirus Vaccines Aged Out No longer eligible based on patient's age to complete this topic Procedures Procedure Name Priority Date/Time Associated Diagnosis Comments LIPID PANEL, STANDARD Routine 01/27/2024 10:11 AM EDT Screen for colon cancer Screening for cholesterol level from Last 3 Months or Most Recently Relevant to Health Maintenance Results * (ABNORMAL) Lipid Panel, Standard (01/27/2024 10:11 AM EDT) Triglycerides 190(H) <150 mg/dL [facility] Comment:Desirable Triglyceri de: less than 150 mg/dLBorderline High Triglyceride 150-199 mg/dLHigh Triglyceride: 200-499 mg/dLVery High Triglyceride: greater than or equal to 5OO mg/dL Cholesterol 202(H) <200 mg/dL [facility] Comment:Desirable Cholestero l: less than 200 mg/dLBorderline High Cholesterol: 200-239 mg/dLHigh Cholesterol: greater than 239 mg/dL LDL Cholesterol Calculated 128(H) <100 mg/dL [facility] Comment:Desirable LDL: less than 100 mg/dLNear Optimal/Above Optimal LDL: 110- 129 mg/dLBorderline High LDL: 130-159 mg/dLHigh LDL: 160-189 mg/dLVery High LDL: greater than or equal to 190 mg/dL HDL Cholesterol 36(L) >40 mg/dL [facility] Comment:Desirable HDL: great er than 40 mg/dL Note: This HDL assay may give artificially low results in patients with liver disease. Blood Venous blood specimen / Unknown 01/27/2024 10:11 AM EDT 01/27/2024 11:45 AM EDT us Michael Name LAB BLOOD ORDERABLES Final Resul t [facility] [address] [place] [address] [phone] from Last 3 Months or Most Recently Relevant to Health Maintenance Insurance [facility] STAND ADULT Care Teams Continuous Improvement Black Belt Relationship Specialty Start Date End Date Name, MD Michael [address] [place] [address] PCP - General Family Medicine 05/27/19 Ethel Estrada Mailroom ManagerFurnace Tender 12/05/23
== END | disposition home or self-care (01) ==
LOC: HO.HAP 08:09
PROVIDERS: Visit Provider Internal Medicine Geriatric Medicine
DX: Z46.1 Encounter for fitting and adjustment of hearing aid (principal); H90.3 Sensorineural hearing loss, bilateral

== ENCOUNTER 2024-12-21 06:16 | Day surgery (SDC) | payer MEDICAID, SELFPAY ==
[2024-10-01 09:05] VITALS: BMI 29.5
[2024-12-21 06:39] VITALS: BMI 30.2
--- NOTE | 2024-12-21 06:49 | MHC.SHP ---
Pre-Procedural Eval Section A - 24 Hr Update-Section A only Date of Service: 12/21/24 Section B - Complete if H&P > 30 days Chief Complaint: screening Details of Present Illness: PMX MICHELE-? Diagnosis yet Smoker Hypertension High cholesterol Depression/anxiety/panic disorder Phimosis Nephrolithiasis Constipation History of glomerulonephritis * SURGICAL HISTORY RIGHT HIP replacement Right knee replacement Cystoscopy Circumcision * ALLERGIES: NKDA Present Medications: see Short Stay Collaborative assessment Allergies: Allergies Allergy/AdvReac Type Severity Reaction Status Date / Time No Known Allergies Allergy Verified 03/04/24 14:18 Review of Systems Review of Systems Comment: 10 point ROS negative Exam Exam Comment: Gen appear: No acute distress HEENT: no icterus Chest: No overt resp distress Abd: soft, nontender, nondistended Psych: Stable affect, answering questions appropriately Neuro: A/Ox3 noted to move all extremities spontaneously Ext: no peripheral edema Plan Diagnosis/Plan: Unchanged I have reviewed the history and physical and performed a pertinent physical examination on my patient. No changes have occurred unless specified. Time Spent With Patient Time: Total time managing care of this patient today ____ minutes.
[2024-12-21] MEDS: Lactated Ringers 1,000 ML 80 ML IVCONT (06:53)
[2024-12-21 07:00] VITALS: BP 135/86; PULSE 65; RESP 18; TEMP 36.8; O2SAT 96
--- NOTE | 2024-12-21 07:27 | P.CONAN_ITS ---
HPI - Anesthesia Eval Consult details Narrative: for colonoscopy [facility] Active Problems Active Problems: All Active Problems Pre-op examination (Acute) Depression with anxiety (Acute) Elevated cholesterol (Acute) HTN (hypertension) (Acute) Smoker (Acute) Phimosis (Acute) Past Medical History Medical History Depression with anxiety Struvite kidney stones Hydronephrosis concurrent with and due to calculi of kidney and ureter Hx of acute bronchitis (09/03/23) Panic disorder Calculus of kidney Constipation Anxiety Elevated cholesterol History of kidney stones HTN (hypertension) Family History Family history of problems with anesthesia: No Surgical History Surgical History History of total right knee replacement (TKR) Hx of total hip arthroplasty (07/20/19) Hx of cystoscopy History of Problems with Anesthesia: No Social History Social History Household Members: None Household Members Other:: 6 Housing: Apartment Housing Other:: I live in a room Are you a primary urgent care physician assistant to a significant other at home: No Do you presently have visiting nurse or other home services: No Alcohol intake: never Comment: medicated with tylenol, pt refused oxycodone Patient Tobacco Use Status: Current everyday Tobacco user Tobacco use type: Cigarette Cigarette Packs Per Day: 0.75 Cigarettes Per Day: 15 Smoked in Last 30 Days: Yes Patient Interested in Nicotine Replacement: No Second Hand Smoke Exposure: No Have you been hit, kicked, punched, or otherwise hurt by someone within the past year? If so, by whom?: No Are you DNR?: No Advance Directives: No Advance Directives Information Provided: Yes Advance Directives Date on File: 02/07/21 Recently lost weight without trying: No Nutrition Risks: No Nutritional Risk service: No Current occupational status: unemployed and disabled Meds Allergies Allergy/AdvReac Type Severity Reaction Status Date / Time No Known Allergies Allergy Verified 12/21/24 07:04 Active Medications: Current Medications Lactated Ringer's (Lr) 1,000 mls @ 80 mls/hr IVCONT .[id number] JEFFERY Last Admin: 12/21/24 06:53 Dose: 80 mls/hr Home Medications ?Medication ?Instructions ?Recorded ?Confirmed ?Last Taken ?Type topiramate 50 mg tablet 50 mg PO BID 08/06/21 12/21/24 12/15/21 History olanzapine 5 mg tablet 1 tab PO BEDTIME 12/17/21 12/21/24 12/15/21 History atorvastatin 20 mg tablet 20 mg PO DAILY 05/04/24 12/21/24 Unknown History mirtazapine 45 mg tablet 45 mg PO BEDTIME 05/04/24 12/21/24 Unknown History Exam Height,Weight and Vital Signs: Height 5 ft 9 in Weight 92.7 kg Last Vital Signs Temp 98.2 F 12/21/24 07:00 Pulse 65 12/21/24 07:00 Resp 18 12/21/24 07:00 BP 135/86 12/21/24 07:00 Pulse Ox 96 12/21/24 07:00 O2 Del Method Room Air 12/21/24 07:00 Airway Mallampati Class: II TM Dist: <=3cm Neck ROM: Full Partial: Lower Heart: ok Lungs: ok Assessment and Plan Assessment Anesthesia Assessment: Anesthesia Plan Discussed and Chart Reviewed Final Anesthetic Review Family History of Problems with Anesthesia: No History of Problems with Anesthesia: No NPO: Yes ASA Class: II Final Preanesthetic Review: No Changes in Pt Med Stat, Meds/Allgs Chart Reviewed, Consent Obtained/Reviewed and Anes Risks/Benef Reviewed Patient Risk: Intermediate Procedure Risk: Low Anesthetic Plan Anesthetic Plan: MAC: and Agree w/ Assess. and Plan Disposition: Standard PACU
--- NOTE | 2024-12-21 08:11 | P.OPN-COLO_ITS ---
Colonoscopy Operative Note Operative Note Date of Service: 12/21/24 Narrative: Procedure: Colonoscopy Indication: Screening Endoscopist: Essie Mckeon MD Anesthesia Provider: Dr Rakesh Ledezma Anesthesia type: MAC Instrument: Olympus [id number]-H190L Consent: Indication, risks vs benefits, and alternatives were discussed with the patient who gave written informed consent to proceed. An lens generating machine tender was utilized to assist with the consent. Monitoring: EKG, pulse, pulse oximetry and blood pressure were monitored throughout the procedure. Please see anesthesia flowsheet. Procedure: The patient was brought to the procedure room and placed in the left lateral decubitus position. IV medications were administered by the anesthesia provider in attendance. A digital rectal exam was performed which was normal. The colonoscope was then inserted through the anus and advanced through the colon to the cecum at 75 cm. Appendiceal orifice and ileocecal valve were identified. Mucosa was carefully examined under high definition white light as the instrument was slowly withdrawn in a retrograde panoramic fashion. Retroflexion was performed in rectum. The procedure was not difficult. There were no immediate obvious complications. The quality of the prep was BBPS: 3+2+2 = adequate Withdrawal time 13 minutes. Limitations: No limitations. Findings: Mucosa: Normal to cecum and terminal ileum. Protruding lesions: * 1 sessile polyp of size 3 mm in ascending colon. Cold forceps polypectomy was performed. The polyp was completely removed and retrieved. * 2 sessile polyp of size 6-8 mm in descending colon. Cold snare polypectomy was performed. The polyps were completely removed and retrieved. * Medium internal hemorrhoids without stigmata of recent bleeding. Excavated lesions: * Rare diverticula in transverse colon. Impression: 1. Normal colon mucosa 2. Total of 3 polyps removed from 3. Diverticulosis 4. Internal hemorrhoids Recommendations: - Follow path results. - Repeat colonoscopy in 3 years if all 3 polyps are adenoma otherwise 5 years.
[2024-12-21 08:17] VITALS: BP 155/84; PULSE 64; RESP 18; TEMP 36.2; O2SAT 99
[2024-12-21 08:32] VITALS: BP 139/100; PULSE 60; RESP 16; O2SAT 100
[2024-12-21 08:47] VITALS: BP 164/92; PULSE 69; RESP 16; TEMP 36.3; O2SAT 98
== END 2024-12-21 09:32 | disposition home or self-care (01) ==
PROVIDERS: PCP Internal Medicine Geriatric Medicine; Visit Provider Internal Medicine
PROC: 0DJD8ZZ Inspection of Lower Intestinal Tract, Via Natural or Artificial Opening Endoscopic (ICD-10-PCS; CPT 45378; principal; 2024-12-21 07:30)
DX: Z12.11 Encounter for screening for malignant neoplasm of colon (principal); D12.4 Benign neoplasm of descending colon; K63.5 Polyp of colon; K57.30 Diverticulosis of large intestine without perforation or abscess without bleeding; K64.8 Other hemorrhoids; K59.04 Chronic idiopathic constipation; I10 Essential (primary) hypertension; E78.00 Pure hypercholesterolemia, unspecified; N20.0 Calculus of kidney; H91.90 Unspecified hearing loss, unspecified ear; F41.8 Other specified anxiety disorders; F41.0 Panic disorder [episodic paroxysmal anxiety]; F17.210 Nicotine dependence, cigarettes, uncomplicated; Z98.890 Other specified postprocedural states; Z56.0 Unemployment, unspecified
CPT/HCPCS: 45385; 45380; 88305; J2003; J2704

== ENCOUNTER → 2024-12-21 06:16 | Outpatient (BNV) | payer MEDICAID, SELFPAY | PROVIDERS: PCP Internal Medicine Geriatric Medicine; Visit Provider Internal Medicine | DX: Z12.11 Encounter for screening for malignant neoplasm of colon (principal); D12.4 Benign neoplasm of descending colon; K63.5 Polyp of colon; K64.8 Other hemorrhoids; K57.90 Diverticulosis of intestine, part unspecified, without perforation or abscess without bleeding | CPT/HCPCS: 45380; 45385 ==

== ENCOUNTER 2025-01-13 11:19 | Outpatient (REF) | payer MEDICAID, SELFPAY ==
--- OUTSIDE RECORDS SUMMARY | 2025-01-13 14:01 | XMS_ITS | Clinical Summary ---
Author Organization [employer] Address [address] [facility] 7t [place] [address] Care Team Providers Care Aligner Typewriter Name Role Phone Name, Michael MAGDALENO Primary Care Provider [phone] Allergies No known active allergies Medications * [...] atorvastatin (Lipitor) 20 MG tabletIndication s:High cholesterol TAKE 1 TABLET BY MOUTH ONCE DAILY 90 tablet 1 11/30/2024 Active Active Problems Problem Noted Date Diagnosed [...] Kidney stone 12/31/2022 01/26/2024 Obesity 09/07/2012 01/26/2024 Encounters Date Type Department Care Team Description 12/10/2024 Population Health Risk Score [facility] (C[facility]) Department [address] [address] Provider, Population Health Generic 12/02/2024 Telephone [facility] MED[facility] [address] [place] [address] Radha [place], [place] December recalls 11/30/2024 Refill [facility] [address] [place] [address] Name, MD Michael High cholesterol from Last 3 Months Immunizations Name Administration Dates Next Due Hep [...] your housing situation today? I have grzegorz monet 01/19/[address] you li [...] 01/26/2024 1:46 PM EDT Plan of Treatment Upcoming Encounters Date Type Department Care Team (Late st Contact Info) Description 02/28/2025 10:15 AM EDT Office Visit [facility] [address] [place] [address] Name, MD Michael [address] [place] [address] Health Maintenance Due Date Last Done Comments CT Colonography 1965 Dental Oral Exam 1965 Dental Prophylaxis [...] Vaccine (#1) 2024 4, 11/19/2013 Depression Monitoring 07/27/2024 01/26/2024 , 01/26/2024 SDOH Screening 01/18/2025 01/19/2024 Depression Screening 01/25/2025 01/26/2024, 01/26/2024 Tobacco Screening 01/25/2025 01/26/2024 Lipid Panel 01/26/2029 01/27/2024 Colonoscopy 12/21/2029 Colorectal Cancer Screening 12/21/2029 DTaP/Tdap/Td Vaccines (3 - T d or [...] Procedure Name Priority Date/Time Associated Diagnosis Comments HEMATOXYLIN AND EOSIN STAIN Routine 12/21/2024 8:04 AM EDT LIPID PANEL, STANDARD Routine 01/27/2024 10:11 AM EDT Screen for colon cancer Screening for cholesterol level from Last 3 Months or Most Recently Relevant to Health Maintenance Results * Hematoxylin and Eosin Stain (12/21/2024 8:04 AM EDT) 12/21/2024 8:04 AM EDT 12/21/2024 9:06 AM EDT [facility] - 12/22/2024 3:03 PM EDT ----- ------- Name: Obey Yanez ? Age/Sex: 59/M ? : 1965 Unit#: [id number] ?? Attend Dr: Esise Mckeon MD ?Re12/21/24 ?Status: DEP SDC ? Location: HO.SSS ?Disch: ? ----- ------- SPEC : [id number] ? RECD: 12/21/24 ? STATUS: ??SOUT ? REQ NUM: [id number] ? RAMÍREZ: 12/21/24 ? SUBM DR: Essie Mckeon MD ? ENTERED: ??12/21/24 ?SP TYPE: Surgical ? OTHR DR: Michael Hargrove MD ? ORDERED: ??HE Stain/6, Gross Micro L4/2 ? Diagnosis ?? A. ??Colon, ascending, polyp: ??Polypoid colonic mucosa with minimal hyperplastic changes; ?? no adenomatous dysplasia seen. ? B. ??Colon, descending, polyps: ??Tubular adenomas, two, completely excised; negative for ?? high-grade dysplasia and carcinoma. ?Clinical History Pre-Op Dx: ??Screening Post-Op Dx: Polyps, diverticulosis, hemorrhoids ?Microscopic Description Multiple microscopic sections reviewed. ? Material Received ?? A. Ascending colon polyp ?? B. Descending colon polyps ? Gross Description Received in two parts Part A: ??Received in formalin labeled ?ascending colon polyp? is a 0.3 cm jimenez-pink irregular tissue fragment, submitted in toto in a cassette labeled A. Part B: ??Received in formalin labeled ?descending colon polyps ??with scant debris are 2 hyperemic and congested, jimenez-pink and pink-red papular and polypoid tissue fragments measuring 0.45 and 0.6 cm, the largest of which displays an attached 0.4 x 0.4 x 0.2 cm tail of jimenez mucosa. ??The resected base is inked and the larger lesion is bisected and entirely submitted along with the smaller papule, submitted in toto, in a cassette labeled B. ??The debris is retained in formalin. CEDS Copies To: ?? Name,Michael MAGDALENO ?? [address] [facility] ?? [place] [address] ?? [phone] ? CONTINUED ON NEXT PAGE ----- ------- Name: Obey Yanez ? Age/Sex: 59/M ? : 1965 Unit#: [id number] ?? Attend Dr: Essie Mckeon MD ?Re12/21/24 ?Status: DEP SDC ? Location: HO.SSS ?Disch: ? ----- ------- SPEC : [id number] ? RECD: 12/21/24 ? STATUS: ??SOUT ? REQ NUM: [id number] ? RAMÍREZ: 12/21/24 ? SUBM DR: Essie Mckeon MD ? ENTERED: ??12/21/24 ?SP TYPE: Surgical ? OTHR : Michael Hargrove MD ? ORDERED: ??HE Stain/6, Gross Micro L4/2 ? Copies To: ??(Continued) ?? Essie Mckeon MD ?? [facility] ?? [address] ?? [place] [address] ?? [phone] ?? [email or web address] ----- ------- Signed (signature on file) Greta Giuspepe 12/22/24 1503 ? ----- ------- ? END OF REPORT ? us Generic External Data Provider LAB BLOOD ORDERAB LES Final Result [facility] [address] [place] [phone] * (ABNORMAL) Lipid Panel, Standard (01/27/2024 10:11 AM EDT) Triglycerides 190(H) <150 mg/dL [facility] Comment:Desirable Triglyceri de: less than 150 mg/dLBorderline High Triglyceride 150-199 mg/dLHigh Triglyceride: 200-499 mg/dLVery High Triglyceride: greater than or equal to 5OO mg/dL Cholesterol 202(H) <200 mg/dL [facility] Comment:Desirable Cholestero l: less than 200 mg/dLBorderline High Cholesterol: 200-239 mg/dLHigh Cholesterol: greater than 239 mg/dL LDL Cholesterol Calculated 128(H) <100 mg/dL [facility] Comment:Desirable LDL: less than 100 mg/dLNear Optimal/Above Optimal LDL: 110- 129 mg/dLBorderline High LDL: 130-159 mg/dLHigh LDL: 160-189 mg/dLVery High LDL: greater than or equal to 190 mg/dL HDL Cholesterol 36(L) >40 mg/dL [facility] Comment:Desirable HDL: great er than 40 mg/dL Note: This HDL assay may give artificially low results in patients with liver disease. Blood Venous blood specimen / Unknown 01/27/2024 10:11 AM EDT 01/27/2024 11:45 AM EDT us Michael Hargrove MD LAB BLOOD ORDERABLES Final Resul t [facility] [address] [place] [address] [phone] from Last 3 Months or Most Recently Relevant to Health Maintenance Insurance [facility] C3 DENTAL-[facility] MEDICAID STAND ADULT Care Teams Aligner Typewriter Relationship Specialty Start Date End Date Name, MD Michael [address] [place] [address] PCP - General Family Medicine 05/27/19 Ethel Estrada Milling MachinistMarionette Performer 12/05/23
--- OUTSIDE RECORDS SUMMARY | 2025-01-13 14:01 | XMS_ITS | Encounter Summary ---
Author Organization [employer] Address [address] [facility] 7t [place] [address] Care Team Providers Care Donor Technician Name Role Phone Name, Michael MAGDALENO Primary Care Provider [phone] Reason for Visit * Reason Onset Date Comments Referral 11/24/2023 Encounter Details Date Type Department Care Team ([facility] st Contact Info) Description 11/24/2023 Telephone [facility] MEDICINE [address] [place] [address] Name, MD Michael [address] [place] [address] Referral Social History Tobacco Use Types Packs/Day Years Used Date Smoking Tobacco: Every Day Cigarettes Depression Answer Date Recorded Patient Health Questionnaire-9 Score 8 01/14/2023 Housing Stability Answer Date Recorded What is your housing situation today? I have grzegorzjulio healy 07/23/[address] you [...] 3:01 PM EST Tc from Wei pt's personal care home administrator requesting a mental health referral. Wei stated pt has beendiagnosed with anxiety and depression and would like to follow up on diagnoses. If any questions you can contact Wei at [phone] documented in this encounter Plan of Treatment Upcoming Encounters Date Type Department Care Team (Late st Contact Info) Description 02/28/2025 10:15 AM EDT Office Visit [facility] MEDICINE [address] [place] [address] Name, MD Michael [address] [place] [address] documented as of this encounter Visit Diagnoses Not on filedocumented in this encounter Additional Health Concerns Assessment Noted Time PHQ-9 Depression Total Score: 8 01/15/20 23 1:47 PM EDT documented as of this encounter Care Teams Donor Technician Relationship Specialty Start Date End Date Name, MD Michael [address] [place] [address] PCP - General Family Medicine 05/27/19 Ethel Estrada Accountant PropertyGrants Manager 12/05/23 documented as of this encounter
--- OUTSIDE RECORDS SUMMARY | 2025-01-13 14:01 | XMS_ITS | Encounter Summary ---
Author Organization [employer] Address [address] [facility] 7t [place] [address] Care Team Providers Care Geomorphology Teacher Name Role Phone Name, Michael MAGDALENO Primary Care Provider [phone] Reason for Visit * Reason Onset Date Comments triage 10/15/2022 Encounter Details Date Type Department Care Team ([facility] st Contact Info) Description 10/15/2022 Telephone [facility] [place] [facility] MEDICINE [address] [place] [address] Name, MD Michael [address] [place] [address] triage Social History Tobacco Use Types Packs/Day [...] No answer LVM to return call to [facility] [place] [facility] triage line. * Telephone Encounter - [...] Description 02/28/2025 10:15 AM EDT Office Visit [facility] [place] [facility] MEDICINE [address] [place] [address] Name, MD Michael [address] [place] [address] documented as of this encounter Visit Diagnoses Not on filedocumented in this encounter Care Teams Geomorphology Teacher Relationship Specialty Start Date End Date Name, MD Michael [address] [place] [address] PCP - General Family Medicine 05/27/19 Ethel Estrada Physical GeographerAccount General Manager 12/05/23 documented as of this encounter
--- OUTSIDE RECORDS SUMMARY | 2025-01-13 14:01 | XMS_ITS | Continuity of Care Document ---
Author Organization [facility] Address [address] [facility] [address] [place] [address] Phone Care Team Providers Care Escalator Service Mechanic Name Role Phone Bernardo Carson MD Unavailable [...] Copied on Encounter OFFICE/OUTPA TIENT VISIT, EST [facility], [facility] [facility] [address], [place], [id number], [phone] 20 HANDY MAN [place] *ROV (chief complaint) Other chest painMixed hyperlipidemia 5 Yamileth Chang. [address] [facility], [facility] [address], [place], [id number] , [place]. tel:[phone] Referring Provider: Priti Francisco, [address], [place], [address] . tel:[phone] [facility], [address] [place] [address], [place], [id number], [place] tel:[phone] 20 HANDY MAN [place] Hyperlipidemia, unspecifiedChes t pain, unspecified 4 Marychuy Engle. [address] [facility] [address], [place], [place], [id number] , [place]. tel:[phone] Referring Provider: Ariel Sandoval, [address], [place], [address] . tel:[phone] OFFICE/OUTPA TIENT VISIT, [facility], [address] [facility] [address], [place], [place], [id number], [place] tel:[phone] 20 HANDY MAN [place] *Chest Pain (chief complaint) Chest pain, unspecified typeHyperlipide pam, unspecified hyperlipidemia type 4 Jaime George. [address], [place], [place], [id number] , [place]. tel:[phone] Referring Provider: Priti Francisco, [address], [place], [address] . tel:[phone] Family History Family Member Type Diagnosis Age At Onset No Information Payers Payer name Insurance type Covered democrat ID Authorvanessa de jesus(s) [facility] CI [id number] Social History Type Description Quantity Date Captured [...]
== END 2025-01-13 11:20 | disposition home or self-care (01) ==
LOC: HO.HAP 11:19
PROVIDERS: Visit Provider Internal Medicine Geriatric Medicine
DX: Z46.1 Encounter for fitting and adjustment of hearing aid (principal); H90.3 Sensorineural hearing loss, bilateral
CPT/HCPCS: V5299

== ENCOUNTER 2025-02-09 14:22 | Outpatient (REF) | payer MEDICAID, SELFPAY ==
--- OUTSIDE RECORDS SUMMARY | 2025-02-09 14:25 | XMS_ITS | Continuity of Care Document ---
Author Organization [facility] Address [address] [facility] [address] [place] [address] Phone Care Team Providers Care Print Operator Name Role Phone Bernardo Carson MD Unavailable [...] Copied on Encounter OFFICE/OUTPA TIENT VISIT, EST [facility], [facility] [address], [place], [id number], [phone] 20 PERSONAL CARE HOME ADMINISTRATOR [place] *ROV (chief complaint) Other chest painMixed hyperlipidemia 5 Yamileth Chang. [address] [facility] [address] [facility], [facility] [address], [place], [id number] , [place]. tel:[phone] Referring Provider: Priti Francisco, [address], [place], [address] . tel:[phone] [facility], [address] [place] [address], [place], [id number], [place] tel:[phone] 20 PERSONAL CARE HOME ADMINISTRATOR [place] Hyperlipidemia, unspecifiedChes t pain, unspecified 4 Marychuy Engle. [address] [facility] [address], [place], [place], [id number] , [place]. tel:[phone] Referring Provider: Ariel Sandoval, [address], [place], [address] . tel:[phone] OFFICE/OUTPA TIENT VISIT, [facility], [address] [facility] [address], [place], [place], [id number], [place] tel:[phone] 20 PERSONAL CARE HOME ADMINISTRATOR [place] *Chest Pain (chief complaint) Chest pain, unspecified typeHyperlipide pam, unspecified hyperlipidemia type 4 Jaime George. [address], [place], [place], [id number] , [place]. tel:[phone] Referring Provider: Priti Francisco, [address], [place], [address] . tel:[phone] Family History Family Member Type Diagnosis Age At Onset No Information Payers Payer name Insurance type Covered alliance party ID Authorvanessa de jesus(s) [facility] CI [id number] Social History Type Description Quantity Date Captured [...]
--- NOTE | 2025-02-09 15:30 | MHC.AU.HA3 ---
Hearing Instrument Follow-Up- Binaural Date of Visit: 02/09/25 Right Ear: Paulo, Model, Color, Serial Number: Yves Mortensen [id number] [id number] SN: [id number] Color: Aylin Yen Rug Underlay Machine Operator Repair Warranty: 09/26/2024 Rug Underlay Machine Operator Loss and Damage Warranty: 03/12/2023 [facility] Service Plan: 03/15/2021 Battery Size: Rechargeable Infantry Weapons Officer/Slim Tube: 2M Earmold/Dome/CShell/SlimTip:Canal Lock Slim Tip S#[id number] Warranty 05/24/2024 Type of Wax Guard: CeruStop Dispensed By: [facility] Date of Fittin03/15/2020 Left Ear: Paulo, , Color, Serial Number: Yves [id number] SN: [id number] Color: Aylin Yen Rug Underlay Machine Operator Repair Warranty: 03/12/2023 Rug Underlay Machine Operator Loss and Damage Warranty: 03/12/2023 [facility] Service Plan: 03/15/2021 Battery Size: Rechargeable Infantry Weapons Officer/Slim Tube: 2 M Earmold/Dome/CShell/SlimTip: Canal Lock Slim Tip Type of Wax Guard: CeruStop Dispensed By: [facility] Date of Fittin03/15/2020 Follow-Up Summary: Obey reports his left hearing aid is not working. Notes that it charges but then shuts off when it comes out of the night patrol inspector, he cannot turn it back on with the button. Obey reports frustration and states that he wants new hearing aids. Obey also reports that both wires are cutting into his ears and causing pain since his last visit. The receivers on the aids are 1 and notes indicate that is correct. Cleaned and checked aids. Both slim tips missing wax guards, replaced. Found the left to be behaving as described by Obey. Put size 2 wires on the slim tips and set up a loaner left hearing aid. Listening check positive right and left. Ran feedback on loaner. Reports improved comfort with longer hedis coordinator wires. Advised Obey that his left aid will be sent out for repair. Advised to contact PCP for PO for hearing eval to begin process of acquiring new technology as he will be eligible in February as he has previously been informed. Recommendations: Recommendations: Patient will be contacted when materials have arrived. Recommendations (Other): Needs appointment to return sandra and have his slim tip transferred from [facility] to his [facility]. Diagnosis Code(s): Primary Diagnosis: H90.3 Bilateral Sensorineural Hearing Loss Signature: Provider: Courtney Ling, CCC-A
== END 2025-02-09 14:23 | disposition home or self-care (01) ==
LOC: HO.HAP 14:22
PROVIDERS: Visit Provider Internal Medicine Geriatric Medicine
DX: Z46.1 Encounter for fitting and adjustment of hearing aid (principal); H90.3 Sensorineural hearing loss, bilateral
CPT/HCPCS: 92593; 99499

== ENCOUNTER 2025-03-04 10:11 | Outpatient (REF) | payer MEDICAID, SELFPAY ==
--- NOTE | 2025-03-04 10:56 | MHC.AU.HA3 ---
Hearing Instrument Follow-Up- Binaural Date of Visit: 03/04/25 Right Ear: Paulo, Model, Color, Serial Number: Yves Mortensen M70 R SN: [id number] Color: Aylin Yen Die Drawing Checker Repair Warranty: 09/26/2024 Die Drawing Checker Loss and Damage Warranty: 03/12/2023 [facility] Service Plan: 03/15/2021 Battery Size: Rechargeable Wire Brush Maker/Slim Tube: 2M Earmold/Dome/CShell/SlimTip:Canal Lock Slim Tip [id number] Warranty 05/24/2024 Type of Wax Guard: CeruStop Dispensed By: [facility] Date of Fittin03/15/2020 Left Ear: Paulo, Model, Color, Serial Number: Yves Mortensen [id number]-[id number] SN: [id number] Color: Aylin Yen Die Drawing Checker Repair Warranty: 08/22/2025 Die Drawing Checker Loss and Damage Warranty: 03/12/2023 [facility] Service Plan: 03/15/2021 Battery Size: Rechargeable Wire Brush Maker/Slim Tube: 2 M Earmold/Dome/CShell/SlimTip: Canal Lock Slim Tip Type of Wax Guard: CeruStop Dispensed By: [facility] Date of Fittin03/15/2020 Follow-Up Summary: Dispensed repaired left hearing aid. Obey returned loaner. Placed his slim tip and paint factory worker back on his hearing aid. Paired aids in target, ran feedback. Obey tested VC. All functioning normally. Obey reports his PCP is sending referral for updated audiogram as previously discussed. Recommendations: Recommendations: Hearing instrument follow-up or maintenance as needed. Diagnosis Code(s): Primary Diagnosis: H90.3 Bilateral Sensorineural Hearing Loss Signature: Provider: Courtney Ling, [facility]
--- OUTSIDE RECORDS SUMMARY | 2025-03-04 10:57 | XMS_ITS | Clinical Summary ---
Author Organization [employer] Address [address] [facility] 7[address] [place] [address] Care Team Providers Care Scrap Preparation Supervisor Name Role Phone Name, Michael MAGDALENO Primary Care Provider [phone] Allergies No known active allergies Medications * This document contains information received from the source organization and may not represent a complete record from that organization. benztropine (Cogentin) 0.5 MG tablet Take 0.5 mg by mouth at bedtime. 3 Active mirtazapine (Remeron) 45 MG tablet Take 45 mg by mouth at bedtime. 3 Active OLANZapine (ZyPREXA) 5 MG tablet Take 1 tablet by mouth at bedtime. 3 Active traZODone (Desyrel) 100 MG tablet Take 100 mg by mouth if needed at bedtime. 3 Active topiramate 50 MG tablet Take 1 tablet by mouth in the morning and 1 tablet in the evening. 3 Active tamsulosin (Flomax) 0.4 MG 24 hr capsule Take 0.4 mg by mouth Once per day. 3 Active nabumetone (Relafen) 500 MG tablet Take 500 mg by mouth in the morning and 500 mg in the evening. 3 Active atorvastatin (Lipitor) 20 MG tabletIndication s:High cholesterol TAKE 1 TABLET BY MOUTH ONCE DAILY 90 tablet 1 5 Active lactulose (Chronulac) 10 GM/15ML solution Take 15 mL (10 g) by mouth Once per day. 473 mL 11 4 02/08/20 25 Active Problems Problem Noted Date Diagnosed Date Pre-op examination 02/25/2025 Smoker 02/25/2025 Anxiety 01/26/2024 Constipation 01/26/2024 Hydronephrosis concurrent wi th and due to calculi of kidney and ureter 01/26/2024 Phimosis 01/26/2024 Struvite kidney stones 01/26/2024 Depression with anxiety 01/26/2024 Depression 01/26/2024 Panic disorder 01/26/2024 History of right hip replacement 01/14/2023 Mood disorder 02/10/2015 h/o Glomerulonephritis 09/07/2012 Overview (01/26/2024): H/o glomerulonephritis Elevated cholesterol 09/07/2012 HTN (hypertension) 09/07/2012 Overview (02/25/2025): no meds currently Resolved Problems Problem Noted Date Diagnosed Date Resolved Date Bronchitis 01/26/2024 01/26/2024 Left ureteral calculus 01/26/202401/25 Painless hematuria 01/26/2024 Near syncope 01/26/2024 01/26/2024 Injury of kidney 06/04/2023 01/26/2024 Kidney stone 12/31/2022 01/26/2024 Obesity 09/07/2012 01/26/2024 Encounters Date Type Department Care Team Description 02/28/2025 10:15 AM EDT Office Visit [facility] [address] [place] [address] Michael Hargrove MD Elevated cholesterol (Primary Dx); Blurred vision; Decreased hearing, unspecified laterality; Uses hearing aid; Vaccination refused by parent; Tobacco dependence 02/28/2025 Travel 02/25/2025 Telephone [facility] [address] [place] [address] Betina Garcia MA chart prep 02/18/2025 Patient Outreach [facility] [address] [place] [address] Michael Hargrove MD Pre-visit Planning ([facility] unable to reach, number disconnected) 12/10/2024 Population Health Risk Score [facility] Department [address] [address] Provider, Population Health Generic 12/02/2024 Telephone [facility] [address] [place], [place] [phone] Betina Garcia MA December recalls from Last 3 Months Immunizations Immunization Administration Dates Next Due Hep B, adult 06/08/2004,03/21/2003,09/28/2002 Influenza, IIV3, injectable 08/01/2014 Influenza, Split (incl. derrick fied surface antigen) 11/19/2013 Pneumococcal Polysaccharide PPSV23 12/11/2012 Pneumococcal, Unspecified 12/11/2012 TD (adult), 2 Lf tetanus tox oid, preservative free, adsorbed 03/21/2003 Tdap 01/26/2024,12/11/2012 Social History Tobacco Use Types Packs/Day Years Used Date Smoking Tobacco: Every Day Cigarettes Passive Smoke Exposure: Current Tobacco Cessation:Ready to Q uit: Not Asked; Counseling Given: Not Answered Alcohol Use Standard Drinks/Week Comments Never 0 (1 standard drink = 0.6 oz pur e alcohol) Depression Answer Date Recorded Patient Health Questionnaire-9 Score 0 02/28/2025 Patient Health Questionnaire-9 Score 0 02/28/2025 Last PHQ-9: Questionnaire Data Not on file 0 02/28/2025 Housing Stability Answer Date Recorded What is your housing situation today? I have grzegorz healy 02/28/[address] you li ve. Do you have problems with any of the following? None of the above 02/28/2025 Food Insecurity Answer Date Recorded Within the past 12 months, y ou worried that your food would run out before you got money to buy more: Never True 02/28/2025 Within the past 12 months,th e food you bought just didn't last and you didn't have enough money to get more: Never True 10/2024 Transportation Answer Date Recorded In the past 12 months, has l ack of transportation kept you from medical appts, meetings, work or from getting things needed for daily living? No 02/28/2025 Utilities Answer Date Recorded In the past 12 months, has t he electric, gas, oil or water company threatened to shut off services in your home? No 02/28/2025 Depression Answer Date Recorded Patient Health Questionnaire-2 Score 0 02/28/2025 Internet Access Answer Date Recorded Internet Access Q1 Yes 02/28/2025 Internet Access Q2 Not on file 02/28/2025 Sex and Gender Information Value Date Recorded Sex Assigned at Male 07/29/2022 10:14 AM EDT Legal Sex Male 10:14 AM EDT Gender Identity Male 07/29/2022 10:14 AM EDT Sexual Orientation Straight 07/29/2022 10 :14 AM EDT Last Filed Vital Signs Vital Sign Reading Time Taken Comments Blood Pressure 136/92 02/28/2025 9:50 AM EDT man ually Pulse 80 02/28/2025 9:50 AM EDT Temperature 36.7 ??C (98.1 ??F) 02/28/2025 9:50 AM ED T Respiratory Rate 23 02/28/2025 9:50 AM EDT Oxygen Saturation 98% 01/26/2024 1:46 PM EDT Inhaled Oxygen Concentration - - Weight 92.1 kg (203 lb) 02/28/2025 9:50 AM EDT Height 175.3 cm (5' 9 ) 02/28/2025 9:50 AM EDT Body Mass Index 29.98 02/28/2025 9:50 AM EDT Plan of Treatment Upcoming Encounters Date Type Department Care Team (Late st Contact Info) Description 07/21/2025 1:30 PM EDT Office Visit [facility] [address] [place] [address] Chong, Caroline, OD [address] [place] [address] Health Maintenance Due Date Last Done Comments CT Colonography 1965 Dental Oral Exam 1966 Dental Prophylaxis 1965 Dental X-Ray: Bitewings 1966 Dental X-Ray: Full Mouth 1966 FIT DNA/Cologuard 1965 FIT 1965 FOBT 1965 HIV Screening 1965 Sigmoidoscopy 1965 Hepatitis C Screening 1984 Pneumococcal Vaccine: 50+ Years (2 of 2 - PCV) 12/11/2013 12/11/2012, 12/11/2012 Zoster Vaccines (1 of 2) 2016 COVID-19 Vaccine (3 - 2023-2 5 season) 2024 02/27/2021, 01/31/2021 Influenza Vaccine (Season Ended) 2025 08/01/2014, 11/19/2013 Alcohol/Substance Use Screening 02/28/2026 02/28/2025 Depression Screening 02/28/2026 02/28/2025, 02/28/2025 Disability Screening 02/28/2026 02/28/2025 SDOH Screening 02/28/2026 02/28/2025 Tobacco Screening 02/28/2026 02/28/2025 Lipid Panel 01/26/2029 01/27/2024 Colonoscopy 12/21/2029 Colorectal [...] patient's age to complete this topic Meningococcal B Vaccine Aged Out No l onger eligible based on patient's age to complete [...] 8:04 AM EDT 12/21/2024 9:06 AM EDT [facility] - 12/22/2024 3:03 PM EDT ----- ------- Name: Obey Yanez ? Age/Sex: 59/M ? : 1965 Unit#: [id number] ?? Attend Dr: Essie Mckeon MD ?Re12/21/24 ?Status: DEP SDC ? Location: HO.SSS ?Disch: ? ----- ------- SPEC : [id number] ? RECD: 12/21/24-905 ? STATUS: ??SOUT ? REQ NUM: [id number] ? RAMÍREZ: 12/21/24 ? SUBM DR: Essie [...] Copies To: ?? Name,Michael MAGDALENO ?? [address] ?? [place] [address] ?? [phone] ? CONTINUED ON NEXT PAGE ----- ------- Name: Obey Yanez ? Age/Sex: 59/M ? : 1965 Unit#: [id number] ?? Attend Dr: Essie Mckeon MD ?Re12/21/24 ?Status: DEP SDC ? Location: HO.SSS ?Disch: ? ----- ------- SPEC : [id number] ? RECD: 12/21/24 ? STATUS: ??SOUT ? REQ NUM: [id number] ? RAMÍREZ: 12/21/24-803 ? SUBM DR: Essie Mckeon MD ? ENTERED: ??12/21/24-912 ?SP TYPE: Surgical ? OTHR : Michael Hargrove MD ? ORDERED: ??HE Stain/6, Gross Micro L4/2 ? Copies To: ??(Continued) ?? Essie Mckeon MD ?? [facility] [place] [facility] ?? [address] ?? [place] [address] ?? [phone] ?? [email or web address] ----- ------- Signed (signature on file) Greta Chin 12/22/24 1503 ? ----- ------- ? END OF REPORT ? us Generic External Data Provider LAB BLOOD ORDERAB LES Final Result [facility] [address] [place] [address] [phone] * (ABNORMAL) Lipid Panel, Standard (01/27/2024 10:11 AM EDT) Triglycerides 190(H) <150 mg/dL [facility] Comment:Desirable Triglyceri de: less than 150 mg/dLBorderline High Triglyceride 150-199 mg/dLHigh Triglyceride: 200-499 mg/dLVery High Triglyceride: greater than or equal to 5OO mg/dL Cholesterol 202(H) <200 mg/dL [facility] Comment:Desirable Cholestero l: less than 200 mg/dLBorderline High Cholesterol: 200-239 mg/dLHigh Cholesterol: greater than 239 mg/dL LDL Cholesterol Calculated 128(H) <100 mg/dL [facility] Comment:Desirable LDL: less than 100 mg/dLNear Optimal/Above Optimal LDL: 110- 129 mg/dLBorderline High LDL: 130-159 mg/dLHigh LDL: 160-189 mg/dLVery High LDL: greater than or equal to 190 mg/dL HDL Cholesterol 36(L) >40 mg/dL [facility] Comment:Desirable HDL: great er than 40 mg/dL Note: This HDL assay may give artificially low results in patients with liver disease. Blood Venous blood specimen / Unknown 01/27/2024 10:11 AM EDT 01/27/2024 11:45 AM EDT us Michael Name LAB BLOOD ORDERABLES Final Resul t [facility] [address] [place] [address] [phone] from Last 3 Months or Most Recently Relevant to Health Maintenance Insurance [facility] C3 DENTAL-[facility] MEDICAID STAND ADULT Care Teams Scrap Preparation Supervisor Relationship Specialty Start Date End Date Name, MD Michael [address] [place] [address] PCP - General Family Medicine 05/27/19 Ethel Estrada Finishing Machine TenderService Transformer Repair Supervisor 12/05/23
== END 2025-03-04 10:12 | disposition home or self-care (01) ==
LOC: HO.HAP 10:11
PROVIDERS: Visit Provider Internal Medicine Geriatric Medicine
DX: Z46.1 Encounter for fitting and adjustment of hearing aid (principal); H90.3 Sensorineural hearing loss, bilateral
CPT/HCPCS: V5014

== ENCOUNTER 2025-03-22 08:54 | Outpatient (REF) | payer MEDICAID, SELFPAY ==
--- OUTSIDE RECORDS SUMMARY | 2025-03-22 09:19 | XMS_ITS | Clinical Summary ---
Author Organization [employer] Address [address] [facility] [address] [place] [address] Care Team Providers Care Special Delivery Carrier Name Role Phone Name, Michael MAGDALENO Primary Care Provider [phone] Allergies No known active allergies Medications * [...] morning and 1 tablet in the evening. 11/15/2022 Active tamsulosin (Flomax) 0.4 MG 24 hr capsule Take 0.4 mg by mouth Once per day. 01/01/2023 Active nabumetone (Relafen) 500 MG tablet Take 500 mg by mouth in the morning and 500 mg in the evening. 12/16/2022 Active atorvastatin (Lipitor) 20 MG tabletIndication s:High [...] Description 02/28/2025 10:15 AM EDT Office Visit [facility] [address] [place] [phone] Michael Hargrove MD Elevated cholesterol (Primary Dx); Blurred vision; Decreased hearing, unspecified laterality; Uses hearing aid; Vaccination refused by parent; Tobacco dependence 02/28/2025 Travel 02/25/2025 Telephone [facility] [address] [place] [address] Betina Garcia MA chart prep 02/18/2025 Patient Outreach [facility] [address] [place] [address] Michael Hargrove MD Pre-visit Planning ([facility] unable to reach, number disconnected) from Last 3 Months Immunizations Immunization Administration [...] 80 02/28/2025 9:50 AM EDT Temperature 36.7 C (98.1 F) 02/28/2025 9:50 AM EDT Respiratory Rate 23 02/28/2025 9:50 AM EDT [...] Description 07/21/2025 1:30 PM EDT Office Visit [facility] [address] [place], [place] [phone] Chong, Caroline, OD [address] [place] [address] Health Maintenance Due Date Last Done Comments [...] 02/28/2025 Lipid Panel 01/26/2029 01/27/2024 Colonoscopy 12/21/2029 12/21/2024 Colorectal Cancer Screening 12/21/2029 DTaP/Tdap/Td Vaccines (3 [...] EOSIN STAIN Routine 12/21/2024 8:04 AM EDT HM COLONOSCOPY Routine 12/21/2024 LIPID PANEL, STANDARD Routine 01/27/2024 10:11 AM EDT Screen for colon cancer Screening for cholesterol level from Last 3 Months or Most Recently Relevant to Health Maintenance Results * Hematoxylin and Eosin Stain (12/21/2024 8:04 AM EDT) 12/21/2024 8:04 AM EDT 12/21/2024 9:06 AM EDT [facility] - 12/22/2024 3:03 PM EDT ----- ------- Name: Obey Yanez Age/Sex: 59/M : 1965 [id number] Unit#: [id number] Attend Dr: Essie Mckeon MD Re12/21/24 Status: [facility] Location: [facility] Disch: ----- ------- SPEC : [id number] RECD: 12/21/24 STATUS: NOHEMY LEONARD NUM: [id number] RAMÍREZ: 12/21/[address] [facility] [address]: Essie Mckeon MD ENTERED: 12/21/24 SP TYPE: Surgical OTHR DR: Michael Hargrove MD ORDERED: HE Stain/6, Gross Micro L4/2 Diagnosis A. Colon, ascending, polyp: Polypoid colonic mucosa with minimal hyperplastic changes; no adenomatous dysplasia seen. B. Colon, descending, polyps: Tubular adenomas, two, completely excised; negative for high-grade dysplasia and carcinoma. Clinical History Pre-Op Dx: Screening Post-Op Dx: Polyps, diverticulosis, hemorrhoids Microscopic Description Multiple microscopic sections reviewed. Material Received A. Ascending colon polyp B. Descending colon polyps Gross Description Received in two parts Part A: Received in formalin labeled ascending colon polyp is a 0.3 cm jimenez-pink irregular tissue fragment, submitted in toto in a cassette labeled A. Part B: Received in formalin labeled descending colon polyps with scant debris are 2 hyperemic and congested, jimenez-pink and pink-red papular and polypoid tissue fragments measuring 0.45 and 0.6 cm, the largest of which displays an attached 0.4 x 0.4 x 0.2 cm tail of jimenez mucosa. The resected base is inked and the larger lesion is bisected and entirely submitted along with the smaller papule, submitted in toto, in a cassette labeled B. The debris is retained in formalin. CEDS Copies To: Michael Hargrove MD [address] [place] [phone] CONTINUED ON NEXT PAGE ----- ------- Name: Obey Yanez Age/Sex: 59/M : 1965 Unit#: [id number] Attend Dr: Essie Mckeon MD Re12/21/24 Status: [facility] Location: [facility] Disch: ----- ------- SPEC : [id number] RECD: 12/21/24 STATUS: NOHEMY LEONARD NUM: [id number] RAMÍREZ: 12/21/[address] [facility] [address]: Essie Mckeon MD ENTERED: 12/21/24 SP TYPE: Surgical OTHR DR: Michael Hargrove MD ORDERED: HE Stain/6, Gross Micro L4/2 Copies To: (Continued) Essie Mckeon MD [facility] [address] [place] [phone] [email or web address] ----- ------- Signed (signature on file) Greta [place] 12/22/24 1503 ----- ------- END OF REPORT Generic External Data Provider LAB BLOOD ORDERAB LES Final Result [facility] [address] [place] [phone] * Colonoscopy (12/21/2024) Colonoscopy Normal Normal Narrative Yu Garcia - 12/21/[address] Hargrove (order added ) Historical Provider HEALTH MAINTENANCE Final Result * (ABNORMAL) Lipid Panel, Standard (01/27/2024 10:11 AM EDT) Triglycerides 190(H) <150 mg/dL [facility] Comment:Desirable Triglyceri de: less than 150 mg/dLBorderline High Triglyceride 150-199 mg/dLHigh Triglyceride: 200-499 mg/dLVery High Triglyceride: greater than or equal to 5OO mg/dL Cholesterol 202(H) <200 mg/dL [facility] Comment:Desirable Cholestero l: less than 200 mg/dLBorderline High Cholesterol: 200-239 mg/dLHigh Cholesterol: greater than 239 mg/dL LDL Cholesterol Calculated 128(H) <100 mg/dL [facility] Comment:Desirable LDL: less than 100 mg/dLNear Optimal/Above Optimal LDL: 110- 129 mg/dLBorderline High LDL: 130-159 mg/dLHigh LDL: 160-189 mg/dLVery High LDL: greater than or equal to 190 mg/dL HDL Cholesterol 36(L) >40 mg/dL [facility] Comment:Desirable HDL: great er than 40 mg/dL Note: This HDL assay may give artificially low results in patients with liver disease. Blood Venous blood specimen / Unknown 01/27/2024 10:11 AM EDT 01/27/2024 11:45 AM EDT us Michael Name LAB BLOOD ORDERABLES Final Resul t [facility] [address] [place] [phone] from Last 3 Months or Most Recently Relevant to Health Maintenance [place] [address] [place] [address] C3 [facility]AL[facility] MEDICAID STAND ADULT Care Teams Special Delivery Carrier Relationship Specialty Start Date End Date Name, MD Michael [address] [place] [phone] PCP - General Family Medicine 05/27/19 Ethel Estrada Solidworks DesignerLaboratory Engineer 12/05/23
--- NOTE | 2025-03-22 09:39 | MHC.AU.HA3 ---
Addendum entered and electronically signed by Luanne Duffy, CCC-A 03/22/25 10:51: Obey returned to office noting the wire was loose and when he wiggled it the hearing aid was intermittent. Could not create cutting in and out in office. Found 1M sales program manager to sit better on his ear with the temporary dome fitting, Obey reports improvement. He will need a size 2 wire put back on when his new earmold gets here. Original Note: Hearing Instrument Follow-Up- Binaural Date of Visit: 03/22/25 President And Chief Executive Officer Used: [facility] [place] Right Ear: Paulo, Model, Color, Serial Number: Yves Mortensen [id number] [id number] SN: [id number] Color: Sand Beige Piece Dye Worker Repair Warranty: 09/26/2024 Piece Dye Worker Loss and Damage Warranty: 03/12/2023 [facility] Service Plan: 03/15/2021 Battery Size: Rechargeable Propagator/Slim Tube: 2M Earmold/Dome/CShell/SlimTip:Canal Lock Slim Tip S#[id number] Warranty 05/24/2024 Type of Wax Guard: CeruStop Dispensed By: [facility] Date of Fittin03/15/2020 Left Ear: Paulo, Model, Color, Serial Number: Yves Mortensen [id number]-[id number] SN: [id number] Color: Sand Beige Piece Dye Worker Repair Warranty: 08/22/2025 Piece Dye Worker Loss and Damage Warranty: 03/12/2023 [facility] Service Plan: 03/15/2021 Battery Size: Rechargeable Propagator/Slim Tube: 2 M Earmold/Dome/CShell/SlimTip: Canal Lock Slim Tip Type of Wax Guard: CeruStop Dispensed By: [facility] Date of Fittin03/15/2020 Follow-Up Summary: Obey reports right aid cutting out, intermittent. Noted right slim tip missing wax guard, wax in slim tip. When removing sales program manager to clean out and replace wax guard, cracked earmold. Replaced wax guard. Listening check positive. Set up with small power dome and tail, practiced insertion and removal. Advised to put hearing aid on ear first and then insert dome so as to not twist sales program manager wire. Ordering duplicate slim tip. Recommendations: Recommendations: Patient will be contacted when materials have arrived. Recommendations (Other): Needs appointment to cook pickled meat earmold. Diagnosis Code(s): Primary Diagnosis: H90.3 Bilateral Sensorineural Hearing Loss Signature: Provider: Courtney Ling, [facility]
== END 2025-03-22 08:55 | disposition home or self-care (01) ==
LOC: HO.HAP 08:54
PROVIDERS: Visit Provider Internal Medicine Geriatric Medicine
DX: Z46.1 Encounter for fitting and adjustment of hearing aid (principal); H90.3 Sensorineural hearing loss, bilateral
CPT/HCPCS: 92592

== ENCOUNTER 2025-04-04 07:05 | Emergency (ER) | payer MEDICAID, SELFPAY ==
--- OUTSIDE RECORDS SUMMARY | 2024-11-11 11:40 | XMS_ITS | Continuity of Care Document ---
Author Organization [facility] Address [address] [place] [address] Phone Care Team Providers Care Manager Talent Name Role Phone Bernardo Carson MD Unavailable Unavailable Allergies, Adverse Reactions, Alerts Substance Reaction Status Criticality No Known Allergies Active No Inform ation Medications Medication Instructions Dosage Effective Dates (start - stop) Status Comments atorvastatin 40 mg tablet take 1 tablet by oral route every day 40 MG - No Longer Active Procedures Procedure Date OFFICE/OUTPATIENT VISIT, EST ELECTROCARDIOGRAM, COMPLETE CARDIOVASCULAR STRESS TEST OFFICE/OUTPATIENT VISIT, NEW ELECTROCARDIOGRAM, COMPLETE Advance Directives Directive Yes / No Effective Date File Name No Information Encounters Encounter Description Practice Location Reason(s) For Visit Diagnoses Date Provider Providers Copied on Encounter OFFICE/OUTPA TIENT VISIT, EST [facility], [facility] [facility] [address], [place], [id number], [phone] 20 WRIST CLOSER [place] *ROV (chief complaint) Other chest painMixed hyperlipidemia 5 Yamileth Chang. [address] [facility], [facility] [address], [place], [id number] , [place]. tel:[phone] Referring Provider: Priti Francisco, [address], [place], [address] . tel:[phone] [facility], [address] [place] [address] [address], [id number], [place] tel:[phone] 20 [employer] [place] Hyperlipidemia, unspecifiedChes t pain, unspecified 4 Marychuy Engle. [address], [place], [place], [id number] , [place]. tel:[phone] Referring Provider: Ariel Sandoval, [address], [place], [address] . tel:[phone] OFFICE/OUTPA TIENT VISIT, [facility], [address] [facility] [address], [place], [place], [id number], [place] tel:[phone] 20 [employer] [employer] [place] *Chest Pain (chief complaint) Chest pain, unspecified typeHyperlipide pam, unspecified hyperlipidemia type 4 Jaime George. [address], [place], [place], [id number] , [place]. tel:[phone] Referring Provider: Priti Francisco, [address], [place], [address] . tel:[phone] Family History Family Member Type Diagnosis Age At Onset No Information Payers Payer name Insurance type Covered libertarian ID Authorvanessa de jesus(s) [facility] CI [id number] Social History Type Description Quantity Date Captured Comments Alcohol Use Details Caffeine Use Details coffee Tobacco Use Status No Information Smoking Status Never smoker Non-Smoking Tobacco Use Details : No Details Available : No Details Available Sex Male Vital Signs Date / Time: Height Weight BMI Pulse Rate Blood Pressure Temperature Respiratory Rate Body Surface Area Head Circumference Head Circ. Percentile Wt./Aravind. Percentile BMI percentile Pulse Ox Inhaled Ox 3:57 PM 66.00 in 77.111 kg (170.00 lbs) 27.4 4 kg/m eter (2) 70 /min 130/80 mm[Hg] 18 /min 1.89 meter(2) 95 % 21 % Chief Complaint And Reason For Visit From encounter dated '11/11/2024 15:40'. *ROV (chief complaint). Description: Mr. Obey Yanez is a pleasant 58 year old male with hyperlipidemia and family history of CAD who is here for followup. He has felt well since his last visit in 2023. He had a normal exercise stress test at that time. He has rare mild chest pain not related to exertion. He otherwise feels well when exercising three times a week. He denies exertional chest pain, dyspnea, orthopnea, palpitations, LH, dizziness, syncope, edema, decline in exercise capacity, or claudication. Reason For Referral Reason For Referral No Information History Of Present Illness Encounter Date Complaint History Of Prese nt Illness *ROV Mr. Obey Yanez i s a pleasant 58 year old male with hyperlipidemia and family history of CAD who is here for followup. He has felt well since his last visit in 2023. He had a normal exercise stress test at that time. He has rare mild chest pain not related to exertion. He otherwise feels well when exercising three times a week. He denies exertional chest pain, dyspnea, orthopnea, palpitations, LH, dizziness, syncope, edema, decline in exercise capacity, or claudication. *Chest Pain Patient is a 57- year-old [...] mation No Information Assessments Type Assessment Date assessment Other chest pain assessment Mixed hyperlipidemia Patient Care Teams Name Effective Dates (start - stop) Status Members No Information
--- NOTE | ~2025-04-04 | XR_ITS ---
CLINICAL HISTORY: sob Chest radiograph AP view Comparison: CR/SR - XR CHEST 2V - 09/03/23 14:00 EST Findings: Cardiomediastinal silhouette normal. No consolidations. No pleural effusion. No pneumothorax. No acute fracture. Soft tissue is unremarkable. Impression: No acute cardiopulmonary finding. This document has been electronically signed by: Aracelis Whitt MD on 04/04/2025 09:40:18
[2025-04-04 07:23] VITALS: BP 161/99; PULSE 74; RESP 18; TEMP 37; O2SAT 98; BMI 30.1
--- NOTE | 2025-04-04 07:29 | ECG_ITS ---
Test Reason : sob Blood Pressure : */* mmHG Vent. Rate : 80 BPM Atrial Rate : 80 BPM P-R Int : 142 ms QRS Dur : 88 ms QT Int : 390 ms P-R-T Axes : 74 53 70 degrees QTcB Int : 449 ms Normal sinus rhythm Normal ECG When compared with ECG of 03-Sep-2023 14:29, No significant change was found Referred By: Generic ED Physician Electronically Signed By: Iggy Diaz
[2025-04-04 07:45] LABS: MANUAL DIFF FLAG NO
--- OUTSIDE RECORDS SUMMARY | 2025-04-04 07:52 | XMS_ITS | Clinical Summary ---
Author Organization [employer] Address [address] [facility] [address]t [place] [address] Care Team Providers Care Instrument Lens Inspector Name Role Phone Name, Michael MAGDALENO Primary Care Provider [phone] Allergies No known active allergies Medications * [...] Description 02/28/2025 10:15 AM EDT Office Visit [facility] [address] [place] [phone] Michael Hargrove MD Elevated cholesterol (Primary Dx); Blurred vision; Decreased hearing, unspecified laterality; Uses hearing aid; Vaccination refused by parent; Tobacco dependence 02/28/2025 Travel 02/25/2025 Telephone [facility] [address] [place] [address] Betina Garcia MA chart prep 02/18/2025 Patient Outreach [facility] [address] [place] [address] Michael Hargrove MD Pre-visit Planning ([facility] unable to reach, number disconnected) from [...] Description 07/21/2025 1:30 PM EDT Office Visit [facility] [address] [place], [place] [phone] Chong, Caroline, OD [address] [place] [address] Health Maintenance Due Date Last Done Comments [...] season) 2024 02/27/2021, 01/31/2021 Influenza Vaccine (#1) 2025 4, 11/19/2013 Alcohol/Substance Use Screening 02/28/2026 02/28/2025 Depression [...] Procedure Name Priority Date/Time Associated Diagnosis Comments COLONOSCOPY Routine 12/21/2024 LIPID PANEL, STANDARD Routine 01/27/2024 10:11 AM EDT Screen for colon cancer Screening for cholesterol level from Last 3 Months or Most Recently Relevant to Health Maintenance Results * Colonoscopy (12/21/2024) Colonoscopy Normal Normal Narrative Yu Garcia - 12/21/[address] Hargrove (order added ) Historical Provider MD HEALTH MAINTENANCE Final Result * (ABNORMAL) Lipid Panel, Standard (01/27/2024 10:11 AM EDT) Triglycerides 190(H) <150 mg/dL [facility] Comment:Desirable Triglyceri de: less than 150 mg/dLBorderline High Triglyceride 150-199 mg/dLHigh Triglyceride: 200-499 mg/dLVery High Triglyceride: greater than or equal to 5OO mg/dL Cholesterol 202(H) <200 mg/dL [facility] Comment:Desirable Cholestero l: less than 200 mg/dLBorderline High Cholesterol: 200-239 mg/dLHigh Cholesterol: greater than 239 mg/dL LDL Cholesterol Calculated 128(H) <100 mg/dL [facility] Comment:Desirable LDL: less than 100 mg/dLNear Optimal/Above Optimal LDL: 110- 129 mg/dLBorderline High LDL: 130-159 mg/dLHigh LDL: 160-189 mg/dLVery High LDL: greater than or equal to 190 mg/dL HDL Cholesterol 36(L) >40 mg/dL [facility] Comment:Desirable HDL: great er than 40 mg/dL Note: This HDL assay may give artificially low results in patients with liver disease. Blood Venous blood specimen / Unknown 01/27/2024 10:11 AM EDT 01/27/2024 11:45 AM EDT us Michael Name LAB BLOOD ORDERABLES Final Resul t [facility] [address] [place] [phone] from Last 3 Months or Most Recently Relevant to Health Maintenance Insurance C3 D[place]AL-[place] MEDICAID STAND ADULT Care Teams Instrument Lens Inspector Relationship Specialty Start Date End Date Name, MD Michael [address] [place] [phone] PCP - General Family Medicine 05/27/19 Ethel Estrada Director EmergencyObstetrics Gynecology Physician 12/05/23
[2025-04-04 07:53] LABS: Hematocrit 47.8 % (42.0-52.0); Hemoglobin 16.6 g/dl (14.0-18.0); Imm Gran Abs Auto 0.02 X10*3/uL (0.00-0.03); Imm Gran Pct Auto 0.3 % (0.0-0.4); Lymphocytes Absolute Auto 1.3 X10*3/uL (1.2-4.9); Mean Corpuscular HGB Conc 34.7 g/dl (31.0-36.0); Mean Corpuscular Hemoglobin 29.9 pg (27.0-33.0); Mean Corpuscular Volume 86.0 fL (80.0-98.0); NRBC Abs Auto 0.000 X10*3/uL (0.0-0.012); NRBC Pct Auto 0.0 /100WBC (0.0-0.2); Platelet Count 186 X10*3/uL (160-400); Red Blood Count 5.56 X10*6/uL (4.60-5.80); White Blood Count 7.7 X10*3/uL (4.8-10.8)
[2025-04-04 08:01] LABS: Anion Gap 13 (12-20); Blood Urea Nitrogen 19 mg/dL (9-16); Calcium 8.8 mg/dL (8.4-10.2); Carbon Dioxide 21 mmol/L (22-29); Chloride 110 mmol/L (96-108); Creatinine Clr Calc Pharmacy 72.9; Estimated Glomerular Filt Rate 60; Potassium 3.7 mmol/L (3.3-5.1); Sodium 140 mmol/L (135-145)
[2025-04-04 08:24] LABS: B Type Natriuretic Peptide 30 pg/mL (<100)
[2025-04-04 08:26] LABS: Resp Syncy Virus RNA Qual PCR NEGATIVE (Negative); SARS COV2 PCR INHOUSE NEGATIVE (Negative)
--- NOTE | 2025-04-04 08:35 | ED.SOB ---
HPI - SOB/Dyspnea General Chief Complaint: Dyspnea Stated Complaint: SOB Time Seen by Provider: 04/04/25 08:29 Source: patient Limitations: no limitations History of Present Illness HPI Narrative: This is a 59 years old smoker presented to the emergency depart with a chief complaint of cough congestion wheezing ongoing for 3 days. Denies any fever vomiting. MD elicited complaint: shortness of breath and cough Pertinent past history: other ( smoker) Onset (ago): day(s) (3) Context: recent illness Timing: constant Severity: moderate Exacerbating factors: nothing Relieving factors: nothing Associated symptoms: denies other symptoms Related Data Home Medications ?Medication ?Instructions ?Recorded ?Confirmed topiramate 50 mg tablet 50 mg PO BID 08/06/21 12/21/24 olanzapine 5 mg tablet 1 tab PO BEDTIME 12/17/21 12/21/24 atorvastatin 20 mg tablet 20 mg PO DAILY 05/04/24 12/21/24 mirtazapine 45 mg tablet 45 mg PO BEDTIME 05/04/24 12/21/24 Previous Rx's ?Medication ?Instructions ?Recorded albuterol sulfate 90 mcg/actuation 2 puff inhalation Q4-6H PRN 09/03/23 aerosol inhaler shortness of breath or wheezing #8.5 grams albuterol sulfate 90 mcg/actuation 90 mcg inhalation Q6H PRN SOB #1 04/04/25 breath activated powder ea inhaler,sensor (Proair Digihaler) doxycycline monohydrate 100 mg 100 mg PO BID #14 caps 04/04/25 capsule prednisone 20 mg tablet 60 mg (3 x 20 mg) PO DAILY #12 tabs 04/04/25 Allergies Allergy/AdvReac Type Severity Reaction Status Date / Time No Known Allergies Allergy Verified 04/04/25 07:25 Review of Systems Constitutional: Constitutional: Reports no additional constitutional complaints ENT: Reports system reviewed and no additional complaints, except as documented Respiratory: Respiratory: Reports cough PMFSH Past Medical History Attestation statement: The following information was validated with the patient. Medical History Depression with anxiety Struvite kidney stones Hydronephrosis concurrent with and due to calculi of kidney and ureter Hx of acute bronchitis (09/03/23) Panic disorder Calculus of kidney Constipation Anxiety Elevated cholesterol History of kidney stones HTN (hypertension) Surgical History History of total right knee replacement (TKR) Hx of total hip arthroplasty (07/20/19) Hx of cystoscopy Social History Social History Household Members: None Household Members Other:: 6 Housing: Apartment Housing Other:: I live in a room Are you a primary rehab care assistant to a significant other at home: No Do you presently have visiting nurse or other home services: No Alcohol intake: never Comment: medicated with tylenol, pt refused oxycodone Patient Tobacco Use Status: Current everyday Tobacco user Tobacco use type: Cigarette Cigarette Packs Per Day: 0.75 Cigarettes Per Day: 15 Second Hand Smoke Exposure: No Advance Directives Date on File: 02/07/21 service: No Current occupational status: unemployed and disabled Physical Exam Vital Signs: Vital Signs: Last Vital Signs Temp 98.6 F 04/04/25 10:22 Pulse 80 04/04/25 10:22 Resp 16 04/04/25 10:22 BP 178/78 H 04/04/25 10:22 Pulse Ox 98 04/04/25 10:22 O2 Del Method Room Air 04/04/25 10:22 BMI result Body Mass Index 30.1 No acute distress Const: General: cooperative Orientation/consciousness: patient oriented x3 HEENT: Head: Yes normal to inspection General nose exam: Normal external nose present Face and sinus: Yes normal facial exam Mouth: Normal oral and palatal mucosa present Throat: Yes posterior oropharynx normal Neck: Neck: Yes normal visual inspection Chest: Chest palpation & inspection: normal inspection of the chest Breast/axilla palpation: normal palpation of the breasts Resp: Effort & Inspection: audible wheezes and Actively coughing Auscultation: rhonchi and wheezes Cardio: Jugular venous distension: no JVD Rate: regular rate Rhythm: regular rhythm GI: Inspection: Yes normal to inspection Percussion: Yes normal to percussion Auscultation: normal bowel sounds : General: Yes no CVA tenderness Back/Spine/Pelvis: Back: no CVA tenderness Pelvis: no pain with anterior-posterior compression Neuro: General: patient oriented x3 Cranial nerves: Yes CN's II-XII intact bilaterally Motor exam (neuro): 5/5 motor strength present throughout Medications Administered Discontinued Medications Generic Name Dose Route Start Last Admin Trade Name Adina PRN Reason Stop Dose Admin Albuterol Sulfate 2.5 mg/ 0 mg 04/04/25 08:46 04/04/25 08:49 Albuterol/Ipratropium 3 ml INHALE 04/04/25 08:47 1 dose ONCE ONE Administration Oxycodone HCl 5 mg 04/04/25 09:55 04/04/25 10:04 Oxycodone Hcl Immed Release 5 Mg Tablet PO 04/04/25 09:56 5 mg ONCE ONE Administration Prednisone 60 mg 04/04/25 08:35 04/04/25 09:08 Prednisone 20 Mg Tablet PO 04/04/25 08:36 60 mg ONCE ONE Administration Medical Decision Making Lab Data 04/04/25 07:37 04/04/25 07:37 Labs: Lab Results 04/04/25 Range/Units 07:37 WBC 7.7 (4.8-10.8) X10*3/uL RBC 5.56 (4.60-5.80) X10*6/uL Hgb 16.6 (14.0-18.0) g/dl Hct 47.8 (42.0-52.0) % MCV 86.0 (80.0-98.0) fL MCH 29.9 (27.0-33.0) pg MCHC 34.7 (31.0-36.0) g/dl RDW 13.6 (11.0-16.0) % Plt Count 186 (160-400) X10*3/uL MPV 10.6 (9.4-12.4) fL Immature Gran % (Auto) 0.3 (0.0-0.4) % Neut % (Auto) 72.1 (45-73) % Lymph % (Auto) 16.5 L (20-40) % Kenton % (Auto) 7.6 (2-11) % Eos % (Auto) 3.0 (0-4) % Baso % (Auto) 0.5 (0-2) % Lymph # (Auto) 1.3 (1.2-4.9) X10*3/uL Kenton # (Auto) 0.6 (0.1-1.2) X10*3/uL Eos # (Auto) 0.2 (0.0-0.4) X10*3/uL Baso # (Auto) 0.0 (0.0-0.2) X10*3/uL Abs Immat Gran (auto) 0.02 (0.00-0.03) X10*3/uL Absolute Neuts (auto) 5.5 (2.0-8.3) x10*3/uL Absolute Nucleated RBC 0.000 (0.0-0.012) X10*3/uL Nucleated RBC % (auto) 0.0 (0.0-0.2) /100WBC Sodium 140 (135-145) mmol/L Potassium 3.7 (3.3-5.1) mmol/L Chloride 110 H (96-108) mmol/L Carbon Dioxide 21 L (22-29) mmol/L Anion Gap 13 (12-20) BUN 19 H (9-16) mg/dL Creatinine 1.24 (0.5-1.4) mg/dL Estim Creat Clear Calc 72.9 Estimated GFR 60 Random Glucose 136 H (60-115) mg/dL Calcium 8.8 D (8.4-10.2) mg/dL B-Natriuretic Peptide 30 (<100) pg/mL Influenza Type A (PCR) NEGATIVE (Negative) Influenza Type B (PCR) NEGATIVE (Negative) RSV RNA Qual (PCR) NEGATIVE (Negative) SARS-CoV-2 RNA (RT-PCR) NEGATIVE (Negative) Discharge Plan Discharge Clinical Impression: Acute asthmatic bronchitis Patient Disposition: Home, Self-Care Instructions: Acute Bronchitis (ED) Prescriptions: New Proair Digihaler 90 mcg/actuation aero powdr breath act w/sensor 90 mcg inhalation Q6H PRN (Reason: SOB ) Qty: 1 0RF prednisone 20 mg tablet 60 mg PO DAILY Qty: 12 0RF doxycycline monohydrate 100 mg capsule 100 mg PO BID Qty: 14 0RF No Action olanzapine 5 mg tablet 1 tab PO BEDTIME albuterol sulfate 90 mcg/actuation HFA aerosol inhaler 2 puff inhalation Q4-6H PRN (Reason: shortness of breath or wheezing) Qty: 8.5 0RF topiramate 50 mg tablet 50 mg PO BID mirtazapine 45 mg tablet 45 mg PO BEDTIME atorvastatin 20 mg tablet 20 mg PO DAILY Referrals: Physician,Unknown J [Primary Care Provider, Medical] Interventions: ED Discharge Assessment Last Done: 04/04/25 10:22 Discharge Date/Time: 04/04/25 10:28 Print Language: Welsh
[2025-04-04] MEDS: Albuterol Sulfate 2.5 MG, Albuterol/Iprat 2.5/0.5MG 3 ML 3 ML INHALE (08:49)
[2025-04-04 08:52] VITALS: PULSE 74; RESP 16; O2SAT 97
--- NOTE | 2025-04-04 09:05 | PC.NURSE ---
reports increase ease of breathing after resp tx, awaiting initial md eval.
[2025-04-04] MEDS: oxyCODONE HCl Immed Release 5 MG TABLET PO (10:04)
[2025-04-04 10:22] VITALS: BP 178/78; PULSE 80; RESP 16; TEMP 37; O2SAT 98
== END 2025-04-04 10:28 | disposition home or self-care (01) ==
PROVIDERS: Emergency Provider Emergency Medicine
DX: J45.909 Unspecified asthma, uncomplicated (principal); R06.02 Shortness of breath; F17.210 Nicotine dependence, cigarettes, uncomplicated; Z79.899 Other long term (current) drug therapy; Z03.818 Encounter for observation for suspected exposure to other biological agents ruled out
CPT/HCPCS: 71045; 80048; 83880; 85025; 87637; 93005; 94640; 99284

== ENCOUNTER → 2025-04-04 07:29 | Outpatient (BNV) | payer MEDICAID, SELFPAY | PROVIDERS: Emergency Provider Emergency Medicine; Visit Provider Internal Medicine Cardiovascular Disease | DX: R06.02 Shortness of breath (principal) | CPT/HCPCS: 93010 ==

== ENCOUNTER → 2025-04-04 07:29 | Outpatient (BNV) | payer MEDICAID, SELFPAY | PROVIDERS: Emergency Provider Emergency Medicine; Visit Provider Radiology Diagnostic Radiology | DX: R06.02 Shortness of breath (principal) | CPT/HCPCS: 71045 ==

== ENCOUNTER 2025-04-18 14:19 | Outpatient (REF) | payer MEDICAID, SELFPAY ==
--- NOTE | 2025-04-18 14:44 | MHC.AU.HA3 ---
Hearing Instrument Follow-Up- Binaural Date of Visit: 04/18/25 Cap Sizer Used: Phone - [place] Right Ear: Paulo, Model, Color, Serial Number: Yves Mortensen [id number] SN: [id number] Color: Aylin Beige Counter Intelligence Agent Repair Warranty: 09/26/2024 Counter Intelligence Agent Loss and Damage Warranty: 03/12/2023 [facility] Service Plan: 03/15/2021 Battery Size: Rechargeable Production Utility Worker/Slim Tube: 2M Earmold/Dome/CShell/SlimTip:Canal Lock Slim Tip S#[id number] Warranty 07/26/2025 Type of Wax Guard: CeruStop Dispensed By: [facility] Date of Fittin03/15/2020 Left Ear: Paulo, Model, Color, Serial Number: Yves Mortensen [id number] SN: [id number] Color: Sand Beige Counter Intelligence Agent Repair Warranty: 08/22/2025 Counter Intelligence Agent Loss and Damage Warranty: 03/12/2023 [facility] Service Plan: 03/15/2021 Battery Size: Rechargeable Production Utility Worker/Slim Tube: 2 M Earmold/Dome/CShell/SlimTip: Canal Lock Slim Tip Type of Wax Guard: CeruStop Dispensed By: [facility] Date of Fittin03/15/2020 Follow-Up Summary: Dispensed new right earmold. Obey reports comfortable fit. Ran feedback. Obey notes hearing aids aren't loud enough, turns them all the way up every day. Increased overall gain 3 steps. Once again, advised Obey to contact PCP for referral for updated audiogram as this has not been done since 2019 Recommendations: Contact PCP for referral for hearing test. Diagnosis Code(s): Primary Diagnosis: H90.3 Bilateral Sensorineural Hearing Loss Signature: Provider: Courtney Ling, CCC-A
--- OUTSIDE RECORDS SUMMARY | 2025-04-18 15:09 | XMS_ITS | Clinical Summary ---
Author Organization [employer] Address [address] [facility] [address] [place] [address] Care Team Providers Care After School Program Teacher Name Role Phone Name, Michael MAGDALENO Primary Care Provider [phone] Allergies No known active allergies Medications * [...] Description 02/28/2025 10:15 AM EDT Office Visit [facility] [address] [place] [phone] Michael Hargrove MD Elevated cholesterol (Primary Dx); Blurred vision; Decreased hearing, unspecified laterality; Uses hearing aid; Vaccination refused by parent; Tobacco dependence 02/28/2025 Travel 02/25/2025 Telephone [facility] [address] [place] [address] Betina Garcia MA chart prep 02/18/2025 Patient Outreach [facility] [address] [place] [address] Michael Hargrove MD Pre-visit Planning ([facility] unable to reach, number disconnected) from [...] Description 07/21/2025 1:30 PM EDT Office Visit [facility] [address] [place], [place] [id number] Chong, Caroline, OD [address] [place] [address] Health Maintenance Due Date Last Done Comments [...] 10:11 AM EDT) Triglycerides 190(H) <150 mg/dL [facility] Comment:Desirable Triglyceri de: less than 150 mg/dLBorderline High Triglyceride 150-199 mg/dLHigh Triglyceride: 200-499 mg/dLVery High Triglyceride: greater than or equal to 5OO mg/dL Cholesterol 202(H) <200 mg/dL [facility] Comment:Desirable Cholestero l: less than 200 mg/dLBorderline High Cholesterol: 200-239 mg/dLHigh Cholesterol: greater than 239 mg/dL LDL Cholesterol Calculated 128(H) <100 mg/dL [facility] Comment:Desirable LDL: less than 100 mg/dLNear Optimal/Above Optimal LDL: 110- 129 mg/dLBorderline High LDL: 130-159 mg/dLHigh LDL: 160-189 mg/dLVery High LDL: greater than or equal to 190 mg/dL HDL Cholesterol 36(L) >40 mg/dL [facility] Comment:Desirable HDL: great er than 40 mg/dL Note: This HDL assay may give artificially low results in patients with liver disease. Blood Venous blood specimen / Unknown 01/27/2024 10:11 AM EDT 01/27/2024 11:45 AM EDT us Michael Name LAB BLOOD ORDERABLES Final Resul t [facility] [address] [place] [phone] from Last 3 Months or Most Recently Relevant to Health Maintenance Insurance [employer] [employer] [place] ADULT Care Teams After School Program Teacher Relationship Specialty Start Date End Date Name, MD Michael [address] [place] [phone] PCP - General Family Medicine 05/27/19 Ethel Estrada Power Equipment Technology InstructorEap Specialist 12/05/23
== END 2025-04-18 14:20 | disposition home or self-care (01) ==
LOC: HO.HAP 14:19
PROVIDERS: Visit Provider Internal Medicine Geriatric Medicine
DX: Z46.1 Encounter for fitting and adjustment of hearing aid (principal); H90.3 Sensorineural hearing loss, bilateral
CPT/HCPCS: 92593; V5264

== ENCOUNTER 2025-04-24 15:45 | Emergency (ER) | payer OTHER, MEDICAID, SELFPAY ==
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
[2025-04-24 16:20] VITALS: BP 122/79; PULSE 65; RESP 16; TEMP 36.3; O2SAT 98; BMI 29.7
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
[2025-04-24 19:52] VITALS: BP 172/82; PULSE 65; RESP 16; TEMP 36.3; O2SAT 98
== END 2025-04-24 19:53 | disposition home or self-care (01) ==
PROVIDERS: Emergency Provider Emergency Medicine Emergency Medical Services; PCP Internal Medicine Geriatric Medicine
DX: S89.91XA Unspecified injury of right lower leg, initial encounter (principal); S89.92XA Unspecified injury of left lower leg, initial encounter; M54.50 Low back pain, unspecified; M54.2 Cervicalgia; F17.210 Nicotine dependence, cigarettes, uncomplicated; V43.52XA Car driver injured in collision with other type car in traffic accident, initial encounter; Y93.9 Activity, unspecified; Y92.410 Unspecified street and highway as the place of occurrence of the external cause; Y99.8 Other external cause status; Z79.899 Other long term (current) drug therapy
CPT/HCPCS: 70450; 72100; 72125; 73564; 99283; 99284

== ENCOUNTER → 2025-04-24 16:45 | Outpatient (BNV) | payer MEDICAID, SELFPAY | PROVIDERS: PCP Internal Medicine Geriatric Medicine; Visit Provider Radiology Diagnostic Radiology | DX: M47.892 Other spondylosis, cervical region (principal); R51.9 Headache, unspecified; M17.0 Bilateral primary osteoarthritis of knee; M54.50 Low back pain, unspecified | CPT/HCPCS: 70450; 72100; 72125; 73564 ==

== ENCOUNTER 2025-04-29 08:43 | Outpatient (REF) | payer MEDICAID, SELFPAY ==
--- OUTSIDE RECORDS SUMMARY | 2025-04-29 08:56 | XMS_ITS | Encounter Summary ---
Author Organization [employer] Address [address] [facility] [address] [place] [address] Care Team Providers Care Associate Biological Sales Name Role Phone Name, Michael MAGDALENO Primary Care Provider [phone] Elisabeth Jimenez RN Unavailable [phone] Cheryl Slater Unavailable Encounter Details Date Type Department Care Team ([facility] st Contact Info) Description 04/25/2025 Patient Outreach [facility] [address] [place] [address] Name, MD Michael [address] [place] [address] Social History Tobacco Use Types Packs/Day Years Used Date Smoking Tobacco: Every Day Cigarettes Passive Smoke Exposure: Current Alcohol Use Standard Drinks/Week Comments Never 0 [...] AM EDT documented as of this encounter Plan of Treatment Upcoming Encounters Date Type Department Care Team (Late st Contact Info) Description 07/21/2025 1:30 PM EDT Office Visit [facility] [address] [place] [address] Chong, Caroline, OD [address] [place] [address] documented as of this encounter Visit Diagnoses Not on filedocumented in this encounter Additional Health Concerns Assessment Noted Time PHQ-9 Depression Total Score: 0 02/29/20 25 9:53 AM EDT documented as of this encounter Care Teams Associate Biological Sales Relationship Specialty Start Date End Date Name, MD Michael [address] [place] [address] PCP - General Family Medicine 05/27/19 Elisabeth Jimenez RN [address] [place] [address] Registered Nurse Family Medicine 04/25/25 Cheryl Slater 04/25/25 Ethel Estrada Hospice FellowProfessor Of Violin 12/05/23 documented as of this encounter
--- NOTE | 2025-04-29 12:12 | MHC.AU.HA3 ---
Hearing Instrument Follow-Up- Binaural Date of Visit: 04/29/25 Right Ear: Paulo, , Color, Serial Number: Yves Mortensen [id number] SN: [id number] Color: Aylin Yen Rack Washer Repair Warranty: 09/26/2024 Rack Washer Loss and Damage Warranty: 03/12/2023 [facility] Service Plan: 03/15/2021 Battery Size: Rechargeable Oracle Identity Management Consultant/Slim Tube: 2M Earmold/Dome/CShell/SlimTip:Canal Lock Slim Tip S#[id number] Warranty 07/26/2025 Wax Guard: CeruStop Dispensed By: [facility] Date of Fittin03/15/2020 Left Ear: Paulo, , Color, Serial Number: Yves [id number] SN: [id number] Color: Alyin Yen Rack Washer Repair Warranty: 08/22/2025 Rack Washer Loss and Damage Warranty: 03/12/2023 [facility] Service Plan: 03/15/2021 Battery Size: Rechargeable Oracle Identity Management Consultant/Slim Tube: 2 M Earmold/Dome/CShell/SlimTip: Canal Lock Slim Tip Type of Wax Guard: CeruStop Dispensed By: [facility] Date of Fittin03/15/2020 Follow-Up Summary: Obey reports the volume is getting low on his right hearing aid. Found slim tip to be missing wax guard. He just picked up this slim tip 04/18/25. Obey's hearing aids are frequently missing the wax guards per previous notes. Obey reports he does not know what happens to the wax guard. Otoscopy clear Ad. Cleaned hearing aid (1), vacuumed out instrumentation and controls technician port (1), replaced wax guard (1) [place] [id number] 3 units. Listening check positive. Obey reports improvement. Reminded to request referral from PCP for updated audiogram, Obey reports he is trying to get in touch with his doctor. Recommendations: Recommendations: Hearing instrument follow-up or maintenance as needed. Diagnosis Code(s): Primary Diagnosis: H90.3 Bilateral Sensorineural Hearing Loss Signature: Provider: Courtney Ling, [facility]
== END 2025-04-29 08:44 | disposition home or self-care (01) ==
LOC: HO.HAP 08:43
PROVIDERS: Visit Provider Internal Medicine Geriatric Medicine
DX: Z46.1 Encounter for fitting and adjustment of hearing aid (principal); H90.3 Sensorineural hearing loss, bilateral
CPT/HCPCS: 92592; 99499

== ENCOUNTER 2025-05-01 14:35 | Emergency (ER) | payer MEDICAID, SELFPAY ==
[2025-05-01 14:54] VITALS: BP 114/75; PULSE 76; RESP 18; TEMP 36.6; O2SAT 98; BMI 30.1
--- NOTE | 2025-05-01 14:54 | ED.EAR ---
HPI - Ear Problem General Chief complaint: Ear Problems Stated complaint: Object in left ear, Ear connal pain Time Seen by Provider: 05/01/25 14:59 Source: patient Mode of arrival: ambulatory Limitations: language barrier (Burkinan-speaking digital content marketing manager utilized) History of Present Illness ED Provider: Radha Treviño NP HPI Narrative: Patient is a 51-year-old male who presents emergency department for evaluation of left ear pain over the past 2 days. He did not changes to his hearing. No active drainage from the ear. No fevers or chills. Expresses concern that perhaps a in her piece of his hearing aid may be lodged in the ear canal as he does not notice it to be present on the left hearing aid but is present on his right hearing aid. He denies any trauma or injury. No pain or swelling to the preauricular region, nor posterior to the ear Related Data Home Medications ?Medication ?Instructions ?Recorded ?Confirmed topiramate 50 mg tablet 50 mg PO BID 08/06/21 12/21/24 olanzapine 5 mg tablet 1 tab PO BEDTIME 12/17/21 12/21/24 atorvastatin 20 mg tablet 20 mg PO DAILY 05/04/24 12/21/24 mirtazapine 45 mg tablet 45 mg PO BEDTIME 05/04/24 12/21/24 Previous Rx's ?Medication ?Instructions ?Recorded albuterol sulfate 90 mcg/actuation 2 puff inhalation Q4-6H PRN 09/03/23 aerosol inhaler shortness of breath or wheezing #8.5 grams albuterol sulfate 90 mcg/actuation 90 mcg inhalation Q6H PRN SOB #1 04/04/25 breath activated powder ea inhaler,sensor (Proair Digihaler) doxycycline monohydrate 100 mg 100 mg PO BID #14 caps 04/04/25 capsule prednisone 20 mg tablet 60 mg (3 x 20 mg) PO DAILY #12 tabs 04/04/25 naproxen 500 mg tablet 500 mg PO BID PRN pain #14 tabs 04/24/25 amoxicillin 875 mg-potassium 1 tab PO BID #13 tabs 05/01/25 clavulanate 125 mg tablet ibuprofen 600 mg tablet 600 mg PO Q8H PRN pain #20 tabs 05/01/25 Allergies Allergy/AdvReac Type Severity Reaction Status Date / Time No Known Allergies Allergy Verified 05/01/25 15:00 Review of Systems Review of Systems: Yes all other systems are reviewed and are negative [facility] Past Medical History Attestation statement: The following information was validated with the patient. Source: old records reviewed Medical History Depression with anxiety Struvite kidney stones Hydronephrosis concurrent with and due to calculi of kidney and ureter Hx of acute bronchitis (09/03/23) Panic disorder Calculus of kidney Constipation Anxiety Elevated cholesterol History of kidney stones HTN (hypertension) Surgical History History of total right knee replacement (TKR) Hx of total hip arthroplasty (07/20/19) Hx of cystoscopy Social History Social History Household Members: None Household Members Other:: 6 Housing: Apartment Housing Other:: I live in a room Are you a primary manager career to a significant other at home: No Do you presently have visiting nurse or other home services: No Alcohol intake: never Comment: medicated with tylenol, pt refused oxycodone Patient Tobacco Use Status: Current everyday Tobacco user Tobacco use type: Cigarette Cigarette Packs Per Day: 0.75 Cigarettes Per Day: 15 Second Hand Smoke Exposure: No Advance Directives Date on File: 02/07/21 service: No Current occupational status: unemployed and disabled Physical Exam Exam: Exam: Appearance: Alert.?Oriented to person, place and time. No acute distress.?Normal affect. Eyes: Pupils equal, round and reactive to light.? ENT: Pharynx normal.? TM normal on the right. Left TM erythematous and bulging with opacity. Does not appear to have apparent rupture to the TM, it is difficult to visualize the lower portion of the TM 04:00-08:00 due to pain during inspection. No mastoid tenderness. No preauricular tenderness. Neck: Normal inspection.? Neck supple.??No cervical adenopathy. CVS: Heart sounds normal. Normal heart rate and rhythm.? Pulses normal.?? Respiratory: No respiratory distress.? Lung sounds clear to auscultation bilaterally?? Skin: Skin warm and dry.? Normal skin color.?? Neuro: Moves all extremities spontaneously. Sensation intact bilaterally. Ambulates with normal steady gait. Medical Decision Making Medical Decision Making MDM Narrative: Patient is a 59-year-old male presents emergency department for evaluation of left ear pain and concern for potential retained foreign body to the ear canal from his hearing aid. Left TM erythematous and bulging with opacity concern for acute otitis media. There was tenderness on examination, no evidence of otitis externa/malignant otitis externa, no mastoid tenderness erythema or warmth to suggest acute mastoiditis.. Does not appear to have apparent rupture to the TM, it is difficult to visualize the lower portion of the TM 04:00-08:00 due to pain during inspection. I did inspect the hearing aids, the left hearing aid does appear to be missing a small circular rubber stopper at the tip of the hearing aid, I do not directly visualize this in the external canal however there is a portion that I am not able to visualize. I did discuss with him course of treatment with antibiotic. Advised that after treatment he should seek re-evaluation with his primary care doctor to ascertain whether there is in fact any foreign body within the ear canal. He was additionally advised to follow up with any persistent symptoms. He was given strict return precautions. All questions answered. Stable for discharge Differential Diagnosis Differential Diagnoses: The differential diagnosis associated with the presentation includes (See narrative above) External Record Review External record reviewed: Outpatient record Prescription Management I considered prescription management with: Pain Medication (Acetaminophen/ibuprofen) and Antibiotic Chronic Conditions Patient?s care impacted by: Other (see PMFSH section) Discharge Plan Discharge Clinical Impression: Acute otitis media Qualifiers: Otitis media type: suppurative Laterality: left Recurrence: non-recurrent Spontaneous tympanic membrane rupture: without spontaneous rupture Qualified Code(s): H66.002 - Acute suppurative otitis media without spontaneous rupture of ear drum, left ear Patient Disposition: Home, Self-Care Instructions: Ear Infection (ED) Additional Instructions: You were found to have an ear infection on the left side today. I did not see any foreign body in your ear such as a piece from the hearing aid as you had suspected. You are being given a prescription for antibiotic, please pick this up from the pharmacy tomorrow morning as you received the 1st dose in the emergency department today. You can take ibuprofen 200 mg, 3 tablets (600mg) every 6-8 hours as needed for pain, in addition to Tylenol 500 mg, 2 tablets (1,000mg) every 4-6 hours as needed for pain, but not to exceed 3 doses daily (3,000mg).? Do not insert anything into the ear canals such as Q-tips as this may increase the risk of rupture to your ear drum. Follow-up with your primary care doctor. Return to emergency department any new or worsening symptoms or concerns. Prescriptions: New amoxicillin-pot clavulanate 875-125 mg tablet 1 tab PO BID Qty: 13 0RF ibuprofen 600 mg tablet 600 mg PO Q8H PRN (Reason: pain) Qty: 20 0RF No Action olanzapine 5 mg tablet 1 tab PO BEDTIME Proair Digihaler 90 mcg/actuation aero powdr breath act w/sensor 90 mcg inhalation Q6H PRN (Reason: SOB ) Qty: 1 0RF prednisone 20 mg tablet 60 mg PO DAILY Qty: 12 0RF doxycycline monohydrate 100 mg capsule 100 mg PO BID Qty: 14 0RF naproxen 500 mg tablet 500 mg PO BID PRN (Reason: pain) Qty: 14 0RF albuterol sulfate 90 mcg/actuation HFA aerosol inhaler 2 puff inhalation Q4-6H PRN (Reason: shortness of breath or wheezing) Qty: 8.5 0RF topiramate 50 mg tablet 50 mg PO BID mirtazapine 45 mg tablet 45 mg PO BEDTIME atorvastatin 20 mg tablet 20 mg PO DAILY Referrals: Physician,Unknown J [Physician, Medical] Print Language: Burkinan
[2025-05-01 15:11] VITALS: BP 114/75; PULSE 76; RESP 18; TEMP 36.6; O2SAT 98
== END 2025-05-01 15:11 | disposition home or self-care (01) ==
PROVIDERS: Emergency Provider Emergency Medicine; PCP Internal Medicine Geriatric Medicine
DX: H66.002 Acute suppurative otitis media without spontaneous rupture of ear drum, left ear (principal); H92.02 Otalgia, left ear
CPT/HCPCS: 99283

== ENCOUNTER 2025-05-12 14:24 | Outpatient (REF) | payer MEDICAID, SELFPAY ==
--- OUTSIDE RECORDS SUMMARY | 2024-11-11 11:40 | XMS_ITS | Continuity of Care Document ---
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 [address] [facility], [facility] [address], [place], [id number] , [place]. tel:[phone] Referring Provider: Priti Francisco, [address], [place], [address] . tel:[phone] [facility], [address] [place] [address], [place], [id number], [place] tel:[phone] 20 CHEMICAL ENGRAVER [place] Hyperlipidemia, unspecifiedChes t pain, unspecified 4 Marychuy Engle. [address] [facility] [address], [place], [place], [id number] , [place]. tel:[phone] Referring Provider: Ariel Sandoval, [address], [place], [address] . tel:[phone] OFFICE/OUTPA TIENT VISIT, [facility], [address] [facility] [address], [place], [place], [id number], [place] tel:[phone] 20 CHEMICAL ENGRAVER [place] *Chest Pain (chief complaint) Chest pain, unspecified typeHyperlipide pam, unspecified hyperlipidemia type 4 Jaime George. [address], [place], [place], [id number] , [place]. tel:[phone] Referring Provider: Priti Francisco, [address], [place], [address] . tel:[phone] Family History Family Member Type Diagnosis Age At Onset No Information Payers Payer name Insurance type Covered green party ID Authorvanessa de jesus(s) [facility] CI [id number] Social History Type Description Quantity Date Captured [...]
--- OUTSIDE RECORDS SUMMARY | 2025-05-12 15:09 | XMS_ITS | Encounter Summary ---
Author Organization [employer] Address [address] [place] [address] Care Team Providers Care Mason Tender Restoration Labor Name Role Phone Name, Michael MAGDALENO Primary Care Provider [phone] Elisabeth Jimenez RN Unavailable [phone] Cheryl Slater Unavailable Reason for Visit * Reason Comments Care Coordination SDOH f/u Encounter Details Date Type Department Care Team (Latest Contact Info) Description 05/09/2025 Patient Outreach [facility] [address] [place] [address] Name, MD Michael [address] [place] [address] Care Coordination (SDOH f/u) Social History Tobacco Use Types Packs/Day Years Used Date Smoking Tobacco: Every Day Cigarettes Passive Smoke Exposure: Current Alcohol Use Standard Drinks/Week Comments Never 0 (1 standard drink = 0.6 oz pur e alcohol) Depression Answer Date Recorded Patient Health Questionnaire-9 Score 0 05/04/2025 Patient Health Questionnaire-9 Score 0 05/04/2025 Last PHQ-9: Questionnaire Data Not on file 0 05/04/2025 Housing Stability Answer Date Recorded What is your housing situation today? I have grzegorz healy 02/28/[address] you li ve. Do you have problems with any of the following? None of the above 02/28/2025 Food Insecurity Answer Date Recorded Within the past 12 months, y ou worried that your food would run out before you got money to buy more: Sometimes True 2024 Within the past 12 months,th e food you bought just didn't last and you didn't have enough money to get more: Sometimes True 05/09/2025 Transportation Answer Date Recorded In the past [...] Date Recorded Patient Health Questionnaire-2 Score 0 05/04/2025 Internet Access Answer Date Recorded Internet Access Q1 Yes 02/28/2025 Internet Access Q2 Not on file 02/28/2025 Sex and Gender Information Value Date Recorded Sex Assigned at Male 07/29/2022 10:14 AM EDT Legal Sex Male 10:14 AM EDT Gender Identity Male 07/29/2022 10:14 AM EDT Sexual Orientation Straight 07/29/2022 10 :14 AM EDT documented as of this encounter Progress Notes * Cheryl Slater - 05/09/2025 10:19 AM EDT CHW Cheryl Slater placed outbound call to patient to follow up on SDOH needs. Patient's name, and address confirmed. Patient states is doing okay, Patient expressed some food insecurity from time to time, patient is willing to go to food pantrys, CHW will send out an updated food pantry list, patient agreed to go towards the end of the month. Patient also needs help with getting new hearing aids, states they are always breaking and are painful. CHW let patient know that I would speak to his CM to see how we can assist with issue. No other SDOH needed at this time. No further questions or concerns. CHW reinforced direct contact information or CM for any additional questions or concerns and extended clinic hours on Mondays and Wednesdays, and Walk-In Urgent Care Located in [facility]. Patient provided with after-hours line for [facility], , which offer night time triage service and option to transfer to directional survey drafter provider if needed. Patient verbalizes understanding, and able to repeat back to verse writer. A follow up call willbe placed within 10 days, patient agrees with plan. documented in this encounter Plan of Treatment Upcoming Encounters Date Type Department Care Team (Late st Contact Info) Description 07/11/2025 1:30 PM EDT Office Visit [facility] [address] [place] [address] NameMichael MD [address] [place] [address] 07/21/2025 1:30 PM EDT Office Visit [facility] [address] [place] [address] Chong, Caroline, OD [address] [place] [address] documented as of this encounter Visit Diagnoses Not on filedocumented in this encounter Additional Health Concerns Assessment Noted Time PHQ-9 Depression Total Score: 0 05/04/20 10:57 AM EDT documented as of this encounter Care Teams Mason Tender Restoration Labor Relationship Specialty Start Date End Date NameMichael MD [address] [place] [address] PCP - General Family Medicine 05/27/19 Elisabeth Jimenez, ROBERT [address] [place] [id number] Registered Nurse Family Medicine 04/25/25 Cheryl Slater 04/25/25 Ethel Estrada Family Support WorkerAppliance Assembler 12/05/23 documented as of this encounter
== END 2025-05-12 14:25 | disposition home or self-care (01) ==
LOC: HO.HAP 14:24
PROVIDERS: Visit Provider Internal Medicine Geriatric Medicine
DX: H90.3 Sensorineural hearing loss, bilateral (principal)
CPT/HCPCS: V5299

== ENCOUNTER 2025-07-11 13:42 | Outpatient (REF) | payer MEDICAID, SELFPAY ==
--- OUTSIDE RECORDS SUMMARY | 2025-07-11 13:30 | XMS_ITS | Encounter Summary ---
Author Organization [employer] Address [address] [place] [address] [address] [place] [address] Care Team Providers Care Financial Sales Consultant Name Role Phone Beena, Michael MAGDALENO Primary Care Provider [phone] Elisabeth Jimenez RN Unavailable [phone] Cheryl Slater Unavailable Reason for Referral * Consultation (Routine) - Pending Review Specialty Diagnoses / Procedures Referred By Contemilie t Referred To Contact Audiology Diagnoses Uses hearing aid Decreased hearing, bilateral Michael Hargrove MD [address] [place] [id number] Phone: tel: fax: Referral ID Status Reason Start Date Expiration Date Visits Requested Visits Authorized [id number] Pending Review Specialty Services Required 07/11/2026 1 1 Reason for Visit * Reason Comments Follow-up Encounter Details Date Type Department Care Team (Late st Contact Info) Description 07/11/2025 1:30 PM EDT Office Visit [facility] MED[facility]INE [address] [place] [address] [phone] Michael Hargrove MD [address] [place] [address] [phone] Tiredness (Primary Dx); High cholesterol; Decreased hearing, bilateral; Uses hearing aid; Erectile dysfunction, unspecified erectile dysfunction type; Vaccination refused by parent Social History Tobacco Use Types Packs/Day Years [...] AM EDT documented as of this encounter Last Filed Vital Signs Vital Sign Reading Time Taken Comments Blood Pressure 124/74 07/11/2025 1:29 PM EDT Pulse 76 07/11/2025 1:29 PM EDT Temperature 36.4 C (97.6 F) 07/11/2025 1:29 PM EDT Respiratory Rate 18 07/11/2025 1:29 PM EDT Oxygen Saturation 99% 07/11/2025 1:29 PM EDT Inhaled Oxygen Concentration - - Weight 93.9 kg (207 lb) 07/11/2025 1:29 PM EDT Height 175.3 cm (5' 9 ) 07/11/2025 1:29 PM EDT Body Mass Index 30.57 07/11/2025 1:29 PM EDT documented in this encounter Progress Notes * Michael Hargrove MD - 07/11/2025 1:30 PM EDT Subjective Patient ID: Obey Yanez is a 59 y.o. male who presents for Follow-up. Patient comes for a follow-up visit. He complains of tiredness, daytime sleepiness. Patient has snoring and his history is very consistent with MICHELE. He has been reluctant to be evaluated by sleep medicine because he does not tolerate the use of CPAP. The patient does not fall asleep while driving.He refused any vaccination today. He continues using his statin for primary prevention of cardiovascular disease with no side effects. He continues to smoke cigarettes occasionally. Review of Systems Constitutional: Negative for chills, fatigue and fever. HENT: Negative for sore throat. The patient uses hearing aids. He does not like the hearing aids that he has at the moment. He doesnot feel the hearing aids are helping him much. He requested referral to audiology for evaluation and possibly change to hearing aids. Respiratory: Negative for cough, chest tightness and shortness of breath. Cardiovascular: Negative for chest pain, palpitations and leg swelling. Gastrointestinal: Negative for abdominal pain and blood in stool. Objective Vitals: 07/11/25 1329 BP: 124/74 BP Location: Left arm Patient Position: Sitting BP Cuff Size: Large adult Pulse: 76 Resp: 18 Temp: 97.6 ??F (36.4 ??C) TempSrc: Oral SpO2: 99% Weight: 207 lb (93.9 kg) Height: 5' 9 (1.753 m) Physical Exam Constitutional: Appearance: Normal appearance. HENT: Right Ear: Tympanic membrane, ear canal and external ear normal. There is no impacted cerumen. Left Ear: Tympanic membrane, ear canal and external ear normal. There is no impacted cerumen. Cardiovascular: Rate and Rhythm: Normal rate and regular rhythm. Heart sounds: No murmur heard. Pulmonary: Effort: Pulmonary effort is normal. No respiratory distress. Breath sounds: No wheezing, rhonchi or rales. Abdominal: Palpations: Abdomen is soft. Tenderness: There is no abdominal tenderness. Musculoskeletal: Right lower leg: No edema. Left lower leg: No edema. Neurological: Mental Status: He is alert. Assessment/Plan Diagnoses and all orders for this visit: Tiredness Comments: Most likely secondary to untreated MICHELE. The patient continues to be reluctant to do another sleep study. I recommended evaluation with blood work listed below and further recommendation based on the results. Orders: - CBC auto differential; Future - Comprehensive Metabolic Panel; Future - TSH W/Reflex to FT4; Future High cholesterol Comments: I recommended to quit smoking, continue statin for primary prevention of cardiovascular disease Check fasting blood work listed below Orders: - Comprehensive Metabolic Panel; Future - Lipid Panel, Standard; Future Decreased hearing, bilateral - Referral to Audiology audiology as he requested. Today he does not have cerumen impaction or evidence of otitis media Uses hearing aid - Referral to Audiology; Future Erectile dysfunction, unspecified erectile dysfunction type Comments: Prescribe patient Viagra to use as needed. Vaccination refused by parent Comments: Unfortunately he refused any vaccination today. Other orders - sildenafil (Viagra) 50 MG tablet; Take 1 tablet (50 mg) by mouth if needed each day for erectile dysfunction. Future Appointments Date Time Provider Department Center 07/21/2025 1:30 PM Caroline Schwarz OD [facility] documented in this encounter Plan of Treatment Upcoming Encounters Date Type Department Care Team (Late st Contact Info) Description 07/21/2025 1:30 PM EDT Office Visit [facility] OPTOMETRY [address] [place] [address] Caroline Schwarz, OD [address] [place] [address] Scheduled Orders Name Type Priority Associated Diagnoses Orde r Schedule CBC auto differential Lab Routine Tiredness Expected: 07/11/2025 (Approximate), Expires: 07/11/2026 Comprehensive Metabolic Panel Lab Routine Tiredness High cholesterol Expected: 07/11/2025 (Approximate), Expires: 07/11/2026 Lipid Panel, Standard Lab Routine High cholesterol Expected: 07/11/2025 (Approximate), Expires: 07/11/2026 TSH W/Reflex to FT4 Lab Routine Tiredness Expected: 07/11/2025 (Approximate), Expires: 07/11/2026 Scheduled Referrals Name Type Priority Associated Diagnoses Orde r Schedule Referral to Audiology Outpatient Referral Routine Uses hearing aid Decreased hearing, bilateral Expected: 07/11/2025 (Approximate), Expires: 07/11/2026 documented as of this encounter Visit Diagnoses Diagnosis Tiredness- Primary Other malaise and fatigue High cholesterol Pure hypercholesterolemia Decreased hearing, bilateral Uses hearing aid Erectile dysfunction, unspecified erectile dysfunction type Vaccination refused by parent documented in this encounter Additional Health Concerns Assessment Noted Time PHQ-9 Depression Total Score: 0 05/04/20 10:57 AM EDT documented as of this encounter Care Teams Financial Sales Consultant Relationship Specialty Start Date End Date Name, MD Michael [address] [place] [phone] PCP - General Family Medicine 05/27/19 Elisabeth Jimenez, ROBERT [address] [place] [id number] Registered Nurse Family Medicine 04/25/25 Cheryl Slater 04/25/25 Ethel Estrada Autobody TechnicianOrdering Box Operator 12/05/23 documented as of this encounter
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
--- OUTSIDE RECORDS SUMMARY | 2025-07-11 13:46 | XMS_ITS ---
Author Organization [employer] Address [address] [facility] 7t [place] [address] Care Team Providers Care Ore Miner Name Role Phone Name, Michael MAGDALENO Primary Care Provider [phone] Elisabeth Jimenez RN Unavailable [phone] Cheryl Slater Unavailable CHW Complex Status:Enrolled (Active) Start date:04/25/2025 Enrollment date:05/09/2025 Enrollment reason:ADT Feed Overview ADT-[facility] ED 04/24/25. Please outreach for enrollment. Case Team Name Relationship Phone Cheryl Slater(Responsible Staff) [phone] Continued Care and Services Coordination
--- OUTSIDE RECORDS SUMMARY | 2025-07-11 13:46 | XMS_ITS | Encounter Summary ---
Author Organization [employer] Address [address] [facility] 7t [place] [address] Care Team Providers Care Nuclear Reactor Engineer Name Role Phone Name, Michael MAGDALENO Primary Care Provider [phone] Elisabeth Jimenez RN Unavailable [phone] Cheryl Slater Unavailable Reason for Visit * Reason Comments Care Coordination Appointment reminder Encounter Details Date Type Department Care Team (Latest Contact Info) Description 07/08/2025 Patient Outreach [facility] [address] [place] [address] Name, MD Michael [address] [place] [address] Care Coordination (Appointment reminder) Social History Tobacco Use Types Packs/Day Years [...] encounter Progress Notes * Cheryl Slater - 07/08/2025 11:02 AM EDT CHW Cheryl Slater placed outbound call to patient to follow up on SDOH needs. Patient's name, and address confirmed. Patient states is doing well. CHW reminded patient of appointment with [facility]CP [facility] at 130pm on 07/11/25. Patient has no barriers in attending. No other SDOH needed at this time. No further questions or concerns. CHW reinforced direct contact information or CM for any additional questions or concerns and extended clinic hours on Mondays and Wednesdays, and Walk-In Urgent Care Located in [facility]. Patient provided with after-hours line for [facility], , which offer night time triage service and option to transfer to communications superintendent provider if needed. Patient verbalizes understanding, and able to repeat back to internal communications writer. A follow up call willbe placed within 10 days, patient agrees with plan. documented in this encounter Plan of Treatment Upcoming Encounters Date Type Department Care Team ([facility] st Contact Info) Description 07/21/2025 1:30 PM EDT Office Visit [facility] OPTOM[facility] [address] [place] [address] Caroline Schwarz, OD [address] [place] [address] documented as of this encounter Visit Diagnoses Not on filedocumented in this encounter Additional Health Concerns Assessment Noted Time PHQ-9 Depression Total Score: 0 05/04/20 25 10:57 AM EDT documented as of this encounter Care Teams Nuclear Reactor Engineer Relationship Specialty Start Date End Date Name, MD Michael [address] [place] [address] PCP - General Family Medicine 05/27/19 Elisabeth Jimenez, ROBERT [address] [place] [address] Registered Nurse Family Medicine 04/25/25 Cheryl Slater 04/25/25 Ethel Estrada Cutter V GrooveDirector Of Partner Marketing 12/05/23 documented as of this encounter
--- OUTSIDE RECORDS SUMMARY | 2025-07-11 13:46 | XMS_ITS | Encounter Summary ---
Author Organization [employer] Address 75 [facility] 7t [place] [address] Care Team Providers Care Agriculture Scientist Name Role Phone Name, Michael MAGDALENO Primary Care Provider [phone] Elisabeth Jimenez RN Unavailable [phone] Cheryl Slater Unavailable Reason for Visit * Reason Onset Date Comments triage 10/15/2022 Encounter Details Date Type Department Care Team ([facility] st Contact Info) Description 10/15/2022 Telephone [facility] MEDICINE [address] [place], [place] [id number] Name, MD Michael [address] [place] [address] triage Social History Tobacco Use Types Packs/Day [...] No answer LVM to return call to [facility] triage line. * Telephone Encounter - Amie Luna - 10/15/2022 2:56 PM EST Symptom: Diarrhea, headache and dizziness Outcome: Schedule an appointment to be seen within 24 hours Reason: No high acuity concerns reported by caller The caller accepted this outcome documented in this encounter Plan of Treatment Upcoming Encounters Date Type Department Care Team ([facility] st Contact Info) Description 07/21/2025 1:30 PM EDT Office Visit [facility] OPTOMETRY [address] [place], [place] [phone] Caroline Schwarz, OD [address] [place] [address] documented as of this encounter Visit Diagnoses Not on filedocumented in this encounter Care Teams Agriculture Scientist Relationship Specialty Start Date End Date Name, MD Michael [address] [place] [address] PCP - General Family Medicine 05/27/19 Elisabeth Jimenez, ROBERT [address] [place] [address] Registered Nurse Family Medicine 04/25/25 Cheryl Slater 04/25/25 Ethel Estrada Churn Driller HelperFinishing Trimmer 12/05/23 documented as of this encounter
--- OUTSIDE RECORDS SUMMARY | 2025-07-11 13:46 | XMS_ITS ---
Author Organization [employer] Address 75 [facility] 7t [place] [address] Care Team Providers Care Bulk Loader Name Role Phone Name, Michael MAGDALENO Primary Care Provider [phone] Elisabeth Jimenez RN Unavailable Cheryl Slater Unavailable CM Complex Status:Enrolled (Active) Start date:04/25/2025 Enrollment date:05/04/2025 Enrollment reason:ADT Feed Overview ADT-[facility] ED 04/24/25 Case Team Name Relationship Phone Elisabeth Jimenez RN(Responsible Staff) Registered Nurse [phone] Continued Care and Services Coordination
--- OUTSIDE RECORDS SUMMARY | 2025-07-11 13:46 | XMS_ITS | Encounter Summary ---
Author Organization [employer] Address [address] [facility] 7t [place] [address] Care Team Providers Care Executive Chairman Name Role Phone Name, Michael MAGDALENO Primary Care Provider [phone] Elisabeth Jimenez RN Unavailable [phone] Cheryl Slater Unavailable Reason for Visit * Reason Comments Care Management C3CM- f/u call Encounter Details Date Type Department Care Team ([facility] st Contact Info) Description 07/07/2025 Patient Outreach [facility] MEDICINE [address] [place] [address] Name, MD Michael [address] [place] [address] Care Management (C3CM- f/u call ) Social History Tobacco Use Types Packs/Day Years [...] as of this encounter Progress Notes * Elisabeth Jimenez RN - 07/07/2025 9:11 AM EDT WALKER Jimenez RN placed outbound call to patient. Patient's name, and address confirmed. Patient denies any recent emergency room visits. Patient c/o fatigue. He states he is waiting until his visit on 07/11/25 to discuss concerns with PCP. Per patient, BP has been well managed. He reports adherence to medication regimen and denies any concerns. Patient states he is following up with his psychiatrist as scheduled. Per patient, no issues with receiving his medication refills this month. He denies any immediate needs or concerns at this time. CM notified the patient that they have been enrolled in the Care Management Program for 60 days. CMupdated the patient on the progress that has been made toward goals in the past two months. CM questioned patient about what else they would like to work as the patient will be graduated from the program within the next month. CM reinforced direct contact information for any additional questions or concerns. Afollow up call will be placed within 10 days, patient agrees with plan. documented in this encounter Plan of Treatment Upcoming Encounters Date Type Department Care Team (Late st Contact Info) Description 07/21/2025 1:30 PM EDT Office Visit [facility] OPTOMETRY [address] [place], [place] [phone] Caroline Schwarz, OD [address] [place] [address] documented as of this encounter Visit Diagnoses Not on filedocumented in this encounter Additional Health Concerns Assessment Noted Time PHQ-9 Depression Total Score: 0 05/04/20 10:57 AM EDT documented as of this encounter Care Teams Executive Chairman Relationship Specialty Start Date End Date Name, MD Michael [address] [place], [place] [phone] PCP - General Family Medicine 05/27/19 Elisabeth Jimenez, ROBERT [address] [place] [address] Registered Nurse Family Medicine 04/25/25 Cheryl Slater 04/25/25 Ethel Estrada Group TeacherRemote Sensing Analyst 12/05/23 documented as of this encounter
--- OUTSIDE RECORDS SUMMARY | 2025-07-11 13:46 | XMS_ITS | Encounter Summary ---
Author Organization [employer] Address [address] [facility] 7[address] [place] [address] Care Team Providers Care Client Professional Name Role Phone Name, Michael MAGDALENO Primary Care Provider [phone] Elisabeth Jimenez RN Unavailable [phone] Cheryl Slater Unavailable Reason for Visit * Reason Onset Date Comments Referral 11/24/2023 Encounter Details Date Type Department Care Team ([facility] st Contact Info) Description 11/24/2023 Telephone [facility] MEDICINE [address] [place], [place] [phone] Name, MD Michael [address] [place], [place] [phone] Referral Social History Tobacco Use Types Packs/Day Years Used Date Smoking Tobacco: Every Day Cigarettes Depression Answer Date Recorded Patient Health Questionnaire-9 Score 8 01/14/2023 Housing Stability Answer Date Recorded What is your housing situation today? 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 Wei stated pt has beendiagnosed with anxiety and depression and would like to follow up on diagnoses. If any questions you can contact Wei at [phone] documented in this encounter Plan of Treatment Upcoming Encounters Date Type Department Care Team (Late st Contact Info) Description 07/21/2025 1:30 PM EDT Office Visit [facility] OPTOMETRY [address] [place] [address] Caroline Schwarz, OD [address] [place] [address] documented as of this encounter Visit Diagnoses Not on filedocumented in this encounter Additional Health Concerns Assessment Noted Time PHQ-9 Depression Total Score: 8 01/15/20 23 1:47 PM EDT documented as of this encounter Care Teams Client Professional Relationship Specialty Start Date End Date Name, MD Michael [address] [place] [address] PCP - General Family Medicine 05/27/19 Elisabeth Jimenez, RN [address] [place] [address] Registered Nurse Family Medicine 04/25/25 Cheryl Slater 04/25/25 Ethel Estrada System Development EngineerProduction Engine Repairer 12/05/23 documented as of this encounter
[2025-07-11 16:07] LABS: MANUAL DIFF FLAG NO
[2025-07-11 16:16] LABS: Hematocrit 50.8 % (42.0-52.0); Hemoglobin 16.4 g/dl (14.0-18.0); Imm Gran Abs Auto 0.03 X10*3/uL (0.00-0.03); Imm Gran Pct Auto 0.4 % (0.0-0.4); Lymphocytes Absolute Auto 2.4 X10*3/uL (1.2-4.9); Mean Corpuscular HGB Conc 32.3 g/dl (31.0-36.0); Mean Corpuscular Hemoglobin 29.2 pg (27.0-33.0); Mean Corpuscular Volume 90.6 fL (80.0-98.0); NRBC Abs Auto 0.000 X10*3/uL (0.0-0.012); NRBC Pct Auto 0.0 /100WBC (0.0-0.2); Platelet Count 196 X10*3/uL (160-400); Red Blood Count 5.61 X10*6/uL (4.60-5.80); White Blood Count 7.0 X10*3/uL (4.8-10.8)
[2025-07-11 16:30] LABS: Alanine Aminotransferase 28 U/L (0-40); Albumin Level 4.2 g/dL (3.5-5.0); Alkaline Phosphatase 85 U/L (39-117); Anion Gap 10 (12-20); Aspartate Amino Transferase 30 U/L (5-37); Blood Urea Nitrogen 19 mg/dL (9-16); Calcium 8.8 mg/dL (8.4-10.2); Carbon Dioxide 29 mmol/L (22-29); Chloride 106 mmol/L (96-108); Cholesterol 155 mg/dL (<200); Estimated Glomerular Filt Rate > 60; HDL Cholesterol 38 mg/dL (>40); Potassium 3.7 mmol/L (3.3-5.1); Sodium 141 mmol/L (135-145); Total Protein 7.4 g/dL (6.5-8.0); Triglycerides 225 mg/dL (<150)
== END 2025-07-11 13:43 | disposition home or self-care (01) ==
LOC: HO.HHCL 13:42
PROVIDERS: PCP Internal Medicine Geriatric Medicine; Visit Provider Internal Medicine Geriatric Medicine
DX: R53.83 Other fatigue (principal); E78.00 Pure hypercholesterolemia, unspecified
CPT/HCPCS: 36415; 80053; 80061; 84443; 85025

== ENCOUNTER 2025-07-19 08:43 | Outpatient (REF) | payer MEDICAID, SELFPAY ==
--- OUTSIDE RECORDS SUMMARY | 2025-07-19 09:04 | XMS_ITS | Encounter Summary ---
Author Organization [employer] Address [address] [facility] 7[address] [place] [address] Care Team Providers Care Corrosion Technician Name Role Phone Name, Michael MAGDALENO Primary Care Provider [phone] Elisabeth Jimenez RN Unavailable [phone] Cheryl Slater Unavailable Reason for Visit * Reason Comments Care Coordination Appointment reminder Encounter Details Date Type Department Care Team (Latest Contact Info) Description 07/18/2025 Patient Outreach [facility] MEDICINE [address] [place] [address] Name, MD Michael [address] [place] [address] Care Coordination (Appointment reminder) Social History Tobacco [...] encounter Progress Notes * Cheryl Slater - 07/18/2025 10:35 AM EDT CHW Cheryl Slater placed outbound call to patient for follow up on SDOH needs. Patient's name, DOBand address confirmed. Patient states is doing well. CHW reminded patient of [facility] Audiology 07/19/25at 9:00am and 07/21/25 with Optometry at 1:30pm Patient's name and was confirmed. Patient is aware and confirmed will be available and has no barriers on attending this appointment. No further questions or concerns. CHW reinforced direct contact information for any additional questions or concerns and extended clinic hours on Mondays and Wednesdays, and Walk-In Urgent Care Located in [facility]. Patient provided with after-hours line for [facility], , which offer night time triage service and option to transfer to roll contour grinder provider if needed. CHW discussed with the patient progress made in the CHW Program. Patient notified is being graduated from the Care Management-CHW Program. Patient was educated on how to receive SDOH services in the future. Patient agrees with the plan and will contact us if any future needs arise. documented in this encounter Plan of Treatment Upcoming Encounters Date Type Department Care Team (Late st Contact Info) Description 07/21/2025 1:30 PM EDT Office Visit [facility] OPTOMETRY [address] [place], [place] [phone] Caroline Schwarz, OD [address] [place] [address] documented as of this encounter Visit Diagnoses Not on filedocumented in this encounter Additional Health Concerns Assessment Noted Time PHQ-9 Depression Total Score: 0 05/04/20 10:57 AM EDT documented as of this encounter Care Teams Corrosion Technician Relationship Specialty Start Date End Date Name, MD Michael [address] [place] [address] PCP - General Family Medicine 05/27/19 Elisabeth Jimenez RN [address] [place] [address] Registered Nurse Family Medicine 04/25/25 Cheryl Slater 04/25/25 07/18/25 Ethel Estrada Utility Service WorkerNet Coordinator 12/05/23 documented as of this encounter
--- OUTSIDE RECORDS SUMMARY | 2025-07-19 09:04 | XMS_ITS ---
Author Organization [employer] Address [address] [facility] 7[address] [place] [address] Care Team Providers Care Crop Production Advisor Name Role Phone Name, Michael MAGDALENO Primary Care Provider [phone] Elisabeth Jimenez RN Unavailable [phone] CHW Complex Status:Closed (Closed) Start date:04/25/2025 Enrollment date:05/09/2025 Enrollment reason:ADT Feed End date:07/18/2025 Close reason:Goals Met Overview ADT-[facility] ED 04/24/25. Please outreach for enrollment. Continued Care and Services Coordination
--- OUTSIDE RECORDS SUMMARY | 2025-07-19 09:04 | XMS_ITS | Encounter Summary ---
Author Organization [employer] Address [address] [facility] [address] [place] [address] Care Team Providers Care Latin American Studies Professor Name Role Phone Name, Michael MAGDALENO Primary Care Provider [phone] Elisabeth Jimenez RN Unavailable [phone] Cheryl Slater Unavailable Reason for Visit * Reason Onset Date Comments Referral 11/24/2023 Encounter Details Date Type Department Care Team ([facility] st Contact Info) Description 11/24/[address] 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 Wei stated pt has beendiagnosed with anxiety and depression and would like to follow up on diagnoses. If any questions you can contact Wei at [phone] documented in this encounter Plan of Treatment Upcoming Encounters Date Type Department Care Team (Late st Contact Info) Description 07/21/2025 1:30 PM EDT Office Visit [facility] OPTOMETRY [address] [place] [address] Caroline Schwarz, OD [address] [place] [address] documented as of this encounter Visit Diagnoses Not on filedocumented in this encounter Additional Health Concerns Assessment Noted Time PHQ-9 Depression Total Score: 8 01/15/20 23 1:47 PM EDT documented as of this encounter Care Teams Latin American Studies Professor Relationship Specialty Start Date End Date Name, MD Michael [address] [place] [address] PCP - General Family Medicine 05/27/19 Elisabeth Jimenez, RN [address] [place] [address] Registered Nurse Family Medicine 04/25/25 Cheryl Slater 04/25/25 07/18/25 Ethel Estrada Traffic Circuit EngineerData Entry 12/05/23 documented as of this encounter
--- OUTSIDE RECORDS SUMMARY | 2025-07-19 09:04 | XMS_ITS | Encounter Summary ---
Author Organization [employer] Address [address] [facility] 7[address] [place] [address] Care Team Providers Care Padder Name Role Phone Name, Michael MAGDALENO Primary Care Provider [phone] Elisabeth Jimenez RN Unavailable [phone] Cheryl Slater Unavailable Reason for Visit * Reason Onset Date Comments triage 10/15/2022 Encounter Details Date Type Department Care Team ([facility] st Contact Info) Description 10/15/2022 Telephone [facility] MEDICINE [address] [place], [place] [phone] Name, MD Michael [address] [place] [address] triage Social History Tobacco Use Types Packs/Day [...] No answer LVM to return call to [facility] triage line. * Telephone Encounter - Amie Luna - 10/15/2022 2:56 PM EST Symptom: Diarrhea, headache and dizziness Outcome: Schedule an appointment to be seen within 24 hours Reason: No high acuity concerns reported by caller The caller accepted this outcome documented in this encounter Plan of Treatment Upcoming Encounters Date Type Department Care Team ([facility] st Contact Info) Description 07/21/2025 1:30 PM EDT Office Visit [facility] OPTOMETRY [address] [place], [place] [phone] Caroline Schwarz, OD [address] [place] [address] documented as of this encounter Visit Diagnoses Not on filedocumented in this encounter Care Teams Padder Relationship Specialty Start Date End Date Name, MD Michael [address] [place] [address] PCP - General Family Medicine 05/27/19 Elisabeth Jimenez, ROBERT [address] [place] [address] Registered Nurse Family Medicine 04/25/25 Cheryl Slater 04/25/25 07/18/25 Ethel Estrada Director Child Development CenterDirector Process Engineering 12/05/23 documented as of this encounter
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
--- OUTSIDE RECORDS SUMMARY | 2025-07-19 09:04 | XMS_ITS ---
Author Organization [employer] Address [address] [facility] 7[address] [place] [address] Care Team Providers Care Electrolytic Etcher Name Role Phone Name, Michael MAGDALENO Primary Care Provider [phone] Elisabeth Jimenez RN Unavailable [phone] CM Complex Status:Enrolled (Active) Start date:04/25/2025 Enrollment date:05/04/2025 Enrollment reason:ADT Feed Overview [facility] ED 04/24/25 Case Team Name Relationship Phone Elisabeth Jimenez RN(Responsible Staff) Registered Nurse [phone] Continued Care and Services Coordination
--- NOTE | 2025-07-19 09:47 | MHC.AU.MED ---
Medical Clearance for Hearing Instrumentation Date: 07/19/25 Patient Name: Obey Garcia Jr Date of : 1965 Primary Care Provider: Michael Hargrove MD We have seen your patient on 07/19/25 and have determined that they are a candidate for amplification (See accompanying report). Specifically, they would benefit from: Hearing aid use in both ears There is a statute that addresses Medical Evaluation Requirements prior to fitting a patient with a hearing aid. According to [place] statute 265 CMR:6.03(1), (a) General. Except as provided in 265 CMR 6.03(1)(b), a health technician hearing shall not sell a hearing aid unless the prospective user has presented to the health technician hearing a written statement signed by a licensed physician that states that the patient's hearing loss has been medically evaluated and the patient may be considered a candidate for a hearing aid. The medical evaluation must have taken place within the preceding six months. Please note: Due to the [place] Statute referenced above, we cannot accept a signature other than that of a licensed physician. REGIONAL REFRIGERATED CDL TRUCK DRIVER and PA signatures cannot be accepted. I am in agreement with the above recommendation. There is no medical contraindication for hearing instrumentation. Physician Signature Date Physician Name (Printed)
--- NOTE | 2025-07-19 10:46 | MHC.AU.HA1 ---
Hearing Aid Evaluation Date of Visit: 07/19/25 Auto Transmission Specialist Used: Faroese- By Phone Historical Information: Description of Hearing: Severe sensorineural hearing loss, bilaterally Current personal amplification information: Phonak Audeo M70-R with slim tips fit in February 2020 Summary: Ready to pursue new HAs due to age of current pair. Reportedly maxes out volume control on current HAs, receivers and wax system always breaking, receivers cutting top of pinnas, HAs breaking due to sweat. Due to these concerns, Obey inquired about changing styles. Strongly recommended standard BTEs. However, Obey immediately rejected the look of BTEs noting he would never wear them. Advised BTE style is the most appropriate for severity of hearing loss; however, Obey insistent he wants custom HAs, does not want anything behind his ear. He understands the trade offs including potentially less amplification. Impressions taken, bilaterally, without incident - in hold drawer pending medical clearance. Hearing Aid Prescription: Based on the individual?s shared listening needs, communication environments, dexterity, desire for connectivity, and personal preferences, the following prescription for amplification has been made: Right ear: Make, Model, Color: Phonak Virto I50-R Color: Mcnair Battery Size: Rechargeable Left ear: Left ear prescription to be same as Right Hearing Aid above: Make, Model, Color: Phonak Virto I50-R Color: Mcnair Battery Size: Rechargeable Accessories/Assistive Technology: Commercial Real Estate Manager Plan of Care: Patient wishes to purchase hearing aids as prescribed Action Taken/Action Needed: Medical Clearance to be requested from PCP/ENT. Hearing Instrument Fitting to be scheduled when materials arrive Primary Diagnosis: H90.3 Bilateral Sensorineural Hearing Loss Signature: Provider: Courtney Morales, [facility]
== END 2025-07-19 08:44 | disposition home or self-care (01) ==
LOC: HO.SH 08:43
PROVIDERS: Visit Provider Internal Medicine Geriatric Medicine
DX: Z01.118 Encounter for examination of ears and hearing with other abnormal findings (principal); Z46.1 Encounter for fitting and adjustment of hearing aid; H90.3 Sensorineural hearing loss, bilateral
CPT/HCPCS: 92557; 92591; V5275

== ENCOUNTER 2025-09-14 13:16 | Outpatient (REF) | payer MEDICAID, SELFPAY ==
--- OUTSIDE RECORDS SUMMARY | 2025-09-14 17:27 | XMS_ITS | Encounter Summary ---
Author Organization [employer] Address [address] [facility] [address] [place] [address] Care Team Providers Care Customer Development Manager Name Role Phone Name, Michael MAGDALENO Primary Care Provider [phone] Elisabeth Jimenez RN Unavailable [phone] Cheryl Slater Unavailable Reason for Visit * Reason Onset Date Comments Referral 11/24/2023 Encounter Details Date Type Department Care Team ([facility] st Contact Info) Description 11/24/2023 Telephone [facility] [address] [place], [place] [phone] Name, MD Michael [address] [place], [place] [phone] Referral Social History Tobacco Use Types Packs/Day [...] 3:01 PM EST Tc from Wei pt's nursing care attendant requesting a mental health referral. Wei stated pt has beendiagnosed with anxiety and depression and would like to follow up on diagnoses. If any questions you can contact Wei at [phone] documented in this encounter Plan of Treatment Not on file documented as of this encounter Visit Diagnoses Not on filedocumented in this encounter Additional Health Concerns Assessment Noted Time PHQ-9 Depression Total Score: 8 01/15/20 23 1:47 PM EDT documented as of this encounter Care Teams Customer Development Manager Relationship Specialty Start Date End Date Name, MD Michael [address] [place] [address] PCP - General Family Medicine 05/27/19 Elisabeth Jimenez RN [address] [place] [address] Registered Nurse Family Medicine 04/25/25 08/01/25 Cheryl Slater 04/25/25 07/18/25 Etehl Estrada Services RepMarine Pipefitter 12/05/23 documented as of this encounter
--- OUTSIDE RECORDS SUMMARY | 2025-09-14 17:27 | XMS_ITS | Encounter Summary ---
Author Organization [employer] Address [address] [facility] [address] [place] [address] Care Team Providers Care Cycle Analyst Name Role Phone Name, Michael MAGDALENO Primary Care Provider [phone] Elisabeth Jimenez RN Unavailable [phone] Cheryl Slater Unavailable Reason for Visit * Reason Onset Date Comments triage 10/15/2022 Encounter Details Date Type Department Care Team ([facility] st Contact Info) Description 10/15/2022 Telephone [facility] MEDICINE [address] [place], [place] [phone] Name, MD Michael [address] [place] [address] triage Social History Tobacco Use Types Packs/Day [...] No answer LVM to return call to [facility] triage line. * Telephone Encounter - Amie [...] on filedocumented in this encounter Care Teams Cycle Analyst Relationship Specialty Start Date End Date Name, MD Michael [address] [place] [address] PCP - General Family Medicine 05/27/19 Elisabeth Jimenez RN [address] [place] [address] Registered Nurse Family Medicine 04/25/25 08/01/25 Cheryl Slater 04/25/25 07/18/25 Ethel Estrada Electrician Apprentice PowerhouseAnesthesiologist/Physician 12/05/23 documented as of this encounter
--- OUTSIDE RECORDS SUMMARY | 2025-09-14 17:27 | XMS_ITS | Clinical Summary ---
Author Organization [employer] Address [address] [facility] 7[address] [place] [address] Care Team Providers Care Director Of Nurses Registry Name Role Phone Name, Michael MAGDALENO Primary Care Provider [phone] Allergies No known active allergies Medications * [...] day for erectile dysfunction. 10 tablet 5 Active Ventolin HFA 108 (90 Base) MCG/ACT inhaler INHALE 1 PUFF BY MOUTH EVERY 6 HOURS NEEDED FOR SHORTNESS OF BREATH Active sertraline (Zoloft) 50 MG tablet Take 50 mg by mouth in the morning. 10/07/202 5 Active Active Problems Problem Noted Date [...] Left ureteral calculus 01/26/202401/25 Painless hematuria 01/26/2024 4 Near syncope 01/26/2024 01/26/2024 Injury of kidney 06/04/2023 01/26/2024 Kidney stone 12/31/2022 01/26/2024 Obesity 09/07/2012 01/26/2024 Encounters Date Type Department Care Team Description 08/01/2025 Patient Outreach [facility] MEDICINE [address] [place] [address] Michael Hargrove MD Care Management (C3CM- f/u call) 07/21/2025 1:30 PM EDT Office Visit [facility] [address] [place] [address] Chong, Caroline, OD Refractive amblyopia of both eyes (Primary Dx); Chorioretinal scar of right eye; Choroidal nevus of right eye; Combined forms of age-related cataract of both eyes; Congenital tilted optic nerve (HCC); Presbyopia 07/21/2025 Travel 07/19/2025 Patient Outreach [facility] [address] [place] [address] Michael Hargrove MD Care Management (C3CM- f/u call) 07/18/2025 Patient Outreach [address] [address] Michael Hargrove MD Care Coordination (Appointment reminder) 07/11/2025 1:30 PM EDT Office Visit [address] [address] Michael Hargrove MD Tiredness (Primary Dx); High cholesterol; Decreased hearing, bilateral; Uses hearing aid; Erectile dysfunction, unspecified erectile dysfunction type; Vaccination refused by parent 07/08/2025 Patient Outreach [address] [address] Michael Hargrove MD Care Coordination (Appointment reminder) 07/07/2025 Patient Outreach [address] [address] Michael Hargrove MD Care Management (C3CM- f/u call ) 06/24/2025 Patient Outreach [address] [address] Michael Hargrove MD Care Management (C3CM- f/u call) from Last 3 Months Immunizations Immunization Administration [...] 07/11/2025 1:29 PM EDT Plan of Treatment Health Maintenance Due Date Last Done Comments CT Colonography 1966 Dental Oral Exam 1966 Dental Prophylaxis 1966 Dental X-Ray: Bitewings 1966 Dental X-Ray: Full Mouth 1966 FIT DNA/Cologuard 1966 FIT 1966 FOBT 1966 HIV Screening 1966 Sigmoidoscopy 1966 Hepatitis C Screening 1984 Pneumococcal Vaccine: 50+ Years (2 of 2 - PCV) 12/11/2013 12/11/2012, 12/11/2012 RSV Patients and Patients Aged 60 years or older (1 - Risk 50-74 years 1-dose series) 2016 Zoster Vaccines (1 of 2) 2016 COVID-19 Vaccine (3 - 2024-2 6 season) 2025 02/27/2021, 01/31/2021 Influenza Vaccine (#1) 2025 4, 11/19/2013 Alcohol/Substance Use Screening 02/28/2026 02/28/2025 Disability Screening 02/28/2026 02/28/2025 Depression Screening 05/04/2026 05/04/2025, 05/04/2025 SDOH Screening 05/09/2026 05/09/2025 Tobacco Screening 08/08/2026 08/08/2025 Colonoscopy 12/21/2029 12/21/2024, 12/21/2024 Colorectal Cancer Screening 12/21/2029 Lipid Panel 07/11/2030 07/11/2025, 01/27/2024 DTaP/Tdap/Td Vaccines (3 - T d or Tdap) 01/25/2034 01/26/2024, 12/11/2012, 03/21/2003 Hepatitis B Vaccines Completed 06/08/2004, 03/21/2003, 09/28/2002 [...] Procedure Name Priority Date/Time Associated Diagnosis Comments FUNDUS PHOTOS - OU - BOTH EYES Routine 07/21/2025 1:30 PM EDT Congenital tilted optic nerve (HCC) TSH W/REFLEX TO FT4 Routine 07/11/2025 1 :46 PM EDT Tiredness LIPID PANEL, STANDARD Routine 07/11/2025 1:46 PM EDT High cholesterol COMPREHENSIVE METABOLIC PANEL Routine 07/11/2025 1:46 PM EDT Tiredness High cholesterol CBC WITH AUTO DIFFERENTIAL Routine 07/11/2025 1:46 PM EDT Tiredness HM COLONOSCOPY Routine 12/21/2024 from Last 3 Months or Most Recently Relevant to Health Maintenance Results * Fundus Photos - OU - Both Eyes (07/21/2025 1:30 PM EDT) Caroline Stoddard, OD - 08/05/2025 11:20 AM EST Images from the original result were not included. Right Eye Progression has been stable. Disc findings include (Significantly tilted inferonasally, Rim is pink, peripapillary atrophy from 3-7:00). Macula findings include normal observations. Vessel findings include normal observations. Periphery findings include normal observations. Left Eye Progression has been stable. Disc findings include (Significantly tilted inferonasall, Rim is pink, large cup, peripapillary atrophy from 5-12:00). Macula findings include normal observations. Vessel findings include normal observations. Periphery findings include normal observations. 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 The patient has large cupping left eye>right eye. OCT was attempted but unsuccessful due to significant tilt in both eyes. Will monitor at his next exam. us Caroline Chong OD OPHTH PHOTOGRAPHY Final Resul t * TSH W/Reflex to FT4 (07/11/2025 1:46 PM EDT) TSH reflex Free T4 1.56 0.32 - 4.0 uIU/mL [facility] Blood Venous blood specimen / Unknown 07/11/2025 1:46 PM EDT 07/11/2025 4:03 PM EDT us Michael Name MD LAB BLOOD ORDERABLES Final Resul t [facility] [address] [place] [phone] * CBC auto differential (07/11/2025 1:46 PM EDT) Pathologist [facility] White Blood Count 7.0 4.8 - 10.8 X10*3/uL [facility] Red Blood Count 5.61 4.60 - 5.80 X10*6/uL [facility] Hemoglobin 16.4 14.0 - 18.0 g/dl [facility] Hematocrit 50.8 42.0 - 52.0 % [facility] Mean Corpuscular Volume 90.6 80.0 - 98.0 fL [facility] Mean Corpuscular Hemoglobin 29.2 27.0 - 33.0 pg [facility] Mean Corpuscular HGB Conc 32.3 31.0 - 36.0 g/dl [facility] Red Cell Distribution Width 13.7 11.0 - 16.0 % [facility] Platelet Count 196 160 - 400 X10*3/uL [facility] Mean Platelet Volume 11.5 9.4 - 12.4 fL [facility] Neutrophils Percent Auto 54.2 45 - 73 % [facility] Imm Gran Pct Auto 0.4 0.0 - 0.4 % [facility] Lymphocytes Percent Auto 34.4 20 - 40 % [facility] Monocytes Percent Auto 8.0 2 - 11 % [facility] Eosinophils Percent Auto 2.3 0 - 4 % [facility] Basophils Percent Auto 0.7 0 - 2 % [facility] NRBC Pct Auto 0.0 0.0 - 0.2 /100WBC [facility] Neutrophils Absolute Auto 3.8 2.0 - 8.3 x10*3/uL [facility] Imm Gran Abs Auto 0.03 0.00 - 0.03 X10*3/uL [facility] Lymphocytes Absolute Auto 2.4 1.2 - 4.9 X10*3/uL [facility] Monocytes Absolute Auto 0.6 0.1 - 1.2 X10*3/uL [facility] Eosinophils Absolute Auto 0.2 0.0 - 0.4 X10*3/uL [facility] Basophils Absolute Auto 0.1 0.0 - 0.2 X10*3/uL [facility] NRBC Abs Auto 0.000 0.0 - 0.012 X10*3/uL [facility] Blood Venous blood specimen / Unknown 07/11/2025 1:46 PM EDT 07/11/2025 4:03 PM EDT us Michael Name LAB BLOOD ORDERABLES Final Resul t [facility] [address] [place] [phone] * (ABNORMAL) Lipid Panel, Standard (07/11/2025 1:46 PM EDT) Triglycerides 225(H) <150 mg/dL [facility] Comment:Desirable Triglyceri de: less than 150 mg/dLBorderline High Triglyceride 150-199 mg/dLHigh Triglyceride: 200-499 mg/dLVery High Triglyceride: greater than or equal to 5OO mg/dL Cholesterol 155 <200 mg/dL [facility] Comment:Desirable Cholestero l: less than 200 mg/dLBorderline High Cholesterol: 200-239 mg/dLHigh Cholesterol: greater than 239 mg/dL LDL Cholesterol Calculated 72 <100 mg/dL [facility] Comment:Desirable LDL: less than 100 mg/dLNear Optimal/Above Optimal LDL: 110- 129 mg/dLBorderline High LDL: 130-159 mg/dLHigh LDL: 160-189 mg/dLVery High LDL: greater than or equal to 190 mg/dL HDL Cholesterol 38(L) >40 mg/dL [facility] Comment:Desirable HDL: great er than 40 mg/dL Note: This HDL assay may give artificially low results in patients with liver disease. Blood Venous blood specimen / Unknown 07/11/2025 1:46 PM EDT 07/11/2025 4:03 PM EDT us Michael Name LAB BLOOD ORDERABLES Final Resul t [facility] [address] [place], [place] [phone] * (ABNORMAL) Comprehensive Metabolic Panel (07/11/2025 1:46 PM EDT) Sodium 141 135 - 145 mmol/L [facility] Potassium 3.7 3.3 - 5.1 mmol/L [facility] Chloride 106 96 - 108 mmol/L [facility] Carbon Dioxide 29 22 - 29 mmol/L [facility] Anion Gap 10(L) 12 - 20 [facility] Urea Nitrogen (BUN) 19(H) 9 - 16 mg/dL [facility] Creatinine, Serum 1.15 0.5 - 1.4 mg/dL [facility] Estimated Glomerular Filt Rate >60 [facility] Comment:Chronic Kidney Disea se: Estimated GFR < 60 mL/min/[id number] Kidney Disease: Estimated GFR < 15 mL/min/1.73m2 Glucose 107 60 - 115 mg/dL [facility] Calcium 8.8 8.4 - 10.2 mg/dL [facility] Bilirubin, Total 0.3 0.0 - 1.0 mg/dL [facility] Aspartate Amino Transferase 30 5 - 37 U/L [facility] Alanine Aminotransferase 28 0 - 40 U/L [facility] Total Protein 7.4 6.5 - 8.0 g/dL [facility] Albumin Level 4.2 3.5 - 5.0 g/dL [facility] Alkaline Phosphatase 85 39 - 117 U/L [facility] Blood Venous blood specimen / Unknown 07/11/2025 1:46 PM EDT 07/11/2025 4:03 PM EDT Michael Hargrove MD LAB BLOOD ORDERABLES Final Resul t [facility] [address] [place] [phone] * Hm Colonoscopy (12/21/2024) Colonoscopy Normal Normal Narrative Yu Garcia - 12/21/[address] Hargrove (order added ) us Historical Provider HEALTH MAINTENANCE Final Result from Last 3 Months or Most Recently Relevant to Health Maintenance Insurance [facility]ICA[facility] STAND ADULT Care Teams Director Of Nurses Registry Relationship Specialty Start Date End Date Name, MD Michael [address] [place] [phone] PCP - General Family Medicine 05/27/19 Ethel Estrada Trigonometry TutorAviation Safety Technician 12/05/23
== END 2025-09-14 13:17 | disposition home or self-care (01) ==
LOC: HO.HAP 13:16
PROVIDERS: Visit Provider Internal Medicine Geriatric Medicine
DX: Z46.1 Encounter for fitting and adjustment of hearing aid (principal); H90.3 Sensorineural hearing loss, bilateral
CPT/HCPCS: V5299